=== PATIENT | male | born 1950 | race Caucasian/White ===

== ENCOUNTER 2017-07-27 18:54 | Inpatient (IN) | payer MEDICARE, SELFPAY ==
[2017-07-27] VITALS (14 sets, daily range): BP systolic 79–118; BP diastolic 45–88; PULSE 68–93; RESP 13–20; TEMP 35.7–36.6; O2SAT 95–99; BMI 20.4; BMI 20.8
--- NOTE | 2017-07-27 19:09 | EKG12_ITS ---
Test Reason : CP Blood Pressure : / mmHG Vent. Rate : 080 BPM Atrial Rate : 082 BPM P-R Int : 000 ms QRS Dur : 094 ms QT Int : 402 ms P-R-T Axes : 000 089 101 degrees QTc Int : 463 ms Atrial fibrillation with premature ventricular or aberrantly conducted complexes ST elevation consider inferior injury or acute infarct ACUTE MS / STEMI Consider right ventricular involvement in acute inferior infarct Abnormal ECG Confirmed by JOEY BRITO ([id number]), state editor KATHY DURAN ([id number] on 07/30/2017 1:28:50 PM Referred By: Joey Brito Confirmed By:JOEY BRITO
--- NOTE | 2017-07-27 19:10 | RAD_ITS ---
STUDY: X-RAY CHEST REASON FOR EXAM: Male, 67 years old. STEMI TECHNIQUE: Single frontal view of the chest. COMPARISON: August 11, 2013 FINDINGS: Chronic appearing increased interstitial lung markings. There is a right Port-A-Cath and/or mediport in place. The tip is in the superior vena caval - atrial junction. There are multiple overlying cardiac monitoring leads. There is no demonstrated pleural abnormality. The lung rodriguez are hyperexpanded. Enlarged heart size. Normal mediastinum and jose. Normal visualized pulmonary arteries. There is atherosclerotic calcification of the aortic arch with tortuosity. There are diffuse degenerative changes of the visualized thoracic spine. There is degenerative osteoarthritis of the bilateral shoulders. There is no demonstrated abnormality of the visualized soft tissue structures of the upper abdomen. RAD/Chest 1 View (Portable) IMPRESSION: There are no acute findings. Electronically Signed: Torrey Borges MD at 19:37 EDT , Service support ,
--- NOTE | 2017-07-27 19:14 | PCM.HP.STD ---
Problem List (1) GERD (gastroesophageal reflux disease) Status: Chronic (2) Severe protein-calorie malnutrition Status: Chronic (3) Inferior ID Status: Acute (4) Cardiogenic shock Status: Acute (5) Atrial fibrillation Status: Chronic Qualifiers: Atrial fibrillation type: chronic Qualified Code(s): I48.2 - Chronic atrial fibrillation (6) Altered vision right eye Status: Chronic (7) History of bladder cancer Status: Chronic (8) Mantle cell lymphoma Status: Chronic Qualifiers: Lymphoma site: unspecified region Qualified Code(s): C83.10 - Mantle cell lymphoma, unspecified site History of Present Illness Date of Admission: 07/27/17 Chief Complaint: Chest pain, STEMI The patient is a 67 y/o M w/ PMHx: GERD, Severe protein-calorie malnutrition, Chronic Atrial fibrillation following w/ Dr. Brar on chronic coumadin therapy, Chronic Altered vision right eye, History of bladder cancer , Active Mantle cell lymphoma with ongoing chemotherapy following w/ Dr. George, most recent chemotherapy Sunday who presents to the [facility] ED on 07/27/17 with constant, 10/10 central and substernal chest pressure without radiation with associated dyspnea, nausea without emesis but also chronic issue secondary to chemotherapy onset ~ 1 hour DATA SYSTEMS ANALYST in the ED with EKG w/ inferior ID. In the ED work-up included T 96.3, HR 75, BP initially 107/77-->79/57, RR 16, 96% on 2L NC, pending CBC, BMP, trop, mag, phos, coags, CXR. Dr. Brito, Cardiology contacted for STEMI call, ordered ASA 324 mg x 1, heparin 4,000 u bolus x 1, Brillinta 180 mg x 1 in addition to 500 cc bolus prior to transition to cardiac cork slabs sawyer per ED. Past Medical History Past Medical History (Chronic Problems): Chronic Problems GERD (gastroesophageal reflux disease) (Chronic) Severe protein-calorie malnutrition (Chronic) Atrial fibrillation (Chronic) Altered vision right eye (Chronic) History of bladder cancer (Chronic) 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) Allergies ampicillin Allergy (Verified 12/12/16 11:37) Rash phenazopyridine [Phenazopyridine] Allergy (Verified 12/12/16 11:37) Rash cephalexin [Cephalexin] Adverse Reaction (Verified 12/12/16 11:37) Upset Stomach trazodone Adverse Reaction (Verified 12/12/16 11:37) Nausea Home Medications: Ambulatory Orders Medication Instructions Recorded Gabapentin [Neurontin] 100 mg PO QHS 12/12/16 Pantoprazole Sodium [Protonix] 40 mg PO DAILY 12/12/16 Amiodarone HCl [Cordarone] 200 mg PO BID #60 tablet 12/20/16 Warfarin Sodium [Coumadin] 5 mg PO DAILY #30 tablet 12/20/16 Surgical History: - - Hernia repair, Tendon repair, Port, Splenectomy, Bone marrow bx, EGD, EBUS, T+A. Psychiatric History: No pertinent psych hx Lives: Spouse/ Significant Other Smoking Status: Never smoker Tobacco Use: Non-smoker Alcohol: None Drugs: None - *Family History Paternal History Items: - - Father with heart disease afib, had chf as well. Maternal History Items: Diabetes, Heart Disease Review of Systems Constitutional: Reports: Anorexia, Malaise, Weakness, Fatigue. Denies: Chills, Fever, Weight Change HEENT: Denies: Head Aches, Sinus Congestion, Sinus Drainage Cardiovascular: Reports: Chest Pain, Chest Pressure. Denies: Palpitations Respiratory: Reports: Shortness of Breath, Shortness of breath at rest, Shortness of breath upon exertion. Denies: Cough, Sputum production Gastrointestinal: Reports: Nausea. Denies: Abdominal Pain, Vomiting Genitourinary: Denies: Dysuria Musculoskeletal: Reports: Back Pain. Denies: Joint Pain, Joint Tenderness Skin: Denies: Rash, Wounds Neurological: Denies: Numbness, Tingling, Focal weakness Psychiatric: Denies: Anxiety, Depression, Homicidal Ideations, Suicidal Ideations Hematologic/ Lymphatic: Reports: Anemia, Easy Bruising, Easy Bleeding VTE Information - Inpt Only VTE Present on Admission: No VTE Mechan Device Prophylaxis: SCD's VTE Pharm Prophylaxis ordered?: Yes Patient Problems: Active and Suspected Problems Inferior ID (Acute) Cardiogenic shock (Acute) Subjective: Seated upright in the ED bed, ongoing chest pressure, uncomfortable appearing, very cachetic. Objective: Physical Examination: General: awake, alert, oriented x 3 and cooperative, seated upright in the ED bed, ongoing acute chest pressure, uncomfortable, cachetic appearing. Skin: normal color, turgor, no icterus, cyanosis. HEENT: AT/NC, EOMI, PERRLA, dry MM, no carotid bruits or JVD noted. Lungs: Diminished bases, moderate effort, no rales, ronchi or wheezing. Heart: Irregular; no gallop, rub audible, chest port in place RU chest. Abdomen: soft, thin habitus, cachectic, NTTP, ND, normal BS, s/p splenectomy per report, no HM. Extremities: no cyanosis, clubbing, or edema, muscle and fat loss evident. Neurological: patient awake, alert, oriented x 3; cognitive function intact; pupils equally reactive to light and accomodation; cranial nerves II-XII grossly normal, moving all 4 extremities, no focal deficits, strength severely globally decreased secondary to acute presentation. Psychiatric: affect appears fatigued, strained, no acute evidence of depressive or anxiety feelings. - Physical Exam Vital Signs Temp Pulse Resp BP Pulse Ox 96.3 F L 75 17 107/77 96 07/27/17 18:55 07/27/17 18:55 07/27/17 18:55 07/27/17 18:55 07/27/17 19:13 Oxygen Flow Rate (L/min) 2 Oxygen Delivery Method Nasal Cannula Weight: 134 lb 7.712 oz Body Mass Index (BMI) 20.4 Assessment/Plan Active and Suspected Problems Inferior ID (Acute) Cardiogenic shock (Acute) The patient is a 67 y/o M w/ PMHx: GERD, Severe protein-calorie malnutrition, Chronic Atrial fibrillation following w/ Dr. Brar on chronic coumadin therapy, Chronic Altered vision right eye, History of bladder cancer , Active Mantle cell lymphoma who presents to the [facility] ED on 07/27/17 with constant, 10/10 central and substernal chest pressure without radiation with associated dyspnea, nausea without emesis but also chronic issue secondary to chemotherapy onset ~ 1 hour DATA SYSTEMS ANALYST in the ED with EKG w/ inferior ID. (1) Chest Pain/Pressure w/ Acute Inferior STEMI w/ ? Cardiogenic Shock: In the ED work-up included T 96.3, HR 75, BP initially 107/77-->79/57, RR 16, 96% on 2L NC, pending CBC, BMP, trop, mag, phos, coags, CXR. Dr. Brito, Cardiology contacted for STEMI call, ordered ASA 324 mg x 1, heparin 4,000 u bolus x 1, Brillinta 180 mg x 1 in addition to 500 cc bolus. Following intervention in the cork slabs sawyer, will admit to ICU, maintain on a monitored bed, continue serial cardiac enzymes and EKGs, pending admission labs including mag, heparin bolus upon presentation, brillinta load in addition to ASA. Following pending VS, continue management w/ asa, brillinta, high dose statin w/ AM FLP, given low BP defer BB, ACEI addition pending re-assessment. Continue IVFs, pending evaluation EF in cath, may need alternate options for hypotension. Consider ICU consultation if remains concerning. ECHO pending. (2) Chronic Atrial Fibrillation: EKG inferior ID w/ AF, rate controlled, maintain on amiodarone, pending admission INR, on coumadin outpatient, follows w/ Dr. Brar. ECHO pending. (3) Active Mantle cell lymphoma: Noted ongoing chemotherapy following w/ Dr. George, most recent chemotherapy Sunday, chemotherapy precautions as needed, mag and phos pending upon admission. (4) Severe protein-calorie malnutrition: Evidenced per habitus, muscle and fat loss, nutrition consulted. (5) GERD: PPI. (6) DVT prophylaxis: SCDs, given heparin bolus in ED. Code Visit Inpatient E&M: 35776 Init Hosp L3
[2017-07-27] MEDS: TICAGRELOR 90 MG TABLET 180 MG PO (19:15)
[2017-07-27] MEDS: Aspirin 81 MG TAB.CHEW 324 MG PO (19:15)
[2017-07-27] MEDS: Heparin Injection 5,000 UNITS/ML Syringe 4000 UNITS IV (19:15)
--- NOTE | 2017-07-27 19:15 | ED.VISSUMM ---
- ER Visit Summary Date of Service: 07/27/17 Chief Complaint: Chest pain History of Present Illness: The patient is a 67 M history of A. fib on Coumadin. He also has a history of acute lymphoma for which he is being treated with chemotherapy. And has a right chest wall port. Patient states 1 hour ago while walking in his house he developed midsternal chest pain. He denies any radiation to his back, neck or jaw. He denies other symptoms. He states he has never had a heart attack. He has no stents nor has he ever had open heart surgery. Physical Examination: Older male vital signs are stable. His blood pressure is 107/77. His pulse ox is 97% on room air no hypoxia. We are placing him on 2 L. HEENT exam unremarkable. Neck nontender no lymphadenopathy. Lungs clear to auscultation bilaterally. Heart irregularly irregular rate in the 70s. Abdomen soft nontender. He is moving all 4 extremities. Calves are nontender without edema. Neurologically he is awake and alert without focal motor deficits. Skin is unremarkable. Test Results: EKG shows acute inferior [place] with reciprocal changes in leads V2 V3 and also lead I, II and aVL. His ST elevation in 2 3 and aVF. Labs are pending. As is the chest x-ray. Emergency Department Course and Treatment: Already spoken to Dr. Gerald Brito on-call for interventional cardiology. We are assembling the Field Counsel team. The patient will receive IV heparin bolus, p.o. Brilinta and p.o. aspirin. And is awaiting the Field Counsel. Treatment Plan: [] Disposition: Admit to the ICU after he goes to the cardiac catheterization lab Impression: Acute inferior WV Chronic atrial fibrillation Acute lymphoma being treated with chemotherapy This note was generated with [employer] dictation software. It may contain incorrect words, spelling, and punctuation that were not noted in review of the chart prior to signing ED Disposition - Plan for ED Patient: Chief Complaint: Chest Pain Referrals: Winter Lamas MD [Primary Care Provider] -
--- NOTE | 2017-07-27 19:21 | ED.DCSUM_ITS ---
- ER Visit Summary Date of Service: 07/27/17 Chief Complaint: Chest pain History of Present Illness: The patient is a 67 M history of A. fib on Coumadin. He also has a history of acute lymphoma for which he is being treated with chemotherapy. And has a right chest wall port. Patient states 1 hour ago while walking in his house he developed midsternal chest pain. He denies any radiation to his back, neck or jaw. He denies other symptoms. He states he has never had a heart attack. He has no stents nor has he ever had open heart surgery. Physical Examination: Older male vital signs are stable. His blood pressure is 107/77. His pulse ox is 97% on room air no hypoxia. We are placing him on 2 L. HEENT exam unremarkable. Neck nontender no lymphadenopathy. Lungs clear to auscultation bilaterally. Heart irregularly irregular rate in the 70s. Abdomen soft nontender. He is moving all 4 extremities. Calves are nontender without edema. Neurologically he is awake and alert without focal motor deficits. Skin is unremarkable. Test Results: EKG shows acute inferior ND with reciprocal changes in leads V2 V3 and also lead I, II and aVL. His ST elevation in 2 3 and aVF. Labs are pending. As is the chest x-ray. Emergency Department Course and Treatment: Already spoken to Dr. Gerald Brito on- call for interventional cardiology. We are assembling the Natural Foods Clerk team. The patient will receive IV heparin bolus, p.o. Brilinta and p.o. aspirin. And is awaiting the Natural Foods Clerk. Treatment Plan: [] Disposition: Admit to the ICU after he goes to the cardiac catheterization lab Impression: Acute inferior ND Chronic atrial fibrillation Acute lymphoma being treated with chemotherapy This note was generated with [facility] dictation software. It may contain incorrect words, spelling, and punctuation that were not noted in review of the chart prior to signing ED Disposition - Plan for ED Patient: Chief Complaint: Chest Pain Referrals: Winter Lamas MD [Primary Care Provider] -
--- NOTE | 2017-07-27 19:26 | HP.PCM_ITS ---
Problem List (1) GERD (gastroesophageal reflux disease) Status: Chronic (2) Severe protein-calorie malnutrition Status: Chronic (3) Inferior IL Status: Acute (4) Cardiogenic shock Status: Acute (5) Atrial fibrillation Status: Chronic Qualifiers: Atrial fibrillation type: chronic Qualified Code(s): I48.2 - Chronic atrial fibrillation (6) Altered vision right eye Status: Chronic (7) History of bladder cancer Status: Chronic (8) Mantle cell lymphoma Status: Chronic Qualifiers: Lymphoma site: unspecified region Qualified Code(s): C83.10 - Mantle cell lymphoma, unspecified site History of Present Illness Date of Admission: 07/27/17 Chief Complaint: Chest pain, STEMI The patient is a 67 y/o M w/ PMHx: GERD, Severe protein-calorie malnutrition, Chronic Atrial fibrillation following w/ Dr. Brar on chronic coumadin therapy , Chronic Altered vision right eye, History of bladder cancer , Active Mantle cell lymphoma with ongoing chemotherapy following w/ Dr. George, most recent chemotherapy Sunday who presents to the 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 In the ED work-up included T 96.3, HR 75, BP initially 107/77-->79/57, RR 16, 96% on 2L NC, pending CBC, BMP , trop, mag, phos, coags, CXR. Dr. Brito, Cardiology contacted for STEMI call, ordered ASA 324 mg x 1, heparin 4,000 u bolus x 1, Brillinta 180 mg x 1 in addition to 500 cc bolus prior to transition to cardiac blender laborer per ED. Past Medical History Past Medical History (Chronic Problems): Chronic Problems GERD (gastroesophageal reflux disease) (Chronic) Severe protein-calorie malnutrition (Chronic) Atrial fibrillation (Chronic) Altered vision right eye (Chronic) History of bladder cancer (Chronic) 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) Allergies ampicillin Allergy (Verified 12/12/16 11:37) Rash phenazopyridine [Phenazopyridine] Allergy (Verified 12/12/16 11:37) Rash cephalexin [Cephalexin] Adverse Reaction (Verified 12/12/16 11:37) Upset Stomach trazodone Adverse Reaction (Verified 12/12/16 11:37) Nausea Home Medications: Ambulatory Orders Medication Instructions Recorded Gabapentin [Neurontin] 100 mg PO QHS 12/12/16 Pantoprazole Sodium [Protonix] 40 mg PO DAILY 12/12/16 Amiodarone HCl [Cordarone] 200 mg PO BID #60 tablet 12/20/16 Warfarin Sodium [Coumadin] 5 mg PO DAILY #30 tablet 12/20/16 Surgical History: - - Hernia repair, Tendon repair, Port, Splenectomy, Bone marrow bx, EGD, EBUS, T+A. Psychiatric History: No pertinent psych hx Lives: Spouse/ Significant Other Smoking Status: Never smoker Tobacco Use: Non-smoker Alcohol: None Drugs: None - *Family History Paternal History Items: - - Father with heart disease afib, had chf as well. Maternal History Items: Diabetes, Heart Disease Review of Systems Constitutional: Reports: Anorexia, Malaise, Weakness, Fatigue. Denies: Chills, Fever, Weight Change HEENT: Denies: Head Aches, Sinus Congestion, Sinus Drainage Cardiovascular: Reports: Chest Pain, Chest Pressure. Denies: Palpitations Respiratory: Reports: Shortness of Breath, Shortness of breath at rest, Shortness of breath upon exertion. Denies: Cough, Sputum production Gastrointestinal: Reports: Nausea. Denies: Abdominal Pain, Vomiting Genitourinary: Denies: Dysuria Musculoskeletal: Reports: Back Pain. Denies: Joint Pain, Joint Tenderness Skin: Denies: Rash, Wounds Neurological: Denies: Numbness, Tingling, Focal weakness Psychiatric: Denies: Anxiety, Depression, Homicidal Ideations, Suicidal Ideations Hematologic/ Lymphatic: Reports: Anemia, Easy Bruising, Easy Bleeding VTE Information - Inpt Only VTE Present on Admission: No VTE Mechan Device Prophylaxis: SCD's VTE Pharm Prophylaxis ordered?: Yes Patient Problems: Active and Suspected Problems Inferior IL (Acute) Cardiogenic shock (Acute) Subjective: Seated upright in the ED bed, ongoing chest pressure, uncomfortable appearing, very cachetic. Objective: Physical Examination: General: awake, alert, oriented x 3 and cooperative, seated upright in the ED bed, ongoing acute chest pressure, uncomfortable, cachetic appearing. Skin: normal color, turgor, no icterus, cyanosis. HEENT: AT/NC, EOMI, PERRLA, dry MM, no carotid bruits or JVD noted. Lungs: Diminished bases, moderate effort, no rales, ronchi or wheezing. Heart: Irregular; no gallop, rub audible, chest port in place RU chest. Abdomen: soft, thin habitus, cachectic, NTTP, ND, normal BS, s/p splenectomy per report, no HM. Extremities: no cyanosis, clubbing, or edema, muscle and fat loss evident. Neurological: patient awake, alert, oriented x 3; cognitive function intact; pupils equally reactive to light and accomodation; cranial nerves II-XII grossly normal, moving all 4 extremities, no focal deficits, strength severely globally decreased secondary to acute presentation. Psychiatric: affect appears fatigued, strained, no acute evidence of depressive or anxiety feelings. - Physical Exam Vital Signs Temp Pulse Resp BP Pulse Ox 96.3 F L 75 17 107/77 96 07/27/17 18:55 07/27/17 18:55 07/27/17 18:55 07/27/17 18:55 07/27/17 19:13 Oxygen Flow Rate (L/min) 2 Oxygen Delivery Method Nasal Cannula Weight: 134 lb 7.712 oz Body Mass Index (BMI) 20.4 Assessment/Plan Active and Suspected Problems Inferior IL (Acute) Cardiogenic shock (Acute) The patient is a 67 y/o M w/ PMHx: GERD, Severe protein-calorie malnutrition, Chronic Atrial fibrillation following w/ Dr. Brar on chronic coumadin therapy , Chronic Altered vision right eye, History of bladder cancer , Active Mantle cell lymphoma who presents to the 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 (1) Chest Pain/Pressure w/ Acute Inferior STEMI w/ ? Cardiogenic Shock: In the ED work-up included T 96.3, HR 75, BP initially 107/77-->79/57, RR 16, 96% on 2L NC, pending CBC, BMP, trop, mag, phos, coags, CXR. Dr. Brito, Cardiology contacted for STEMI call, ordered ASA 324 mg x 1, heparin 4,000 u bolus x 1, Brillinta 180 mg x 1 in addition to 500 cc bolus. Following intervention in the blender laborer, will admit to ICU, maintain on a monitored bed, continue serial cardiac enzymes and EKGs, pending admission labs including mag, heparin bolus upon presentation, brillinta load in addition to ASA. Following pending VS, continue management w/ asa, brillinta, high dose statin w/ AM FLP, given low BP defer BB, ACEI addition pending re-assessment. Continue IVFs, pending evaluation EF in cath, may need alternate options for hypotension. Consider ICU consultation if remains concerning. ECHO pending. (2) Chronic Atrial Fibrillation: EKG inferior IL w/ AF, rate controlled, maintain on amiodarone, pending admission INR, on coumadin outpatient, follows w / Dr. Brar. ECHO pending. (3) Active Mantle cell lymphoma: Noted ongoing chemotherapy following w/ Dr. George, most recent chemotherapy Sunday, chemotherapy precautions as needed, mag and phos pending upon admission. (4) Severe protein-calorie malnutrition: Evidenced per habitus, muscle and fat loss, nutrition consulted. (5) GERD: PPI. (6) DVT prophylaxis: SCDs, given heparin bolus in ED. Code Visit Inpatient E&M: 69736 Init Hosp L3
[2017-07-27 19:37] LABS: Absolute Lymphocyte Count 1.86 X10^3/ul (0.83-4.51); Absolute Neutrophil Count 2.8 X10^3/uL (2.0-7.7); Basophil# 0.02 X10^3/uL; Basophil% 0.4 % (0-1); Eosinophils% 1.8 % (0-5); Hematocrit 42.4 % (40-54); Hemoglobin 14.5 g/dl (13.0-16.5); Lymphocyte # 1.86 X10^3/ul (4.0); Lymphocyte % 34.2 % (19-41); Mean Corp Hgb Conc 34.2 g/gl (32-36); Mean Corpuscular Volume 102.4 fL (80-94); Mean Platelet Vol. 11.5 fl (6.2-12.0); Monocyte# 0.64 X10^3/uL; Monocyte% 11.8 % (0-10); Neutrophil % 51.4 % (47-70); Platelet Count 174 K/mm3 (150-450); RBC Distribution Width CV 13.7 % (11.6-14.6); RBC Distribution Width SD 51.8 fl (35.1-43.9); Red Blood Count 4.14 M/mm3 (4.6-6.2); White Blood Count 5.4 K/mm3 (4.4-11.0)
[2017-07-27 19:41] LABS: POSITIVE COUNT NO; POSITIVE DIFFERENTIAL NO; POSITIVE MORPHOLOGY NO
[2017-07-27 19:48] LABS: International Normalized Ratio 1.3
[2017-07-27 20:06] LABS: Anion Gap 8 (5-15); BUN 15 mg/dL (7-18); BUN/Creat Ratio 13.9 RATIO (10-20); Calcium,Total 8.8 mg/dL (8.5-10.1); Chloride 108 mmol/L (98-107); Creatinine, Serum 1.08 mg/dL (0.70-1.30); EST Glomerular Filtration Rate 73 mL/min (>60); Est Glom Filt Rate - Afr Amer 88 mL/min (>60); Estimated Creatinine Clearance 58.83 ml/min; Glucose 107 mg/dL (74-106); Magnesium 2.2 mg/dL (1.6-2.6); Potassium 3.2 mmol/L (3.5-5.1); Sodium Level 143 mmol/L (136-145)
[2017-07-27 20:09] LABS: Phosphorus 3.1 mg/dL (2.5-4.9)
--- NOTE | 2017-07-27 20:51 | CL.I_ITS ---
Patient Name: BANDAR BLISS Study Date: 07/27/2017 Performing: Isacc Brito MD Ht: 68.11 inches 173 cm : 1950 Wt: 134.48 lbs 61 kg Age: 67 Gender: male BSA: 1.73 PROCEDURE(S) PERFORMED [id number]/LV [id number], BMS AND/OR PTCA ARTERY OR GRAFT SINGLE VESSEL CLINICAL PROFILE AND CO-MORBIDITIES INDICATIONS: Unstable Angina Stress/Imaging Stress/Image Study Performed: No Angina Classification Anginal Classification w/in 2 Weeks: No symptoms CAD Presentations: STEMI. Symptom onset Date/Time: 07/27/2017 17:30:00 Time Estimated Comorbidities/Risk Factors: Hypertension Dyslipidemia CONCLUSIONS Double vessel CAD of the LAD, acutely occluded RCA. Successful emergent PCI with Bare metal stent to the proximal RCA with a 4.0 x 26 BMS, post dilated w ith a 4.5 x 12 NC Balloon; 100%-->0%, no dissection. RECOMMENDATIONS Referred for immediate PCI Management as per referring [place] Elective PCI of LAD and DIAG in 3 weeks. Highly recommend quitting all tobacco products Follow up with primary commercial real estate assistant Risk factor modification ASA Indefinitley Brilinat or equivalent for at least 12 months Routine post interventional care Refer for Outpatient Cardiac Rehab Manual sheath removal per protocol Follow up with Dr. Brito Elective PCI to LAD and DIAG in 3 weeks. Leave sheath in overnight for BP monitoring. DESCRIPTION OF PROCEDURE The patient arrived to the procedure lab. The risks and benefits of the procedure as well as a full d escription of our services here and lack of surgical backup were fully explained to the patient and/o r their significant other prior to the catheterization. The Timeout was completed, verifying the rose ect patient and procedure. The patient's procedural site was prepped and draped in the usual fashion. Local anesthetic was given subcutaneously to right groin region with Lidocaine 2%. Using a modified Seldinger technique, arterial access was obtained via the right femoral artery, a 6Fr sheath was inse rted.. Left Coronary Artery selective angiography was performed in multiple views using a 4 Fr. JL5 catheter. Left Ventriculography was performed in LUQUE projection using a 4 Fr. Pigtail catheter HSII Guide catheter was inserted and engaged into the RCA. Runthru Guide wire was advanced to the RCA . Sumter AP inserted Pass # 1 Sumter AP Removed Sumter AP inserted Pass # 2 Sumter AP Removed Angiogr am performed pre balloon dilatation. 2.5x12 Emerge Balloon catheter was inserted. PTCA balloon inflat ed at 6 atms for 10 secs PTCA balloon inflated at 6 atms for 6 secs PTCA balloon inflated at 12 atms for 10 secs Sumter AP inserted Pass # 3 Sumter AP Removed Angiogram performed pre stent deployment. 4 .0x26 Integrity Bare Metal stent was advanced across the lesion in the right coronary, proximal. Rosalinda ogram performed post stent deployment. 4..5x20 NC Emerge Balloon catheter was inserted post stent. An giogram performed post balloon dilatation.. . The arterial sheath was sutured in place and capped. CORONARY ANGIOGRAPHY DOMINANCE: Right Dominant LEFT HEART ASSESSMENT Left Ventricular Ejection Fraction: by LV Gram 55 % Depressed Left Ventricular systolic function Normal Left Ventricular End Diastolic Pressure Inferior Basal Hypokinesis - Moderate LEFT MAIN: Angiographically normal LEFT ANTERIOR DECENDING ARTERY: PROX LAD: 75 % Stenosis DIAGONAL 1: Proximal - 75 % Stenosis CIRCUMFLEX ARTERY: No significant disease noted RIGHT CORONARY ARTERY: PROX RCA: is occluded INTERVENTION INFORMATION LESION SITE: RCA (Ostial) Lesion Complexity: High/C, lesion at bifurcation: No, thrombus present: Yes, lesion length: 26 mm, cu lprit lesion: Yes Pre Stenosis: 100 % Pre intervention SEPIDEH flow: 0 PROCEDURE: Thrombectomy, Balloon Angioplasty, Bare Metal Stent with pre and post dilatation. Post Stenosis: 0 % Post intervention SEPIDEH flow: 3 Lesion Devices: Terumo .014 Runthrough Extra Floppy 180cm straight Medtronic 6 Fr HSII 100cm Guide Catheter Medtronic 6 Fr. Sumter AP Aspiration Catheter Joaquin Sci EMERGE MR 2.50x12 BALLOON Medtronic Integrity RX BMS 4.0x26 Joaquin Sci NC EMERGE MR 4.50x12 BALLOON COMPLICATIONS No Complications PROCEDURE MEDICATIONS Oxygen: 2 L/min via nasal cannula Atropine 1mg/10ml .25 amp @ 07/27/2017 19:56:43 Heparin 4000 unit(s) IV 07/27/2017 19:59:18 IV Fluids: .9 NaCl increased to open ml/hr 07/27/2017 19:39:36 SUMMARY OF HEMODYNAMIC DATA Time AIR REST ECG 19:39:08 LV 108/-10, 12 20:25:14 LV 106/-8, 12 20:25:21 LVp 103/-10, 11 20:25:27 AOp 99/54 (73) 20:25:32 AOp 101/58 (76) 20:25:37 Signed By Isacc Brito MD On 07/27/2017 20:50:47 Isacc Brito MD
[2017-07-27 21:11] LABS: ACT Activated Clotting Time 202 sec (74-137)
[2017-07-27 21:11] LABS: ACT Activated Clotting Time 235 sec (74-137)
--- NOTE | 2017-07-27 21:19 | EKG12_ITS ---
Test Reason : POST CATH Blood Pressure : / mmHG Vent. Rate : 089 BPM Atrial Rate : 079 BPM P-R Int : 000 ms QRS Dur : 090 ms QT Int : 392 ms P-R-T Axes : 000 044 -20 degrees QTc Int : 476 ms Atrial fibrillation Low voltage QRS Abnormal ECG When compared with ECG of 20-DEC-2016 15:24, No significant change was found Confirmed by JOEY BRITO ([id number]), art editor KATHY DURAN ([id number]) on 08/02/2017 2:51:24 PM Referred By: Joey Brito Confirmed By:JOEY BRITO
[2017-07-27] MEDS: 0.9% Normal Saline 1,000 ML 150 ML IV (21:20)
[2017-07-27 22:05] LABS: Hematocrit 36.6 % (40-54); Hemoglobin 12.8 g/dl (13.0-16.5); Mean Corpuscular Hgb 35.7 pg (27.0-32.0); Mean Corpuscular Volume 101.9 fL (80-94); Mean Platelet Vol. 11.2 fl (6.2-12.0); Platelet Count 154 K/mm3 (150-450); RBC Distribution Width CV 13.5 % (11.6-14.6); Red Blood Count 3.59 M/mm3 (4.6-6.2); Scan Indicated on CBC? Y/N NO; White Blood Count 8.8 K/mm3 (4.4-11.0)
[2017-07-27 22:43] LABS: CPK Total, Creatine Kinase 323 U/L (39-308)
[2017-07-27 22:46] LABS: BNP,B-Type NATRIURETIC PEPTIDE 206.4 pg/mL (0-100)
[2017-07-27] MEDS: Gabapentin 100 MG Capsule PO (22:50)
[2017-07-27] MEDS: oxyCODONE 5 MG Tablet PO (22:50)
[2017-07-27] MEDS: Atorvastatin Calcium 80 MG Tablet PO (22:51)
[2017-07-27] MEDS: Amiodarone 200 MG Tablet PO (22:51)
[2017-07-27] MEDS: Metoprolol Tartrate 25 MG Tablet 12.5 MG PO (22:52)
[2017-07-28] VITALS (44 sets, daily range): BP systolic 84–119; BP diastolic 52–86; PULSE 65–87; RESP 6–19; TEMP 35.5–37; O2SAT 96–100
[2017-07-28] MEDS: Ondansetron 4 MG/2 ML Vial IV (01:13)
[2017-07-28 03:50] LABS: Hematocrit 38.5 % (40-54); Hemoglobin 12.9 g/dl (13.0-16.5); Mean Corp Hgb Conc 33.5 g/gl (32-36); Mean Corpuscular Hgb 34.9 pg (27.0-32.0); Mean Corpuscular Volume 104.1 fL (80-94); Platelet Count 158 K/mm3 (150-450); White Blood Count 6.2 K/mm3 (4.4-11.0)
[2017-07-28 03:51] LABS: Scan Indicated on CBC? Y/N NO
[2017-07-28 03:54] LABS: International Normalized Ratio 1.5; Prothrombin Time (Protime)PT. 18.2 SECONDS (11.7-14.9)
[2017-07-28 04:07] LABS: ALB/GLOB Ratio 1.4 RATIO (0.9-2.4); AST(SGOT) 104 U/L (15-37); Alanine Aminotransfer ALT/SGPT 27 U/L (16-61); Albumin, Serum 3.6 g/dL (3.2-5.0); Alkaline Phosphatase 61 U/L (45-117); Anion Gap 6 (5-15); BUN 13 mg/dL (7-18); BUN/Creat Ratio 14.3 RATIO (10-20); Chloride 109 mmol/L (98-107); Cholesterol 158 mg/dL (200); Creatinine, Serum 0.91 mg/dL (0.70-1.30); EST Glomerular Filtration Rate 89 mL/min (>60); Est Glom Filt Rate - Afr Amer 107 mL/min (>60); Globulin 2.5 g/dL (2.2-4.2); Glucose 109 mg/dL (74-106); High Density Lipoprotein 46 mg/dL; Potassium 4.1 mmol/L (3.5-5.1); Protein, Total 6.1 g/dL (6.4-8.2); Sodium Level 143 mmol/L (136-145); Triglycerides 66 mg/dL; Very Low Density Lipoprotein 13 mg/dL (5-40)
[2017-07-28 04:28] LABS: CPK Total, Creatine Kinase 894 U/L (39-308)
[2017-07-28] MEDS: oxyCODONE 5 MG Tablet PO ×2 (04:34→08:52)
[2017-07-28] MEDS: 0.9% NaCl Peripheral Flush Adult/Peds IV ×5 (04:35→21:08)
--- NOTE | 2017-07-28 05:55 | EKG12_ITS ---
Test Reason : AM EKG Blood Pressure : / mmHG Vent. Rate : 080 BPM Atrial Rate : 070 BPM P-R Int : 000 ms QRS Dur : 090 ms QT Int : 402 ms P-R-T Axes : 000 031 -42 degrees QTc Int : 463 ms Atrial fibrillation Low voltage QRS T wave abnormality, consider inferior ischemia Abnormal ECG When compared with ECG of 27-JUL-2017 22:53, MANUAL COMPARISON REQUIRED, DATA IS UNCONFIRMED Confirmed by JOEY BRITO ([id number]), makeup editor KATHY DURAN ([id number]) on 08/02/2017 2:52:11 PM Referred By: Joey Brito Confirmed By:JOEY BRITO
--- NOTE | 2017-07-28 05:55 | ECHOD_ITS ---
Reason For Study: CAD/ASHD Procedure This was a 2D Doppler, Color Flow transthoracic echocardiogram. Exam performed portable in ICU/CCU. Patient scanned supine. Left Ventricle Mildly dilated left ventricle. The estimated ejection fraction is 45-50 %. Infero-Basal: Mildly hypokinetic. Mid-Posterior: Mildly hypokinetic. Right Ventricle Mildly dilated right ventricle. Normal systolic function. Atria The left atrium is moderately enlarged. Normal right atrium. Normal atrial septum. Mitral Valve Mild focal mitral valve thickening. Mild mitral annular calcification extending into the posterior leaflet. Moderate (2+) mitral valve insufficiency. Tricuspid Valve Normal tricuspid valve. Mild (1+) tricuspid valve insufficiency. Right ventricular systolic pressure estimated to be 33 mmHg. Aortic Valve Trisinus/trileaflet aortic valve. Normal aortic valve. Pulmonic Valve Normal pulmonic valve. Great Vessels Normal aortic root. Normal arch. Normal inferior vena cava. Inferior vena cava collapse with sniff. Pericardium/Pleural No pericardial effusion. MMode/2D Measurements & Calculations LVIDd: 5.2 cm IVSd: 1.0 cm Ao root diam: 3.1 cm LVIDs: 4.0 cm LVPWd: 1.0 cm LA dimension: 4.8 cm RVDd: 3.8 cm FS: 22.6 % LAV(MOD-bp): 71.6 ml LA A4 area: 21.2 cm2 RA A4 area: 18.3 cm2 LAV(MOD-bp) Indexed: 41.5 ml/m2 LAV(MOD-sp2): 78.1 ml LAV(MOD-sp4): 60.1 ml Doppler Measurements & Calculations MV E max gene: 107.0 cm/sec Lat Peak E' Gene: 11.6 cm/sec Med Peak E' Gene: 7.1 cm/sec E/E' lat: 9.2 E/E' med: 15.2 Ao V2 max: 91.0 cm/sec LV V1 max: 64.2 cm/sec PA V2 max: 49.9 cm/sec Ao max P.3 mmHg LV V1 max P.7 mmHg Ao V2 mean: 64.8 cm/sec Ao mean P.9 mmHg Ao V2 VTI: 15.4 cm TR max gene: 212.5 cm/sec TR max P.1 mmHg Interpretation Summary Mildly dilated left ventricle. The estimated ejection fraction is 45-50 %. Infero-Basal: Mildly hypokinetic Mid-Posterior: Mildly hypokinetic Mildly dilated right ventricle. The left atrium is moderately enlarged. Moderate (2+) mitral valve insufficiency. Mild (1+) tricuspid valve insufficiency. Right ventricular systolic pressure estimated to be 33 mmHg. Compared to echo report dated 12/20/2016, pt has new inferior/posterior wall motion hypokinesis and LVEF has decreased from 65% to 50%. RVSP has remained the same. Pt appears to be in atrial fibrillation. Ordering Physician: Isacc Brito Referring Physician: iWnter Lamas Performed By: Jessica Hurst, RDCS, RVT
[2017-07-28] MEDS: Aspirin E.C. 81 MG Tablet PO (08:09)
[2017-07-28 08:15] LABS: ACT Activated Clotting Time 131 sec (74-137)
[2017-07-28 08:27] LABS: Hematocrit 36.6 % (40-54); Hemoglobin 12.5 g/dl (13.0-16.5); Mean Corp Hgb Conc 34.2 g/gl (32-36); Mean Corpuscular Volume 102.5 fL (80-94); Mean Platelet Vol. 11.4 fl (6.2-12.0); Platelet Count 151 K/mm3 (150-450); RBC Distribution Width CV 13.9 % (11.6-14.6); RBC Distribution Width SD 52.5 fl (35.1-43.9); Red Blood Count 3.57 M/mm3 (4.6-6.2); Scan Indicated on CBC? Y/N NO; White Blood Count 6.7 K/mm3 (4.4-11.0)
[2017-07-28 08:48] LABS: CPK Total, Creatine Kinase 866 U/L (39-308)
--- NOTE | 2017-07-28 09:14 | PN.CARD_ITS ---
Subjectve: Patient doing very well this morning, no 24 hour events. EKG shows atrial fibrillation with resolving inferior T-wave inversion. Telemetry shows atrial fibrillation with rapid ventricular response 3 beats of nonsustained V. tach. Hemoglobin stable, creatinine stable. Peak troponins of 38.6 thus far. INR 1.5 this morning. Objective: Vital Signs Temp Pulse Resp BP Pulse Ox 95.9 F L 80 16 101/78 96 07/28/17 08:00 07/28/17 08:00 07/28/17 08:00 07/28/17 08:00 07/28/17 08:00 Oxygen Flow Rate (L/min) 1 Oxygen Delivery Method Room Air Weight: 145 lb 15.136 oz Body Mass Index (BMI) 20.8 Intake and Output for Last 24 Hours 07/26/17 07/27/17 07/28/17 23:59 23:59 23:59 Intake Total 1095 / 1095 Output Total 175 / 175 Balance 920 / 920 General: Awake, Alert, Oriented x 3 HEENT: PERRL, EOMI, Sclera Non Icteric Neck: Supple, Good ROM, No Lymph Node Enlargement Lungs: Clear to auscultation Cardiovascular: Irregular Rhythm, Normal S1, Normal S2, No Murmurs, No Rubs, No Gallops Vascular: No Carotid Bruits, Normal Femoral Pulses, Normal Radial Pulses, Normal Dorsalis Pedal Pulse, Normal Posterior Tibial Pulses Abdomen: Bowel Sounds Present, Soft, Non Tender, No HSM, No Organomegaly Extremities: No Cyanosis, No Clubbing, No edema Neurological: No Focal Motor or Sensory Deficit 07/27/17 21:50: B-Natriuretic Peptide 206.4 H 07/27/17 21:50: WBC 8.8, RBC 3.59 L, Hgb 12.8 L, Hct 36.6 L, MCV 101.9 H, MCH 35.7 H, MCHC 35.0, RDW 13.5, RDW Differential 49.0 H, Plt Count 154, MPV 11.2 07/27/17 23:00: Troponin I 13.30 H* 07/28/17 03:30: PT 18.2 H, INR 1.5 07/28/17 03:30: Sodium 143, Potassium 4.1, Chloride 109 H, Carbon Dioxide 28.0, Anion Gap 6, BUN 13, Creatinine 0.91, Est GFR (MDRD) Af Amer 107, Est GFR (MDRD ) Non-Af 89, BUN/Creatinine Ratio 14.3, Glucose 109 H, Calcium 8.0 L, Total Bilirubin 0.40, Triglycerides 66, Cholesterol 158, LDL Cholesterol 99, VLDL Cholesterol 13, HDL Cholesterol 46 07/28/17 03:30: WBC 6.2, RBC 3.70 L, Hgb 12.9 L, Hct 38.5 L, MCV 104.1 H, MCH 34.9 H, MCHC 33.5, RDW 14.0, RDW Differential 53.0 H, Plt Count 158, MPV 11.0 07/28/17 03:30: Troponin I 34.30 H* 07/28/17 08:05: WBC 6.7, RBC 3.57 L, Hgb 12.5 L, Hct 36.6 L, MCV 102.5 H, MCH 35.0 H, MCHC 34.2, RDW 13.9, RDW Differential 52.5 H, Plt Count 151, MPV 11.4 07/28/17 08:05: Troponin I 36.80 H* Rhythm: EKG: ECHO: Pending Stress Test: Cardiac Cath: PCI: CT Surgery: Holter monitor: EPS: PPM: CXR: Chest CT Scan: Medical Necessity - Tobacco Use Smoking Status: Never smoker Tobacco Use: Non-smoker Assessment/Plan 1. Acute inferior wall myocardial infarction: The patient had acute inferior wall myocardial infarction with delayed presentation of approximately an hour and a half, door to balloon time of approximately 60 minutes, with successful thrombectomy and angioplasty and bare-metal stenting to his proximal RCA. He received a 4.0 mm diameter stent, postdilated to 4.5 mm. He also has significant mid LAD and proximal diagonal disease which will require elective intervention in 3 weeks time. Recommend continuing troponin monitoring until he peaks, at which time may consider discharge out of the ICU. He will continue his baby aspirin, Eliquis 90 mg p.o. twice daily, and resume his Coumadin in 3 days time once his right groin has healed. We will remove his sheets this morning as his INR is 1.3. 2. Atrial fibrillation: For some reason the patient was on amiodarone 200 mg twice daily upon admission, and I will reduce this to 200 mg a day. In addition he will undergo a 2D echo with Doppler to evaluate his LV function, pulmonary pressures and valvular status. We will resume his Coumadin in 3 days time. He will require Coumadin therapy with an INR between 2.03.0 for 3 consecutive weeks at which time we will hold it for elective angioplasty of his LAD and diagonal. 3. Hypertension: I started the patient on low-dose beta-cristhian therapy and his blood pressure has remained stable. Continue Lopressor 12.5 mg's p.o. twice daily. Patient still too hypotensive to initiate TREVOR inhibitor therapy. 4. Hyperlipidemia: Initiating Lipitor 80 mg p.o. nightly, repeat lipid profile in 6 weeks time. 5. Patient may be transferred to PCU once his troponins have peaked and assuming his right groin is stable after sheath removal. Code Visit Inpatient E&M: 97084 Subs Hosp L2
[2017-07-28] MEDS: TICAGRELOR 90 MG TABLET PO ×2 (13:08→21:52)
[2017-07-28] MEDS: Pantoprazole Sodium 40 MG Tablet PO (13:09)
--- NOTE | 2017-07-28 13:58 | CASEMGMT ---
Addendum entered by Basim Rao 07/28/17 14:01: [employer] savings card given to pt and explained. Original Note: See RN CM Assessment Link. DC PLAN: home, may benefit from [facility]. -pt w/severe protein-calorie malnutrition. dietary consult ordered. may need script for ensure enlive on dc. -will follow PT/OT when able to evaluate. Pt is still on bedrest. Shiva HARRISN RN ACM
[2017-07-28 14:20] LABS: Hematocrit 36.8 % (40-54); Hemoglobin 12.5 g/dl (13.0-16.5); Mean Corpuscular Hgb 35.2 pg (27.0-32.0); Mean Corpuscular Volume 103.7 fL (80-94); Mean Platelet Vol. 10.9 fl (6.2-12.0); Platelet Count 147 K/mm3 (150-450); RBC Distribution Width CV 13.9 % (11.6-14.6); RBC Distribution Width SD 52.9 fl (35.1-43.9); Red Blood Count 3.55 M/mm3 (4.6-6.2)
[2017-07-28 14:21] LABS: Scan Indicated on CBC? Y/N NO
[2017-07-28] MEDS: Amiodarone 200 MG Tablet PO (15:00)
[2017-07-28] MEDS: Metoprolol Tartrate 25 MG Tablet 12.5 MG PO (15:00)
--- NOTE | 2017-07-28 17:19 | PCM.PROGNOTE ---
Patient Problems: Active and Suspected Problems Inferior AR (Acute) Cardiogenic shock (Acute) Subjective: Pt is a 67 YO male with a PMH of GERD, CAF, Bladder CA and Active Mantle cell lymphoma( follows with Dr. George) who presented to the ED at [facility] on 07/27/17 c/o substernal CP that had lasted approximately 1 hour prior to coming to the ER. EKG in the ER showed STEMI in the inferior wall and the cath team was called. He was taken to the labeling specialist and had 100% occlusion of the RCA. He underwent PCI with a bare metal stent to the RCA. He also has disease in the LAD and will be brought back in 3 weeks for elective PCI to a 75% LAD lesion and 75% proximal diagonal lesion. He is afebrile. VS are stable. He is 97-100% saturated on RA. Troponin peaked at 36.8 and the last troponin was 24.3. Denies CP, palpitations, SOB, N/V. He is tolerating his diet well. Scheduled for his next chemo on 07/30. - Physical Exam General: Alert, Oriented x3, Cooperative, No apparent distress HEENT: Atraumatic Oral: Moist Mucosa Neck: No JVD Lungs: Clear to auscultation Cardiovascular: Normal S1, Normal S2, Irregular Rate - AF with controlled VR, No rub noted, No Gallop Abdomen: Bowel Sounds Present, Soft, Non Tender, Non-Distended Extremities: No cyanosis, No edema, No Calf Tenderness Psych/Mental Status: Normal Affect, Appropriate Vital Signs Temp Pulse Resp BP Pulse Ox 97.8 F 67 18 97/58 L 97 07/28/17 16:00 07/28/17 17:00 07/28/17 17:00 07/28/17 17:00 07/28/17 17:00 Oxygen Flow Rate (L/min) 97 Oxygen Delivery Method Room Air Weight: 145 lb 15.136 oz Body Mass Index (BMI) 20.8 Intake and Output for Last 24 Hours 07/26/17 07/27/17 07/28/17 23:59 23:59 23:59 Intake Total 1275 / 1275 Output Total 575 / 575 Balance 700 / 700 Laboratory Tests Past 24 Hrs 07/27/17 07/27/17 07/27/17 19:55 20:25 21:50 WBC RBC Hgb Hct MCV MCH MCHC RDW RDW Differential Plt Count MPV PT INR Activated Clotting Time 202 H 235 H Sodium Potassium Chloride Carbon Dioxide Anion Gap BUN Creatinine Estim Creat Clear Calc Est GFR (MDRD) Af Amer Est GFR (MDRD) Non-Af BUN/Creatinine Ratio Glucose Calcium Total Bilirubin AST ALT Alkaline Phosphatase Total Creatine Kinase Troponin I B-Natriuretic Peptide 206.4 H Total Protein Albumin Globulin Albumin/Globulin Ratio Triglycerides Cholesterol LDL Cholesterol VLDL Cholesterol HDL Cholesterol 07/27/17 07/27/17 07/27/17 21:50 21:50 23:00 WBC 8.8 RBC 3.59 L Hgb 12.8 L Hct 36.6 L MCV 101.9 H MCH 35.7 H MCHC 35.0 RDW 13.5 RDW Differential 49.0 H Plt Count 154 MPV 11.2 PT INR Activated Clotting Time Sodium Potassium Chloride Carbon Dioxide Anion Gap BUN Creatinine Estim Creat Clear Calc Est GFR (MDRD) Af Amer Est GFR (MDRD) Non-Af BUN/Creatinine Ratio Glucose Calcium Total Bilirubin AST ALT Alkaline Phosphatase Total Creatine Kinase 323 H Troponin I 13.30 H* B-Natriuretic Peptide Total Protein Albumin Globulin Albumin/Globulin Ratio Triglycerides Cholesterol LDL Cholesterol VLDL Cholesterol HDL Cholesterol 07/28/17 07/28/17 07/28/17 03:30 03:30 03:30 WBC 6.2 RBC 3.70 L Hgb 12.9 L Hct 38.5 L MCV 104.1 H MCH 34.9 H MCHC 33.5 RDW 14.0 RDW Differential 53.0 H Plt Count 158 MPV 11.0 PT 18.2 H INR 1.5 Activated Clotting Time Sodium 143 Potassium 4.1 Chloride 109 H Carbon Dioxide 28.0 Anion Gap 6 BUN 13 Creatinine 0.91 Estim Creat Clear Calc 71.20 Est GFR (MDRD) Af Amer 107 Est GFR (MDRD) Non-Af 89 BUN/Creatinine Ratio 14.3 Glucose 109 H Calcium 8.0 L Total Bilirubin 0.40 AST 104 H ALT 27 Alkaline Phosphatase 61 Total Creatine Kinase Troponin I B-Natriuretic Peptide Total Protein 6.1 L Albumin 3.6 Globulin 2.5 Albumin/Globulin Ratio 1.4 Triglycerides 66 Cholesterol 158 LDL Cholesterol 99 VLDL Cholesterol 13 HDL Cholesterol 46 07/28/17 07/28/17 07/28/17 03:30 03:30 08:04 WBC RBC Hgb Hct MCV MCH MCHC RDW RDW Differential Plt Count MPV PT INR Activated Clotting Time 131 Sodium Potassium Chloride Carbon Dioxide Anion Gap BUN Creatinine Estim Creat Clear Calc Est GFR (MDRD) Af Amer Est GFR (MDRD) Non-Af BUN/Creatinine Ratio Glucose Calcium Total Bilirubin AST ALT Alkaline Phosphatase Total Creatine Kinase 894 H Troponin I 34.30 H* B-Natriuretic Peptide Total Protein Albumin Globulin Albumin/Globulin Ratio Triglycerides Cholesterol LDL Cholesterol VLDL Cholesterol HDL Cholesterol 07/28/17 07/28/17 07/28/17 08:05 08:05 08:05 WBC 6.7 RBC 3.57 L Hgb 12.5 L Hct 36.6 L MCV 102.5 H MCH 35.0 H MCHC 34.2 RDW 13.9 RDW Differential 52.5 H Plt Count 151 MPV 11.4 PT INR Activated Clotting Time Sodium Potassium Chloride Carbon Dioxide Anion Gap BUN Creatinine Estim Creat Clear Calc Est GFR (MDRD) Af Amer Est GFR (MDRD) Non-Af BUN/Creatinine Ratio Glucose Calcium Total Bilirubin AST ALT Alkaline Phosphatase Total Creatine Kinase 866 H Troponin I 36.80 H* B-Natriuretic Peptide Total Protein Albumin Globulin Albumin/Globulin Ratio Triglycerides Cholesterol LDL Cholesterol VLDL Cholesterol HDL Cholesterol 07/28/17 07/28/17 14:10 14:10 WBC 8.0 RBC 3.55 L Hgb 12.5 L Hct 36.8 L MCV 103.7 H MCH 35.2 H MCHC 34.0 RDW 13.9 RDW Differential 52.9 H Plt Count 147 L MPV 10.9 PT INR Activated Clotting Time Sodium Potassium Chloride Carbon Dioxide Anion Gap BUN Creatinine Estim Creat Clear Calc Est GFR (MDRD) Af Amer Est GFR (MDRD) Non-Af BUN/Creatinine Ratio Glucose Calcium Total Bilirubin AST ALT Alkaline Phosphatase Total Creatine Kinase Troponin I 24.30 H* B-Natriuretic Peptide Total Protein Albumin Globulin Albumin/Globulin Ratio Triglycerides Cholesterol LDL Cholesterol VLDL Cholesterol HDL Cholesterol Medical Necessity - Tobacco Use Smoking Status: Never smoker Tobacco Use: Non-smoker Assessment/Plan Active and Suspected Problems Inferior AR (Acute) Cardiogenic shock (Acute) Impressions 1. STEMI - inferior wall 2. SP RCA bare metal stent for complete occlusion. will need to return in 3 weeks time to have stents to the LAD (75%) and the proximal diagonal(75%) 3. Mantle cell lymphoma - currently seeing Dr. George and receiving chemo 4. Hx of bladder cancer 5. hx of severe protein calorie malnutrition - resolved 6. CAF with good rate control 7. CAD transfer to PCU since the troponin is now trending down Restart Warfarin in another 48 hours Will need to follow up in the [facility] office to arrange PCI of the 75% LAD lesion and 75% proximal diagonal lesion in [address] Brito Code Visit Inpatient E&M: [id number] [facility] [place] Hosp L3
--- NOTE | 2017-07-28 17:44 | PN_ITS ---
Patient Problems: Active and Suspected Problems Inferior CO (Acute) Cardiogenic shock (Acute) Subjective: Pt is a 67 YO male with a PMH of GERD, CAF, Bladder CA and Active Mantle cell lymphoma( follows with Dr. George) who presented to the ED at [facility] on 07/27/17 c/o substernal CP that had lasted approximately 1 hour prior to coming to the ER. EKG in the ER showed STEMI in the inferior wall and the cath team was called. He was taken to the radiographer cardiac catheterization and had 100% occlusion of the RCA. He underwent PCI with a bare metal stent to the RCA. He also has disease in the LAD and will be brought back in 3 weeks for elective PCI to a 75% LAD lesion and 75% proximal diagonal lesion. He is afebrile. VS are stable. He is 97-100% saturated on RA. Troponin peaked at 36.8 and the last troponin was 24.3. Denies CP, palpitations, SOB, N/V. He is tolerating his diet well. Scheduled for his next chemo on 07/30. - Physical Exam General: Alert, Oriented x3, Cooperative, No apparent distress HEENT: Atraumatic Oral: Moist Mucosa Neck: No JVD Lungs: Clear to auscultation Cardiovascular: Normal S1, Normal S2, Irregular Rate - AF with controlled VR, No rub noted, No Gallop Abdomen: Bowel Sounds Present, Soft, Non Tender, Non-Distended Extremities: No cyanosis, No edema, No Calf Tenderness Psych/Mental Status: Normal Affect, Appropriate Vital Signs Temp Pulse Resp BP Pulse Ox 97.8 F 67 18 97/58 L 97 07/28/17 16:00 07/28/17 17:00 07/28/17 17:00 07/28/17 17:00 07/28/17 17:00 Oxygen Flow Rate (L/min) 97 Oxygen Delivery Method Room Air Weight: 145 lb 15.136 oz Body Mass Index (BMI) 20.8 Intake and Output for Last 24 Hours 07/26/17 07/27/17 07/28/17 23:59 23:59 23:59 Intake Total 1275 / 1275 Output Total 575 / 575 Balance 700 / 700 Laboratory Tests Past 24 Hrs 07/27/17 07/27/17 07/27/17 19:55 20:25 21:50 WBC RBC Hgb Hct MCV MCH MCHC RDW RDW Differential Plt Count MPV PT INR Activated Clotting Time 202 H 235 H Sodium Potassium Chloride Carbon Dioxide Anion Gap BUN Creatinine Estim Creat Clear Calc Est GFR (MDRD) Af Amer Est GFR (MDRD) Non-Af BUN/Creatinine Ratio Glucose Calcium Total Bilirubin AST ALT Alkaline Phosphatase Total Creatine Kinase Troponin I B-Natriuretic Peptide 206.4 H Total Protein Albumin Globulin Albumin/Globulin Ratio Triglycerides Cholesterol LDL Cholesterol VLDL Cholesterol HDL Cholesterol 07/27/17 07/27/17 07/27/17 21:50 21:50 23:00 WBC 8.8 RBC 3.59 L Hgb 12.8 L Hct 36.6 L MCV 101.9 H MCH 35.7 H MCHC 35.0 RDW 13.5 RDW Differential 49.0 H Plt Count 154 MPV 11.2 PT INR Activated Clotting Time Sodium Potassium Chloride Carbon Dioxide Anion Gap BUN Creatinine Estim Creat Clear Calc Est GFR (MDRD) Af Amer Est GFR (MDRD) Non-Af BUN/Creatinine Ratio Glucose Calcium Total Bilirubin AST ALT Alkaline Phosphatase Total Creatine Kinase 323 H Troponin I 13.30 H* B-Natriuretic Peptide Total Protein Albumin Globulin Albumin/Globulin Ratio Triglycerides Cholesterol LDL Cholesterol VLDL Cholesterol HDL Cholesterol 07/28/17 07/28/17 07/28/17 03:30 03:30 03:30 WBC 6.2 RBC 3.70 L Hgb 12.9 L Hct 38.5 L MCV 104.1 H MCH 34.9 H MCHC 33.5 RDW 14.0 RDW Differential 53.0 H Plt Count 158 MPV 11.0 PT 18.2 H INR 1.5 Activated Clotting Time Sodium 143 Potassium 4.1 Chloride 109 H Carbon Dioxide 28.0 Anion Gap 6 BUN 13 Creatinine 0.91 Estim Creat Clear Calc 71.20 Est GFR (MDRD) Af Amer 107 Est GFR (MDRD) Non-Af 89 BUN/Creatinine Ratio 14.3 Glucose 109 H Calcium 8.0 L Total Bilirubin 0.40 AST 104 H ALT 27 Alkaline Phosphatase 61 Total Creatine Kinase Troponin I B-Natriuretic Peptide Total Protein 6.1 L Albumin 3.6 Globulin 2.5 Albumin/Globulin Ratio 1.4 Triglycerides 66 Cholesterol 158 LDL Cholesterol 99 VLDL Cholesterol 13 HDL Cholesterol 46 07/28/17 07/28/17 07/28/17 03:30 03:30 08:04 WBC RBC Hgb Hct MCV MCH MCHC RDW RDW Differential Plt Count MPV PT INR Activated Clotting Time 131 Sodium Potassium Chloride Carbon Dioxide Anion Gap BUN Creatinine Estim Creat Clear Calc Est GFR (MDRD) Af Amer Est GFR (MDRD) Non-Af BUN/Creatinine Ratio Glucose Calcium Total Bilirubin AST ALT Alkaline Phosphatase Total Creatine Kinase 894 H Troponin I 34.30 H* B-Natriuretic Peptide Total Protein Albumin Globulin Albumin/Globulin Ratio Triglycerides Cholesterol LDL Cholesterol VLDL Cholesterol HDL Cholesterol 07/28/17 07/28/17 07/28/17 08:05 08:05 08:05 WBC 6.7 RBC 3.57 L Hgb 12.5 L Hct 36.6 L MCV 102.5 H MCH 35.0 H MCHC 34.2 RDW 13.9 RDW Differential 52.5 H Plt Count 151 MPV 11.4 PT INR Activated Clotting Time Sodium Potassium Chloride Carbon Dioxide Anion Gap BUN Creatinine Estim Creat Clear Calc Est GFR (MDRD) Af Amer Est GFR (MDRD) Non-Af BUN/Creatinine Ratio Glucose Calcium Total Bilirubin AST ALT Alkaline Phosphatase Total Creatine Kinase 866 H Troponin I 36.80 H* B-Natriuretic Peptide Total Protein Albumin Globulin Albumin/Globulin Ratio Triglycerides Cholesterol LDL Cholesterol VLDL Cholesterol HDL Cholesterol 07/28/17 07/28/17 14:10 14:10 WBC 8.0 RBC 3.55 L Hgb 12.5 L Hct 36.8 L MCV 103.7 H MCH 35.2 H MCHC 34.0 RDW 13.9 RDW Differential 52.9 H Plt Count 147 L MPV 10.9 PT INR Activated Clotting Time Sodium Potassium Chloride Carbon Dioxide Anion Gap BUN Creatinine Estim Creat Clear Calc Est GFR (MDRD) Af Amer Est GFR (MDRD) Non-Af BUN/Creatinine Ratio Glucose Calcium Total Bilirubin AST ALT Alkaline Phosphatase Total Creatine Kinase Troponin I 24.30 H* B-Natriuretic Peptide Total Protein Albumin Globulin Albumin/Globulin Ratio Triglycerides Cholesterol LDL Cholesterol VLDL Cholesterol HDL Cholesterol Medical Necessity - Tobacco Use Smoking Status: Never smoker Tobacco Use: Non-smoker Assessment/Plan Active and Suspected Problems Inferior CO (Acute) Cardiogenic shock (Acute) Impressions 1. STEMI - inferior wall 2. SP RCA bare metal stent for complete occlusion. will need to return in 3 weeks time to have stents to the LAD (75%) and the proximal diagonal(75%) 3. Mantle cell lymphoma - currently seeing Dr. George and receiving chemo 4. Hx of bladder cancer 5. hx of severe protein calorie malnutrition - resolved 6. CAF with good rate control 7. CAD transfer to PCU since the troponin is now trending down Restart Warfarin in another 48 hours Will need to follow up in the [facility] office to arrange PCI of the 75% LAD lesion and 75% proximal diagonal lesion in [address] Brito Code Visit Inpatient E&M: [id number] [facility] Hosp L3
[2017-07-28 21:21] LABS: Hematocrit 36.2 % (40-54); Hemoglobin 12.2 g/dl (13.0-16.5); Mean Corp Hgb Conc 33.7 g/gl (32-36); Mean Corpuscular Hgb 34.9 pg (27.0-32.0); Mean Corpuscular Volume 103.4 fL (80-94); Mean Platelet Vol. 11.2 fl (6.2-12.0); Platelet Count 158 K/mm3 (150-450); RBC Distribution Width CV 14.1 % (11.6-14.6); RBC Distribution Width SD 53.1 fl (35.1-43.9); White Blood Count 6.7 K/mm3 (4.4-11.0)
[2017-07-28 21:23] LABS: Scan Indicated on CBC? Y/N NO
[2017-07-28] MEDS: Atorvastatin Calcium 80 MG Tablet PO (21:52)
[2017-07-28] MEDS: Gabapentin 100 MG Capsule PO (21:54)
[2017-07-29] VITALS (13 sets, daily range): BP systolic 90–103; BP diastolic 48–73; PULSE 75–88; RESP 16–18; TEMP 36.4–37; O2SAT 94–98
--- NOTE | 2017-07-29 05:55 | EKG12_ITS ---
Test Reason : AM EKG Blood Pressure : / mmHG Vent. Rate : 088 BPM Atrial Rate : 214 BPM P-R Int : 000 ms QRS Dur : 082 ms QT Int : 398 ms P-R-T Axes : 000 023 -54 degrees QTc Int : 481 ms Atrial fibrillation Low voltage QRS T wave abnormality, consider inferior ischemia Abnormal ECG When compared with ECG of 28-JUL-2017 05:12, MANUAL COMPARISON REQUIRED, DATA IS UNCONFIRMED Confirmed by JEOY BRITO ([id number]), editorial intern KATHY DURAN ([id number] on 08/02/2017 3:04:08 PM Referred By: Joey Brito Confirmed By:JOEY BRITO
[2017-07-29] MEDS: Aspirin E.C. 81 MG Tablet PO (08:09)
[2017-07-29] MEDS: Acetaminophen 325 MG Tablet PO (08:09)
--- NOTE | 2017-07-29 09:11 | PCM.PN.CARD ---
Subjectve: Patient doing well this morning, no further chest pain. Telemetry shows atrial fibrillation with controlled ventricular response. EKG shows atrial fibrillation with controlled ventricular response and resolving inferior wall VT. Peak troponin thus far is 36.8, and decreased to 24.3. Hemoglobin and creatinine within nominal limits. Objective: Vital Signs Temp Pulse Resp BP Pulse Ox 98.6 F 77 16 93/66 94 07/29/17 05:24 07/29/17 07:15 07/29/17 05:24 07/29/17 05:24 07/29/17 07:30 Oxygen Flow Rate (L/min) 97 Oxygen Delivery Method Room Air Weight: 132 lb 4.438 oz Body Mass Index (BMI) 20.8 Intake and Output for Last 24 Hours 07/27/17 07/28/17 07/29/17 23:59 23:59 23:59 Intake Total 1835 / 1835 120 / 120 Output Total 1425 / 1425 Balance 410 / 410 120 / 120 General: Awake, Alert, Oriented x 3 HEENT: PERRL, EOMI, Sclera Non Icteric Neck: Supple, Good ROM, No Lymph Node Enlargement Lungs: Clear to auscultation Cardiovascular: Irregular Rhythm, Normal S1, Normal S2, No Murmurs, No Rubs, No Gallops Murmur Murmur: Grade 2/6, Holosystolic Vascular: No Carotid Bruits, Normal Femoral Pulses, Normal Radial Pulses, Normal Dorsalis Pedal Pulse, Normal Posterior Tibial Pulses Abdomen: Bowel Sounds Present, Soft, Non Tender, No HSM, No Organomegaly Extremities: No Cyanosis, No Clubbing, No edema Neurological: No Focal Motor or Sensory Deficit 07/28/17 14:10: WBC 8.0, RBC 3.55 L, Hgb 12.5 L, Hct 36.8 L, MCV 103.7 H, MCH 35.2 H, MCHC 34.0, RDW 13.9, RDW Differential 52.9 H, Plt Count 147 L, MPV 10.9 07/28/17 14:10: Troponin I 24.30 H* 07/28/17 20:00: WBC 6.7, RBC 3.50 L, Hgb 12.2 L, Hct 36.2 L, MCV 103.4 H, MCH 34.9 H, MCHC 33.7, RDW 14.1, RDW Differential 53.1 H, Plt Count 158, MPV 11.2 Rhythm: EKG: ECHO: LVEF of 40-45%, 2+ MR, inferior posterior hypokinesis due to recent inferior VT. Stress Test: Cardiac Cath: PCI: CT Surgery: Holter monitor: EPS: PPM: CXR: Chest CT Scan: Medical Necessity - Tobacco Use Smoking Status: Never smoker Tobacco Use: Non-smoker Assessment/Plan 1. Acute inferior wall myocardial infarction: The patient had acute inferior wall myocardial infarction with delayed presentation of approximately an hour and a half, door to balloon time of approximately 60 minutes, with successful thrombectomy and angioplasty and bare-metal stenting to his proximal RCA. He received a 4.0 mm diameter stent, postdilated to 4.5 mm. He also has significant mid LAD and proximal diagonal disease which will require elective intervention in 3 weeks time. Patient's troponin has peaked at 36 and now is decreased to 24. Telemetry is negative for ventricular arrhythmias. He will continue his baby aspirin, Eliquis 90 mg p.o. twice daily, and resume his Coumadin in 2 days time once his right groin has healed. We will remove his sheets this morning as his INR is 1.3. 2. Atrial fibrillation: For some reason the patient was on amiodarone 200 mg twice daily upon admission, and I will reduce this to 200 mg a day. In addition he will undergo a 2D echo with Doppler to evaluate his LV function, pulmonary pressures and valvular status. We will resume his Coumadin in 2 days time. He will require Coumadin therapy with an INR between 2.0 and 3.0 for 3 consecutive weeks at which time we will hold it for elective angioplasty of his LAD and diagonal. 3. Hypertension: I started the patient on low-dose beta-cristhian therapy and his blood pressure has remained stable. Continue Lopressor 12.5 mg's p.o. twice daily. Patient still too hypotensive to initiate TREVOR inhibitor therapy. 4. Hyperlipidemia: Initiating Lipitor 80 mg p.o. nightly, repeat lipid profile in 6 weeks time. 5. Patient may be discharged home on Sunday morning, and may proceed with chemotherapy. Recommend starting his Coumadin on Sunday evening. We will make arrangements for patient to undergo elective PCI of LAD and diagonal in 3 weeks time. Once the patient is back on his Coumadin for 4 weeks time after that, we will then proceed with elective DC cardioversion.
[2017-07-29] MEDS: TICAGRELOR 90 MG TABLET PO ×2 (10:03→22:54)
[2017-07-29] MEDS: Pantoprazole Sodium 40 MG Tablet PO (10:03)
[2017-07-29] MEDS: Amiodarone 200 MG Tablet PO (10:03)
--- NOTE | 2017-07-29 13:23 | PCM.PROGNOTE ---
Patient Problems: Active and Suspected Problems Inferior NC (Acute) Cardiogenic shock (Acute) Subjective: Pt is a 67 YO male with a PMH of GERD, CAF, Bladder CA and Active Mantle cell lymphoma( follows with Dr. George) who presented to the ED at [facility] on 07/27/17 c/o substernal CP that had lasted approximately 1 hour prior to coming to the ER. EKG in the ER showed STEMI in the inferior wall and the cath team was called. He was taken to the film laboratory technician and had 100% occlusion of the RCA. He underwent PCI with a bare metal stent to the RCA. He also has disease in the LAD and will be brought back in 3 weeks for elective PCI to a 75% LAD lesion and 75% proximal diagonal lesion. TMAX: Afebrile since admission. Vital signs: Controlled ventricular response with a heart rate ranging between 67 and 88. Blood pressures since 6 PM last evening have ranged from 91/58 to 103/61. Pulse ox is 94-95% on room air. Fluid balance: Intake and output are not accurate. Urine output: Good urine output. Weight: Not accurate. All radiologic testing was reviewed: All labs were personally reviewed: Microbiology: Telemetry: Atrial fibrillation with controlled ventricular response and rare PVC. No significant pauses ECHO: Mildly dilated left ventricle with a 45-50% ejection fraction with segmental wall motion abnormality in the inferobasal, mid posterior. Totally dilated right ventricle and moderately dilated left atrium. 2+ MR and 1+ TR. Right ventricular systolic pressure is estimated at 33. Objective: - Physical Exam General: Alert, Oriented x3, Cooperative, No apparent distress, - - ambulated without assist in the metzger today and had no c/o SOB or CP HEENT: Atraumatic Oral: Moist Mucosa Neck: Supple, No JVD Lungs: Clear to auscultation, No rhonchi, No wheeze, No rales Cardiovascular: Normal S1, Normal S2, Irregular Rate - with controlled VR on the telemetry occasional PVC's. No NSVT, No rub noted, No Gallop Abdomen: Bowel Sounds Present, Soft, Non Tender, Non-Distended Extremities: No edema, No Calf Tenderness Psych/Mental Status: Normal Affect, Appropriate Vital Signs Temp Pulse Resp BP Pulse Ox 98.4 F 75 18 91/58 L 95 07/29/17 10:01 07/29/17 11:08 07/29/17 10:01 07/29/17 10:01 07/29/17 10:01 Oxygen Flow Rate (L/min) 97 Oxygen Delivery Method Room Air Weight: 132 lb 4.438 oz Body Mass Index (BMI) 20.8 Intake and Output for Last 24 Hours 07/27/17 07/28/17 07/29/17 23:59 23:59 23:59 Intake Total 1835 / 1835 680 / 680 Output Total 1425 / 1425 Balance 410 / 410 680 / 680 Laboratory Tests Past 24 Hrs 07/28/17 07/28/17 07/28/17 14:10 14:10 20:00 WBC 8.0 6.7 RBC 3.55 L 3.50 L Hgb 12.5 L 12.2 L Hct 36.8 L 36.2 L MCV 103.7 H 103.4 H MCH 35.2 H 34.9 H MCHC 34.0 33.7 RDW 13.9 14.1 RDW Differential 52.9 H 53.1 H Plt Count 147 L 158 MPV 10.9 11.2 Troponin I 24.30 H* Medical Necessity - Tobacco Use Smoking Status: Never smoker Tobacco Use: Non-smoker Assessment/Plan Active and Suspected Problems Inferior NC (Acute) Cardiogenic shock (Acute) Impressions 1. STEMI - inferior wall with cardiogenic shock at admission 2. SP RCA bare metal stent for complete occlusion. will need to return in 3 weeks time to have stents to the LAD (75%) and the proximal diagonal(75%) 3. Mantle cell lymphoma - currently seeing Dr. George and receiving chemo 4. Hx of bladder cancer 5. hx of severe protein calorie malnutrition - resolved 6. CAF with good rate control 7. CAD 8. mild ischemic CM Probable DC if no adverse events overnight Restart the Coumadin tomorrow recheck BMP and the mag in the AM After he has a therapeutic INR between 2 and 3 for 3 weeks he will be bought back for PCI LAD and the proximal diagonal I discussed with the patient and his and answered all there questions Code Visit Inpatient E&M: [id number] Subs Hosp L2
--- NOTE | 2017-07-29 13:27 | PN_ITS ---
Patient Problems: Active and Suspected Problems Inferior AR (Acute) Cardiogenic shock (Acute) Subjective: Pt is a 67 YO male with a PMH of GERD, CAF, Bladder CA and Active Mantle cell lymphoma( follows with Dr. George) who presented to the ED at [facility] on 07/27/17 c/o substernal CP that had lasted approximately 1 hour prior to coming to the ER. EKG in the ER showed STEMI in the inferior wall and the cath team was called. He was taken to the laborer powerhouse and had 100% occlusion of the RCA. He underwent PCI with a bare metal stent to the RCA. He also has disease in the LAD and will be brought back in 3 weeks for elective PCI to a 75% LAD lesion and 75% proximal diagonal lesion. TMAX: Afebrile since admission. Vital signs: Controlled ventricular response with a heart rate ranging between 67 and 88. Blood pressures since 6 PM last evening have ranged from 91/58 to 103/61. Pulse ox is 94-95% on room air. Fluid balance: Intake and output are not accurate. Urine output: Good urine output. Weight: Not accurate. All radiologic testing was reviewed: All labs were personally reviewed: Microbiology: Telemetry: Atrial fibrillation with controlled ventricular response and rare PVC. No significant pauses ECHO: Mildly dilated left ventricle with a 45-50% ejection fraction with segmental wall motion abnormality in the inferobasal, mid posterior. Totally dilated right ventricle and moderately dilated left atrium. 2+ MR and 1+ TR. Right ventricular systolic pressure is estimated at 33. Objective: - Physical Exam General: Alert, Oriented x3, Cooperative, No apparent distress, - - ambulated without assist in the metzger today and had no c/o SOB or CP HEENT: Atraumatic Oral: Moist Mucosa Neck: Supple, No JVD Lungs: Clear to auscultation, No rhonchi, No wheeze, No rales Cardiovascular: Normal S1, Normal S2, Irregular Rate - with controlled VR on the telemetry occasional PVC's. No NSVT, No rub noted, No Gallop Abdomen: Bowel Sounds Present, Soft, Non Tender, Non-Distended Extremities: No edema, No Calf Tenderness Psych/Mental Status: Normal Affect, Appropriate Vital Signs Temp Pulse Resp BP Pulse Ox 98.4 F 75 18 91/58 L 95 07/29/17 10:01 07/29/17 11:08 07/29/17 10:01 07/29/17 10:01 07/29/17 10:01 Oxygen Flow Rate (L/min) 97 Oxygen Delivery Method Room Air Weight: 132 lb 4.438 oz Body Mass Index (BMI) 20.8 Intake and Output for Last 24 Hours 07/27/17 07/28/17 07/29/17 23:59 23:59 23:59 Intake Total 1835 / 1835 680 / 680 Output Total 1425 / 1425 Balance 410 / 410 680 / 680 Laboratory Tests Past 24 Hrs 07/28/17 07/28/17 07/28/17 14:10 14:10 20:00 WBC 8.0 6.7 RBC 3.55 L 3.50 L Hgb 12.5 L 12.2 L Hct 36.8 L 36.2 L MCV 103.7 H 103.4 H MCH 35.2 H 34.9 H MCHC 34.0 33.7 RDW 13.9 14.1 RDW Differential 52.9 H 53.1 H Plt Count 147 L 158 MPV 10.9 11.2 Troponin I 24.30 H* Medical Necessity - Tobacco Use Smoking Status: Never smoker Tobacco Use: Non-smoker Assessment/Plan Active and Suspected Problems Inferior AR (Acute) Cardiogenic shock (Acute) Impressions 1. STEMI - inferior wall with cardiogenic shock at admission 2. SP RCA bare metal stent for complete occlusion. will need to return in 3 weeks time to have stents to the LAD (75%) and the proximal diagonal(75%) 3. Mantle cell lymphoma - currently seeing Dr. George and receiving chemo 4. Hx of bladder cancer 5. hx of severe protein calorie malnutrition - resolved 6. CAF with good rate control 7. CAD 8. mild ischemic CM Probable DC if no adverse events overnight Restart the Coumadin tomorrow recheck BMP and the mag in the AM After he has a therapeutic INR between 2 and 3 for 3 weeks he will be bought back for PCI LAD and the proximal diagonal I discussed with the patient and his and answered all there questions Code Visit Inpatient E&M: [id number] Subs Hosp L2
[2017-07-29] MEDS: Metoprolol Tartrate 25 MG Tablet 12.5 MG PO (22:53)
[2017-07-29] MEDS: Gabapentin 100 MG Capsule PO (22:54)
[2017-07-29] MEDS: Atorvastatin Calcium 80 MG Tablet PO (22:54)
[2017-07-30] VITALS (9 sets, daily range): BP systolic 102–108; BP diastolic 68–80; PULSE 73–89; RESP 16; TEMP 36.6–36.8; O2SAT 96–98; BMI 20.3
--- NOTE | 2017-07-30 05:55 | EKG12_ITS ---
Test Reason : AM EKG Blood Pressure : / mmHG Vent. Rate : 073 BPM Atrial Rate : 326 BPM P-R Int : 000 ms QRS Dur : 086 ms QT Int : 412 ms P-R-T Axes : 000 -02 -63 degrees QTc Int : 453 ms Atrial fibrillation Anterior infarct , age undetermined T wave abnormality, consider inferior ischemia Abnormal ECG When compared with ECG of 29-JUL-2017 05:38, MANUAL COMPARISON REQUIRED, DATA IS UNCONFIRMED Confirmed by JOEY BRITO ([id number]), business editor KATHY DURAN ([id number]) on 08/02/2017 3:07:39 PM Referred By: Joey Brito Confirmed By:JOEY BRITO
--- NOTE | 2017-07-30 08:32 | CRPHASE1 ---
Patient Data/Charges Television Parts Tester:: Isacc Brito Refer Phase II:: Yes Phase II Referral:: [facility] Start Phase II:: After follow up with Cardiology or after next stent. Phase I Charge:: Level I - Education Risk Factors/Lifestyle Smoking Status: Never smoker Hx Hypertension: No Hx Diabetes Mellitus Type 1: No Hx Diabetes Mellitus Type 2: No Hx Metabolic Disorders: No Hx Dyslipidemia: No Hx Obesity: No Height: 1.73 m Weight:: 60.781 kg BMI: 20.3 ETOH: No Risk Factor for Sedentary Lifestyle: Highest Risk Family History: Heart Disease Past Cardiac Illness: Arrhythmias - Chronic AF Laboratory Values: Cardiac Rehab Phase I Labs Triglycerides 66 mg/dL (-199) 07/28/17 03:30 Cholesterol 158 mg/dL (200) 07/28/17 03:30 LDL Cholesterol 99 mg/dL (0-130) 07/28/17 03:30 HDL Cholesterol 46 mg/dL (40-) 07/28/17 03:30 Phase I Education Given On:: [place], Nutrition, Antiplatelet medication, CHF Issues Affecting Care:: None Knowledge of Condition:: Yes Learning Preferences: Verbal, Written, Audio/Visual, Demonstration Medical/Surgical History Arrhythmias:: Yes - Chronic AF GERD:: Yes Cancer:: Yes - Lymphoma, bladder cancer Discharge/Home/Social Eval Marital Status: Patient Lives With:: Social Work/Reason:: Not working since had Lymphoma.
--- NOTE | 2017-07-30 08:38 | CRPHASE1_ITS ---
Patient Data/Charges Golf Coach:: Isacc Brito Refer Phase II:: Yes Phase II Referral:: [facility] Start Phase II:: After follow up with Cardiology or after next stent. Phase I Charge:: Level I - Education Risk Factors/Lifestyle Smoking Status: Never smoker Hx Hypertension: No Hx Diabetes Mellitus Type 1: No Hx Diabetes Mellitus Type 2: No Hx Metabolic Disorders: No Hx Dyslipidemia: No Hx Obesity: No Height: 1.73 m Weight:: 60.781 kg BMI: 20.3 ETOH: No Risk Factor for Sedentary Lifestyle: Highest Risk Family History: Heart Disease Past Cardiac Illness: Arrhythmias - Chronic AF Laboratory Values: Cardiac Rehab Phase I Labs Triglycerides 66 mg/dL (-199) 07/28/17 03:30 Cholesterol 158 mg/dL (200) 07/28/17 03:30 LDL Cholesterol 99 mg/dL (0-130) 07/28/17 03:30 HDL Cholesterol 46 mg/dL (40-) 07/28/17 03:30 Phase I Education Given On:: Lane, Nutrition, Antiplatelet medication, CHF Issues Affecting Care:: None Knowledge of Condition:: Yes Learning Preferences: Verbal, Written, Audio/Visual, Demonstration Medical/Surgical History Arrhythmias:: Yes - Chronic AF GERD:: Yes Cancer:: Yes - Lymphoma, bladder cancer Discharge/Home/Social Eval Marital Status: Patient Lives With:: Social Work/Reason:: Not working since had Lymphoma.
--- NOTE | 2017-07-30 08:40 | CRPH1.INST_ITS ---
General Education CAD and cardiac anatomy and function:: Patient communicates acknowledgment, Needs reinforcement Explanation of diagnoses and procedures:: Patient communicates acknowledgment, Needs reinforcement Sign/Symptoms of SC:: Patient communicates acknowledgment, Needs reinforcement Antiplatelet therapy: Patient communicates acknowledgment, Needs reinforcement Proper use of NTG-SL: Patient communicates acknowledgment, Needs reinforcement Emergency procedures and activation of EMS: Patient communicates acknowledgment , Needs reinforcement Compliance of all prescribed medications: Patient communicates acknowledgment, Needs reinforcement Smoking Patient Nicotine/Smoking Risk Factors Are:: Non-smoker Nicotine/Smoking Response Code:: Patient communicates acknowledgment Dyslipidemia Patient Dyslipidemia Risk Factors Are:: Total Cholesterol, Triglycerides, HDL, LDL Recommendations Include:: Lipid profile provided, Reviewed NCEP/ATP guidelines, Therapeutic Lifestyle Change dietary guidelines Dyslipidemia Response Code:: Patient communicates acknowledgment, Needs reinforcement Overweight/Obesity Patient Overweight/Obesity Risk Factors Are:: BMI Normal [18-25 & < 65 years old ] Recommendations Include:: Exercise 5-7 times/week Overweight/Obesity:: Patient communicates acknowledgment, Needs reinforcement Hypertension Patient Hypertension Risk Factors Are:: No documented hx of HTN Recommendations Include:: Maintain BP <130/85, DASH dietary guidelines, Decrease /maintain normal body weight, Moderation of ETOH Hypertension:: Patient communicates acknowledgment, Needs reinforcement Heart Disease Heart Disease Response Code:: Patient communicates acknowledgment Diabetes Patient Diabetes Risk Factors Are:: No documented hx of diabetes Diabetes:: Patient communicates acknowledgment Metabolic Syndrome Recommendations Include:: Does not meet criteria Metabolic Syndrome Response Code:: Not instructed Sedentary Patient Sedentary Risk Factors Are:: Lack of regular exercise Recommendations Include:: Aerobic exercise 5-7 times/week for 20-30 minutes continuously, Benefits of regular exercise, Discussed home walking program, Monitored Outpatient Cardiac Rehab Sedentary Response Code:: Patient communicates acknowledgment, Needs reinforcement Stress Patient Stress Risk Factors Are:: Patient denies stress as a risk factor Recommendations Include:: Identification of stressors, and assessment of coping skills, Stress management techniques Stress Response Code:: Patient communicates acknowledgment, Needs reinforcement
[2017-07-30] MEDS: Aspirin E.C. 81 MG Tablet PO (09:42)
[2017-07-30] MEDS: TICAGRELOR 90 MG TABLET PO (09:43)
[2017-07-30] MEDS: Pantoprazole Sodium 40 MG Tablet PO (09:43)
[2017-07-30] MEDS: Metoprolol Tartrate 25 MG Tablet 12.5 MG PO (09:43)
[2017-07-30] MEDS: Amiodarone 200 MG Tablet PO (09:43)
--- NOTE | 2017-07-30 10:21 | PCM.PN.CARD ---
Subjectve: Patient doing very well this morning, no 24 hour events. Telemetry negative. Hemoglobin and creatinine within normal limits. Objective: Vital Signs Temp Pulse Resp BP Pulse Ox 98.2 F 80 16 102/80 97 07/30/17 10:19 07/30/17 10:19 07/30/17 10:19 07/30/17 10:19 07/30/17 10:19 Oxygen Flow Rate (L/min) 97 Oxygen Delivery Method Room Air Weight: 134 lb Body Mass Index (BMI) 20.8 Intake and Output for Last 24 Hours 07/28/17 07/29/17 07/30/17 23:59 23:59 23:59 Intake Total 1835 / 1835 1420 / 1420 240 / 240 Output Total 1425 / 1425 Balance 410 / 410 1420 / 1420 240 / 240 General: Awake, Alert, Oriented x 3 HEENT: PERRL, EOMI, Sclera Non Icteric Neck: Supple, Good ROM, No Lymph Node Enlargement Lungs: Clear to auscultation Cardiovascular: Regular Rhythm, Normal S1, Normal S2, No Murmurs, No Rubs, No Gallops Vascular: No Carotid Bruits, Normal Femoral Pulses, Normal Radial Pulses, Normal Dorsalis Pedal Pulse, Normal Posterior Tibial Pulses Abdomen: Bowel Sounds Present, Soft, Non Tender, No HSM, No Organomegaly Extremities: No Cyanosis, No Clubbing, No edema Neurological: No Focal Motor or Sensory Deficit Rhythm: EKG: ECHO: Stress Test: Cardiac Cath: PCI: CT Surgery: Holter monitor: EPS: PPM: CXR: Chest CT Scan: Medical Necessity - Tobacco Use Smoking Status: Never smoker Tobacco Use: Non-smoker Assessment/Plan 1. Acute inferior wall myocardial infarction: The patient had acute inferior wall myocardial infarction with delayed presentation of approximately an hour and a half, door to balloon time of approximately 60 minutes, with successful thrombectomy and angioplasty and bare-metal stenting to his proximal RCA. He received a 4.0 mm diameter stent, postdilated to 4.5 mm. He also has significant mid LAD and proximal diagonal disease which will require elective intervention in 3 weeks time. Patient's troponin has peaked at 36 and now is decreased to 24. Telemetry is negative for ventricular arrhythmias. He will continue his baby aspirin, Eliquis 90 mg p.o. twice daily, and resume his Coumadin today.. Patient will continue Coumadin for 3 weeks time, then hold it 3 days prior to his elective PCI of his LAD and diagonal. 2. Atrial fibrillation: For some reason the patient was on amiodarone 200 mg twice daily upon admission, and I will reduce this to 200 mg a day. We will resume his Coumadin in 2 days time. He will require Coumadin therapy with an INR between 2.0 and 3.0 for 3 consecutive weeks at which time we will hold it for elective angioplasty of his LAD and diagonal. 3. Hypertension: I started the patient on low-dose beta-cristhian therapy and his blood pressure has remained stable. Continue Lopressor 12.5 mg's p.o. twice daily. Patient still too hypotensive to initiate TREVOR inhibitor therapy. 4. Hyperlipidemia: Initiating Lipitor 80 mg p.o. nightly, repeat lipid profile in 6 weeks time. 5. Patient may be discharged home today, and may proceed with chemotherapy. Recommend starting his Coumadin on Sunday evening. We will make arrangements for patient to undergo elective PCI of LAD and diagonal in 3 weeks time. Once the patient is back on his Coumadin for 4 weeks time after that, we will then proceed with elective DC cardioversion followed by cardiac rehab and repeat echocardiogram after that.. Code Visit Inpatient E&M: 84590 Subs Hosp L2
--- NOTE | 2017-07-30 11:15 | PCM.DC ---
- Discharge Diagnoses Current Active Problems: Current Active and Chronic Problems GERD (gastroesophageal reflux disease) (Chronic) Severe protein-calorie malnutrition (Chronic) Inferior [place] (Acute) Cardiogenic shock (Acute) Reason(s) for Visit for Discharge Instructions: Chest pain You will use the following diet at home:: Cardiac Your food should be the consistency of: Regular Your liquids should be the consistency of: Regular/Thin Discharge Activity: Return to Normal Activity Additional Instructions: Per Dr. Brito, you can resume your coumadin from tonight. Check your INR within 2 days and follow-up as scheduled with Dr. Brito. Kindly let your doctor know or go to the ED if you develop chest pain or notice blood in your stools or black stools. Allergies/Adverse Reactions: Allergies ampicillin Allergy (Verified 12/12/16 11:37) Rash phenazopyridine [Phenazopyridine] Allergy (Verified 12/12/16 11:37) Rash cephalexin [Cephalexin] Adverse Reaction (Verified 12/12/16 11:37) Upset Stomach trazodone Adverse Reaction (Verified 12/12/16 11:37) Nausea Medications to take at Discharge Gabapentin [Neurontin] 100 mg PO QHS 12/12/16 Pantoprazole Sodium [Protonix] 40 mg PO DAILY 12/12/16 Warfarin Sodium [Coumadin] 5 mg PO DAILY #30 tablet 12/20/16 Amiodarone HCl [Cordarone] 200 mg PO DAILY #30 tablet 07/30/17 Aspirin E.C. [Ecotrin] 81 mg PO DAILY@0800 #30 tablet 07/30/17 Atorvastatin Calcium [Lipitor] 80 mg PO QHS #30 tablet 07/30/17 Metoprolol Tartrate [Lopressor (beta cristhian)] 12.5 mg PO BID #60 tablet 07/30/17 Ticagrelor [Brilinta] 90 mg PO BID #60 tablet 07/30/17 The following prescriptions were given: Amiodarone HCl [Cordarone] 200 mg PO DAILY #30 tablet Aspirin E.C. [Ecotrin] 81 mg PO DAILY@0800 #30 tablet Atorvastatin Calcium [Lipitor] 80 mg PO QHS #30 tablet Metoprolol Tartrate [Lopressor (beta cristhian)] 12.5 mg PO BID #60 tablet Ticagrelor [Brilinta] 90 mg PO BID #60 tablet Orders to be completed after discharge: Prothrombin Time w/INR Time Frame: 2 Days, Location: Laboratory Primary Care Physician: Winter Lamas MD [Primary Care Provider] - Please follow up with your Primary Care Physician in: within 2 weeks Please Follow Up With: Isacc Brito MD When: as scheduled Proposed Discharge Date: 07/30/17
--- NOTE | 2017-07-30 11:22 | DS.PCM_ITS ---
Discharge Date and Diagnosis Date of Admission: 07/27/17 Date of Discharge: 07/30/17 - Primary Discharge Diagnosis Active and Suspected Problems Inferior [place] (Acute) Cardiogenic shock (Acute) - Secondary Discharge Diagnosis Chronic Problems GERD (gastroesophageal reflux disease) (Chronic) Severe protein-calorie malnutrition (Chronic) Atrial fibrillation (Chronic) Altered vision right eye (Chronic) History of bladder cancer (Chronic) 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) Hospital Course and Treatment Imaging Results: Clinical Impression(s) from Imaging Studies Chest X-Ray 07/27/17 19:10 IMPRESSION: There are no acute findings. Electronically Signed: Torrey Borges MD at 19:37 EDT , Service support , Cardiology Operations: None Procedures: 2-D Echocardiogram, Cardiac catheterization Summary of Care Provided: 67-year-old male with past medical history of GERD, severe protein calorie malnutrition, chronic atrial fibrillation on Coumadin, history of bladder cancer , active mantle cell lymphoma undergoing chemotherapy with Dr. George who comes in with complaints of 10/10 central substernal chest pain without radiation associated with nausea but no emesis. Patient had a delayed presentation of approximately an hour and half with her daughter to balloon time of approximately 60 minutes. Patient had last had his chemotherapy a few days prior. Vitals in the ER showed blood pressure of 79/57, with abnormal EKG consistent with inferior [place]. STEMI call was made and patient was given aspirin 324 mg ?1 and given heparin and Brilinta and taken to the [facility]. Findings during the cardiac cath showed 75% stenosis of the LAD, 75% stenosis of circumflex, proximal RCA was occluded. Thrombectomy, balloon angioplasty was done with bare-metal stent placed in the proximal RCA. He was continued on aspirin, Brilinta, and his Coumadin was supposed to be resumed on 07/30/17 night. Patient was monitored a couple of days subsequently with no acute events on telemetry and was then discharged. Discharge Diet: Low fat/ Low Cholesterol, 2000 mg Sodium Diet Discharge Activity: Return to Normal Activity Home Medications: Medications to take at Discharge Gabapentin [Neurontin] 100 mg PO QHS 12/12/16 Pantoprazole Sodium [Protonix] 40 mg PO DAILY 12/12/16 Warfarin Sodium [Coumadin] 5 mg PO DAILY #30 tablet 12/20/16 Amiodarone HCl [Cordarone] 200 mg PO DAILY #30 tab 07/30/17 Aspirin E.C. [Ecotrin] 81 mg PO DAILY@0800 #30 tab 07/30/17 Atorvastatin Calcium [Lipitor] 80 mg PO QHS #30 tab 07/30/17 Metoprolol Tartrate [Lopressor (beta stuart)] 12.5 mg PO BID #60 tab 07/30/17 Ticagrelor [Brilinta] 90 mg PO BID #60 tab 07/30/17 Following Prescrptions Were Given to Patient: Amiodarone HCl [Cordarone] 200 mg PO DAILY #30 tab Aspirin E.C. [Ecotrin] 81 mg PO DAILY@0800 #30 tab Atorvastatin Calcium [Lipitor] 80 mg PO QHS #30 tab Metoprolol Tartrate [Lopressor (beta stuart)] 12.5 mg PO BID #60 tab Ticagrelor [Brilinta] 90 mg PO BID #60 tab Primary Care Physician: Winter Lamas MD [Primary Care Provider] - Please follow up with your Primary Care Physician in: within 2 weeks Please Follow Up With: Isacc Brito MD When: as scheduled Disposition: Home Minutes spent on discharge:: 25 Patient Condition:: Stable Medical Necessity - Tobacco Use Smoking Status: Never smoker Tobacco Use: Non-smoker Meaningful Use Info Meaningful Use Diagnoses (Choose all that apply): AMI - AMI Aspirin given w/in 24hrs of arrival?: Yes ASA at discharge?: Yes Statins at discharge?: Yes Rayshawn/ARB at discharge?: No Reason Rayshawn/ARB not ordered:: Hypotension Beta Stuart at discharge?: Yes Done w/ Acute [place] measure.: Yes Code Visit Inpatient E&M: 59011 Disch Hosp
--- NOTE | 2017-07-30 11:48 | CASEMGMT ---
Per Dr. Carranza, pt to be sent home on Brilinta. Script e-scribed to [facility] at this time. This DOROTEO KNUTSON placed call to [facility] and per pharmacist, pt's co-pay will be $30.39/month. Pt/ updated on all at this time and given Brilinta coupon cards at this time, voice understanding. Pt awaiting dispo. Debbie SADLER CM
[2017-07-30] MEDS: 0.9% NaCl VAD Flush 10 ML IV (14:11)
== END 2017-07-30 14:11 | disposition home or self-care (01) | DRG 248 ==
LOC: ED 19:22 → ICU 19:24 → PCU 07-28 18:53
PROVIDERS: Internal Medicine; Internal Medicine Cardiovascular Disease; Admitting Provider Family Medicine; Emergency Provider Emergency Medicine; Family Provider Internal Medicine; PCP Internal Medicine; Visit Provider Internal Medicine
DX: I21.19 ST elevation (STEMI) myocardial infarction involving other coronary artery of inferior wall (principal); R57.0 Cardiogenic shock; C83.10 Mantle cell lymphoma, unspecified site; I48.2 Chronic atrial fibrillation; Z68.20 Body mass index [BMI] 20.0-20.9, adult; K21.9 Gastro-esophageal reflux disease without esophagitis; Z85.51 Personal history of malignant neoplasm of bladder; Z79.899 Other long term (current) drug therapy; Z79.01 Long term (current) use of anticoagulants; I25.110 Atherosclerotic heart disease of native coronary artery with unstable angina pectoris; E78.5 Hyperlipidemia, unspecified; I25.5 Ischemic cardiomyopathy
CPT/HCPCS: 36591; 71045; 80048; 80053; 80061; 82550; 83735; 83880; 84100; 84484; 85025; 85027; 85347; 85610; 92941; 93005; 93306; 93458; 97162; 97165; 97802; 99282; J7030; J7040; Q9957; Q9967; A4216; C1725; C1757; C1769; C1876; C1887; J2405

== ENCOUNTER → 2017-08-01 13:19 | Outpatient (CLI) | payer MEDICARE, OTHER, SELFPAY ==
[2017-08-01 13:54] LABS: International Normalized Ratio 1.3; Prothrombin Time (Protime)PT. 15.7 SECONDS (11.7-14.9)
== END ==
PROVIDERS: Family Provider Internal Medicine; PCP Internal Medicine; Visit Provider Internal Medicine
DX: I48.2 Chronic atrial fibrillation (principal)
CPT/HCPCS: 36415; 85610

== ENCOUNTER 2017-08-16 07:56 | Day surgery (SDC) | payer MEDICARE, OTHER, SELFPAY ==
[2017-08-08 14:19] LABS: Absolute Lymphocyte Count 1.06 X10^3/ul (0.83-4.51); Absolute Neutrophil Count 5.1 X10^3/uL (2.0-7.7); Basophil# 0.03 X10^3/uL; Basophil% 0.4 % (0-1); Eosinophil# 0.14 X10^3/uL; Hematocrit 43.1 % (40-54); Hemoglobin 14.7 g/dl (13.0-16.5); Lymphocyte # 1.06 X10^3/ul (4.0); Lymphocyte % 15.5 % (19-41); Mean Corp Hgb Conc 34.1 g/gl (32-36); Mean Corpuscular Hgb 35.3 pg (27.0-32.0); Mean Corpuscular Volume 103.6 fL (80-94); Monocyte# 0.54 X10^3/uL; Monocyte% 7.9 % (0-10); Neutrophil # 5.05 X10^3/uL (2.7-7.7); Neutrophil % 73.9 % (47-70); Platelet Count 305 K/mm3 (150-450); RBC Distribution Width CV 14.3 % (11.6-14.6); RBC Distribution Width SD 54.3 fl (35.1-43.9); Red Blood Count 4.16 M/mm3 (4.6-6.2); White Blood Count 6.8 K/mm3 (4.4-11.0)
[2017-08-08 14:21] LABS: POSITIVE COUNT NO; POSITIVE DIFFERENTIAL NO; POSITIVE MORPHOLOGY NO
[2017-08-08 14:48] LABS: International Normalized Ratio 2.8; Prothrombin Time (Protime)PT. 29.5 SECONDS (11.7-14.9)
[2017-08-08 14:49] LABS: Anion Gap 6 (5-15); BUN 13 mg/dL (7-18); BUN/Creat Ratio 11.7 RATIO (10-20); Chloride 106 mmol/L (98-107); Creatinine, Serum 1.11 mg/dL (0.70-1.30); EST Glomerular Filtration Rate 71 mL/min (>60); Est Glom Filt Rate - Afr Amer 86 mL/min (>60); Glucose 81 mg/dL (74-106); Potassium 3.7 mmol/L (3.5-5.1); Sodium Level 142 mmol/L (136-145)
[2017-08-14 12:25] VITALS: BMI 20.3
[2017-08-16] VITALS (26 sets, daily range): BP systolic 90–117; BP diastolic 54–98; PULSE 70–88; RESP 10–18; TEMP 36.6–37.1; O2SAT 96–98
[2017-08-16 08:20] LABS: Prothrombin Time Fingerstick 15.9 SEC (11.9-14.4)
--- NOTE | 2017-08-16 11:23 | CL.I_ITS ---
Patient Name: BANDAR BLISS Study Date: 08/16/2017 Performing: Isacc Brito MD Ht: 68.11 inches 173 cm : 1950 Wt: 134.48 lbs 61 kg Age: 67 Gender: male BSA: 1.73 PROCEDURE(S) PERFORMED [id number] W OR WO PTCA, SINGLE CORONARY ARTERY [id number] W OR WO PTCA, EACH ADD'L ARTERY, SAME MAJOR CLINICAL PROFILE AND CO-MORBIDITIES Indications: Worsening Angina Heart Failure: None Stress/Imaging Stress Test w/SPECT MPI: Yes Result: Negative Stress Test with SPECT MPI: Negative Angina Classification Anginal Classification w/in 2 Weeks: CCS III CAD Presentations: Unstable angina. Comorbidities/Risk Factors: Current/Recent Smoker (< 1year) Hypertension Dyslipidemia CONCLUSIONS Successful PTCA/ROMULO of the proximal DIAG#1 with a 3.0 x 16 Promus Synergy; 80%-->0%, no dissection. Successful PTCA/ROMULO of the mid LAD with a 2.5 x 24 Promus Synergy, post dilated with a 3.5 x 8 NC in the middle, and a 4.0 x 8 NC ballon in proximal stent; 85%-->0%, no dissection. RECOMMENDATIONS Highly recommend quitting all tobacco products Follow up with primary filling hand Risk factor modification ASA Indefinitley Plavix for at least 12 months Routine post interventional care Refer for Outpatient Cardiac Rehab Manual sheath removal per protocol F/u with Dr Brar. Restart coumadin in 3 days. DESCRIPTION OF PROCEDURE The patient arrived to the procedure lab. The risks and benefits of the procedure as well as a full d escription of our services here and current unavailability of surgical backup were fully explained to the patient and/or their significant other prior to the catheterization. The Timeout was completed, verifying the correct patient and procedure. The patient's procedural site was prepped and draped in the usual fashion. Local anesthetic was given subcutaneously to right groin region with Lidocaine 2%. Using a modified Seldinger technique, arterial access was obtained via the right femoral artery, a 6 Fr sheath was inserted.. EBU 3.75 Guide catheter was inserted and engaged into the LCA. BMW Guide wire was advanced to the LAD . BMW Guide wire was advanced to the 1st Diagonal. 2.0x12 Emerge Balloon catheter was advanced across lesion in the first diagonal, proximal. PTCA balloon inflated at 6 atms for 10 secs 2.0x12 Emerge Ba lloon catheter was advanced across lesion in the LAD, mid. PTCA balloon inflated at 10 atms for 12 se cs PTCA balloon inflated at 6 atms for 7 secs Angiogram performed post balloon dilatation. 3.0x16 Syn ergy Drug Eluting stent was advanced across the lesion in the first diagonal, proximal. Angiogram per formed post stent deployment. 2.5x24 Synergy Drug Eluting stent was advanced across the lesion in the LAD, mid. Angiogram performed post stent deployment. 3.5x8 NC Emerg Balloon catheter was inserted po st stent. Angiogram performed post balloon dilatation. 2.5x8 Synergy Drug Eluting stent was advanced across the lesion in the LAD, mid. Drug Eluting stent was removed intact, failed to cross lesion 4.0x 8 NC Emerge Balloon catheter was advanced across lesion in the LAD, mid. PTCA balloon inflated at 12 atms for 11 secs 2.5x8 synergy Drug Eluting stent was inserted Drug Eluting stent was removed intact, failed to cross lesion 2.0x12 Balloon catheter was inserted. PTCA balloon inflated at 6 atms for 22 secs Angiogram performed post balloon dilatation. synergy 2.5x8 Drug Eluting stent was inserted Drug Eluting stent was removed intact, failed to cross lesion bmw Guide wire was inserted as a paula wire into LAD synergy 2.5x Drug Eluting stent was inserted Drug Eluting stent was removed intact, failed t o cross lesion. . The arterial sheath was sutured in place and capped. INTERVENTION INFORMATION LESION SITE: 1st Diagonal (Proximal) Lesion Complexity: High/C, lesion at bifurcation: Yes, thrombus present: No, culprit lesion: No Pre Stenosis: 85 % Pre intervention SEPIDEH flow: 3 PROCEDURE: Drug Eluting Stent with pre and post dilatation Post Stenosis: 0 % Post intervention SEPIDEH flow: 3 Lesion Devices: Medtronic 6 Fr EBU3.75 100cm Guide Catheter Interiano .014 [employer] [place] Straight 190cm Joaquin Sci EMERGE MR 2.00x12 BALLOON Joaquin Sci Synergy MR ROMULO 3.00x16 LESION SITE: LAD (Mid) Lesion Complexity: High/C, lesion at bifurcation: Yes, thrombus present: No, lesion length: 24 mm, cu lprit lesion: Yes Pre Stenosis: 85 % Pre intervention SEPIDEH flow: 3 PROCEDURE: Drug Eluting Stent with pre and post dilatation Post Stenosis: 0 % Post intervention SEPIDEH flow: 3 Lesion Devices: Medtronic 6 Fr EBU3.75 100cm Guide Catheter Interiano .014 [employer] [place] Straight 190cm Joaquin Sci EMERGE MR 2.00x12 BALLOON Joaquin Sci Synergy MR ROMULO 2.50x24 Joaquin Sci NC EMERGE MR 3.50x08 BALLOON Joaquin Sci Synergy MR ROMULO 2.50x08 Joaquin Sci NC EMERGE MR 4.00x08 BALLOON COMPLICATIONS No Complications PROCEDURE MEDICATIONS Versed 1 mg IV Oxygen: 2 L/min via nasal cannula Heparin 6000 unit(s) IV 08/16/2017 10:30:29 Heparin 3000 unit(s) IV 08/16/2017 11:11:41 Nitro 200 mcg IC 08/16/2017 10:32:32 Nitro 200 mcg IC 08/16/2017 10:32:32 IV Bolus: .9 NaCl 500ml total 08/16/2017 11:11:15 SUMMARY OF HEMODYNAMIC DATA Time AIR REST ECG 08:27:39 ECG 10:14:34 AO 137/63 (93) SA 10:31:33 Signed By Isacc Brito MD On 08/16/2017 11:23:31 AM Isacc Brito MD
--- NOTE | 2017-08-16 11:30 | EKG12_ITS ---
Test Reason : POST PCI Blood Pressure : / mmHG Vent. Rate : 071 BPM Atrial Rate : 105 BPM P-R Int : 000 ms QRS Dur : 080 ms QT Int : 420 ms P-R-T Axes : 000 018 -56 degrees QTc Int : 456 ms Atrial fibrillation Septal infarct (cited on or before 30-JUL-2017) T wave abnormality, consider inferior ischemia Abnormal ECG When compared with ECG of 30-JUL-2017 05:00, Nonspecific T wave abnormality now evident in Lateral leads Confirmed by JIMMY TELLEZ, LENNOX ([id number]), associate editor KATHY DURAN ([id number]) on 08/21/2017 9:44:22 AM Referred By: Isacc Brito Confirmed By:LENNOX MARQUEZ MD
[2017-08-16 11:51] LABS: ACT Activated Clotting Time 318 sec (74-137)
[2017-08-16 11:59] LABS: Hematocrit 37.6 % (40-54); Hemoglobin 12.8 g/dl (13.0-16.5); Mean Corpuscular Hgb 34.8 pg (27.0-32.0); Mean Corpuscular Volume 102.2 fL (80-94); Mean Platelet Vol. 10.2 fl (6.2-12.0); Platelet Count 254 K/mm3 (150-450); RBC Distribution Width CV 14.2 % (11.6-14.6); Red Blood Count 3.68 M/mm3 (4.6-6.2); Scan Indicated on CBC? Y/N NO; White Blood Count 5.7 K/mm3 (4.4-11.0)
[2017-08-16 12:11] LABS: CPK Total, Creatine Kinase 44 U/L (39-308)
[2017-08-16] MEDS: 0.9% Normal Saline 1,000 ML 150 ML IV (12:30)
[2017-08-16 12:50] LABS: ACT Activated Clotting Time 224 sec (74-137)
--- NOTE | 2017-08-16 12:58 | CRPHASE1 ---
Patient Data/Charges Former Patient:: Phase I Design Engineer [employer] Equipment:: Isacc Brito Refer Phase II:: Yes - upon referral of fiscal clerk status post discharge Reason Not Completed:: Phase I was not completed during this cardiac intervention since the patient was just seen about 2 to 3 weeks prior for his intitial PCI and status post coronary stent. Phase II Referral:: [facility]
--- NOTE | 2017-08-16 13:00 | CRPH1.INSTRU ---
General Education CAD and cardiac anatomy and function:: Patient communicates acknowledgment Explanation of diagnoses and procedures:: Patient communicates acknowledgment Sign/Symptoms of MS:: Patient communicates acknowledgment Antiplatelet therapy: Patient communicates acknowledgment Proper use of NTG-SL: Patient communicates acknowledgment Emergency procedures and activation of EMS: Patient communicates acknowledgment Compliance of all prescribed medications: Patient communicates acknowledgment - Patient received the Guide to Cardiac Rehab booklet 2 to 3 weeks ago during his intitial PCI status post coroonary stent.
[2017-08-16 13:46] LABS: ACT Activated Clotting Time 208 sec (74-137)
[2017-08-16 14:33] LABS: M R Staph aureus DNA By PCR Negative (Negative); Probe Check PASS; Specimen Processing Control PASS
[2017-08-16 14:46] LABS: ACT Activated Clotting Time 180 sec (74-137)
--- NOTE | 2017-08-16 15:35 | NURSING ---
Tex, RN at bedside to pull sheath, Nellie (cathlab RN) present as well. See paper documentation.
[2017-08-16 15:36] LABS: ACT Activated Clotting Time 164 sec (74-137)
[2017-08-16 17:59] LABS: Mean Corp Hgb Conc 35.1 g/gl (32-36); Mean Corpuscular Hgb 35.8 pg (27.0-32.0); Mean Corpuscular Volume 101.9 fL (80-94); Platelet Count 239 K/mm3 (150-450); RBC Distribution Width CV 13.8 % (11.6-14.6); RBC Distribution Width SD 50.3 fl (35.1-43.9); Red Blood Count 3.63 M/mm3 (4.6-6.2); White Blood Count 5.2 K/mm3 (4.4-11.0)
[2017-08-16 18:09] LABS: CPK Total, Creatine Kinase 45 U/L (39-308)
[2017-08-16 18:16] LABS: Scan Indicated on CBC? Y/N NO
[2017-08-16] MEDS: Atorvastatin Calcium 80 MG Tablet PO (21:34)
[2017-08-16] MEDS: 0.9% NaCl VAD Flush 10 ML IV (21:34)
[2017-08-16] MEDS: TICAGRELOR 90 MG TABLET PO (21:34)
[2017-08-16] MEDS: Gabapentin 100 MG Capsule PO (21:34)
[2017-08-16] MEDS: Metoprolol Tartrate 25 MG Tablet 12.5 MG PO (21:34)
[2017-08-16 22:59] LABS: Hematocrit 35.9 % (40-54); Hemoglobin 12.7 g/dl (13.0-16.5); Mean Corp Hgb Conc 35.4 g/gl (32-36); Mean Corpuscular Hgb 36.1 pg (27.0-32.0); Mean Platelet Vol. 10.7 fl (6.2-12.0); Platelet Count 218 K/mm3 (150-450); Red Blood Count 3.52 M/mm3 (4.6-6.2); White Blood Count 8.5 K/mm3 (4.4-11.0)
[2017-08-16 23:08] LABS: Scan Indicated on CBC? Y/N NO
[2017-08-16 23:20] LABS: CPK Total, Creatine Kinase 43 U/L (39-308)
[2017-08-17] VITALS (13 sets, daily range): BP systolic 95–125; BP diastolic 59–94; PULSE 67–90; RESP 12–22; TEMP 36.7; O2SAT 95–98
[2017-08-17 05:41] LABS: Hematocrit 37.4 % (40-54); Hemoglobin 12.6 g/dl (13.0-16.5); Mean Corp Hgb Conc 33.7 g/gl (32-36); Mean Corpuscular Hgb 34.6 pg (27.0-32.0); Mean Corpuscular Volume 102.7 fL (80-94); Mean Platelet Vol. 10.6 fl (6.2-12.0); Platelet Count 222 K/mm3 (150-450); RBC Distribution Width CV 14.3 % (11.6-14.6); RBC Distribution Width SD 53.7 fl (35.1-43.9); Red Blood Count 3.64 M/mm3 (4.6-6.2); Scan Indicated on CBC? Y/N NO; White Blood Count 7.4 K/mm3 (4.4-11.0)
[2017-08-17 06:05] LABS: Anion Gap 9 (5-15); BUN 16 mg/dL (7-18); BUN/Creat Ratio 16.5 RATIO (10-20); Calcium,Total 8.2 mg/dL (8.5-10.1); Chloride 108 mmol/L (98-107); Cholesterol 97 mg/dL (200); Creatinine, Serum 0.97 mg/dL (0.70-1.30); EST Glomerular Filtration Rate 83 mL/min (>60); Est Glom Filt Rate - Afr Amer 100 mL/min (>60); Estimated Creatinine Clearance 62.29 ml/min; Glucose 76 mg/dL (74-106); High Density Lipoprotein 37 mg/dL; Potassium 3.8 mmol/L (3.5-5.1); Sodium Level 141 mmol/L (136-145); Triglycerides 90 mg/dL; Very Low Density Lipoprotein 18 mg/dL (5-40)
--- NOTE | 2017-08-17 08:57 | PCM.DC.CCA ---
Discharge Diet: Low fat/ Low Cholesterol Discharge Activity: May Take a Tub Bath - after 5 days, - - Do not lift anything greater than 10 lbs for 3 days May shower in (days): 1 Lifting Restrictions: 10 pounds and also avoid any pushing or pulling for 3 days after your test. Call your doctor if your incision/area has: Continuous Slow Oozing, Sudden Increased Bleeding, Increased Pain/ Swelling, Increased Redness, Foul Smelling Discharge, Swelling at the incision site Call your doctor if you observe: Fever of 101 or Higher, Shortness of breath, Chest pain Remove Dressing in (days):: 1 Cleanse incision/area with: Soap & Water Additional Dressing/Incision Instructions:: Keep the dressing (bandage) on until the next morning. You may then shower, but do not take a tub bath for 5 days after your test. It is normal to have some tenderness and discomfort at the puncture site. Sometimes bruising also occurs. However, if pain, numbness, or coldness occurs below the puncture site (in your leg, toes, arms or fingers) call your doctor at once. You may have a small, marble sized knot at the puncture site. This is normal. Do not rub it. It will go away in 4-6 weeks. Bleeding can occur from the area where the puncture was done. Blood may spurt or drip from the site. If blood spurts, apply pressure right away to stop bleeding and call 911. Although rare, bleeding into the tissue (hematoma) can also occur. If this happens, a large, firm area goose egg under the skin will appear. If any of these occur, lie down as flat as you can and have someone apply firm pressure to the cath site with a gauze pad or a clean washcloth for 10-15 minutes. Call 911 or go to the Emergency Department. Allergies/Adverse Reactions: Allergies ampicillin Allergy (Verified 12/12/16 11:37) Rash phenazopyridine [Phenazopyridine] Allergy (Verified 12/12/16 11:37) Rash cephalexin [Cephalexin] Adverse Reaction (Verified 12/12/16 11:37) Upset Stomach trazodone Adverse Reaction (Verified 12/12/16 11:37) Nausea Medications to take at Discharge Gabapentin [Neurontin] 100 mg PO QHS 12/12/16 Pantoprazole Sodium [Protonix] 40 mg PO DAILY 12/12/16 Warfarin Sodium [Coumadin] 5 mg PO DAILY #30 tablet 12/20/16 Amiodarone HCl [Cordarone] 200 mg PO DAILY #30 tab 07/30/17 Aspirin E.C. [Ecotrin] 81 mg PO DAILY@0800 #30 tab 07/30/17 Atorvastatin Calcium [Lipitor] 80 mg PO QHS #30 tab 07/30/17 Metoprolol Tartrate [Lopressor (beta cristhian)] 12.5 mg PO BID #60 tab 07/30/17 Ticagrelor [Brilinta] 90 mg PO BID #60 tab 07/30/17 Ticagrelor [Brilinta] 90 mg PO BID #60 tab 08/17/17 The following prescriptions were given: Ticagrelor [Brilinta] 90 mg PO BID #60 tab Primary Care Physician: Winter Lamas MD [Primary Care Provider] - Please follow up with your Primary Care Physician in: 2-4 weeks Please Follow Up With: Isacc Brito MD When: 2-4 weeks, our office will call you with a time Cardiac Rehabilitation Info Cardiac Rehabilitation Program Information: Cardiac Rehabilitation is important for patients like you who are recovering from a heart problem. Cardiac rehabilitation programs are recognized as integral to the continued care of the patient with coronary heart disease. The cardiac rehabilitation program is designed to optimize a patient's physical, psychological, and social functioning. Health care team assistant work in cardiac rehabilitation programs and assist you with getting the treatments you need to get stronger and healthier - like exercise, healthy eating habits, and medications. Cardiac rehabilitation has been show to help people with heart problems live longer and have better life enjoyment than people who do not go to cardiac rehabilitation. Please contact the Cardiac Rehabilitation Program at [facility] at in two weeks if you have not heard from them.
[2017-08-17] MEDS: TICAGRELOR 90 MG TABLET PO (09:02)
[2017-08-17] MEDS: Metoprolol Tartrate 25 MG Tablet 12.5 MG PO (09:02)
[2017-08-17] MEDS: Amiodarone 200 MG Tablet PO (09:02)
[2017-08-17] MEDS: Aspirin E.C. 81 MG Tablet PO (09:02)
[2017-08-17] MEDS: Pantoprazole Sodium 40 MG Tablet PO (09:03)
--- NOTE | 2017-08-17 09:33 | PN.CARD_ITS ---
Subjectve: Patient doing very well, no 24 hour events. Hemoglobin and creatinine within nominal limits. Right groin is clean/dry/intact without evidence of thrills, bruits or hematoma. Small ecchymosis at puncture site noted. 2+PT pulses noted. Telemetry atrial fibrillation with controlled ventricular response. Objective: Vital Signs Temp Pulse Resp BP Pulse Ox 98.1 F 83 16 125/94 H 96 08/17/17 00:00 08/17/17 09:02 08/17/17 09:01 08/17/17 09:02 08/17/17 09:01 Oxygen Delivery Method Room Air Weight: 127 lb 13.89 oz Body Mass Index (BMI) 20.0 Intake and Output for Last 24 Hours 08/15/17 08/16/17 08/17/17 23:59 23:59 23:59 Intake Total 1178 / 1178 285 / 285 Output Total 0 / 0 400 / 400 Balance 1178 / 1178 -115 / -115 General: Awake, Alert, Oriented x 3 HEENT: PERRL, EOMI, Sclera Non Icteric Neck: Supple, Good ROM, No Lymph Node Enlargement Lungs: Clear to auscultation Cardiovascular: Irregular Rhythm, Normal S1, Normal S2, No Murmurs, No Rubs, No Gallops Vascular: No Carotid Bruits, Normal Femoral Pulses, Normal Radial Pulses, Normal Dorsalis Pedal Pulse, Normal Posterior Tibial Pulses Abdomen: Bowel Sounds Present, Soft, Non Tender, No HSM, No Organomegaly Extremities: No Cyanosis, No Clubbing, No edema Neurological: No Focal Motor or Sensory Deficit 08/16/17 11:50: WBC 5.7, RBC 3.68 L, Hgb 12.8 L, Hct 37.6 L, MCV 102.2 H, MCH 34.8 H, MCHC 34.0, RDW 14.2, RDW Differential 53.0 H, Plt Count 254, MPV 10.2 08/16/17 17:15: WBC 5.2, RBC 3.63 L, Hgb 13.0, Hct 37.0 L, MCV 101.9 H, MCH 35.8 H, MCHC 35.1, RDW 13.8, RDW Differential 50.3 H, Plt Count 239, MPV 11.0 08/16/17 22:45: WBC 8.5, RBC 3.52 L, Hgb 12.7 L, Hct 35.9 L, MCV 102.0 H, MCH 36.1 H, MCHC 35.4, RDW 14.0, RDW Differential 51.0 H, Plt Count 218, MPV 10.7 08/17/17 05:25: WBC 7.4, RBC 3.64 L, Hgb 12.6 L, Hct 37.4 L, MCV 102.7 H, MCH 34.6 H, MCHC 33.7, RDW 14.3, RDW Differential 53.7 H, Plt Count 222, MPV 10.6 08/17/17 05:25: Sodium 141, Potassium 3.8, Chloride 108 H, Carbon Dioxide 24.0, Anion Gap 9, BUN 16, Creatinine 0.97, Est GFR (MDRD) Af Amer 100, Est GFR (MDRD ) Non-Af 83, BUN/Creatinine Ratio 16.5, Glucose 76, Calcium 8.2 L, Triglycerides 90, Cholesterol 97, LDL Cholesterol 42, VLDL Cholesterol 18, HDL Cholesterol 37 L Rhythm: EKG: ECHO: Stress Test: Cardiac Cath: PCI: CT Surgery: Holter monitor: EPS: PPM: CXR: Chest CT Scan: Medical Necessity - Tobacco Use Smoking Status: Never smoker Assessment/Plan 1. Coronary artery disease: Patient is status post angioplasty and drug- eluting stenting to the diagonal #1 and mid LAD with balloon angioplasty only across the struts of the stent into the ostium of the diagonal #1 with an excellent result. His CKs are negative. Recommended that he continue on baby aspirin and Brilinta going forward. Recommend he restart his Coumadin on Sunday evening. The patient will follow-up in our office in 2 weeks time for a groin check and blood pressure check followed by cardiac rehab initiation. Patient wishes to follow-up in our office and will let Dr. Escalante's office know of the change. 2. Hyperlipidemia: Continue statin based medications. 3. Atrial fibrillation: Patient is currently in atrial fibrillation and we will start Coumadin. We will consider elective DC cardioversion in 4-6 weeks time depending upon need for possible chemotherapy. Patient may proceed with chemotherapy if indicated per Dr. George. 4. Patient may be discharged home today. Code Visit Inpatient E&M: 69705 Subs Hosp L2
--- NOTE | 2017-08-17 11:30 | EKG12_ITS ---
Test Reason : AM EKG Blood Pressure : / mmHG Vent. Rate : 077 BPM Atrial Rate : 340 BPM P-R Int : 000 ms QRS Dur : 080 ms QT Int : 406 ms P-R-T Axes : 000 051 -64 degrees QTc Int : 459 ms Atrial fibrillation Septal infarct , age undetermined T wave abnormality, consider inferior ischemia Abnormal ECG When compared with ECG of 16-AUG-2017 11:40, MANUAL COMPARISON REQUIRED, DATA IS UNCONFIRMED Confirmed by JIMMY TELLEZ, LENNOX ([id number]), clinical editor KATHY DURAN ([id number]) on 08/21/2017 9:20:18 AM Referred By: Isacc Brito Confirmed By:LENNOX MARQUEZ MD
== END 2017-08-17 09:35 | disposition home or self-care (01) ==
LOC: CLSP 07:56 → ICU 11:14
PROVIDERS: Family Provider Internal Medicine; PCP Internal Medicine; Visit Provider Internal Medicine Cardiovascular Disease
DX: I21.19 ST elevation (STEMI) myocardial infarction involving other coronary artery of inferior wall (principal); I25.110 Atherosclerotic heart disease of native coronary artery with unstable angina pectoris; I10 Essential (primary) hypertension; F17.200 Nicotine dependence, unspecified, uncomplicated; I48.2 Chronic atrial fibrillation; E78.5 Hyperlipidemia, unspecified; K21.9 Gastro-esophageal reflux disease without esophagitis; R57.0 Cardiogenic shock; Z79.01 Long term (current) use of anticoagulants; E43 Unspecified severe protein-calorie malnutrition; Z68.20 Body mass index [BMI] 20.0-20.9, adult; Z95.5 Presence of coronary angioplasty implant and graft; Z79.899 Other long term (current) drug therapy; Z85.51 Personal history of malignant neoplasm of bladder; C83.10 Mantle cell lymphoma, unspecified site; H53.8 Other visual disturbances
CPT/HCPCS: 36415; 36416; 80048; 80061; 82550; 85025; 85027; 85347; 85610; 87641; 92928; 92929; 93005; 99152; 99153; J7030; J7040; A4216; C1725; C1769; C1874; C1887; C9600; C9601; Q9967

== ENCOUNTER → 2017-08-29 13:15 | Outpatient (CLI) | payer MEDICARE, OTHER, SELFPAY ==
--- NOTE | 2017-08-29 13:22 | PCM.CR.ITP ---
Exercise - Initial Assessment - Visit Date of Eval: 08/29/17 - Initial Eval - Stages of Change Stages of Change:: Contemplate - Exercise Prescription Mode:: Treadmill, Biodyne, Rower, Airdyne, NuStep, Arm Ergometer Angina with exercise?: No Target Heart Rate:: 108-116 - Hypertension Do any of the following apply?: No Resting Blood Pressure:: 100/62 - Education Goals:: Warm-up, RPE BRANDIN Scale, S/S, Safe Exercise, Self-Monitoring - Exercise Program Goals Exercise Program Goals: Aerobic Activity >30 min, B/P <140/90 Nutrition - Initial Assessment - Program Goals Nutrition Program Goals: LDL <70. Total Cholesterol <200. HDL >45. Triglycerides <150. HgbA1C <7%. BMI <25 - Visit Date of Assessment:: 08/29/17 - Stages of Change Stages of Change:: Contemplate - Diabetes Diabetes:: No - Weight Management Height: 1.73 m Weight:: 60.781 kg Total Score:: 3 - Intervention Referral to dietitian:: No Referral to Diabetic Clinic:: No Will attend diet classes:: Yes - Education Gave educational materials for:: Signs & symptoms of hypoglycemia, Signs & symptoms of hyperglycemia, Relate diabetes to coronary artery disease, Healthy eating Nutrition - 30-Day Assessment - Program Goals Nutrition Program Goals: LDL <70. Total Cholesterol <200. HDL >45. Triglycerides <150. HgbA1C <7%. BMI <25 - Diabetes Diabetes:: No Nutrition - 60-Day Assessment - Program Goals Nutrition Program Goals: LDL <70. Total Cholesterol <200. HDL >45. Triglycerides <150. HgbA1C <7%. BMI <25 - Diabetes Diabetes:: No Nutrition - 90-Day Assessment - Program Goals Nutrition Program Goals: LDL <70. Total Cholesterol <200. HDL >45. Triglycerides <150. HgbA1C <7%. BMI <25 - Diabetes Diabetes:: No Nutrition - Final Assessment - Program Goals Nutrition Program Goals: LDL <70. Total Cholesterol <200. HDL >45. Triglycerides <150. HgbA1C <7%. BMI <25 - Diabetes Diabetes:: No Tobacco - Initial Assessment - Program Goals Tobacco Program Goals: Complete smoking cessation. Attend education classes. Improve Knowledge Test score - Stage of Change Stages of Change:: Contemplate - Learning Barriers Total Score:: 9 - Family Support Do you have family support?: Yes - Tobacco Use Tobacco Use: Non-smoker Do you use smokeless tobacco?: No - Intervention Smoking Cessation Referral:: No Individual Education/Counseling:: No Education Schedule Given:: Yes - Education Gave educational material for:: Tobacco triggers, Coronary artery disease, Risk factors, Sexuality, Medical compliance, Cardiac A&P, Angina signs & symptoms Psychosocial - Initial Assess - Target Goals Target Goals: Assess presence or absence of depression. Using a valid screening tool, maximizes coping skills. Positive support system - Stages of Change Stages of Change:: Contemplate - Psychosocial Test Tool Used:: HANDS Depression Questionnaire Tests Completed: SF - 36 survey completed, Mood Scale Test Total Mood Screening Score:: 10 Self-Efficacy Score:: 4 - Intervention PS - Interventions: Yes Attend Stress Management Classes, Yes Uses Stress Management Skills, No Referral to Mental Health, No Referral to [facility] Case Management, No Referral to Physician - Education Gave educational materials for:: Coping techniques, Signs & symptoms of depression, Stress management, Relaxation techniques - Assistive Devices Assistive Devices:: None Fall Risk Assessed:: Yes - numb feet limited treadmill Patient Health Questionnaire Initial Assessment 1. Little interest or pleasure in doing things: More than half the days 2. Feeling down, depressed, or hopeless: Several days 3. Trouble falling or staying asleep, or sleeping too much: Several days 4. Feeling tired or having little energy: More than half the days 5. Poor appetite or overeating: More than half the days 6. Feeling bad about yourself -- or that you are a failure or have let yourself or your family down: Several days 7. Trouble concentrating on things, such as reading the newspaper or watching television: Not at all 8. Moving or speaking so slowly that other people could have noticed. Or the opposite - being so fidgety or restless that you have been moving around a lot more than usual: Several days 9. Thoughts that you would be better off , or of hurting yourself in some way: Not at all Total Score: 10 Knowledge Test - Check your knowledge Initial The #1 cause of in the [place] each year is:: Heart disease Which of the following is a common treatment for heart disease?: All of the above The arteries that feed the heart are called:: Coronary arteries HDL cholesterol is known as the good cholesterol.: True What disease increases your risk for heart disease?: Diabetes What food product raises blood cholesterol level the most?: Saturated fat The bad cholesterol in the blood is called:: LDL Hypertension is another word for:: High stress A blood pressure reading of 148/88 is considered normal.: False Exercise will only benefit your health when your heart rate reaches a target level.: False Total Score:: 9 Self-Efficacy Initial Assessment We would like to know how confident you are in doing certain activities. Please select your confidence level for:: Select your confidence level for the following using the scale 1-10 where 1 is not at all confident and 10 is totally confident. Your score is the average of all 6 responses. Fatigue: How confident are you that you can keep the fatigue caused by your disease from interfering with the things you want to do? Select Number: 5 Physical Discomfort or Pain: How confident are you that you can keep the physical discomfort or pain of your disease from interfering with the things you want to do? Select Number: 4 Emotional Distress: How confident are you that you can keep the emotional distress caused by your disease from interfering with the things you want to do? Select Number: 4 Other Symptoms or Health Problems: How confident are you that you can keep other symptoms or health problems from interfering with the things you want to do? Select Number: 4 Different Tasks and Activities: How confident are you that you can do the different tasks and activities needed to manage your health condition so as to reduce your need to see a doctor? Select Number: 5 Medication: How confident are you that you can do things other than just taking medication to reduce how much your illness affects your everyday life? Select Number: 5 Total Score:: 4 Nutrition Survey - Nutrition Survey Instructions Scoring Instructions: Scoring is as follows: Yes = 1 points. No = 0 point. Patient score that is >/=12 is considered to be at potential nutritional risk and could benefit from a referral to a registered dietitian. - Nutrition Survey Initial Have you lost >10 lbs over the past 2 months without trying?: No Are you following a special diet at home for diabetes, low fat, or low salt?: No Are you interested in meeting with a dietitian for help understanding your diet?: Yes Do you eat less than 3 meals a day?: No Do you eat fatty meats (chau, sausage, ribs, etc), fried foods, desserts, large amounts of salad dressings, margarine, butter, or cheese most days?: No Do you have food allergies? [Enter types in comment field]: No Do you eat in restaurants more than 3 times a week?: No Do you season food with salt, seasoning salt, or garlic salt?: Yes Do you used canned, boxed, frozen meals, or soups, seasoning packets?: Yes Total Score:: 3 Cardiac Rehabilitation Goals - Cardiac Rehab Goals Cardiac Rehabilitation Goals: 1. Maintain the individual as the primary focus of care. 2. To improve the patient's quality of life. 3. Identification of cardiac risk factors and provide cardiac risk factor management. 4. Enhance the psychosocial status of the patient. 5. Reconditioning enough to allow the patient to resume customary activities. 6. Control symptoms of cardiac disease - Scale Scale for measuring improvement of personal goals: Enter appropriate number in Comments. 2 = Unchanged. 3 = Slightly Better. 4 = Moderate Improvement. 5 = Met my Goal Initial Assessment Personal Goals: 30-day Re-assessment: Improve energy level, Participate in home exercise program, Improve diet and eating habits (eat healthier)
--- NOTE | 2017-08-29 13:22 | PCM.CR.HP2 ---
CR - History & Physical - General Arrival date:: 08/29/17 Arrival time:: 13:22 Date of Referral:: 08/16/17 Date of CR Evaluation:: 08/29/17 Referring Physician: Dr. Brito Primary Diagnosis: Z95.5, I 25.1 08/16/2017 - History of Present Cardiac Event Onset Date: Enter Onset Date of cardiac illnesses in Comment field below Acute Myocardial Infarction within 12 months:: Yes PTCA or coronary stenting:: Yes - Medications Home Medications: Ambulatory Orders Medication Instructions Recorded Gabapentin [Neurontin] 100 mg PO QHS 12/12/16 Pantoprazole Sodium [Protonix] 40 mg PO DAILY 12/12/16 Warfarin Sodium [Coumadin] 5 mg PO DAILY #30 tablet 12/20/16 Amiodarone HCl [Cordarone] 200 mg PO DAILY #30 tab 07/30/17 Aspirin E.C. [Ecotrin] 81 mg PO DAILY@0800 #30 tab 07/30/17 Atorvastatin Calcium [Lipitor] 80 mg PO QHS #30 tab 07/30/17 Metoprolol Tartrate [Lopressor 12.5 mg PO BID #60 tab 07/30/17 (beta cristhian)] Ticagrelor [Brilinta] 90 mg PO BID #60 tab 07/30/17 Ticagrelor [Brilinta] 90 mg PO BID #60 tab 08/17/17 - Allergies Allergies/Adverse Reactions: Allergies ampicillin Allergy (Verified 12/12/16 11:37) Rash phenazopyridine [Phenazopyridine] Allergy (Verified 12/12/16 11:37) Rash cephalexin [Cephalexin] Adverse Reaction (Verified 12/12/16 11:37) Upset Stomach trazodone Adverse Reaction (Verified 12/12/16 11:37) Nausea - Sleep Disorder Evaluation Hx of Sleep Apnea: No Do you snore loudly (louder than talking or can be heard through closed doors)?: No Do you often feel tired/ fatigued/ sleepy during daytime?: No Has anyone observed you stop breathing during sleep?: No History of Hypertension (for STOP score): No STOP Results: Negative Advanced Directives - Advanced Directives Power of Blueprint Reproducer: Yes Living Will: Yes Advance Directives Information Provided: Yes Advance Directives on File: Yes DNR Order?:: No Past Medical History - Past Medical Illness Medical History: Past Medical History (Last Updated 08/22/17 @ 15:14 by Keara Peres) H/O endoscopy (Resolved) Z98.890 with bx gastric body 11/24/16 port placement (Resolved) 06/13/16 bone marrow (Resolved) 05/22/16 - Past Surgical History Surgical History: Past Surgical History (Last Updated 08/22/17 @ 15:14 by Keara Peres) 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 - Family History Summary Family History: Family History (Last Updated 08/22/17 @ 15:15 by Keara Peres) Mother Breast cancer Lung disease Father CVA (cerebral vascular accident) Heart disease Afib CHF (congestive heart failure) Myocardial infarction Hx of CABG Social History - Smoking History Smoking Status: Never smoker Hx Tobacco Use: No Hx Smoking Exposure: No - Alcohol Use Alcohol Usage: No - Substance Abuse Hx Substance Use: No - Occupation Occupation (List type of work in comments):: Retired - Hobbies, Recreation, Social Activities Hobbies: Woodworking Recreational Activities: I am able to engage in all my recreational activities Social Environment - Status Marital Status: - Current Living Arrangements Living Environment:: Spouse - Children How many children do you have?: 2 Do any of your children live nearby?: Yes - Safety Do you feel safe in your surroundings?: Yes - Assistance Do you need any assistance at home?: none Review of Systems - Review of Systems Hints: Right click = Denies ([place]). Left click = Reports ([place]) Review of Present Symptoms: Reports: Angina, Fatigue, Heart Arrhythmia/Irregularities - A-fib, Appetite - Normal, Sleep - Normal. Denies: Shortness of Breath at Rest, Shortness of Breath with Exertion, PVD, Operative Discomfort, Wound Healing, Dizziness/Lightheadedness, Appetite - Special Diet, Sexual Changes - Pain Is Patient Pain Free?: Yes Risk Factor Assessment - Chief Complaint Chief Complaint: CP - Vital Signs Pulse Ox: 97 - Pulse Pulse Rate: 74 Pulse Rhythm: Regular - Hypertension Blood Pressure Sitting - Left Arm: 100/62 - Stress Stress: Recent - Diabetes Nutrition Referral for Diabetes: No - Obesity Height: 1.73 m Weight:: 60.781 kg Weight in Pounds: 134.0 lbs Body Mass Index (BMI): 20.3 Nutritional Referral for Obesity: No - Physical Inactivity Physical Inactivity: None - Risk Stratification Risk Guidelines: Lowest Risk: Risk Factor for Obesity, Moderate Risk: Risk Factor for Smoking, Risk Factor for Dyslipidemia, Risk Factor for Diabetes, Risk Factor for Hypertension, Risk Factor for Sedentary Lifestyle, Risk Factor for Depression - For Smoking Smoking Risk Guidelines: Smoking Low Risk: None or quit greater than 6 months ago. Smoking Moderate Risk: Smoker or quit 6 months or less ago. Smoking High Risk: Smoker - For Dyslipidemia Dyslipidemia Risk Guidelines: Low Risk: Moderate Risk: High Risk: 15-25% fat 25.1-29% fat >/= 30% fat. <7% sat fat 7-9% sat fat >9% sat fat. <150 mg chol 150-299 mg chol >/= 300 mg chol. LDL <100 LDL 100-129 LDL >/= 130. Chol/HDL ratio <5.0 Chol/HDL ratio 5.0-6.0 Chol/HDL ratio >6.0. Triglycerides <100 Triglycerides 100-149 Triglycerides >/= 150 - For Diabetes Mellitus Diabetes Risk Guidelines: Diabetes Low Risk: HgA1c <6.5% and/or FBG <120. Diabetes Moderate Risk: HgA1c 6.6-7.9% and/or FBG 120-180. Diabetes High Risk: HgA1c >/= 8% and/or FBG >180 - For Obesity/Overweight Obesity/Overweight Risk Guidelines: Obesity Low Risk: BMI <25.0. Obesity Moderate Risk: BMI 25-29.9. Obesity High Risk: BMI >/= 30.0 - For Hypertension Hypertension Risk Guidelines: Hypertension Low Risk: Systolic <120 and Diastolic <80. Hypertension Moderate Risk: Systolic 120-139 and Diastolic 80-89. Hypertension High Risk: Systolic >/= 140 and Diastolic >/= 90 - For Sedentary Lifestyle Sedentary Lifestyle Risk Guidelines: Sedentary Lifestyle Low Risk: >/= 1,500 kcal/week. Sedentary Lifestyle Moderate Risk: 700-1,499 kcal/week. Sedentary Lifestyle High Risk: < 700 kcal/week - For Depression Depression Risk Guidelines: Depression Low Risk: Not clinically depressed. Depression Moderate Risk: Mildly depressed. Depression High Risk: Clinically depressed - Family History Family History: Family History (Last Updated 08/22/17 @ 15:15 by Keara Peres) Mother Breast cancer Lung disease Father CVA (cerebral vascular accident) Heart disease Afib CHF (congestive heart failure) Myocardial infarction Hx of CABG Motivation - Motivation to Participate On a scale of 1 to 10, how prepared are you to commit to attending program?: 5 What do you see as barriers to successfully being able to complete the program?: lymphoma and chemo What do you see as the benefits of succesfully completing the program? In other words, what do you hope to get out of participating in the program?: improved health Are there issues you are dealing with that will interfere with completing the program?: chemo, lymphoma Do you have a spouse or signficant other, family or friends who will help support you to complete the program?: yes
--- NOTE | 2017-08-29 13:33 | CR.HP_ITS ---
CR - History & Physical - General Arrival date:: 08/29/17 Arrival time:: 13:22 Date of Referral:: 08/16/17 Date of CR Evaluation:: 08/29/17 Referring Physician: Dr. Brito Primary Diagnosis: Z95.5, I 25.1 08/16/2017 - History of Present Cardiac Event Onset Date: Enter Onset Date of cardiac illnesses in Comment field below Acute Myocardial Infarction within 12 months:: Yes PTCA or coronary stenting:: Yes - Medications Home Medications: Ambulatory Orders Medication Instructions Recorded Gabapentin [Neurontin] 100 mg PO QHS 12/12/16 Pantoprazole Sodium [Protonix] 40 mg PO DAILY 12/12/16 Warfarin Sodium [Coumadin] 5 mg PO DAILY #30 tablet 12/20/16 Amiodarone HCl [Cordarone] 200 mg PO DAILY #30 tab 07/30/17 Aspirin E.C. [Ecotrin] 81 mg PO DAILY@0800 #30 tab 07/30/17 Atorvastatin Calcium [Lipitor] 80 mg PO QHS #30 tab 07/30/17 Metoprolol Tartrate [Lopressor 12.5 mg PO BID #60 tab 07/30/17 (beta cristhian)] Ticagrelor [Brilinta] 90 mg PO BID #60 tab 07/30/17 Ticagrelor [Brilinta] 90 mg PO BID #60 tab 08/17/17 - Allergies Allergies/Adverse Reactions: Allergies ampicillin Allergy (Verified 12/12/16 11:37) Rash phenazopyridine [Phenazopyridine] Allergy (Verified 12/12/16 11:37) Rash cephalexin [Cephalexin] Adverse Reaction (Verified 12/12/16 11:37) Upset Stomach trazodone Adverse Reaction (Verified 12/12/16 11:37) Nausea - Sleep Disorder Evaluation Hx of Sleep Apnea: No Do you snore loudly (louder than talking or can be heard through closed doors)? : No Do you often feel tired/ fatigued/ sleepy during daytime?: No Has anyone observed you stop breathing during sleep?: No History of Hypertension (for STOP score): No STOP Results: Negative Advanced Directives - Advanced Directives Power of Bill Checker: Yes Living Will: Yes Advance Directives Information Provided: Yes Advance Directives on File: Yes DNR Order?:: No Past Medical History - Past Medical Illness Medical History: Past Medical History (Last Updated 08/22/17 @ 15:14 by Keara Peres) H/O endoscopy (Resolved) Z98.890 with bx gastric body 11/24/16 port placement (Resolved) 06/13/16 bone marrow (Resolved) 05/22/16 - Past Surgical History Surgical History: Past Surgical History (Last Updated 08/22/17 @ 15:14 by Keara Peres) 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 - Family History Summary Family History: Family History (Last Updated 08/22/17 @ 15:15 by Keara Peres) Mother Breast cancer Lung disease Father CVA (cerebral vascular accident) Heart disease Afib CHF (congestive heart failure) Myocardial infarction Hx of CABG Social History - Smoking History Smoking Status: Never smoker Hx Tobacco Use: No Hx Smoking Exposure: No - Alcohol Use Alcohol Usage: No - Substance Abuse Hx Substance Use: No - Occupation Occupation (List type of work in comments):: Retired - Hobbies, Recreation, Social Activities Hobbies: Woodworking Recreational Activities: I am able to engage in all my recreational activities Social Environment - Status Marital Status: - Current Living Arrangements Living Environment:: Spouse - Children How many children do you have?: 2 Do any of your children live nearby?: Yes - Safety Do you feel safe in your surroundings?: Yes - Assistance Do you need any assistance at home?: none Review of Systems - Review of Systems Hints: Right click = Denies ([place]ash). Left click = Reports ([place]) Review of Present Symptoms: Reports: Angina, Fatigue, Heart Arrhythmia/ Irregularities - A-fib, Appetite - Normal, Sleep - Normal. Denies: Shortness of Breath at Rest, Shortness of Breath with Exertion, PVD, Operative Discomfort , Wound Healing, Dizziness/Lightheadedness, Appetite - Special Diet, Sexual Changes - Pain Is Patient Pain Free?: Yes Risk Factor Assessment - Chief Complaint Chief Complaint: CP - Vital Signs Pulse Ox: 97 - Pulse Pulse Rate: 74 Pulse Rhythm: Regular - Hypertension Blood Pressure Sitting - Left Arm: 100/62 - Stress Stress: Recent - Diabetes Nutrition Referral for Diabetes: No - Obesity Height: 1.73 m Weight:: 60.781 kg Weight in Pounds: 134.0 lbs Body Mass Index (BMI): 20.3 Nutritional Referral for Obesity: No - Physical Inactivity Physical Inactivity: None - Risk Stratification Risk Guidelines: Lowest Risk: Risk Factor for Obesity, Moderate Risk: Risk Factor for Smoking, Risk Factor for Dyslipidemia, Risk Factor for Diabetes, Risk Factor for Hypertension, Risk Factor for Sedentary Lifestyle, Risk Factor for Depression - For Smoking Smoking Risk Guidelines: Smoking Low Risk: None or quit greater than 6 months ago. Smoking Moderate Risk: Smoker or quit 6 months or less ago. Smoking High Risk: Smoker - For Dyslipidemia Dyslipidemia Risk Guidelines: Low Risk: Moderate Risk: High Risk: 15-25% fat 25.1-29% fat >/= 30% fat. <7% sat fat 7-9% sat fat >9% sat fat. <150 mg chol 150-299 mg chol >/= 300 mg chol. LDL <100 LDL 100-129 LDL >/= 130. Chol/HDL ratio <5.0 Chol/HDL ratio 5.0-6.0 Chol/HDL ratio >6.0. Triglycerides <100 Triglycerides 100-149 Triglycerides >/= 150 - For Diabetes Mellitus Diabetes Risk Guidelines: Diabetes Low Risk: HgA1c <6.5% and/or FBG <120. Diabetes Moderate Risk: HgA1c 6.6-7.9% and/or FBG 120-180. Diabetes High Risk: HgA1c >/= 8% and/or FBG >180 - For Obesity/Overweight Obesity/Overweight Risk Guidelines: Obesity Low Risk: BMI <25.0. Obesity Moderate Risk: BMI 25-29.9. Obesity High Risk: BMI >/= 30.0 - For Hypertension Hypertension Risk Guidelines: Hypertension Low Risk: Systolic <120 and Diastolic <80. Hypertension Moderate Risk: Systolic 120-139 and Diastolic 80-89. Hypertension High Risk: Systolic >/= 140 and Diastolic >/= 90 - For Sedentary Lifestyle Sedentary Lifestyle Risk Guidelines: Sedentary Lifestyle Low Risk: >/= 1 ,500 kcal/week. Sedentary Lifestyle Moderate Risk: 700-1,499 kcal/week. Sedentary Lifestyle High Risk: < 700 kcal/week - For Depression Depression Risk Guidelines: Depression Low Risk: Not clinically depressed. Depression Moderate Risk: Mildly depressed. Depression High Risk: Clinically depressed - Family History Family History: Family History (Last Updated 08/22/17 @ 15:15 by Keara Peres) Mother Breast cancer Lung disease Father CVA (cerebral vascular accident) Heart disease Afib CHF (congestive heart failure) Myocardial infarction Hx of CABG Motivation - Motivation to Participate On a scale of 1 to 10, how prepared are you to commit to attending program?: 5 What do you see as barriers to successfully being able to complete the program? : lymphoma and chemo What do you see as the benefits of succesfully completing the program? In other words, what do you hope to get out of participating in the program?: improved health Are there issues you are dealing with that will interfere with completing the program?: chemo, lymphoma Do you have a spouse or signficant other, family or friends who will help support you to complete the program?: yes
[2017-08-29 14:18] VITALS: BP 100/62
[2017-08-29 14:19] VITALS: BP 100/62; PULSE 74; O2SAT 97; BMI 20.3
== END ==
PROVIDERS: Family Provider Internal Medicine; PCP Internal Medicine; Visit Provider Internal Medicine Cardiovascular Disease
DX: Z95.5 Presence of coronary angioplasty implant and graft (principal)

== ENCOUNTER → 2017-08-31 13:50 | Outpatient (CLI) | payer MEDICARE, OTHER, SELFPAY ==
[2017-08-31 14:20] LABS: Prothrombin Time Fingerstick 17.6 SEC (11.9-14.4)
== END ==
PROVIDERS: Family Provider Internal Medicine; PCP Internal Medicine; Visit Provider Nurse Practitioner Family
DX: Z79.01 Long term (current) use of anticoagulants (principal)
CPT/HCPCS: 36416; 85610

== ENCOUNTER → 2017-09-07 | Outpatient (CLI) | payer MEDICARE, OTHER, SELFPAY | END | disposition home or self-care (01) | LOC: LAB 13:36 | PROVIDERS: Family Provider Internal Medicine; PCP Internal Medicine; Visit Provider Nurse Practitioner Family | DX: Z79.01 Long term (current) use of anticoagulants (principal) | CPT/HCPCS: 36416; 85610 ==

== ENCOUNTER 2017-09-10 14:15 | Outpatient (RCR) | payer MEDICARE, OTHER, SELFPAY | END 2017-09-10 23:59 | LOC: CR 14:15 | PROVIDERS: Family Provider Internal Medicine; PCP Internal Medicine; Visit Provider Internal Medicine Cardiovascular Disease | DX: Z95.5 Presence of coronary angioplasty implant and graft (principal); I25.810 Atherosclerosis of coronary artery bypass graft(s) without angina pectoris; I21.3 ST elevation (STEMI) myocardial infarction of unspecified site; K21.9 Gastro-esophageal reflux disease without esophagitis; E43 Unspecified severe protein-calorie malnutrition; I21.19 ST elevation (STEMI) myocardial infarction involving other coronary artery of inferior wall; R57.0 Cardiogenic shock; I48.91 Unspecified atrial fibrillation | CPT/HCPCS: 36416; 85610; 93798 ==

== ENCOUNTER → 2017-09-14 14:54 | Outpatient (CLI) | payer MEDICARE, OTHER, SELFPAY ==
[2017-09-14 15:38] LABS: International Normalized Ratio 2.6
== END ==
PROVIDERS: Physician Assistant Medical; Family Provider Internal Medicine; PCP Internal Medicine; Visit Provider Nurse Practitioner Family
DX: I48.91 Unspecified atrial fibrillation (principal); I25.810 Atherosclerosis of coronary artery bypass graft(s) without angina pectoris; I25.2 Old myocardial infarction; K21.9 Gastro-esophageal reflux disease without esophagitis; E43 Unspecified severe protein-calorie malnutrition; R57.0 Cardiogenic shock; Z95.5 Presence of coronary angioplasty implant and graft
CPT/HCPCS: 36415; 85610; 93798

== ENCOUNTER 2017-09-28 14:54 | Outpatient (RCR) | payer MEDICARE, OTHER, SELFPAY ==
[2017-09-28 16:39] LABS: Prothrombin Time (Protime)PT. 37.8 SECONDS (11.7-14.9)
[2017-09-28 17:09] LABS: International Normalized Ratio 3.8
== END 2017-09-28 15:00 | disposition home or self-care (01) ==
LOC: LAB 14:54
PROVIDERS: Family Provider Internal Medicine; PCP Internal Medicine; Visit Provider Nurse Practitioner Family
DX: I48.91 Unspecified atrial fibrillation (principal); Z79.01 Long term (current) use of anticoagulants
CPT/HCPCS: 36415; 85610

== ENCOUNTER 2017-10-10 14:15 | Outpatient (RCR) | payer MEDICARE, OTHER, SELFPAY ==
--- NOTE | 2017-10-03 13:49 | PCM.CR.ITP ---
General Information - General Information Admitting Diagnosis: PCI w/coronary artery stenting - Education/Goals Barriers to Learning: None, Vision Impairment Individual Counselin-Day Assessment: Abnormal Cholesterol Levels, High Blood Pressure, Overweight/Obesity - malnutrition, GERD Cardiac Rehabilitation Goals: 1. Maintain the individual as the primary focus of care. 2. To improve the patient's quality of life. 3. Identification of cardiac risk factors and provide cardiac risk factor management. 4. Enhance the psychosocial status of the patient. 5. Reconditioning enough to allow the patient to resume customary activities. 6. Control symptoms of cardiac disease Scale for measuring improvement of personal goals: Enter appropriate number in Comments. 2 = Unchanged. 3 = Slightly Better. 4 = Moderate Improvement. 5 = Met my Goal Personal Goals: Initial Assessment: Improve energy level, Participate in home exercise program, Improve diet and eating habits (eat healthier), Control risk factors (learn risk factor modification) Exercise - 30-day Assessment - Visit Date of Eval: 10/03/17 Session #:: 11 - 73.33% compliance - Stages of Change Stages of Change:: Action - Exercise Prescription Mode:: Treadmill, Airdyne, NuStep Frequency (x/week): 3 Duration:: 30 METs - Progression: 0.5-1 MET as tolerated: 2.8 Target Heart Rate:: 108-116 - Hypertension Resting Blood Pressure:: 98/52 Peak Exercise Blood Pressure:: 98/52 Medication Changes:: No - Intervention Home Exercise/Activity Goal:: Sitting Time <3 hrs/day - Education Goals:: Warm-up, RPE BRANDIN Scale, S/S, Safe Exercise, Self-Monitoring Nutrition - 30-Day Assessment - Program Goals Nutrition Program Goals: LDL <70. Total Cholesterol <200. HDL >45. Triglycerides <150. HgbA1C <7%. BMI <25 - Visit Date of Eval: 10/03/17 - Stages of Change Stages of Change:: Action - Lipids Has the patient seen the dietitian?: No - Diabetes Diabetes:: No - Weight Management Weight:: 128 lb 8 oz - loss of additional 3.5# - Intervention Referral to dietitian:: Yes - nutrition supplements; protein drinks prevent weight loss Referral to Diabetic Clinic:: No Will attend diet classes:: No - Education Attended class for:: Healthy eating Tobacco - 30-Day Assessment - Program Goals Tobacco Program Goals: Complete smoking cessation. Attend education classes. Improve Knowledge Test score - Stage of Change Stages of Change:: Action - Family Support Do you have family support?: Yes - Tobacco Use Do you use smokeless tobacco?: No - Intervention Education Schedule Given:: Yes - Education Attended class for:: Coronary artery disease, Risk factors, Sexuality, Medical compliance, Cardiac A&P, Angina signs & symptoms Psychosocial - Initial Assess - Target Goals Target Goals: Assess presence or absence of depression. Using a valid screening tool, maximizes coping skills. Positive support system - Psychosocial Test Tool Used:: HANDS Depression Questionnaire - Assistive Devices Fall Risk Assessed:: Yes - numb feet limited treadmill Psychosocial - 30-Day Assess - Target Goals Target Goals: Assess presence or absence of depression. Using a valid screening tool, maximizes coping skills. Positive support system - Stages of Change Stages of Change:: Action - Psychosocial Test Tool Used:: HANDS Depression Questionnaire - Intervention PS - Interventions: Yes Attend Stress Management Classes, No Referral to Mental Health, No Referral to [facility] Case Management, No Referral to Physician, No Uses Stress Management Skills - Education Attended classes for:: Coping techniques, Signs & symptoms of depression, Stress management, Relaxation techniques - Patient/Program Goal Preventative Medication(s):: Aspirin, TREVOR inhibitor, Clopidogrel, Beta cristhian, Statin/lipid - Assistive Devices Assistive Devices:: None Fall Risk Assessed:: Yes Patient Health Questionnaire 30-Day Re-eval Assessment 1. Little interest or pleasure in doing things: Several days 2. Feeling down, depressed, or hopeless: Several days 3. Trouble falling or staying asleep, or sleeping too much: Not at all 4. Feeling tired or having little energy: Several days 5. Poor appetite or overeating: Nearly every day 6. Feeling bad about yourself -- or that you are a failure or have let yourself or your family down: Not at all 7. Trouble concentrating on things, such as reading the newspaper or watching television: Not at all 8. Moving or speaking so slowly that other people could have noticed. Or the opposite - being so fidgety or restless that you have been moving around a lot more than usual: Not at all 9. Thoughts that you would be better off , or of hurting yourself in some way: Not at all Total Score: 6 Self-Efficacy 30-Day Re-eval Assessment We would like to know how confident you are in doing certain activities. Please select your confidence level for:: Select your confidence level for the following using the scale 1-10 where 1 is not at all confident and 10 is totally confident. Your score is the average of all 6 responses. Fatigue: How confident are you that you can keep the fatigue caused by your disease from interfering with the things you want to do? Select Number: 6 Physical Discomfort or Pain: How confident are you that you can keep the physical discomfort or pain of your disease from interfering with the things you want to do? Select Number: 5 Emotional Distress: How confident are you that you can keep the emotional distress caused by your disease from interfering with the things you want to do? Select Number: 5 Other Symptoms or Health Problems: How confident are you that you can keep other symptoms or health problems from interfering with the things you want to do? Select Number: 5 Different Tasks and Activities: How confident are you that you can do the different tasks and activities needed to manage your health condition so as to reduce your need to see a doctor? Select Number: 6 Medication: How confident are you that you can do things other than just taking medication to reduce how much your illness affects your everyday life? Select Number: 6 Total Score:: 5
[2017-10-03 14:00] VITALS: BP 98/52
== END 2017-10-11 23:59 ==
LOC: CR 14:15
PROVIDERS: Family Provider Internal Medicine; PCP Internal Medicine; Visit Provider Internal Medicine Cardiovascular Disease
DX: Z95.5 Presence of coronary angioplasty implant and graft (principal); I25.810 Atherosclerosis of coronary artery bypass graft(s) without angina pectoris; I21.3 ST elevation (STEMI) myocardial infarction of unspecified site; K21.9 Gastro-esophageal reflux disease without esophagitis; E43 Unspecified severe protein-calorie malnutrition; I21.19 ST elevation (STEMI) myocardial infarction involving other coronary artery of inferior wall; R57.0 Cardiogenic shock; I48.91 Unspecified atrial fibrillation
CPT/HCPCS: 93798

== ENCOUNTER 2017-11-02 14:52 | Outpatient (RCR) | payer MEDICARE, OTHER, SELFPAY ==
[2017-10-12 16:14] LABS: Prothrombin Time (Protime)PT. 22.6 SECONDS (11.7-14.9)
[2017-11-02 15:11] LABS: Prothrombin Time Fingerstick 30.1 SEC (11.9-14.4)
== END 2017-11-02 15:00 | disposition home or self-care (01) ==
LOC: LAB 14:52
PROVIDERS: Family Provider Internal Medicine; PCP Internal Medicine; Visit Provider Nurse Practitioner Family
DX: I48.91 Unspecified atrial fibrillation (principal); Z79.01 Long term (current) use of anticoagulants
CPT/HCPCS: 36415; 36416; 85610

== ENCOUNTER 2017-11-09 14:15 | Outpatient (RCR) | payer MEDICARE, OTHER, SELFPAY ==
[2017-10-12 01:00] VITALS: BP 98/52
[2017-11-02 10:24] VITALS: BP 100/60; BP 88/48
--- NOTE | 2017-11-02 10:24 | CR.ITP_ITS ---
General Information - General Information Admitting Diagnosis: Z95.5 PCI with coronary stenting - Education/Goals Barriers to Learning: Vision Impairment Individual Counseling: Discharge Assessment: High Blood Pressure Cardiac Rehabilitation Goals: 1. Maintain the individual as the primary focus of care. 2. To improve the patient's quality of life. 3. Identification of cardiac risk factors and provide cardiac risk factor management. 4. Enhance the psychosocial status of the patient. 5. Reconditioning enough to allow the patient to resume customary activities. 6. Control symptoms of cardiac disease Scale for measuring improvement of personal goals: Enter appropriate number in Comments. 2 = Unchanged. 3 = Slightly Better. 4 = Moderate Improvement. 5 = Met my Goal Personal Goals: Discharge Reassessment: Improve energy level, Participate in home exercise program, Control risk factors (learn risk factor modification) Exercise - 90-Day Assessment - Visit Date of Eval: 11/02/17 - 76 % compliant Session #:: 19 - Stages of Change Stages of Change:: Action - Exercise Prescription Mode:: Sweet Unknown Studiosyne, HymiteStep Frequency (x/week): 3 Duration:: 30 METs: 4.0 60% increase Target Heart Rate:: 108-116 max 112 - Hypertension Resting Blood Pressure:: 88/48 Peak Exercise Blood Pressure:: 100/60 Medication Changes:: No - Intervention Home Exercise/Activity Goal:: Sitting Time <3 hrs/day - Education Goals:: Warm-up, RPE BRANDIN Scale, S/S, Safe Exercise, Self-Monitoring - Exercise Program Goals Exercise Program Goals: Aerobic Activity >30 min, B/P <130/80 Nutrition - 90-Day Assessment - Program Goals Nutrition Program Goals: LDL <70. Total Cholesterol <200. HDL >45. Triglycerides <150. HgbA1C <7%. BMI <25 - Visit Date of Eval: 11/02/17 - Stages of Change Stages of Change:: Action - Lipids Has the patient seen the dietitian?: No - Weight Management Weight:: 58.513 kg - Intervention Referral to dietitian:: No Referral to Diabetic Clinic:: No Will attend diet classes:: Yes - Education Attended class for:: Signs & symptoms of hypoglycemia, Signs & symptoms of hyperglycemia, Relate diabetes to coronary artery disease, Healthy eating Tobacco - 90-Day Assessment - Program Goals Tobacco Program Goals: Complete smoking cessation. Attend education classes. Improve Knowledge Test score - Stage of Change Stages of Change:: Action - Learning Barriers Learning Barriers: Participates in education - Family Support Do you have family support?: Yes - Tobacco Use Tobacco Use: Non-smoker Do you use smokeless tobacco?: No - Intervention Smoking Cessation Referral:: No Individual Education/Counseling:: No Education Schedule Given:: Yes - Education Attended class for:: Tobacco triggers, Coronary artery disease, Risk factors, Sexuality, Medical compliance, Cardiac A&P, Angina signs & symptoms Psychosocial - Initial Assess - Target Goals Target Goals: Assess presence or absence of depression. Using a valid screening tool, maximizes coping skills. Positive support system - Psychosocial Test Tool Used:: HANDS Depression Questionnaire - Assistive Devices Fall Risk Assessed:: Yes Psychosocial - 90-Day Assess - Target Goals Target Goals: Assess presence or absence of depression. Using a valid screening tool, maximizes coping skills. Positive support system - Stages of Change Stages of Change:: Action - Psychosocial Test Tool Used:: HANDS Depression Questionnaire - Intervention PS - Interventions: Yes Attend Stress Management Classes, Yes Uses Stress Management Skills, No Referral to Mental Health, No Referral to [facility] Case Management, No Referral to Physician - Education Attended classes for:: Coping techniques, Signs & symptoms of depression, Stress management, Relaxation techniques - Assistive Devices Assistive Devices:: None Fall Risk Assessed:: Yes Patient Health Questionnaire 90-Day Re-eval Assessment 1. Little interest or pleasure in doing things: Several days 2. Feeling down, depressed, or hopeless: Several days 3. Trouble falling or staying asleep, or sleeping too much: Not at all 4. Feeling tired or having little energy: Several days 5. Poor appetite or overeating: More than half the days 6. Feeling bad about yourself -- or that you are a failure or have let yourself or your family down: Not at all 7. Trouble concentrating on things, such as reading the newspaper or watching television: Not at all 8. Moving or speaking so slowly that other people could have noticed. Or the opposite - being so fidgety or restless that you have been moving around a lot more than usual: Not at all 9. Thoughts that you would be better off , or of hurting yourself in some way: Not at all How difficult have these problems made it for you to do your work, take care of things at home, or get along with other people?: Not difficult at all Total Score: 5 Self-Efficacy 90-Day Re-eval Assessment We would like to know how confident you are in doing certain activities. Please select your confidence level for:: Select your confidence level for the following using the scale 1-10 where 1 is not at all confident and 10 is totally confident. Your score is the average of all 6 responses. Fatigue: How confident are you that you can keep the fatigue caused by your disease from interfering with the things you want to do? Select Number: 6 Physical Discomfort or Pain: How confident are you that you can keep the physical discomfort or pain of your disease from interfering with the things you want to do? Select Number: 6 Emotional Distress: How confident are you that you can keep the emotional distress caused by your disease from interfering with the things you want to do? Select Number: 6 Other Symptoms or Health Problems: How confident are you that you can keep other symptoms or health problems from interfering with the things you want to do? Select Number: 6 Different Tasks and Activities: How confident are you that you can do the different tasks and activities needed to manage your health condition so as to reduce your need to see a doctor? Select Number: 6 Medication: How confident are you that you can do things other than just taking medication to reduce how much your illness affects your everyday life? Select Number: 6 Total Score:: 6
== END 2017-11-10 23:59 ==
LOC: CR 14:15
PROVIDERS: Family Provider Internal Medicine; PCP Internal Medicine; Visit Provider Internal Medicine Cardiovascular Disease
DX: I25.810 Atherosclerosis of coronary artery bypass graft(s) without angina pectoris (principal); I21.3 ST elevation (STEMI) myocardial infarction of unspecified site; K21.9 Gastro-esophageal reflux disease without esophagitis; E43 Unspecified severe protein-calorie malnutrition; I21.19 ST elevation (STEMI) myocardial infarction involving other coronary artery of inferior wall; R57.0 Cardiogenic shock; I48.91 Unspecified atrial fibrillation; Z95.5 Presence of coronary angioplasty implant and graft; Z79.01 Long term (current) use of anticoagulants
CPT/HCPCS: 36415; 36416; 85610; 93798

== ENCOUNTER 2017-12-07 14:53 | Outpatient (RCR) | payer MEDICARE, OTHER, SELFPAY ==
[2017-11-23 15:53] LABS: International Normalized Ratio 1.5; Prothrombin Time (Protime)PT. 18.3 SECONDS (11.7-14.9)
[2017-12-07 17:34] LABS: International Normalized Ratio 2.3; Prothrombin Time (Protime)PT. 25.1 SECONDS (11.7-14.9)
== END 2017-12-07 16:00 | disposition home or self-care (01) ==
LOC: LAB 14:53
PROVIDERS: Family Provider Internal Medicine; PCP Internal Medicine; Visit Provider Nurse Practitioner Family
DX: I48.91 Unspecified atrial fibrillation (principal); Z79.01 Long term (current) use of anticoagulants
CPT/HCPCS: 36415; 85610

== ENCOUNTER 2017-12-10 14:15 | Outpatient (RCR) | payer MEDICARE, OTHER, SELFPAY ==
[2017-11-11 00:52] VITALS: BP 100/60; BP 88/48
--- NOTE | 2017-12-05 08:39 | PCM.CR.ITP ---
General Information - General Information Admitting Diagnosis: Z95.5 PCI with coronary stenting - Education/Goals Barriers to Learning: Vision Impairment Cardiac Rehabilitation Goals: 1. Maintain the individual as the primary focus of care. 2. To improve the patient's quality of life. 3. Identification of cardiac risk factors and provide cardiac risk factor management. 4. Enhance the psychosocial status of the patient. 5. Reconditioning enough to allow the patient to resume customary activities. 6. Control symptoms of cardiac disease Scale for measuring improvement of personal goals: Enter appropriate number in Comments. 2 = Unchanged. 3 = Slightly Better. 4 = Moderate Improvement. 5 = Met my Goal Personal Goals: Discharge Reassessment: Improve energy level, Participate in home exercise program, Improve knowledge of cardiac disease Exercise - Final/Discharge - Visit Date of Eval: 12/05/17 Session #:: 32 - Stages of Change Stages of Change:: Action - Exercise Prescription Mode:: Biodyne, NuStep Frequency (x/week): 3 Duration:: 30 METs: 5 Target Heart Rate:: 108-116 Max HR 94 - Hypertension Resting Blood Pressure:: 92/60 Peak Exercise Blood Pressure:: 114/60 - Intervention Home Exercise/Activity Goal:: Sitting Time <3 hrs/day - Education Goal Progress: Goal Met - Exercise Program Goals Exercise Program Goals: Aerobic Activity >30 min, B/P <130/80 Nutrition - Final Assessment - Program Goals Nutrition Program Goals: LDL <70. Total Cholesterol <200. HDL >45. Triglycerides <150. HgbA1C <7%. BMI <25 - Visit Date of Eval: 12/05/17 - Stages of Change Stages of Change:: Action - Weight Management Weight:: 58.513 kg - Intervention Referral to dietitian:: No Referral to Diabetic Clinic:: No Will attend diet classes:: Yes - Education Education Goal Reached?: Yes Tobacco - Final Assessment - Program Goals Tobacco Program Goals: Complete smoking cessation. Attend education classes. Improve Knowledge Test score - Stage of Change Stages of Change:: Action - Family Support Do you have family support?: Yes - Tobacco Use Tobacco Use: Non-smoker Do you use smokeless tobacco?: No - Intervention Smoking Cessation Referral:: No Individual Education/Counseling:: No Education Schedule Given:: Yes - Education Education Goal Reached?: Yes Psychosocial - Initial Assess - Target Goals Target Goals: Assess presence or absence of depression. Using a valid screening tool, maximizes coping skills. Positive support system - Psychosocial Test Tool Used:: HANDS Depression Questionnaire - Assistive Devices Fall Risk Assessed:: Yes Psychosocial - Final Assessmen - Target Goals Target Goals: Assess presence or absence of depression. Using a valid screening tool, maximizes coping skills. Positive support system - Stages of Change Stages of Change:: Action - Psychosocial Test Tool Used:: HANDS Depression Questionnaire - Intervention PS - Interventions: Yes Attend Stress Management Classes, Yes Uses Stress Management Skills, No Referral to Mental Health, No Referral to [facility] Case Management, No Referral to Physician - Education Education Goal Reached?: Yes - Assistive Devices Assistive Devices:: None Fall Risk Assessed:: Yes Patient Health Questionnaire Discharge Assessment 1. Little interest or pleasure in doing things: Several days 2. Feeling down, depressed, or hopeless: Several days 3. Trouble falling or staying asleep, or sleeping too much: Not at all 4. Feeling tired or having little energy: Several days 5. Poor appetite or overeating: Several days 6. Feeling bad about yourself -- or that you are a failure or have let yourself or your family down: Not at all 7. Trouble concentrating on things, such as reading the newspaper or watching television: Not at all 8. Moving or speaking so slowly that other people could have noticed. Or the opposite - being so fidgety or restless that you have been moving around a lot more than usual: Not at all 9. Thoughts that you would be better off , or of hurting yourself in some way: Not at all How difficult have these problems made it for you to do your work, take care of things at home, or get along with other people?: Not difficult at all Total Score: 4 VICENTE-Q SV Test - Statements CAD is a disease of the arteries in the heart: False Examples of risk factors for heart disease: True Angina is chest pain or discomfort: True The benefits of resistance training include: True Eating more meat and dairy products: False Anti-platelet medications such as aspirin are important: True The only effective way to manage stress: False An exercise warm-up slowly increases heart rate: True Prepared, processed foods usually have high sodium: True Depression is common after a heart attack: True The statin medications lower cholesterol: True To control blood pressure, lower the amount of sodium: True If someone gets chest discomfort during walking: False Transfats are partially hydrogenated vegetable oils: True Sleep apnea that is not treated increases the risk: False To control cholesterol, one should become a vegetarian: False Someone knows if he/she is exercising at the right level: True Diabetes cannot be prevented with exercise & health eating: False Stress is a large risk for heart attack: True A diet that can help lower blood pressure is rich in: True - Total Score Total Correct Responses: 20 Self-Efficacy Discharge Assessment We would like to know how confident you are in doing certain activities. Please select your confidence level for:: Select your confidence level for the following using the scale 1-10 where 1 is not at all confident and 10 is totally confident. Your score is the average of all 6 responses. Fatigue: How confident are you that you can keep the fatigue caused by your disease from interfering with the things you want to do? Select Number: 7 Physical Discomfort or Pain: How confident are you that you can keep the physical discomfort or pain of your disease from interfering with the things you want to do? Select Number: 7 Emotional Distress: How confident are you that you can keep the emotional distress caused by your disease from interfering with the things you want to do? Select Number: 6 Other Symptoms or Health Problems: How confident are you that you can keep other symptoms or health problems from interfering with the things you want to do? Select Number: 7 Different Tasks and Activities: How confident are you that you can do the different tasks and activities needed to manage your health condition so as to reduce your need to see a doctor? Select Number: 7 Medication: How confident are you that you can do things other than just taking medication to reduce how much your illness affects your everyday life? Select Number: 6 Total Score:: 6 Nutrition Survey - Nutrition Survey Instructions Scoring Instructions: Scoring is as follows: Yes = 1 points. No = 0 point. Patient score that is >/=12 is considered to be at potential nutritional risk and could benefit from a referral to a registered dietitian. - Nutrition Survey Discharge Have you lost >10 lbs over the past 2 months without trying?: No Are you following a special diet at home for diabetes, low fat, or low salt?: Yes Are you interested in meeting with a dietitian for help understanding your diet?: No Do you eat less than 3 meals a day?: Yes Do you eat fatty meats (chau, sausage, ribs, etc), fried foods, desserts, large amounts of salad dressings, margarine, butter, or cheese most days?: No Do you have food allergies? [Enter types in comment field]: No Do you eat in restaurants more than 3 times a week?: No Do you season food with salt, seasoning salt, or garlic salt?: Yes Do you used canned, boxed, frozen meals, or soups, seasoning packets?: No Total Score:: 3
[2017-12-05 08:48] VITALS: BP 114/60; BP 92/60
== END 2017-12-11 23:59 ==
LOC: CR 14:15
PROVIDERS: Family Provider Internal Medicine; PCP Internal Medicine; Visit Provider Internal Medicine Cardiovascular Disease
DX: I25.810 Atherosclerosis of coronary artery bypass graft(s) without angina pectoris (principal); I21.3 ST elevation (STEMI) myocardial infarction of unspecified site; K21.9 Gastro-esophageal reflux disease without esophagitis; E43 Unspecified severe protein-calorie malnutrition; I21.19 ST elevation (STEMI) myocardial infarction involving other coronary artery of inferior wall; R57.0 Cardiogenic shock; I48.91 Unspecified atrial fibrillation; Z95.5 Presence of coronary angioplasty implant and graft; Z79.01 Long term (current) use of anticoagulants
CPT/HCPCS: 36415; 85610; 93798

== ENCOUNTER 2017-12-14 14:15 | Outpatient (RCR) | payer MEDICARE, OTHER, SELFPAY ==
[2017-12-12 00:51] VITALS: BP 114/60; BP 92/60
--- NOTE | 2018-01-04 13:02 | PCM.CR.ITP ---
Exercise - Final/Discharge - Visit Date of Eval: 12/14/17 Session #:: 36 - Stages of Change Stages of Change:: Action - Exercise Prescription Mode:: Treadmill, Biodyne, Airdyne, NuStep Frequency (x/week): 3 Duration:: 35 METs: 5 Target Heart Rate:: 108-116 - Hypertension Do any of the following apply?: Yes Resting Blood Pressure:: 104/70 Peak Exercise Blood Pressure:: 112/80 - Intervention Home Exercise/Activity Goal:: Moderate Exercise 30 min/day x 5 days/wk - Education Goal Progress: Goal Met - Exercise Program Goals Exercise Program Goals: Aerobic Activity >30 min Nutrition - Final Assessment - Program Goals Nutrition Program Goals: LDL <70. Total Cholesterol <200. HDL >45. Triglycerides <150. HgbA1C <7%. BMI <25 - Visit Date of Eval: 12/14/17 - graduated - Stages of Change Stages of Change:: Action - Weight Management Height: 5 ft 8.11 in Weight:: 128 lb Body Fat %:: 20 - Intervention Referral to dietitian:: No Referral to Diabetic Clinic:: No Will attend diet classes:: Yes - Education Education Goal Reached?: Yes Tobacco - Final Assessment - Program Goals Tobacco Program Goals: Complete smoking cessation. Attend education classes. Improve Knowledge Test score - Stage of Change Stages of Change:: Action - Learning Barriers Cardiac Knowledge Test Score:: 19 - Family Support Do you have family support?: Yes - Tobacco Use Tobacco Use: Non-smoker Do you use smokeless tobacco?: No - Intervention Education Schedule Given:: Yes - Education Education Goal Reached?: Yes Psychosocial - Final Assessmen - Target Goals Target Goals: Assess presence or absence of depression. Using a valid screening tool, maximizes coping skills. Positive support system - Stages of Change Stages of Change:: Action - Psychosocial Test Tool Used:: HANDS Depression Questionnaire - Intervention PS - Interventions: Yes Attend Stress Management Classes, Yes Uses Stress Management Skills, No Referral to Mental Health, No Referral to [facility] Case Management, No Referral to Physician - Education Education Goal Reached?: Yes - Patient/Program Goal Preventative Medication(s):: Aspirin, Clopidogrel, Beta crishtian, Statin/lipid - Assistive Devices Assistive Devices:: None Fall Risk Assessed:: Yes Patient Health Questionnaire Discharge Assessment 1. Little interest or pleasure in doing things: Not at all 2. Feeling down, depressed, or hopeless: Not at all 3. Trouble falling or staying asleep, or sleeping too much: Not at all 4. Feeling tired or having little energy: Several days 5. Poor appetite or overeating: Not at all 6. Feeling bad about yourself -- or that you are a failure or have let yourself or your family down: Not at all 7. Trouble concentrating on things, such as reading the newspaper or watching television: Not at all 8. Moving or speaking so slowly that other people could have noticed. Or the opposite - being so fidgety or restless that you have been moving around a lot more than usual: Not at all 9. Thoughts that you would be better off , or of hurting yourself in some way: Not at all How difficult have these problems made it for you to do your work, take care of things at home, or get along with other people?: Not difficult at all Total Score: 1 VICENTE-Q SV Test - Statements CAD is a disease of the arteries in the heart: False Examples of risk factors for heart disease: True Angina is chest pain or discomfort: True The benefits of resistance training include: True Eating more meat and dairy products: False Anti-platelet medications such as aspirin are important: True The only effective way to manage stress: False An exercise warm-up slowly increases heart rate: True Prepared, processed foods usually have high sodium: True Depression is common after a heart attack: True The statin medications lower cholesterol: True To control blood pressure, lower the amount of sodium: True If someone gets chest discomfort during walking: False Transfats are partially hydrogenated vegetable oils: True Sleep apnea that is not treated increases the risk: False To control cholesterol, one should become a vegetarian: False Someone knows if he/she is exercising at the right level: True Diabetes cannot be prevented with exercise & health eating: False Stress is a large risk for heart attack: True A diet that can help lower blood pressure is rich in: False - Total Score Total Correct Responses: 19
[2018-01-04 13:12] VITALS: BP 104/70; BP 112/80
== END 2017-12-17 14:18 | disposition home or self-care (01) ==
LOC: CR 14:15
PROVIDERS: Family Provider Internal Medicine; PCP Internal Medicine; Visit Provider Internal Medicine Cardiovascular Disease
DX: I25.810 Atherosclerosis of coronary artery bypass graft(s) without angina pectoris (principal); I21.3 ST elevation (STEMI) myocardial infarction of unspecified site; K21.9 Gastro-esophageal reflux disease without esophagitis; E43 Unspecified severe protein-calorie malnutrition; I21.19 ST elevation (STEMI) myocardial infarction involving other coronary artery of inferior wall; R57.0 Cardiogenic shock; I48.91 Unspecified atrial fibrillation; Z95.5 Presence of coronary angioplasty implant and graft; Z79.01 Long term (current) use of anticoagulants
CPT/HCPCS: 93798

== ENCOUNTER 2017-12-19 14:51 | Outpatient (RCR) | payer MEDICARE, OTHER, SELFPAY ==
[2017-12-19 15:39] LABS: International Normalized Ratio 2.7; Prothrombin Time (Protime)PT. 28.6 SECONDS (11.7-14.9)
[2017-12-19 15:52] LABS: Anion Gap 5 (5-15); BUN 10 mg/dL (7-18); BUN/Creat Ratio 7.5 RATIO (10-20); Calcium,Total 8.7 mg/dL (8.5-10.1); Chloride 107 mmol/L (98-107); Creatinine, Serum 1.33 mg/dL (0.70-1.30); EST Glomerular Filtration Rate 57 mL/min (>60); Est Glom Filt Rate - Afr Amer 69 mL/min (>60); Glucose 89 mg/dL (74-106); Potassium 4.8 mmol/L (3.5-5.1); Sodium Level 140 mmol/L (136-145)
== END 2017-12-19 16:00 | disposition home or self-care (01) ==
LOC: LAB 14:51
PROVIDERS: Family Provider Internal Medicine; PCP Internal Medicine; Visit Provider Nurse Practitioner Family
DX: I48.91 Unspecified atrial fibrillation (principal); Z79.01 Long term (current) use of anticoagulants
CPT/HCPCS: 36415; 80048; 85610

== ENCOUNTER 2017-12-23 14:35 | Emergency (ER) | payer MEDICARE, OTHER, SELFPAY ==
[2017-12-23 14:36] VITALS: BP 128/93; PULSE 66; RESP 15; TEMP 36.4; O2SAT 97; BMI 19.8
--- NOTE | 2017-12-23 15:57 | ED.DCSUM_ITS ---
- ER Visit Summary Date of Service: 12/23/17 Chief Complaint: Thumb laceration History of Present Illness: The patient is a 67 M who presents with a thumb laceration. He cut it on glass about an hour before presentation. He denies any paresthesias weakness loss of function recent illness. Physical Examination: Afebrile vitals are stable There is a 1-1/2 patient over the left thumb he has normal flexion and extension he has brisk capillary refill normal sensation light touch Alert Test Results: Not indicated Emergency Department Course and Treatment: Patient was digitally blocked with 1 % lidocaine with good anesthesia. The wound was explored. No foreign body visualized. The wound was closed with a total of 3 simple interrupted 4-0 nonabsorbable sutures. Wound cleansed and dressed by nursing staff and patient discharged. Treatment Plan: [] Disposition: Discharge Impression: Left thumb laceration This note was generated with [employer] dictation software. It may contain incorrect words, spelling, and punctuation that were not noted in review of the chart prior to signing ED Disposition - Plan for ED Patient: Chief Complaint: Laceration Referrals: Winter Lamas MD [Primary Care Provider] -
--- NOTE | 2017-12-23 15:57 | ED.DEP ---
ED Disposition - Plan for ED Patient: Chief Complaint: Laceration Instructions: ED Laceration Hand Referrals: Winter Lamas MD [Primary Care Provider] - Additional Instructions: Keep wound clean and dry. Have sutures removed in 7-10 days.
[2017-12-23 16:19] VITALS: BP 134/93; PULSE 63
== END 2017-12-23 16:21 | disposition home or self-care (01) ==
LOC: ED 15:14
PROVIDERS: Emergency Provider Emergency Medicine; Family Provider Internal Medicine; PCP Internal Medicine
DX: S61.012A Laceration without foreign body of left thumb without damage to nail, initial encounter (principal); W25.XXXA Contact with sharp glass, initial encounter; Y93.9 Activity, unspecified; Y92.9 Unspecified place or not applicable; I25.10 Atherosclerotic heart disease of native coronary artery without angina pectoris; I48.91 Unspecified atrial fibrillation; I25.2 Old myocardial infarction; I10 Essential (primary) hypertension; E78.00 Pure hypercholesterolemia, unspecified; K21.9 Gastro-esophageal reflux disease without esophagitis; Z95.5 Presence of coronary angioplasty implant and graft; Z79.01 Long term (current) use of anticoagulants; Z79.82 Long term (current) use of aspirin; Z79.899 Other long term (current) drug therapy
CPT/HCPCS: 12001; 99284

== ENCOUNTER 2018-01-11 13:24 | Outpatient (RCR) | payer MEDICARE, OTHER, SELFPAY ==
[2017-12-26 11:57] LABS: International Normalized Ratio 1.9; Prothrombin Time (Protime)PT. 21.5 SECONDS (11.7-14.9)
[2018-01-02 17:17] LABS: International Normalized Ratio 1.8; Prothrombin Time (Protime)PT. 20.9 SECONDS (11.7-14.9)
[2018-01-11 15:09] LABS: International Normalized Ratio 2.7; Prothrombin Time (Protime)PT. 28.7 SECONDS (11.7-14.9)
== END 2018-01-11 15:00 | disposition home or self-care (01) ==
LOC: LAB 13:24
PROVIDERS: Family Provider Internal Medicine; PCP Internal Medicine; Visit Provider Nurse Practitioner Family
DX: I48.91 Unspecified atrial fibrillation (principal); Z79.01 Long term (current) use of anticoagulants
CPT/HCPCS: 36415; 85610

== ENCOUNTER 2018-01-24 14:23 | Outpatient (RCR) | payer MEDICARE, OTHER, SELFPAY ==
[2018-01-18 15:00] LABS: Prothrombin Time (Protime)PT. 36.4 SECONDS (11.7-14.9)
[2018-01-18 15:16] LABS: International Normalized Ratio 3.6
[2018-01-24 15:00] LABS: International Normalized Ratio 2.3; Prothrombin Time (Protime)PT. 25.5 SECONDS (11.7-14.9)
== END 2018-01-24 16:00 | disposition home or self-care (01) ==
LOC: LAB 14:23
PROVIDERS: Family Provider Internal Medicine; PCP Internal Medicine; Visit Provider Nurse Practitioner Family
DX: I48.91 Unspecified atrial fibrillation (principal); Z79.01 Long term (current) use of anticoagulants
CPT/HCPCS: 36415; 85610

== ENCOUNTER 2018-01-30 09:25 | Day surgery (SDC) | payer MEDICARE, OTHER, SELFPAY ==
[2018-01-29 09:55] VITALS: BMI 19.3
[2018-01-30 09:51] LABS: Anion Gap 9 (5-15); BUN 15 mg/dL (7-18); BUN/Creat Ratio 12.2 RATIO (10-20); Calcium,Total 9.2 mg/dL (8.5-10.1); Chloride 106 mmol/L (98-107); Creatinine, Serum 1.23 mg/dL (0.70-1.30); EST Glomerular Filtration Rate 63 mL/min (>60); Est Glom Filt Rate - Afr Amer 76 mL/min (>60); Estimated Creatinine Clearance 48.79 ml/min; Glucose 91 mg/dL (74-106); Potassium 3.8 mmol/L (3.5-5.1); Sodium Level 144 mmol/L (136-145)
[2018-01-30 10:21] LABS: Prothrombin Time Fingerstick 33.7 SEC (11.9-14.4)
--- NOTE | 2018-01-30 10:41 | PCM.HP.BLA ---
Problem List (1) Atrial fibrillation Status: Chronic Qualifiers: Atrial fibrillation type: chronic Qualified Code(s): I48.2 - Chronic atrial fibrillation History and Physical HPI HPI Details: BANDAR BLISS, is a 67 M who presents today for DCCV. He has a history of atrial fibrillation, mitral valve insufficiency, tricuspid valve insufficiency, hypertension, and hyperlipidemia, and acute lymphoma with chemotherapy. He presented to [facility] emergency department in July 2017 after developing midsternal chest pain. His EKG showed ST elevation in lead II, III, and aVF. He was transferred to cardiac cath. He underwent bare metal stenting to proximal RCA. The plan was to undergo elective PCI to LAD and diagonal in 3 weeks. He later underwent successful PTCA/ROMULO to proximal diagonal 1 and mid LAD in August 2017. Pt denies chest, arm, jaw, or neck discomfort. His exercise tolerance is stable. Pt denies symptoms of CHF, palpitations, lightheadedness, dizziness, near syncopal or syncopal episodes. Pt denies edema or claudication issues. Pt. denies orthopnea, PND, fever, chills, blood in urine, blood in stool, or myalgia. Pt. states numbness in his feet that is understands is from chemotherpay. Vitals: Allergies ampicillin Allergy (Verified 12/12/17 14:54) Rash phenazopyridine [Phenazopyridine] Allergy (Verified 12/12/17 14:54) Rash cephalexin [Cephalexin] Adverse Reaction (Verified 12/12/17 14:54) Upset Stomach trazodone Adverse Reaction (Verified 12/12/17 14:54) Nausea Medications Gabapentin [Neurontin] 100 mg PO QHS 12/12/16 [History Confirmed 12/12/17] Pantoprazole Sodium [Protonix] 40 mg PO DAILY 12/12/16 [History Confirmed 12/12/17] Amiodarone HCl [Cordarone] 200 mg PO DAILY #30 tab 07/30/17 [Rx Confirmed 12/12/17] Aspirin E.C. [Ecotrin] 81 mg PO DAILY@0800 #30 tab 07/30/17 [Rx Confirmed 12/12/17] Atorvastatin Calcium [Lipitor] 80 mg PO QHS #30 tab 07/30/17 [Rx Confirmed 12/12/17] metoprolol tartrate 25 mg tablet 12.5 mg PO BID #30 tab 05/16/18 [Rx Confirmed 12/12/17] ticagrelor 90 mg tablet 90 mg PO BID #60 tab 10/03/17 [Rx Confirmed 12/12/17] warfarin 1 mg tablet 1 mg PO .COMPLEX 11/02/17 [History Confirmed 12/12/17] warfarin 4 mg tablet 4 mg PO .COMPLEX #90 tab 11/02/17 [Rx Confirmed 12/12/17] PFSH Medical History Hyperlipidemia (Chronic) Non-rheumatic tricuspid valve insufficiency (Chronic) Nonrheumatic mitral valve insufficiency (Chronic) senior care current use of 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) H/O endoscopy (Resolved) port placement (Resolved) bone marrow (Resolved) History of coronary artery stent placement (Resolved ~07/27/17) Atherosclerosis of coronary artery bypass graft without angina pectoris (Chronic) ST elevation (STEMI) myocardial infarction (Acute) GERD (gastroesophageal reflux disease) (Chronic) Severe protein-calorie malnutrition (Chronic) Inferior [place] (Acute) Cardiogenic shock (Acute) Atrial fibrillation (Chronic) Altered vision right eye (Chronic) History of bladder cancer (Chronic) 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) h/o bladder cancer (Acute) Surgical History H/O splenectomy (Resolved) Hx of tonsillectomy (Resolved) H/O hernia repair (Resolved) History of prostate surgery (Resolved) History of bladder surgery (Resolved) Hx of colonoscopy (Resolved) Family History Mother Breast cancer Lung disease Father CVA (cerebral vascular accident) Heart disease Afib CHF (congestive heart failure) Myocardial infarction Hx of CABG Social History Smoking Status: Never smoker alcohol intake: never substance use type: does not use caffeine: No what type of physical activity do you participate in: other details: therapy seatbelt use: always do you feel safe at home: Yes ROS Const Const: Negative for weakness, body ache, fever(s), chills or fatigue ENT ENT: Negative for dizziness Cardio Chest Pain: No Palpitations: No Edema: None Muscle aches with walking: None Resp Respiratory: Negative for SOB with activity, SOB at rest, SOB orthopnea\SOB lying down or paroxysmal nocturnal dyspnea GI GI: Negative nausea, black,tarry stools, bright, red blood in stools or vomiting blood/hematemesis : Negative for hematuria or frequent nighttime urination/ nocturia Musc Musc: Negative for muscle aches/ myalgia Neuro Neuro: Negative for weakness or dizziness Endo Endo: Negative for fatigue Cardiology Exam Const Appearance: cooperative, healthy appearing, comfortable and no acute distress Orientation: alert, awake and oriented x3 Head Head: normal to inspection Mouth: oral mucosae normal Neck Neck: no JVD and normal visual inspection Carotids: normal carotid upstroke Chest Chest inspection: normal inspection of the chest and normal respiratory effort Auscultation: Bilateral: Clear to Auscultation Cardio Rate: regular rate Rhythm: irregular rhythm Heart sounds: S2 normal and murmur; negative rub or gallop Murmur: Grade 2/6 and LLSB GI GI: normal to inspection Neuro General: alert, awake, oriented x3 and CN's II-XI intact bilaterally Skin Skin: no rashes or lesions noted Extremities Pulses: Normal: Right Posterior Tibial Pulse, Left Posterior Tibial Pulse, Right Radial Pulse, Left Radial Pulse Lower Extremity Edema: None: Bilateral Psych Psychological: normal affect Supplemental Info Echocardiogram from July 2017 showed estimated ejection fraction of 45-50%, moderate enlarged left atrium, moderate mitral valve insufficiency, mild tricuspid valve insufficiency, RVSP of 33 mmHg, and when compared to previous echocardiogram in December 2016 there is new inferior/posterior wall motion hypokinesis and ejection fraction has decreased from 65% to 50% and RVSP estimated the same. Patient appears to be in atrial fibrillation. Echocardiogram May 2017 at [facility] showed mild concentric LVH, estimated ejection fraction of 54 ? 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 Assessment & Plan 1. Atherosclerosis of coronary artery bypass graft of [place] heart without angina pectoris I25.810 [id number] RCA 4.0 x 26 mm Integrity Stent 07/27/17; ROMULO to prox Diag and Mid LAD 08/15/2017 Patient denies any chest pain, arm pain, jaw pain, neck pain, shortness of breath, or fatigue suggestive of angina at this time. We will continue to monitor this. We will not make any medication regimen changes and will continue risk factor modification. 2. History of coronary artery stent placement Z95.5 [id number] RCA 4.0 x 26 mm Integrity Stent 07/27/17; ROMULO to proximal diagonal and mid LAD 08/15/17; We will continue current plan as outlined above. 3. Chronic atrial fibrillation I48.2 Echocardiogram from July 2017 showed estimated ejection fraction 45-50% and moderately enlarged left atrium. Patient is on amiodarone therapy, low-dose beta-cristhian, and Coumadin therapy. Pt will be scheduled to have a Cardioversion today. His INR has been theraputic. 4. Nonrheumatic mitral valve insufficiency I34.0 Echocardiogram from July 2017 showed moderate mitral valve insufficiency. Echocardiogram from May 2017 at [facility] stated moderately severe mitral valve regurgitation. Patient denies any shortness of breath or activity intolerance. We will continue to monitor this through history, exam, and repeat echocardiogram as needed. We will continue current medications. 5. Nonrheumatic tricuspid (valve) insufficiency I36.1 Echocardiogram from July 2017 showed mild tricuspid valve insufficiency with an RVSP of 33 mmHg. Patient denies any shortness of breath or lower extremity pedal edema. We will continue to monitor this through history, exam, and repeat echocardiogram as needed. 6. Pure hypercholesterolemia E78.00 Patient's lipid panel from August 2017 show cholesterol: 97, LDL: 42, HDL: 37, and triglycerides: 90. Patient will continue current cholesterol-lowering medication. He will repeat both liver and lipid panel in approximately 6 months. We will wait for results of these tests for further recommendation. 7. senior care current use of anticoagulant Z79.01 Patient will continue with Coumadin therapy with an INR goal of 23.
--- NOTE | 2018-01-30 10:49 | HP.PCM_ITS ---
Problem List (1) Atrial fibrillation Status: Chronic Qualifiers: Atrial fibrillation type: chronic Qualified Code(s): I48.2 - Chronic atrial fibrillation History and Physical HPI HPI Details: BANDAR BLISS, is a 67 M who presents today for DCCV. He has a history of atrial fibrillation, mitral valve insufficiency, tricuspid valve insufficiency, hypertension, and hyperlipidemia, and acute lymphoma with chemotherapy. He presented to [facility] emergency department in July 2017 after developing midsternal chest pain. His EKG showed ST elevation in lead II, III, and aVF. He was transferred to cardiac cath. He underwent bare metal stenting to proximal RCA. The plan was to undergo elective PCI to LAD and diagonal in 3 weeks. He later underwent successful PTCA /ROMULO to proximal diagonal 1 and mid LAD in August 2017. Pt denies chest, arm, jaw, or neck discomfort. His exercise tolerance is stable. Pt denies symptoms of CHF, palpitations, lightheadedness, dizziness, near syncopal or syncopal episodes. Pt denies edema or claudication issues. Pt. denies orthopnea, PND, fever, chills, blood in urine, blood in stool, or myalgia. Pt. states numbness in his feet that is understands is from chemotherpay. Vitals: Allergies ampicillin Allergy (Verified 12/12/17 14:54) Rash phenazopyridine [Phenazopyridine] Allergy (Verified 12/12/17 14:54) Rash cephalexin [Cephalexin] Adverse Reaction (Verified 12/12/17 14:54) Upset Stomach trazodone Adverse Reaction (Verified 12/12/17 14:54) Nausea Medications Gabapentin [Neurontin] 100 mg PO QHS 12/12/16 [History Confirmed 12/12/17] Pantoprazole Sodium [Protonix] 40 mg PO DAILY 12/12/16 [History Confirmed ] Amiodarone HCl [Cordarone] 200 mg PO DAILY #30 tab 07/30/17 [Rx Confirmed ] Aspirin E.C. [Ecotrin] 81 mg PO DAILY@0800 #30 tab 07/30/17 [Rx Confirmed ] Atorvastatin Calcium [Lipitor] 80 mg PO QHS #30 tab 07/30/17 [Rx Confirmed 12/12] metoprolol tartrate 25 mg tablet 12.5 mg PO BID #30 tab 05/16/18 [Rx Confirmed 12/12/17] ticagrelor 90 mg tablet 90 mg PO BID #60 tab 10/03/17 [Rx Confirmed 12/12/17] warfarin 1 mg tablet 1 mg PO .COMPLEX 11/02/17 [History Confirmed 12/12/17] warfarin 4 mg tablet 4 mg PO .COMPLEX #90 tab 11/02/17 [Rx Confirmed 12/12/17] PFSH Medical History Hyperlipidemia (Chronic) Non-rheumatic tricuspid valve insufficiency (Chronic) Nonrheumatic mitral valve insufficiency (Chronic) nursing home current use of 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) H/O endoscopy (Resolved) port placement (Resolved) bone marrow (Resolved) History of coronary artery stent placement (Resolved ~07/27/17) Atherosclerosis of coronary artery bypass graft without angina pectoris (Chronic ) ST elevation (STEMI) myocardial infarction (Acute) GERD (gastroesophageal reflux disease) (Chronic) Severe protein-calorie malnutrition (Chronic) Inferior UT (Acute) Cardiogenic shock (Acute) Atrial fibrillation (Chronic) Altered vision right eye (Chronic) History of bladder cancer (Chronic) 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) h/o bladder cancer (Acute) Surgical History H/O splenectomy (Resolved) Hx of tonsillectomy (Resolved) H/O hernia repair (Resolved) History of prostate surgery (Resolved) History of bladder surgery (Resolved) Hx of colonoscopy (Resolved) Family History Mother Breast cancer Lung disease Father CVA (cerebral vascular accident) Heart disease Afib CHF (congestive heart failure) Myocardial infarction Hx of CABG Social History Smoking Status: Never smoker alcohol intake: never substance use type: does not use caffeine: No what type of physical activity do you participate in: other details: therapy seatbelt use: always do you feel safe at home: Yes ROS Const Const: Negative for weakness, body ache, fever(s), chills or fatigue ENT ENT: Negative for dizziness Cardio Chest Pain: No Palpitations: No Edema: None Muscle aches with walking: None Resp Respiratory: Negative for SOB with activity, SOB at rest, SOB orthopnea\SOB lying down or paroxysmal nocturnal dyspnea GI GI: Negative nausea, black,tarry stools, bright, red blood in stools or vomiting blood/hematemesis : Negative for hematuria or frequent nighttime urination/ nocturia Musc Musc: Negative for muscle aches/ myalgia Neuro Neuro: Negative for weakness or dizziness Endo Endo: Negative for fatigue Cardiology Exam Const Appearance: cooperative, healthy appearing, comfortable and no acute distress Orientation: alert, awake and oriented x3 Head Head: normal to inspection Mouth: oral mucosae normal Neck Neck: no JVD and normal visual inspection Carotids: normal carotid upstroke Chest Chest inspection: normal inspection of the chest and normal respiratory effort Auscultation: Bilateral: Clear to Auscultation Cardio Rate: regular rate Rhythm: irregular rhythm Heart sounds: S2 normal and murmur; negative rub or gallop Murmur: Grade 2/6 and LLSB GI GI: normal to inspection Neuro General: alert, awake, oriented x3 and CN's II-XI intact bilaterally Skin Skin: no rashes or lesions noted Extremities Pulses: Normal: Right Posterior Tibial Pulse, Left Posterior Tibial Pulse, Right Radial Pulse, Left Radial Pulse Lower Extremity Edema: None: Bilateral Psych Psychological: normal affect Supplemental Info Echocardiogram from July 2017 showed estimated ejection fraction of 45-50%, moderate enlarged left atrium, moderate mitral valve insufficiency, mild tricuspid valve insufficiency, RVSP of 33 mmHg, and when compared to previous echocardiogram in December 2016 there is new inferior/posterior wall motion hypokinesis and ejection fraction has decreased from 65% to 50% and RVSP estimated the same. Patient appears to be in atrial fibrillation. Echocardiogram May 2017 at [facility] showed mild concentric LVH, estimated ejection fraction of 54 ? 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 Assessment & Plan 1. Atherosclerosis of coronary artery bypass graft of [place] heart without angina pectoris I25.810 [id number] RCA 4.0 x 26 mm Integrity Stent 07/27/17; ROMULO to prox Diag and Mid LAD 08/15/2017 Patient denies any chest pain, arm pain, jaw pain, neck pain, shortness of breath, or fatigue suggestive of angina at this time. We will continue to monitor this. We will not make any medication regimen changes and will continue risk factor modification. 2. History of coronary artery stent placement Z95.5 [id number] RCA 4.0 x 26 mm Integrity Stent 07/27/17; ROMULO to proximal diagonal and mid LAD 08/15/17; We will continue current plan as outlined above. 3. Chronic atrial fibrillation I48.2 Echocardiogram from July 2017 showed estimated ejection fraction 45-50% and moderately enlarged left atrium. Patient is on amiodarone therapy, low-dose beta-cristhian, and Coumadin therapy. Pt will be scheduled to have a Cardioversion today. His INR has been theraputic. 4. Nonrheumatic mitral valve insufficiency I34.0 Echocardiogram from July 2017 showed moderate mitral valve insufficiency. Echocardiogram from May 2017 at [facility] stated moderately severe mitral valve regurgitation. Patient denies any shortness of breath or activity intolerance. We will continue to monitor this through history, exam, and repeat echocardiogram as needed. We will continue current medications. 5. Nonrheumatic tricuspid (valve) insufficiency I36.1 Echocardiogram from July 2017 showed mild tricuspid valve insufficiency with an RVSP of 33 mmHg. Patient denies any shortness of breath or lower extremity pedal edema. We will continue to monitor this through history, exam, and repeat echocardiogram as needed. 6. Pure hypercholesterolemia E78.00 Patient's lipid panel from August 2017 show cholesterol: 97, LDL: 42, HDL: 37, and triglycerides: 90. Patient will continue current cholesterol-lowering medication. He will repeat both liver and lipid panel in approximately 6 months. We will wait for results of these tests for further recommendation. 7. nursing home current use of anticoagulant Z79.01 Patient will continue with Coumadin therapy with an INR goal of 23.
--- NOTE | 2018-01-30 13:29 | OP.PCM_ITS ---
Problem List (1) Atrial fibrillation Status: Chronic Qualifiers: Atrial fibrillation type: chronic Qualified Code(s): I48.2 - Chronic atrial fibrillation Operative Report Date of Procedure: 01/30/18 DC cardioversion: Patient was brought to the [employer] holding area in the fasting state. The risks/benefits of the procedure were thoroughly explained to the patient and informed consent was obtained. The deferred later pads were placed in the AP position. EKG confirmed the patient to be in atrial flutter with controlled ventricular response. With the assistance of Dr. Luis Calvillo the patient was given a total of 70 mg of IV propofol. Once adequate sedation was obtained the patient received a single 200 J biphasic synchronized shock which converted him from atrial flutter to normal sinus rhythm. His rhythm remained durable, and the defibrillator pads were removed. The patient spontaneously awoke, moves all 4 extremities and tolerated procedure well. Conclusions: Successful biphasic DC cardioversion with a single 200 J synchronized shock. Patient tolerated procedure well. No complications. He will continue on current medical therapy. Patient may proceed with chemotherapy going forward.
--- NOTE | 2018-01-30 15:15 | PCM.OP.BLANK ---
Problem List (1) Inferior AR Status: Acute (2) ST elevation (STEMI) myocardial infarction Status: Resolved (3) Atrial fibrillation Status: Chronic Qualifiers: Atrial fibrillation type: chronic Qualified Code(s): I48.2 - Chronic atrial fibrillation (4) GERD (gastroesophageal reflux disease) Status: Chronic (5) History of bladder cancer Status: Chronic (6) Hyperlipidemia Status: Chronic Qualifiers: Hyperlipidemia type: pure hypercholesterolemia Qualified Code(s): E78.00 - Pure hypercholesterolemia, unspecified; E78.0 - Pure hypercholesterolemia (7) Lobulated mass of maxilla Status: Chronic (8) Mantle cell lymphoma Status: Chronic Qualifiers: Lymphoma site: unspecified region Qualified Code(s): C83.10 - Mantle cell lymphoma, unspecified site (9) Severe protein-calorie malnutrition Status: Chronic (10) History of bladder surgery Status: Resolved Comment: bladder cancer 10/2007 (11) History of coronary artery stent placement Status: Resolved Comment: [id number] RCA 4.0 x 26 mm Integrity Stent 07/27/17; ROMULO to proximal diagonal and mid LAD 08/15/17; (12) History of prostate surgery Status: Resolved (13) Hx of colonoscopy Status: Resolved (14) Hx of tonsillectomy Status: Resolved Comment: 1959 (15) bone marrow Status: Resolved Comment: 05/22/16 Operative Report Date of Procedure: 01/30/18 - Conscious sedation CONSCIOUS SEDATION REPORT BRIEF HISTORY OF PRESENT ILLNESS: The patient is a 67-year-old male who presented to [facility] for an elective outpatient cardioversion due to underlying atrial fibrillation. The patient reports no PO intake since midnight. The patient does not have a history of obstructive sleep apnea. The patient reports no history of smoking and COPD. The patient denies any recent constitutional symptoms such as fevers, chills, nausea or vomiting. The patient denies previous anesthetic complications. PHYSICAL EXAMINATION: VITAL SIGNS: Reviewed and were acceptable. GENERAL: The patient is an obese male, in no apparent distress, speaking in full sentences. HEENT: Normocephalic, atraumatic. Mucous membranes are moist and pink. Good mouth opening noted. Trachea is midline. Good neck mobility. MP II. edentulous CHEST: S1, S2 irregularly irregular. No murmurs, rubs or gallops were noted. LUNGS: Clear to auscultation bilaterally without appreciable wheezes, rales or rhonchi. ABDOMEN: Soft, nontender, nondistended. Positive bowel sounds. EXTREMITIES: There is no clubbing, cyanosis or edema. ASA Class: II DESCRIPTION OF PROCEDURE: After confirmation of informed consent, the patient's anesthesia plan was reviewed in detail. Propofol was chosen. Risks and benefits were reviewed and the patient agreed to proceed. At 11:33 AM, the patient was given 40 mg of propofol. The patient required a total of 70 mg of propofol throughout the procedure to achieve appropriate sedation. The patient achieved an appropriate level of sedation and received 1 attempt s synchronized cardioversion, at [address] Brito at the bedside. This was successful in achieving normal sinus rhythm. The patient was monitored until 11:39 AM, at which time the patient reached their baseline mental status and function. The patient tolerated the procedure well. COMPLICATIONS: None ESTIMATED BLOOD LOSS: None RECOMMENDATIONS: Okay to recover in usual fashion. Code Visit 9xxxx: Other Procedure See Report - [id number]
--- NOTE | 2018-01-30 15:18 | OP.PCM_ITS ---
Problem List (1) Inferior CO Status: Acute (2) ST elevation (STEMI) myocardial infarction Status: Resolved (3) Atrial fibrillation Status: Chronic Qualifiers: Atrial fibrillation type: chronic Qualified Code(s): I48.2 - Chronic atrial fibrillation (4) GERD (gastroesophageal reflux disease) Status: Chronic (5) History of bladder cancer Status: Chronic (6) Hyperlipidemia Status: Chronic Qualifiers: Hyperlipidemia type: pure hypercholesterolemia Qualified Code(s): E78.00 - Pure hypercholesterolemia, unspecified; E78.0 - Pure hypercholesterolemia (7) Lobulated mass of maxilla Status: Chronic (8) Mantle cell lymphoma Status: Chronic Qualifiers: Lymphoma site: unspecified region Qualified Code(s): C83.10 - Mantle cell lymphoma, unspecified site (9) Severe protein-calorie malnutrition Status: Chronic (10) History of bladder surgery Status: Resolved Comment: bladder cancer 10/2007 (11) History of coronary artery stent placement Status: Resolved Comment: [id number]-Ptpi RCA 4.0 x 26 mm Integrity Stent 07/27/17 ; ROMULO to proximal diagonal and mid LAD 08/15/17; (12) History of prostate surgery Status: Resolved (13) Hx of colonoscopy Status: Resolved (14) Hx of tonsillectomy Status: Resolved Comment: 1959 (15) bone marrow Status: Resolved Comment: 05/22/16 Operative Report Date of Procedure: 01/30/18 - Conscious sedation CONSCIOUS SEDATION REPORT BRIEF HISTORY OF PRESENT ILLNESS: The patient is a 67-year-old male who presented to [facility] for an elective outpatient cardioversion due to underlying atrial fibrillation. The patient reports no PO intake since midnight. The patient does not have a history of obstructive sleep apnea. The patient reports no history of smoking and COPD. The patient denies any recent constitutional symptoms such as fevers, chills, nausea or vomiting. The patient denies previous anesthetic complications. PHYSICAL EXAMINATION: VITAL SIGNS: Reviewed and were acceptable. GENERAL: The patient is an obese male, in no apparent distress, speaking in full sentences. HEENT: Normocephalic, atraumatic. Mucous membranes are moist and pink. Good mouth opening noted. Trachea is midline. Good neck mobility. MP II. edentulous CHEST: S1, S2 irregularly irregular. No murmurs, rubs or gallops were noted. LUNGS: Clear to auscultation bilaterally without appreciable wheezes, rales or rhonchi. ABDOMEN: Soft, nontender, nondistended. Positive bowel sounds. EXTREMITIES: There is no clubbing, cyanosis or edema. ASA Class: II DESCRIPTION OF PROCEDURE: After confirmation of informed consent, the patient's anesthesia plan was reviewed in detail. Propofol was chosen. Risks and benefits were reviewed and the patient agreed to proceed. At 11:33 AM, the patient was given 40 mg of propofol. The patient required a total of 70 mg of propofol throughout the procedure to achieve appropriate sedation. The patient achieved an appropriate level of sedation and received 1 attempt s synchronized cardioversion, at [address] Brito at the bedside. This was successful in achieving normal sinus rhythm. The patient was monitored until 11:39 AM, at which time the patient reached their baseline mental status and function. The patient tolerated the procedure well. COMPLICATIONS: None ESTIMATED BLOOD LOSS: None RECOMMENDATIONS: Okay to recover in usual fashion. Code Visit 9xxxx: Other Procedure See Report - [id number]
== END 2018-01-30 12:55 | disposition home or self-care (01) ==
PROVIDERS: Family Provider Internal Medicine; PCP Internal Medicine; Visit Provider Internal Medicine Cardiovascular Disease
DX: I48.2 Chronic atrial fibrillation (principal); I25.810 Atherosclerosis of coronary artery bypass graft(s) without angina pectoris; I36.1 Nonrheumatic tricuspid (valve) insufficiency; I34.0 Nonrheumatic mitral (valve) insufficiency; I25.2 Old myocardial infarction; I10 Essential (primary) hypertension; E78.00 Pure hypercholesterolemia, unspecified; K21.9 Gastro-esophageal reflux disease without esophagitis; E43 Unspecified severe protein-calorie malnutrition; C83.10 Mantle cell lymphoma, unspecified site; Z85.51 Personal history of malignant neoplasm of bladder; Z95.5 Presence of coronary angioplasty implant and graft; Z79.01 Long term (current) use of anticoagulants; Z79.82 Long term (current) use of aspirin; Z79.899 Other long term (current) drug therapy
CPT/HCPCS: 36415; 36416; 80048; 85610; 92960; 93005; J7040; A4216

== ENCOUNTER 2018-03-01 11:06 | Outpatient (RCR) | payer MEDICARE, OTHER, SELFPAY ==
[2018-02-13 16:14] LABS: Prothrombin Time (Protime)PT. 22.8 SECONDS (11.7-14.9)
[2018-03-01 12:12] LABS: International Normalized Ratio 1.7; Prothrombin Time (Protime)PT. 20.2 SECONDS (11.7-14.9)
[2018-03-01 12:44] LABS: AST(SGOT) 24 U/L (15-37); Alanine Aminotransfer ALT/SGPT 41 U/L (16-61); Albumin, Serum 4.3 g/dL (3.2-5.0); Alkaline Phosphatase 95 U/L (45-117); Bilirubin, Direct 0.28 mg/dL (0.00-0.30); Cholesterol 98 mg/dL (200); Globulin 3.2 g/dL (2.2-4.2); High Density Lipoprotein 50 mg/dL; Protein, Total 7.5 g/dL (6.4-8.2); Triglycerides 79 mg/dL; Very Low Density Lipoprotein 16 mg/dL (5-40)
== END 2018-03-01 12:00 | disposition home or self-care (01) ==
LOC: LAB 11:06
PROVIDERS: Nurse Practitioner Family; Family Provider Internal Medicine; PCP Internal Medicine; Referring Provider Internal Medicine Cardiovascular Disease; Visit Provider Internal Medicine Cardiovascular Disease
DX: I48.91 Unspecified atrial fibrillation (principal); Z79.01 Long term (current) use of anticoagulants; E78.5 Hyperlipidemia, unspecified
CPT/HCPCS: 36415; 80061; 80076; 85610

== ENCOUNTER 2018-04-10 13:38 | Outpatient (RCR) | payer MEDICARE, OTHER, SELFPAY ==
[2018-03-20 15:00] LABS: International Normalized Ratio 3.5
[2018-03-27 15:20] LABS: Prothrombin Time (Protime)PT. 46.3 SECONDS (11.7-14.9)
[2018-03-27 15:28] LABS: International Normalized Ratio 4.9
[2018-04-01 16:45] LABS: International Normalized Ratio 1.7; Prothrombin Time (Protime)PT. 20.4 SECONDS (11.7-14.9)
[2018-04-10 16:22] LABS: International Normalized Ratio 1.7; Prothrombin Time (Protime)PT. 19.7 SECONDS (11.7-14.9)
== END 2018-04-12 10:39 | disposition home or self-care (01) ==
LOC: LAB 13:38
PROVIDERS: Family Provider Internal Medicine; PCP Internal Medicine; Referring Provider Internal Medicine Cardiovascular Disease; Visit Provider Internal Medicine Cardiovascular Disease
DX: I48.91 Unspecified atrial fibrillation (principal); Z79.01 Long term (current) use of anticoagulants
CPT/HCPCS: 36415; 85610

== ENCOUNTER 2018-05-10 14:50 | Outpatient (RCR) | payer MEDICARE, OTHER, SELFPAY ==
[2018-01-29 09:55] VITALS: BMI 19.3
[2018-04-19 16:31] LABS: International Normalized Ratio 1.5; Prothrombin Time (Protime)PT. 18.5 SECONDS (11.7-14.9)
[2018-04-26 16:05] LABS: International Normalized Ratio 2.1; Prothrombin Time (Protime)PT. 23.8 SECONDS (11.7-14.9)
[2018-05-10 15:18] LABS: International Normalized Ratio 2.2; Prothrombin Time (Protime)PT. 24.4 SECONDS (11.7-14.9)
== END 2018-05-10 15:00 | disposition home or self-care (01) ==
LOC: LAB 14:50
PROVIDERS: Family Provider Internal Medicine; PCP Internal Medicine; Referring Provider Internal Medicine Cardiovascular Disease; Visit Provider Internal Medicine Cardiovascular Disease
DX: I48.91 Unspecified atrial fibrillation (principal); Z79.01 Long term (current) use of anticoagulants
CPT/HCPCS: 36415; 85610

== ENCOUNTER → 2018-06-04 13:45 | Outpatient (CLI) | payer MEDICARE, OTHER, SELFPAY ==
[2018-06-04 13:19] VITALS: BMI 19.0
[2018-06-04 15:25] LABS: T4 Total, Thyroxin 11.1 ug/dL (4.5-12.1); Thyroid Stim Hormone (TSH) 4.78 uIU/mL (0.358-3.74)
--- OUTSIDE RECORDS SUMMARY | 2018-08-06 18:39 | XMS RPT_ITS ---
:1950 Author Organization OHIP Support Name Relationship Address Phone NISHI LOVE Unavailable [address] + [place] [address] R Unavailable Unavailable Unavailable LISA LOVEIE Unavailable [address] + [place] [address] R Unavailable Unavailable Unavailable LISA LOVEIE Unavailable [address] + [place] [address] R Unavailable Unavailable Unavailable RUTHY NISHI Unavailable [address] + [place] [address] R Unavailable Unavailable Unavailable RUTHY NISHI Unavailable [address] + [place] [address] R Unavailable Unavailable Unavailable LISA LOVEIE Unavailable [address] + [place] [address] R Unavailable Unavailable Unavailable LISA LOVEIE Unavailable [address] + [place] [address] R Unavailable Unavailable Unavailable LISA LOVEIE Unavailable [address] + [place] [address] R Unavailable Unavailable Unavailable RUTHY NISHI Unavailable [address] + [place] [address] R Unavailable Unavailable Unavailable LISA LOVEIE Unavailable [address] + [place] [address] R Unavailable Unavailable Unavailable LISA LOVEIE Unavailable [address] + [place] [address] R Unavailable Unavailable Unavailable RUTHYLISAIE Unavailable [address] + [place] [address] R Unavailable Unavailable Unavailable RUTHY NISHI Unavailable [address] + [place] [address] R Unavailable Unavailable Unavailable RUTHY NISHI Unavailable [address] + [place] [address] R Unavailable Unavailable Unavailable MAST NISHI Unavailable [address] + [place] [address] R Unavailable Unavailable Unavailable MAST NISHI Unavailable [address] + [place] [address] R Unavailable Unavailable Unavailable MAST NISHI Unavailable [address] + [place] [address] R Unavailable Unavailable Unavailable MAST NISHI Unavailable [address] + [place] [address] R Unavailable Unavailable Unavailable MAST NISHI Unavailable [address] + [place] [address] R Unavailable Unavailable Unavailable RUTHY NISHI Unavailable [address] + [place] [address] R Unavailable Unavailable Unavailable NISHI LOVE Unavailable [address] + [place] [address] R Unavailable Unavailable Unavailable RUTHY NISHI Unavailable [address] + [place] [address] R Unavailable Unavailable Unavailable MAST NISHI Unavailable [address] + [place] [address] R Unavailable Unavailable Unavailable RUTHY NISHI Unavailable [address] + [place] [address] R Unavailable Unavailable Unavailable MAST NISHI Unavailable [address] + [place] [address] R Unavailable Unavailable Unavailable RUTHY NISHI Unavailable [address] + [place] [address] R Unavailable Unavailable Unavailable MAST NISHI Unavailable [address] + [place] [address] R Unavailable Unavailable Unavailable RUTHY NISHI Unavailable [address] + [place] [address] R Unavailable Unavailable Unavailable MAST NISHI Unavailable [address] + [place] [address] R Unavailable Unavailable Unavailable MASTNISHI Unavailable [address] + [place] [address] R Unavailable Unavailable Unavailable MASTNISHI Unavailable [address] + [place] [address] R Unavailable Unavailable Unavailable LISA LOVEIE Unavailable [address] + [place] [address] R Unavailable Unavailable Unavailable MASTLISAIE Unavailable [address] + [place] [address] R Unavailable Unavailable Unavailable RUTHY NISHI Unavailable [address] + [place] [address] R Unavailable Unavailable Unavailable MASTLISAIE Unavailable [address] + [place] [address] R Unavailable Unavailable Unavailable MASTLISAIE Unavailable [address] + [place] [address] R Unavailable Unavailable Unavailable MASTLISAIE Unavailable [address] + [place] [address] R Unavailable Unavailable Unavailable RUTHY NISHI Unavailable [address] + [place] [address] R Unavailable Unavailable Unavailable MAST NISHI Unavailable [address] + [place] [address] R Unavailable Unavailable Unavailable RUTHY NISHI Unavailable [address] + [place] [address] R Unavailable Unavailable Unavailable MAST NISHI Unavailable [address] + [place] [address] R Unavailable Unavailable Unavailable MAST NISHI Unavailable [address] + [place] [address] R Unavailable Unavailable Unavailable MAST NISHI Unavailable [address] + [place] [address] R Unavailable Unavailable Unavailable MAST NISHI Unavailable [address] + [place] [address] R Unavailable Unavailable Unavailable MAST NISHI Unavailable [address] + [place] [address] R Unavailable Unavailable Unavailable MAST NISHI Unavailable [address] + [place] [address] R Unavailable Unavailable Unavailable MAST NISHI Unavailable [address] + [place] [address] R Unavailable Unavailable Unavailable MASTNISHI Unavailable [address] [facility] + [place] [address] R Unavailable Unavailable Unavailable Care Team Providers Name Role Phone MASCI, FAUSTINO Kelly Referring Unavailable MASCI, FAUSTINO A Referring Unavailable MASCI, FAUSTINO A Referring Unavailable MASCI, FAUSTINO Kelly Attending Unavailable MASCI, FAUSTINO A Referring Unavailable MASCI, FAUSTINO A Referring Unavailable MASCI, FAUSTINO A Referring Unavailable MASCI, FAUSTINO Kelly Referring Unavailable TALAMPAS, IMANI D Attending Unavailable TALAMPAS, IMANI D Referring Unavailable MASCI, FAUSTINO Kelly Attending Unavailable MASCI, FAUSTINO Leticia Referring Unavailable MASCI, FAUSTINO A Referring Unavailable MASCI, FAUSTINO A Referring Unavailable MASCI, FAUSTINO A Referring Unavailable MASCI, FAUSTINO A Referring Unavailable MASCI, FAUSTINO A Referring Unavailable MASCI, FAUSTINO A Referring Unavailable MASCI, FAUSTINO A Referring Unavailable MASCI, FAUSTINO A Referring Unavailable MASCI, FAUSTINO A Referring Unavailable MASCI, FAUSTINO A Referring Unavailable MASCI, FAUSTINO A Referring Unavailable MASCI, FAUSTINO A Referring Unavailable MASCI, FAUSTINO A Referring Unavailable MASCI, FAUSTINO A Referring Unavailable MASCI, FAUSTINO Kelly Referring Unavailable TALAMPAS, IMANI D Referring Unavailable MASCI, FAUSTINO A Referring Unavailable MASCI, FAUSTINO A Referring Unavailable MASCI, FAUSTINO A Referring Unavailable MASCI, FAUSTINO A Referring Unavailable MASCI, FAUSTINO A Referring Unavailable MASCI, FAUSTINO A Referring Unavailable MASCI, FAUSTINO A Referring Unavailable MASCI, FAUSTINO A Referring Unavailable MASCI, FAUSTINO A Referring Unavailable MASCI, FAUSTINO A Referring Unavailable MASCI, FAUSTINO A Referring Unavailable MASCI, FAUSTINO A Referring Unavailable MASCI, FAUSTINO A Referring Unavailable MASCI, FAUSTINO A Referring Unavailable MASCI, FAUSTINO A Referring Unavailable MASCI, FAUSTINO A Referring Unavailable MASCI, FAUSTINO A Attending Unavailable MASCI, FAUSTINO A Referring Unavailable MASCI, FAUSTINO A Referring Unavailable MASCI, FAUSTINO A Referring Unavailable MASCI, FAUSTINO A Referring Unavailable MASCI, FAUSTINO A Referring Unavailable GO RAMOS Referring Unavailable MASCI, FAUSTINO A Referring Unavailable MASCI, FAUSTINO A Attending Unavailable MASCI, FAUSTINO A Referring Unavailable MASCI, FAUSTINO Leticia Referring Unavailable JUSTYNA CASTILLO (CAN DOFFER) Attending Unavailable MASCI, FAUSTINO Kelly Attending Unavailable MASCI, FAUSTINO A Referring Unavailable MASCI, FAUSTINO A Referring Unavailable MASCI, FAUSTINO A Referring Unavailable SOTO, DAMAYELIN Attending Unavailable MASCI, FAUSTINO A Referring Unavailable SOTO, DAESUNG Attending Unavailable SOTO, DAESUNG Referring Unavailable SOTO, DAESUNG Attending Unavailable SOTO, DAPAOUNG Attending Unavailable SOTO, DAESUNG Attending Unavailable SOTO, DAESUNG Attending Unavailable SOTO, DAPAOUNG Referring Unavailable MASCFAUSTINO Lai A Referring Unavailable SOTO, DAPAOUNG Referring Unavailable Isacc Rodriguez Attending Unavailable Isacc Rodriguez Referring Unavailable Talampas, Imani Primary Care Unavailable Isacc Rodriguez Attending Unavailable Isacc Rodriguez Referring Unavailable Talampas, Imani Primary Care Unavailable Talampas, Imani Primary Care Unavailable Isacc Rodriguez Referring Unavailable White, Peggy Admitting Unavailable Isacc Rodriguez Consulting Unavailable Paintsil, Neptune Attending Unavailable White, Peggy Admitting Unavailable White, Peggy Attending Unavailable Isacc Rodriguez Referring Unavailable Talampas, Imani Primary Care Unavailable White, Peggy Consulting Unavailable White, Peggy Admitting Unavailable Isacc Rodriguez Attending Unavailable Isacc Rodriguez Referring Unavailable Talampas, Imani Primary Care Unavailable Isacc Rodriguez Consulting Unavailable Sementi, Trish Consulting Unavailable White, Peggy Admitting Unavailable Isacc Rodriguez Attending Unavailable Isacc Rodriguez Referring Unavailable Talampas, Imani Primary Care Unavailable Iascc Rodriguez Consulting Unavailable Sementi, Trish Consulting Unavailable White, Peggy Admitting Unavailable Sementi, Trish Attending Unavailable sIacc Rodriguez Referring Unavailable Talampas, Imani Primary Care Unavailable Isacc Rodriguez Consulting Unavailable Sementi, Trish Consulting Unavailable White, Peggy Admitting Unavailable Sementi, Trish Attending Unavailable Isacc Rodriguez Referring Unavailable Talampas, Imani Primary Care Unavailable Isacc Rodriguez Consulting Unavailable Sementi, Trish Consulting Unavailable White, Peggy Admitting Unavailable Isacc Rodriguez Attending Unavailable Isacc Rodriguez Referring Unavailable Talampas, Imani Primary Care Unavailable Isacc Rodriguez Consulting Unavailable Paintsil, Neptune Consulting Unavailable White, Peggy Admitting Unavailable Paintsil, Neptune Attending Unavailable Isacc Rodriguez Referring Unavailable Talampas, Imani Primary Care Unavailable Isacc Rodriguez Consulting Unavailable Paintsil, Neptune Consulting Unavailable Paintsil, Neptune Attending Unavailable Paintsil, Neptune Referring Unavailable Talampas, Imani Primary Care Unavailable Isacc Rodriguez Attending Unavailable Talampas, Imani Referring Unavailable Talampas, Imani Primary Care Unavailable Isacc Rodriguez Attending Unavailable Isacc Rodriguez Referring Unavailable Talampas, Imani Primary Care Unavailable Isacc Rodriguez Attending Unavailable Isacc Rodriguez Referring Unavailable Talampas, Imani Primary Care Unavailable Isacc Rodriguez Consulting Unavailable Keara Peres Attending Unavailable Isacc Rodriguez Attending Unavailable Peggy Painter Referring Unavailable Simran Diana Attending Unavailable Isacc Rodriguez Attending Unavailable Isacc Rodriguez Referring Unavailable Talampas, Imani Primary Care Unavailable Isacc Rodriguez Attending Unavailable Talampas, Imani Primary Care Unavailable Roof, Rayo Baltazar Attending Unavailable Talampas, Imani Referring Unavailable Talampas, Imani Primary Care Unavailable Roof, Rayo Baltazar Attending Unavailable Roof, Rayo H Referring Unavailable Talampas, Imani Primary Care Unavailable Roof, Rayo Baltazar Attending Unavailable Roof, Rayo H Referring Unavailable Talampas, Imani Primary Care Unavailable Isacc Rodriguez Attending Unavailable Daryl, Isacc Attending Unavailable Talampas, Imani Primary Care Unavailable Isacc Rodriguez Referring Unavailable Roof, Rayo Baltazar Attending Unavailable Roof, Rayo H Referring Unavailable Talampas, Imani Primary Care Unavailable Daryl, Isacc Attending Unavailable White, Peggy Referring Unavailable Anatoliy Pereira Attending Unavailable Isacc Rodriguez Referring Unavailable Roof, Rayo H Attending Unavailable Roof, Rayo H Referring Unavailable Talampas, Imani Primary Care Unavailable Roof, Rayo Baltazar Attending Unavailable Roof, Rayo H Referring Unavailable Talampas, Imani Primary Care Unavailable Isacc Rodriguez Attending Unavailable Isacc Rodriguez Referring Unavailable Talampas, Imani Primary Care Unavailable Roof, Rayo Baltazar Attending Unavailable Roof, Rayo H Referring Unavailable Talampas, Imani Primary Care Unavailable Isacc Rodriguez Attending Unavailable Isacc Rodriguez Referring Unavailable Talampas, Imani Primary Care Unavailable Isacc Rodriguez Attending Unavailable Isacc Rodriguez Referring Unavailable Talampas, Imani Primary Care Unavailable Roof, Rayo Baltazar Attending Unavailable Talampas, Imani Referring Unavailable Talampas, Imani Primary Care Unavailable Roof, Rayo Baltazar Attending Unavailable Roof, Rayo H Referring Unavailable Talampas, Imani Primary Care Unavailable Isacc Rodriguez Attending Unavailable Talampas, Imani Referring Unavailable Talampas, Imani Primary Care Unavailable Talampas, Imani Primary Care Unavailable Michael Valdes Attending Unavailable Roof, Rayo Baltazar Attending Unavailable Roof, Rayo H Referring Unavailable Talampas, Imani Primary Care Unavailable Isacc Rodriguez Attending Unavailable Talampas, Imani Referring Unavailable Isacc Rodriguez Attending Unavailable Talampas, Imani Primary Care Unavailable Roof, Rayo Baltazar Attending Unavailable Roof, Rayo H Referring Unavailable Talampas, Imani Primary Care Unavailable Roof, Rayo Baltazar Attending Unavailable Roof, Rayo H Referring Unavailable Talampas, Imani Primary Care Unavailable Isacc Rodriguez Attending Unavailable Daryl, Isacc Referring Unavailable Talampas, Imani Primary Care Unavailable Amisha Barfield Attending Unavailable Daryl, Isacc Referring Unavailable Talampas, Imani Primary Care Unavailable Isacc Rodriguez Consulting Unavailable Rodriguez, Isacc Attending Unavailable Talampas, Imani Referring Unavailable Talampas, Imani Primary Care Unavailable Daryl, Isacc Attending Unavailable Rodriguez, Isacc Referring Unavailable Rodriguez, Isacc Attending Unavailable Rodriguez, Isacc Referring Unavailable Talampas, Imani Primary Care Unavailable Isacc Rodriguez Attending Unavailable Rodriguez, Isacc Referring Unavailable Talampas, Imani Primary Care Unavailable CHRIS HANSEN Attending Unavailable TALAMPAS, IMANI Primary Care Unavailable PROBLEMS PROBLEMS DATE TYPE CONDITION / CODE ATTENDING STATUS SOURCE 06/04/2018 Unknown Z79.899 - Other long RodriguezAlejandroel Active [facility] term (current) drug Community therapy / Hospital Z79.899(ICD-10) Repository 06/04/2018 Unknown I25.810 - Isacc Rodriguez Active [facility] Atherosclerosis of Community coronary artery bypass Hospital graft(s) without Repository angina pectoris / I25.810(ICD-10) 06/04/2018 Unknown I48.2 - Chronic atrial Isacc Rodriguez Active [facility] fibrillation / Community I48.2(ICD-10) Hospital Repository 06/04/2018 Unknown E78.00 - Pure Daryl Isacc Active [facility] hypercholesterolemia, Community unspecified / Hospital E78.00(ICD-10) Repository 05/13/2018 Unknown I48.91 - Unspecified Isacc Rodriguez Active [facility] atrial fibrillation / Community I48.91(ICD-10) Hospital Repository 05/13/2018 Unknown Z79.01 - watermaster RodriguezAlejandroel Active [facility] (current) use of Community anticoagulants / Hospital Z79.01(ICD-10) Repository 03/14/2018 Unknown E78.5 - Isacc Rodriguez Active [facility] Hyperlipidemia, Community unspecified / Hospital E78.5(ICD-10) Repository 02/13/2018 Unknown I21.19 - ST elevation Rayo Hurst Active [facility] (STEMI) myocardial Community infarction involving Hospital other coronary artery Repository of inferior wall / I21.19(ICD-10) 02/13/2018 Unknown Z95.5 - Presence of Rayo Hurst Active [facility] coronary angioplasty Community implant and graft / Hospital Z95.5(ICD-10) Repository 02/13/2018 Unknown I21.3 - ST elevation RoofRayo Active [facility] (STEMI) myocardial Community infarction of Hospital unspecified site / Repository I21.3(ICD-10) 02/13/2018 Unknown I36.1 - Nonrheumatic RoofRayo Active [facility] tricuspid (valve) Community insufficiency / Hospital I36.1(ICD-10) Repository 02/13/2018 Unknown I34.0 - Nonrheumatic RoofRayo Active [facility] mitral (valve) Community insufficiency / Hospital I34.0(ICD-10) Repository 12/24/2017 Active Malignant neoplasm of Active [place] bladder, unspecified / Clinic Main C67.9(ICD-10) [facility] Repository 01/07/2018 Unknown S61.012A - Laceration Keisha, Active [facility] without foreign body [facility] of left thumb without Hospital damage to nail, Repository initial encounter / S61.012A(ICD-10) 12/10/2017 Active Encounter for NA Active [facility] antineoplastic [facility] Main chemotherapy / [facility] Z51.11(ICD-10) Repository 08/10/2017 Active Presence of coronary FAUSTINO GEORGE A Active [facility] angioplasty implant [facility] Main and graft / [facility] Z95.5(ICD-10) Repository 12/25/2016 Active Chronic atrial NA Active [facility] fibrillation / [facility] Main I48.2(ICD-10) [facility] Repository 10/11/2017 Unknown I48.1 - Persistent RoofRayo Active [facility] atrial fibrillation / Community I48.1(ICD-10) Hospital Repository 09/24/2017 Active Unknown / UNK(Unknown) NA Active [facility] Main [place] Repository 08/29/2017 Unknown I25.10 - Isacc Rodriguez Active [facility] Atherosclerotic heart Community disease of [facility] coronary artery Repository without angina pectoris / I25.10(ICD-10) 01/07/2018 Unknown K21.9 - Isacc Rodriguez Active [facility] Gastro-esophageal Community reflux disease without Hospital esophagitis / Repository K21.9(ICD-10) 01/07/2018 Unknown R57.0 - Cardiogenic Isacc Rodriguez Active [facility] shock / R57.0(ICD-10) Community Hospital Repository 01/07/2018 Unknown I10 - Essential Randall, Anatoliy Active [facility] (primary) hypertension Community / I10(ICD-10) Hospital Repository 08/01/2017 Unknown I48.0 - Paroxysmal Paintsil, Neptune Active [facility] atrial fibrillation / Community I48.0(ICD-10) Hospital Repository 01/07/2018 Unknown I25.110 - Isacc Rodriguez Active [facility] Atherosclerotic heart Community disease of [facility] coronary artery with Repository unstable angina pectoris / I25.110(ICD-10) 01/07/2018 Unknown R94.31 - Abnormal Isacc Rodriguez Active [facility] electrocardiogram Community [ECG] [EKG] / Hospital R94.31(ICD-10) Repository 11/09/2016 Active Mantle cell lymphoma, NA Active [facility] lymph nodes of Clinic Main multiple sites / [facility] C83.18(ICD-10) Repository PROCEDURES PROCEDURES No Procedure Records FoundRESULTS RESULTS T4 TOTAL, THYROXIN Collected: 06/04/2018 Status: F Source: OLIVIA 1:52 PM [facility] REPOSITORY TYPE CODE TESTS RESULT OUT OF RANGE REFERENCE UNITS LAB L501.9310 4.5-12.1 ug/dL T4 Normal THYROXIN 11.1 Performed By: #### L501.9310, L501.9520 #### [facility] [address] [place], [place], [id number] THYROID STIM HORMONE Collected: 06/04/2018 Status: F Source: OLIVIA (TSH) 1:52 PM [facility] REPOSITORY TYPE CODE TESTS RESULT OUT OF RANGE REFERENCE UNITS LAB L501.9520 0.358-3.74 uIU/mL High TSH 4.78 Performed By: #### L501.9310, L501.9520 #### [facility] [address] [place], [address] CARDIOLOGY VISIT Observed: 06/04/2018 Status: F Source: OLIVIA REPORT 1:37 PM [facility] H[facility]PITAL REPOSITORY [facility] [address] [place] [address] OFFICE VISIT Date of Service: 06/04/18 MR#: [id number] Acct: [id number] Name: RUTHYBANDAR Socrates Rep #: [id number] : 1950 Provider: Isacc Rodriguez MD Age/Sex: 67/M Location: [facility].G Status: Signed HPI [facility] Chief Complaint: Chest pain Details: BANDAR LOVE, is a 67 M who presents to the office today for a cardiovascular outpatient follow-up. He has a history of atrial fibrillation, mitral valve insufficiency, tricuspid valve insufficiency, hypertension, and hyperlipidemia, and acute lymphoma with chemotherapy. He presented to [facility] emergency department in July 2017 after developing midsternal chest pain. His EKG showed ST elevation in lead II, III, and aVF. He was transferred to cardiac cath. He underwent bare metal stenting to proximal RCA. The plan was to undergo elective PCI to LAD and diagonal in 3 weeks. He later underwent successful PTCA/ROMULO to proximal diagonal 1 and mid LAD in August 2017. Patient completed cardiac rehab without any difficulty, and continues to exercise with no challenges. He denies any chest pain or angina. Patient is now here in follow-up, doing quite well. He developed atrial fibrillation while undergoing an endoscopy, and underwent successful DC cardioversion on 01/20/18 with amiodarone assistance. He denies any chest pain, angina, shortness of breath or dyspnea on exertion. Patient denies any palpitations since that time. In our office today's blood pressure is 100/50, pulse is 96 and regular. Physical exam is as below. EKG dated 04/26/18 showed normal sinus rhythm, normal axis, QT corrected of 415 ms, possible old anteroseptal wall myocardial infarction, good R waves inferiorly. He remains on Coumadin. 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 [Ecotrin] 81 mg PO DAILY@0800 #30 tab 07/30/17 [Rx Confirmed 05/22/18] Atorvastatin Calcium [Lipitor] 80 mg PO QHS #30 tab 07/30/17 [Rx Confirmed 05/22/18] ticagrelor 90 mg tablet 90 mg PO BID #60 tab 10/03/17 [Rx Confirmed 05/22/18] warfarin 1 mg tablet 1 mg PO .COMPLEX #90 tab 02/28/18 [Rx Confirmed 05/22/18] warfarin 4 mg tablet 4 mg PO .COMPLEX #90 tab 02/28/18 [Rx Confirmed 05/22/18] FOR[facility]LY [facility] Medical History Hyperlipidemia (Chronic) Non-rheumatic tricuspid valve insufficiency (Chronic) Nonrheumatic mitral valve insufficiency (Chronic) 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) H/O endoscopy (Resolved) port placement (Resolved) bone marrow (Resolved) Atherosclerosis of coronary artery bypass graft without angina pectoris (Chronic) ST elevation (STEMI) myocardial infarction (Resolved) GERD (gastroesophageal reflux disease) (Chronic) Severe protein-calorie malnutrition (Chronic) Inferior ME (Acute) Cardiogenic shock (Acute) Atrial fibrillation (Chronic) Altered vision right eye (Chronic) History of bladder cancer (Chronic) 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) h/o bladder cancer (Acute) Surgical History History of cardioversion (Chronic 01/20/18) H/O splenectomy (Resolved) Hx of tonsillectomy (Resolved) H/O hernia repair (Resolved) History of prostate surgery (Resolved) History of bladder surgery (Resolved) Hx of colonoscopy (Resolved) History of coronary artery stent placement (Resolved 07/27/17) Family History Mother Breast cancer Lung disease Father CVA (cerebral vascular accident) Heart disease Afib CHF (congestive heart failure) Myocardial infarction Hx of CABG Social History Smoking Status: Never smoker alcohol intake: never substance use type: does not use caffeine: No what type of physical activity do you participate in: other details: therapy seatbelt use: always do you feel safe at home: Yes ROS Const Const: Negative for fatigue, weakness, body ache, fever(s), headache(s), chills, frequent falls, night sweats, daytime sleepiness, difficulty sleeping, excessive sweating, weight gain, weight loss, increased appetite, poor appetite, anorexia or other Eyes Eyes: Negative for blind spots, loss of peripheral vision, transient loss of vision, blurry vision, change in vision, double vision, floaters, tunnel vision or other ENT ENT: Negative for headache(s), dizziness, hearing loss, tinnitus, Nosebleed/epistaxis, balance problems, post nasal drip, lip swelling, tongue swelling, bleeding gums, hoarseness, neck pain, dry mouth or other Cardio Chest Pain: No Resp Respiratory: Negative for SOB with activity, SOB at rest, SOB orthopnea\SOB lying down, Coughing up blood/hemoptysis, chest congestion, pain on inspiration, snoring, stridor, wheezing, crackles, paroxysmal nocturnal dyspnea or other GI GI: Negative nausea, vomiting, heartburn, constipation, belching, bloating, cramping, vomiting blood/hematemesis, bright, red blood in stools, black,tarry stools, loose stools, Difficulty Swallowing or other : Negative for hematuria, frequent nighttime urination/ nocturia, erectile dysfunction or abnormal vaginal bleeding Musc Musc: Negative for balance problems, muscle aches/ myalgia, muscle weakness or joint pain Skin Skin: Negative redness, non-healing lesions, rash, unusual bruising, skin ulcer, wounds, jaundice or other Neuro Neuro: Negative for weakness, headache(s), frequent falls, blurry vision, double vision, dizziness, lightheadedness, near syncope, syncope, orthostatic symptoms, confusion, memory loss, restless legs, vertigo, seizures, lack of coordination or other Roman Hematologic/Lymphatic: Negative for easy bleeding, easy bruising, enlarged lymph nodes or other Endo Endo: Negative for fatigue, excessive sweating, cold intolerance, heat intolerance, flushing, increased thirst/drinking, increased hunger, hair loss, hair growth or other Psych Psych: Negative for anxiety, depression, thoughts of harming anyone, thoughts of harming yourself, visual hallucinations, panic attacks or audible hallucinations Allergy Allergy/Immunology: Negative for lip swelling, Negative for tongue swelling, Negative for rash, Negative for throat swelling, Negative for hives Cardiology Exam Const Appearance: cooperative, healthy appearing and no acute distress Nutritional Appearance: well nourished Orientation: alert, oriented x3 and oriented to person Head Head: normal to inspection, atraumatic and normocephalic Nose: external nose normal Face and Sinus: face symmetric Mouth: oral mucosae normal Eyes General: appearance normal, both eyes and all related structures Eyelids: eyelids normal Conjunctivae: conjunctivae normal Pupils: PERRL and normal by confrontation EOM: EOM intact bilaterally Neck Neck: normal visual inspection and full ROM Carotids: normal carotid upstroke Chest Chest inspection: normal inspection of the chest Auscultation: Bilateral: Clear to Auscultation Cardio Palpation: normal PMI Rate: regular rate Rhythm: regular rhythm Heart sounds: S1 normal and S2 normal GI GI: normal to inspection, no hepatosplenomegaly and bowel sounds present Neuro General: alert, oriented x3, awake, CN's II-XI intact bilaterally and moves all extremities Skin Skin: no rashes or lesions noted Extremities Pulses: Normal: Right Femoral Pulse, Left Femoral Pulse, Right Dorsalis Pedis Pulse, Left Dorsalis Pedis Pulse, Right Posterior Tibial Pulse, Left Posterior Tibial Pulse, Right Radial Pulse, Left Radial Pulse Lower Extremity Edema: None: Bilateral Psych Psychological: normal affect Assessment AND Plan 1. Atherosclerosis of coronary artery bypass graft of [place] heart without angina pectoris I25.810 UFM-BCJ-Nddl RCA 4.0 x 26 mm Integrity Stent 07/27/17; ROMULO to prox Diag and Mid LAD 08/15/2017 Plan 1. Coronary artery disease: No exertional anginal symptoms at this time. Patient completed cardiac rehab without any difficulty and continues to exercise as best he can. I recommended that he continue baby aspirin for life, and Brilinta at least one year until 08/16/18 after he received his second stent. My preference would be to continue him on baby aspirin and Plavix, in lieu of aspirin, Brilinta, and Coumadin going forward. If the patient has no recurrent atrial fibrillation after 1 years time, we consider discontinuing Coumadin therapy. The patient is aware when he goes in and out of atrial fibrillation. 2. Pure hypercholesterolemia E78.00 Plan 2. Hyperlipidemia: His lipids as of 03/01/18 show an LDL of 32 and HDL of 50. Continue Lipitor therapy. 3. Chronic atrial fibrillation I48.2 Plan 3. Atrial fibrillation: Patient does not aware of having atrial fibrillation in the past other than the event that occurred after his endoscopy. He is tolerating his amiodarone and Coumadin well. Recommend continuing both for at least one years time. The patient may require a 30-day event monitor to evaluate whether he requires long-term anticoagulation going forward. 4. Return office in 6 months. This note was generated using a voice recognition system and there may be incorrect words, spelling or punctuation that were not noted when reviewing the office note prior to saving. Plan Detail Other Orders Orders: Follow Up +6M (Daryl) Coding Level of Care Code Off vis,est,level 3 Diagnoses Atherosclerosis of coronary artery bypass graft of [place] heart without angina pectoris I25.810 [place] vs. transplanted heart: [place] heart Pure hypercholesterolemia E78.00 Hyperlipidemia type: pure hypercholesterolemia Chronic atrial fibrillation I48.2 Atrial fibrillation type: chronic Coding Level of Care Code Off vis,est,level 3 Diagnoses Atherosclerosis of coronary artery bypass graft of [place] heart without angina pectoris I25.810 [place] vs. transplanted heart: [place] heart Pure hypercholesterolemia E78.00 Hyperlipidemia type: pure hypercholesterolemia Chronic atrial fibrillation I48.2 Atrial fibrillation type: chronic Supplemental Info Supplemental Information Labs LDL Cholesterol 32 mg/dL (0-130) 03/01/18 HDL Cholesterol 50 mg/dL (40-) 03/01/18 Triglycerides 79 mg/dL (-199) 03/01/18 VLDL Cholesterol 16 mg/dL (5-40) 03/01/18 Diagnostics Electrocardiogram 02/06/18 Echocardiogram 07/28/17 Stress Test Nuclear Medicine 12/20/16 Stress Test 12/20/16 Chest X-Ray 07/27/17 06/04/18 0001 <Electronically signed by Isacc Rodriguez MD> Date Isacc Rodriguez MD Cosigner Signature: Date (if applicable) CC: Imani Lutz MD PROTHROMBIN TIME W/INR Collected: 05/10/2018 Status: F Source: [place] 2:53 PM [facility] REPOSITORY TYPE CODE TESTS RESULT OUT OF RANGE REFERENCE UNITS LAB L300.4150 11.7-14.9 SECONDS High PROTIME 24.4 LAB L300.4200 Normal INR 2.2 Performed By: #### L300.3900 #### [facility] [address] [place], [address] PROGRESS Observed: 05/09/2018 Status: COMPLETED Source: [place] 2:51 PM [facility] REPOSITORY O ID: [id number] Author: Gabbi Foster Ct Service: (none) Author Type: (none) Type: Progress Notes Filed: 05/09/2018 2:52 PM Note Text: Radiology Service Progress Note PATIENT NAME: Bandar Love DATE OF SERVICE: May 09, 2018 TIME: 2:51 PM PATIENT IDENTITY VERIFICATION COMPLETED USING TWO (2) METHODS: Patient confirmed name verbally and Date of . PATIENT GENDER DATA: Male PATIENT RELEVANT IMPLANT DATA REVIEWED: Not Applicable CONTRAST INDUCED NEPHROPATHY RISK FACTORS: Patient age > 60 years CREATININE: Creatinine Date Value Ref Range Status 04/09/2017 1.23 (H) 0.73 - 1.22 mg/dL Final 03/12/2017 1.29 (H) 0.73 - 1.22 mg/dL Final 02/19/2017 1.17 0.73 - 1.22 mg/dL Final Creatinine, Whole Blood (iSTAT) Date Value Ref Range Status 05/09/2018 1.20 0.70 - 1.40 mg/dL Final 12/17/2017 1.20 0.70 - 1.40 mg/dL Final 07/10/2017 1.10 0.70 - 1.40 mg/dL Final eGFR-All Other Races Date Value Ref Range Status 05/09/2018 >60 . Final Comment: eGFR (Estimated GFR) Units of measure: mL/min/1.73 meters squared eGFR is derived from the reexpressed MDRD Study equation using the following parameters: serum creatinine, age, gender and race. The creatinine assay has been calibrated to be traceable to IDMS. An eGFR <60 mL/min/1.73m2 for >3 months is consistent with chronic kidney disease. Refer to KDOQI guidelines for clinical interpretation. In patients with unstable renal function, e.g. those with acute kidney injury, the eGFR may not accurately reflect actual GFR. eGFR- Date Value Ref Range Status 05/09/2018 >60 Final P.O.C.T. RESULTS: POC done: Yes, See Lab Tab May 09, 2018 RADIOLOGIST NOTIFIED?: No ALLERGIES: Reviewed and unchanged CONTRAST ALLERGY: NO. PERIPHERAL IV ACCESS: Ambulatory: IV type: A peripheral IV was started in the Left antecubital site with a Angio cath: 22 gauge., Site assessment: Clean,Dry and Intact, Site disposition Discontinued RADIOLOGY DEPARTMENT: CT; Exam(s) Completed: Chest SIGNED BY: Gabbi Foster Ct May 09, 2018 2:[address] CHEST W IVCON Observed: 05/09/2018 Status: F Source: [place] 2:50 PM [facility] REPOSITORY * * *Final Report* * * DATE OF EXAM: May 09 2018 2:50PM [facility] 0539 - CT CHEST W IVCON / PROCEDURE REASON: Neoplasm: chest, lung, staging * * * * Physician Interpretation * * * * EXAMINATION: CHEST CT WITH CONTRAST CLINICAL HISTORY: Lymphoma Technique: Spiral CT acquisition of the chest from the thoracic inlet to the upper abdomen following IV contrast. MQ: [id number]_5 Contrast: 50 mL Omnipaque [address] Dose-Length Product: 111 mGy*cm CT Dose Reduction Employed: Automated exposure control(AEC) and iterative recon Comparison: CT chest 02/22/2018 RESULT: Limitations: None. Lines, tubes, and devices: Right Mediport. Lung parenchyma and pleura: No consolidation. No suspicious pulmonary nodule. There are a few calcified granulomata in the upper lungs. No pleural effusion. Central airways are patent. Thoracic inlet, heart, and mediastinum: Interval decrease in adenopathy. Nuclear Operator examples: -Precarinal adenopathy measures 2.2 x 1.5 cm (3:89), previously 3.2 x 1.8 cm. -Subcarinal adenopathy 2.2 x 1.5 cm (3:112) previously 2.5 x 3.3 cm. -RIGHT hilar adenopathy 2.4 x 1.7 cm (3:113) versus about 3.4 x 2.7 cm in prior comparable level. -Stable superior mediastinal RIGHT paratracheal lymph node 8-9 mm (3:50). The thoracic aorta and main pulmonary artery are normal in caliber. The cardiac chambers are normal in size. There is coronary artery calcification. No pericardial effusion or thickening. Bones and soft tissues: No destructive bone lesion. Chest wall is unremarkable. Upper abdomen: No abnormality in the imaged upper abdomen. IMPRESSION: Interval decrease in mediastinal/hilar adenopathy E Commerce Architect: [facility] Transcribe Date/Time: May 13 2018 10:56A Dictated by : DEVON WEBSTER MD This examination was interpreted and the report reviewed and electronically signed by: DEVON WEBSTER MD on May 13 2018 11:09AM EST [id number] CBC AND DIFF Collected: 05/09/2018 Status: F Source: [place] 1:56 PM [facility] [place] REPOSITORY TYPE CODE TESTS RESULT OUT OF REFERENCE UNITS RANGE LAB WWBC 3.70-11.00 k/uL [place] WBC 4.26 LAB WRBC 4.20-6.00 m/uL Low [facility] RBC 3.87 LAB WHGB 13.0-17.0 g/dL [place] Hemoglobin 13.9 LAB WHCT 39.0-51.0 % [facility] Hematocrit 40.2 LAB WMCV 80.0-100.0 fL [place] High MCV 103.9 LAB WMCH 26.0-34.0 pg [place] High MCH 35.9 LAB WMCHC 30.5-36.0 g/dL [facility] MCHC 34.6 LAB WRDW 11.5-15.0 % [place] High RDW 16.7 LAB WPLT 150-400 k/uL [facility] Platelet Cnt 230 LAB WMPV 9.0-12.7 fL [facility] MPV 11.3 Result Comment: Test performed at: [facility] [place], [address] [place] [address]. LAB WNEUT % [facility] Neut% 59.5 LAB WLYMP % [place] Lymp% 16.9 LAB WMONOC % [facility] [place]% 15.0 LAB WEOS % [facility] Eos% 7.0 LAB WBASO % [place] Baso% 1.6 LAB WANEUT 1.45-7.5 k/uL 0 [place] Abs Neut 2.53 LAB WALYMP 1.00-4.0 k/uL Low 0 [facility] Abs Lymp 0.72 LAB WAMONO <0.87 k/uL [place] Abs [place] 0.64 LAB WAEOS <0.46 k/uL [facility] Abs Eos 0.30 LAB WABASO <0.11 k/uL [place] Abs Baso 0.07 [place] ISTAT BMP Collected: 05/09/2018 Status: F Source: [place] 1:56 PM [facility] REPOSITORY TYPE CODE TESTS RESULT OUT OF REFERENCE UNITS RANGE LAB NAWB 135-146 mmol/L Sodium, Whole 143 Bld LAB K1WB 3.5-5.0 mmol/L Potassium,Who 4.0 le Bld LAB CLWB 98-110 mmol/L Chloride, 103 Whole Bld LAB ICAWB 1.08-1.30 mmol/L Ionized 1.24 Calcium, WB Result Comment: Please note: This value represents ionized calcium not total calcium. LAB CO2WB 23-32 mmol/L TCO2, Whole Blood 28 LAB GLUWB 65-100 mg/dL Glucose, Whole Bld 72 LAB BUNWB 10-25 mg/dL BUN, Whole Blood 12 LAB BCRET 0.70-1.40 mg/dL Creatinine,Wh ole Bld 1.20 LAB AGAPWB 0-15 mmol/L Anion Gap, Whole Bld 12 LAB GFRAA eGFR- Amer. >60 LAB GFRNAA . eGFR-All Other Races >60 Result Comment: eGFR (Estimated GFR) Units of measure: mL/min/1.73 meters squared eGFR is derived from the reexpressed MDRD Study equation using the following parameters: serum creatinine, age, gender and race. The creatinine assay has been calibrated to be traceable to IDMS. An eGFR <60 mL/min/1.73m2 for >3 months is consistent with chronic kidney disease. Refer to KDOQI guidelines for clinical interpretation. In patients with unstable renal function, e.g. those with acute kidney injury, the eGFR may not accurately reflect actual GFR. PROTHROMBIN TIME W/INR Collected: 04/26/2018 Status: F Source: [place] 3:15 PM [facility] REPOSITORY TYPE CODE TESTS RESULT OUT OF RANGE REFERENCE UNITS LAB L300.4150 11.7-14.9 SECONDS High PROTIME 23.8 LAB L300.4200 Normal INR 2.1 Performed By: #### L300.3900 #### [facility] [place], [address] CNOV Observed: 04/26/2018 Status: COMPLETED Source: [place] 3:00 PM [facility] REPOSITORY Office Visit (RADTWS) BANDAR LOVE ([id number]) 1950 M Date Time Provider Department 04/26/18 3:00 PM KAMLA HUERTAS RADTWS During your visit today, we recorded the following information about you: Temperature Pulse Respiration Blood pressure 97.6 degrees 72/minute 20/minute 118/69 Weight 56.5 kg Bj Fong, RN, RN 04/26/2018 2:32 PM Signed Radiation Therapy - Nursing Note (Follow-up) PATIENT NAME: Bandar Love PATIENT April 26, 2018 [facility] FACILITY/LOCATION: [facility] Reason for visit: Follow up. Subjective Data No c/o Additional Data Do you want to see a Medical Administrator? No Nursing Assessment Fatigue: increased fatigue over baseline but not altering normal activities Appetite: good Weight Gain/Loss: Yes Last 6 Encounter Wt Readings: Date: Wt: 04/26/2018 56.5 kg (124 lb 8 oz) 03/26/2018 58.1 kg (128 lb) 02/27/2018 59.2 kg (130 lb 8 oz) 02/11/2018 57.8 kg (127 lb 8 oz) 01/01/2018 57.6 kg (127 lb) 12/26/2017 58.3 kg (128 lb 8 oz) Bowel Function: normal bowel movements Bone Pain: none Focused Assessment CHEST: Dysphagia: No. Pain with swallowing: No. Shortness of breath: No. Cough: None. Was KP approved? 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 He had isolated disease in the mediastinum and right hilum and progression s/p radiation treatment finished on 03/29/18. INTERVAL HISTORY: He is here for a routine follow-up four weeks after completion of radiation treatment. He denies any sore throat. He denies any heartburn or any dysphagia or odynophagia. ALLERGIES Allergen Reactions - Ampicillin Hives - Cephalexin GI Upset - Pyridium [Phenazopy* Rash - Trazodone Intolerance Dizziness; nausea MEDICATIONS: amiodarone (CORDARONE) 200 mg tablet Take 1 tablet by mouth once daily. aspirin, enteric coated (ECOTRIN LOW STRENGTH) 81 mg EC tablet Take 1 tablet by mouth once daily. atorvastatin (LIPITOR) 80 mg tablet TAKE 1 TABLET AT BEDTIME FOR CHOLESTEROL gabapentin (NEURONTIN) 100 mg capsule Take 1 capsule by mouth daily at bedtime. lidocaine-prilocaine (EMLA) cream Apply to port site 20 min. prior to use. pantoprazole DR (PROTONIX) 40 mg tablet Take 1 tablet by mouth daily before breakfast. Take on empty stomach, 1/2 hr before meal. promethazine (PHENERGAN) 25 mg tablet Take 1 tablet by mouth every 6 hours as needed. FOR NAUSEA sucralfate (CARAFATE) 100 mg/mL suspension Take 10 mL by mouth four times daily. ticagrelor (BRILINTA) 90 mg tablet Take 1 tablet by mouth twice daily. venlafaxine ER (EFFEXOR XR) 37.5 mg 24 hr capsule Take 1 capsule by mouth once daily. warfarin (COUMADIN) 1 mg tablet Taking 1mg with 4 mg pill daily or as directed COMPOUNDED PRESCRIPTION Powerstep orthotic(M72.2) Plantar fasciitis of right foot (primary encounter diagnosis)(M79.2) Neuritis lenalidomide (REVLIMID) 20 mg capsule Take 1 capsule by mouth once daily. for 3 weeks. Then off 1 week. PHYSICAL EXAM: VS: BP 118/69 Pulse 72 Temp 36.4 ?C (97.6 ?F) (Temporal Artery) Resp 20 Wt 56.5 kg (124 lb 8 oz) SpO2 98% BMI 18.12 kg/m? KPS: 100 General Appearance: Alert and oriented. No acute distress. ASSESSMENT AND PLAN: He has recovered well from acute radiation esophagitis. I will get restaging CT chest. I will see him in three months for a routine follow-up. Signed by: Kamla Huertas MD cc: Imani Lutz MD [address] [place] [address] Referring Provider: KAMLA HUERTAS [[id number]] Allergies As of Date: 04/26/2018 Noted Allergy Reaction AMPICILLIN 05/01/2005 4 - Hives CEPHALEXIN 05/01/2005 8 - GI Upset PYRIDIUM (PHENAZOPYRIDINE HCL) 04/13/2006 2 - Rash TRAZODONE 04/23/2014 5 - Intolerance Comments: Dizziness; nausea Date Reviewed: 04/26/2018 Reviewed by: Bj (Rn) DOROTEO Fong - Fully Assessed Reason for Visit: Recheck [92] Primary Visit Diagnosis:Mantle cell lymphoma of lymph nodes of multiple regions (HCC) [C83.18] Order(s):CT CHEST W IVCON [[id number]] Order #: [id number] FUTURE [] iv contrast (will be provided with radiology test)CT Chest W -Inject, intravenously, once for 1 dose.No IV access, insert saline lock prior to the beginning of sedation, infusion, injection of imaging exam. Discontinue saline lock post exam. If Pt. has a central line or IVAD, may access for administration according to line specific nursing protocol. Once exam is complete flush line and de-access according to line specific nursing protocol in the CT contrast administration guidelines link.Disp: 1 EachRfl: 0 Prescriptions as of 04/26/2018 Sig: AMIODARONE 200 MG TABLET Take 1 tablet by mouth once d* ASPIRIN 81 MG TABLET,DELAYED * Take 1 tablet by mouth once d* ATORVASTATIN 80 MG TABLET TAKE 1 TABLET AT BEDTIME FOR * GABAPENTIN 100 MG CAPSULE Take 1 capsule by mouth daily* LIDOCAINE-PRILOCAINE 2.5 %-2.* Apply to port site 20 min. pr* PANTOPRAZOLE 40 MG TABLET,DEL* Take 1 tablet by mouth daily * PROMETHAZINE 25 MG TABLET Take 1 tablet by mouth every * SUCRALFATE 100 MG/ML ORAL KATLYN* Take 10 mL by mouth four time* TICAGRELOR 90 MG TABLET Take 1 tablet by mouth twice * VENLAFAXINE ER 37.5 MG CAPSUL* Take 1 capsule by mouth once * WARFARIN 1 MG TABLET Taking 1mg with 4 mg pill missy* COMPOUNDED PRESCRIPTION Powerstep orthotic (M72.2) P* IV CONTRAST (RADIOLOGY PROCED* CT Chest W -Inject, intraveno* LENALIDOMIDE 20 MG CAPSULE Take 1 capsule by mouth once * Problem List As Of Date 04/26/2018 Noted Resolved PROSTATITIS NOS [N41.9] INVALID FOR*09/20/2006 BPH w urinary obs/LUTS [N40.1, N13.8] INVALID FOR* Malignant neoplasm of bladder (HCC) [C67.9] INVALID FOR* More... Cervicalgia [M54.2] INVALID FOR* More... ALLERGIC RHINITIS NOS [J30.9] INVALID FOR* More... More... Lumbago [M54.5] INVALID FOR* Sprain and Strain of Unspecified Site of Should*INVALID FOR* Abdominal Pain, Left Lower Quadrant [R10.32] INVALID FOR* Constipation, Chronic [K59.09] INVALID FOR* Suprapubic Pain [R10.2] INVALID FOR* Unspecified orchitis and epididymitis [N45.3] INVALID FOR* Inguinal hernia, right [K40.90] INVALID FOR* Unilat ing hernia [K40.90] INVALID FOR* Osteoarthritis of knee [M17.10] INVALID FOR* Bilateral knee pain [M25.561, M25.562] INVALID FOR* Inguinal pain, lower right quadrant [R10.31] INVALID FOR* Mitral valve prolapse [I34.1] INVALID FOR* Mitral regurgitation due to cusp prolapse [I34.*INVALID FOR*11/02/2016 Anxiety [F41.9] INVALID FOR* Low back pain [M54.5] INVALID FOR* Non-rheumatic mitral regurgitation [I34.0] INVALID FOR* Mantle cell lymphoma of lymph nodes of multiple*INVALID FOR* Diverticulosis of colon (without mention of hem*INVALID FOR* Lymphoma, mantle cell, multiple sites (HCC) [C8*INVALID FOR* More... Atrial fibrillation, chronic (HCC) [I48.2] INVALID FOR* S/P coronary artery stent placement [Z95.5] INVALID FOR* Visit Notes: >> Bj (Rn) DOROTEO Fong SunApr 26, 2018 2:31 PM Status: Signed Radiation Therapy - Nursing Note (Follow-up) PATIENT NAME: Bandar Love PATIENT April 26, 2018 [facility] FACILITY/LOCATION: [facility] Reason for visit: Follow up. Subjective Data No c/o Additional Data Do you want to see a Medical Administrator? No Nursing Assessment Fatigue: increased fatigue over baseline but not altering normal activities Appetite: good Weight Gain/Loss: Yes Last 6 Encounter Wt Readings: Date: Wt: 04/26/2018 56.5 kg (124 lb 8 oz) 03/26/2018 58.1 kg (128 lb) 02/27/2018 59.2 kg (130 lb 8 oz) 02/11/2018 57.8 kg (127 lb 8 oz) 01/01/2018 57.6 kg (127 lb) 12/26/2017 58.3 kg (128 lb 8 oz) Bowel Function: normal bowel movements Bone Pain: none Focused Assessment CHEST: Dysphagia: No. Pain with swallowing: No. Shortness of breath: No. Cough: None. Was KP approved? did not have tablet SIGNED by: Bj Fong RN Prescriptions ordered this encounter Disp Refills Start End IV CONTRAST (RADIOLOGY PROCEDURE) 1 Ea* 0 04/26/2018 04/27/2018 Class: In Office Sig: CT Chest W -Inject, intravenously, once for 1 dose.No IV access, insert saline lock prior to the beginning of sedation, infusion, injection of imaging exam. Discontinue saline lock post exam. If Pt. has a central line or IVAD, may access for administration according to line specific nursing protocol. Once exam is complete flush line and de-access according to line specific nursing protocol in the CT contrast administration guidelines link. 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 He had isolated disease in the mediastinum and right hilum and progression s/p radiation treatment finished on 03/29/18. INTERVAL HISTORY: He is here for a routine follow-up four weeks after completion of radiation treatment. He denies any sore throat. He denies any heartburn or any dysphagia or odynophagia. ALLERGIES Allergen Reactions - Ampicillin Hives - Cephalexin GI Upset - Pyridium [Phenazopy* Rash - Trazodone Intolerance Dizziness; nausea MEDICATIONS: amiodarone (CORDARONE) 200 mg tablet Take 1 tablet by mouth once daily. aspirin, enteric coated (ECOTRIN LOW STRENGTH) 81 mg EC tablet Take 1 tablet by mouth once daily. atorvastatin (LIPITOR) 80 mg tablet TAKE 1 TABLET AT BEDTIME FOR CHOLESTEROL gabapentin (NEURONTIN) 100 mg capsule Take 1 capsule by mouth daily at bedtime. lidocaine-prilocaine (EMLA) cream Apply to port site 20 min. prior to use. pantoprazole DR (PROTONIX) 40 mg tablet Take 1 tablet by mouth daily before breakfast. Take on empty stomach, 1/2 hr before meal. promethazine (PHENERGAN) 25 mg tablet Take 1 tablet by mouth every 6 hours as needed. FOR NAUSEA sucralfate (CARAFATE) 100 mg/mL suspension Take 10 mL by mouth four times daily. ticagrelor (BRILINTA) 90 mg tablet Take 1 tablet by mouth twice daily. venlafaxine ER (EFFEXOR XR) 37.5 mg 24 hr capsule Take 1 capsule by mouth once daily. warfarin (COUMADIN) 1 mg tablet Taking 1mg with 4 mg pill daily or as directed COMPOUNDED PRESCRIPTION Powerstep orthotic(M72.2) Plantar fasciitis of right foot (primary encounter diagnosis)(M79.2) Neuritis lenalidomide (REVLIMID) 20 mg capsule Take 1 capsule by mouth once daily. for 3 weeks. Then off 1 week. PHYSICAL EXAM: VS: BP 118/69 Pulse 72 Temp 36.4 ?C (97.6 ?F) (Temporal Artery) Resp 20 Wt 56.5 kg (124 lb 8 oz) SpO2 98% BMI 18.12 kg/m? KPS: 100 General Appearance: Alert and oriented. No acute distress. ASSESSMENT AND PLAN: He has recovered well from acute radiation esophagitis. I will get restaging CT chest. I will see him in three months for a routine follow-up. Signed by: Kamla Huertas MD cc: Imani Lutz MD [address] [place] [address] PROTHROMBIN TIME W/INR Collected: 04/19/2018 Status: F Source: [place] 3:18 PM [facility] REPOSITORY TYPE CODE TESTS RESULT OUT OF RANGE REFERENCE UNITS LAB L300.4150 11.7-14.9 SECONDS High PROTIME 18.5 LAB L300.4200 Normal INR 1.5 Performed By: #### L300.3900 #### [facility] [address] [place], [place], [address] PROTHROMBIN TIME W/INR Collected: 04/10/2018 Status: F Source: [place] 1:42 PM [facility] REPOSITORY TYPE CODE TESTS RESULT OUT OF RANGE REFERENCE UNITS LAB L300.4150 11.7-14.9 SECONDS High PROTIME 19.7 LAB L300.4200 Normal INR 1.7 Performed By: #### L300.3900 #### [facility] [address] [place], [address] PROTHROMBIN TIME W/INR Collected: 04/01/2018 Status: F Source: [place] 3:49 PM [facility] REPOSITORY TYPE CODE TESTS RESULT OUT OF RANGE REFERENCE UNITS LAB L300.4150 11.7-14.9 SECONDS High PROTIME 20.4 LAB L300.4200 Normal INR 1.7 Performed By: #### L300.3900 #### [facility] [address] [place], [address] PROGRESS Observed: 03/30/2018 Status: COMPLETED Source: [place] 9:30 AM [facility] REPOSITORY HNO ID: [id number] Author: Zandra (Rufina) Carlos Alberto Service: (none) Author Type: Resident Type: Progress Notes Filed: 03/30/2018 10:51 AM Note Text: Patient just finished radiation treatment 24 Gy/12 fx to mediastinum/R hilum yesterday 03/29/[address] Huertas. He developed sore throat (5/10) overnight, worse with swallowing. He also had some nausea, for which he has been taking Phenergan with relief. He denied vomiting, dysphagia, cough, SOB, fever, or chill. After discussion with Dr. Concepcion, we planned start him with PO liquid oxycodone. However, we called [facility] in [place], [place], and was notified that opioid medication can not be called-in. Paper prescription of liquid oxycodone was printed, but patient did not want to travel to pick it up at [facility] over the weekend. We instructed him to take ibuprofen 400 mg TID PRN with full stomach. Patient will reach out to Dr. Huertas on Sunday04/01/2018 for paper prescription. I agree with the documentation. Dr. Satya Concepcion MD , Associate staff, Radiation Oncology Pager - [phone] HOSP Observed: 03/30/2018 Status: COMPLETED Source: [place] 12:00 AM [facility] REPOSITORY Patient Update (RADTMN) BANDAR LOVE ([id number]) 1950 M Date Time Provider Department 03/30/18 ZANDRA MORTENSEN (RES) RADTMN During your visit today, we recorded the following information about you: Zandra Mortensen MD 03/30/2018 10:44 AM Addendum Patient just finished radiation treatment 24 Gy/12 fx to mediastinum/R hilum yesterday 03/29/[address] Huertas. He developed sore throat (5/10) overnight, worse with swallowing. He also had some nausea, for which he has been taking Phenergan with relief. He denied vomiting, dysphagia, cough, SOB, fever, or chill. After discussion with Dr. Concepcion, we planned start him with PO liquid oxycodone. However, we called [facility] in [place], [place], and was notified that opioid medication can not be called-in. Paper prescription of liquid oxycodone was printed, but patient did not want to travel to pick it up at [facility] over the weekend. We instructed him to take ibuprofen 400 mg TID PRN with full stomach. Patient will reach out to Dr. Huertas on Sunday04/01/2018 for paper prescription. I agree with the documentation. Dr. 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 pr* VENLAFAXINE ER 37.5 MG CAPSUL* Take 1 capsule by mouth once * PANTOPRAZOLE 40 MG TABLET,DEL* Take 1 tablet by mouth daily * ATORVASTATIN 80 MG TABLET TAKE 1 TABLET AT BEDTIME FOR * LENALIDOMIDE 20 MG CAPSULE Take 1 capsule by mouth once * PROMETHAZINE 25 MG TABLET Take 1 tablet by mouth every * GABAPENTIN 100 MG CAPSULE Take 1 capsule by mouth daily* WARFARIN 1 MG TABLET Taking 1mg with 4 mg pill missy* TICAGRELOR 90 MG TABLET Take 1 tablet by mouth twice * AMIODARONE 200 MG TABLET Take 1 tablet by mouth once d* ASPIRIN 81 MG TABLET,DELAYED * Take 1 tablet by mouth once d* COMPOUNDED PRESCRIPTION Powerstep orthotic (M72.2) P* Problem List As Of Date 03/30/2018 Noted Resolved PROSTATITIS NOS [N41.9] INVALID FOR*09/20/2006 BPH w urinary obs/LUTS [N40.1, N13.8] INVALID FOR* Malignant neoplasm of bladder (HCC) [C67.9] INVALID FOR* More... Cervicalgia [M54.2] INVALID FOR* More... ALLERGIC RHINITIS NOS [J30.9] INVALID FOR* More... More... Lumbago [M54.5] INVALID FOR* Sprain and Strain of Unspecified Site of Should*INVALID FOR* Abdominal Pain, Left Lower Quadrant [R10.32] INVALID FOR* Constipation, Chronic [K59.09] INVALID FOR* Suprapubic Pain [R10.2] INVALID FOR* Unspecified orchitis and epididymitis [N45.3] INVALID FOR* Inguinal hernia, right [K40.90] INVALID FOR* Unilat ing hernia [K40.90] INVALID FOR* Osteoarthritis of knee [M17.10] INVALID FOR* Bilateral knee pain [M25.561, M25.562] INVALID FOR* Inguinal pain, lower right quadrant [R10.31] INVALID FOR* Mitral valve prolapse [I34.1] INVALID FOR* Mitral regurgitation due to cusp prolapse [I34.*INVALID FOR*11/02/2016 Anxiety [F41.9] INVALID FOR* Low back pain [M54.5] INVALID FOR* Non-rheumatic mitral regurgitation [I34.0] INVALID FOR* Mantle cell lymphoma of lymph nodes of multiple*INVALID FOR* Diverticulosis of colon (without mention of hem*INVALID FOR* Lymphoma, mantle cell, multiple sites (HCC) [C8*INVALID FOR* More... Atrial fibrillation, chronic (HCC) [I48.2] INVALID FOR* S/P coronary artery stent placement [Z95.5] INVALID FOR* Prescriptions ordered this encounter Disp Refills Start End OXYCODONE 5 MG/5 ML ORAL SOLUTION 120 * 0 03/30/2018 04/04/2018 Class: Print RX Route: ORAL Sig: Take 5 mL by mouth every 4 hours as needed for Pain for up to 5 days. Follow-up and Disposition History Recorded Encounter Status:Closed by ZANDRA MORTENSEN MD on 03/30/18 Chart Close Cosign Accepted by: SATYA CONCEPCION MD[[id number]] Chart Reid Gutierrez Accepted on: Sat Mar 30, 2018 10:51 AM CNCNPATED Observed: 03/29/2018 Status: COMPLETED Source: [place] 12:00 AM [facility] REPOSITORY Education (RADTWS) BANDAR LOVE ([id number]) 1950 M Date Time Provider Department 03/29/18 KAMLA HUERTAS Reason for Visit: Patient Education [91] Cmt: discharge instructions- completed radiation Visit Notes: >> Bj Ace) DOROTEO Fong Fri Mar 29, 2018 11:35 AM Status: Signed AMBULATORY PATIENT EDUCATION NOTE TOPIC: SURVIVAL SKILLS: Symptom Management READINESS TO LEARN COGNITIVE ABILITY: Alert and oriented MOTIVATION TO LEARN: Eager Interested FAMILY SUPPORT: Unable to assess - Family not present INSTRUCTION PROVIDED TO: Patient PATIENT LEARNS BEST BY: Individual Instruction Written Instruction - Hand-outs Verbal Instruction FACTORS AFFECTING LEARNING: None PHYSICAL LIMITATIONS AFFECTING LEARNING: None LEARNING RESPONSE METHOD OF INSTRUCTION: Teach Back skin care Individual instruction Written instruction - handouts Verbal instruction PATIENT / FAMILY RESPONSE: Verbalizes understanding of: SYMPTOM MANAGEMENT-Correct actions to take to manage symptoms associated with his/her disease/illness FOLLOW-UP PLAN: Patient instructed to call with any further issues Contact information given. Written discharge instructions given and reviewed with patient. Patient verbalizes understanding. Encouraged to call with any questions or concerns. Instruction for follow up appointment given by Dr. Huertas. SUPPLEMENTAL MATERIAL: Title of written material: DC sheet REFERRAL (RECOMMENDATION): None Electronically Signed By: Bj Fong RN In Department: RADIATION ONCOLOGY During your visit today, we recorded the following information about you: Allergies As of Date: 03/29/2018 Noted Allergy Reaction AMPICILLIN 05/01/2005 4 - Hives CEPHALEXIN 05/01/2005 8 - GI Upset PYRIDIUM (PHENAZOPYRIDINE HCL) 04/13/2006 2 - Rash TRAZODONE 04/23/2014 5 - Intolerance Comments: Dizziness; nausea Date Reviewed: 03/26/2018 Reviewed by: Bj AlvaradoRn) DOROTEO Fong - Fully Assessed Prescriptions as of 03/29/2018 Sig: LIDOCAINE-PRILOCAINE 2.5 %-2.* Apply to port site 20 min. pr* VENLAFAXINE ER 37.5 MG CAPSUL* Take 1 capsule by mouth once * PANTOPRAZOLE 40 MG TABLET,DEL* Take 1 tablet by mouth daily * ATORVASTATIN 80 MG TABLET TAKE 1 TABLET AT BEDTIME FOR * LENALIDOMIDE 20 MG CAPSULE Take 1 capsule by mouth once * PROMETHAZINE 25 MG TABLET Take 1 tablet by mouth every * GABAPENTIN 100 MG CAPSULE Take 1 capsule by mouth daily* WARFARIN 1 MG TABLET Taking 1mg with 4 mg pill missy* TICAGRELOR 90 MG TABLET Take 1 tablet by mouth twice * AMIODARONE 200 MG TABLET Take 1 tablet by mouth once d* ASPIRIN 81 MG TABLET,DELAYED * Take 1 tablet by mouth once d* COMPOUNDED PRESCRIPTION Powerstep orthotic (M72.2) P* Encounter Status:Closed by BJ FONG on 03/29/18 PROGRESS Observed: 03/29/2018 Status: COMPLETED Source: [place] 12:00 AM [facility] REPOSITORY HNO ID: [id number] Author: Kamla Huertas Service: (none) Author Type: Physician Type: Progress Notes Filed: 03/30/2018 12:34 AM Note Text: BANDAR LOVE [id number] : 1950 03/29/2018 [facility] Department of Radiation Oncology RADIATION ONCOLOGY - COMPLETION NOTE DATE OF SIMULATION: 03/06/18 DATES OF TREATMENT: 03/13/18 to 03/29/18 UNIT: [facility] AREA TREATED: Mediastinum/R hilum DISEASE: 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 Now with isolated disease in the mediastinum and right hilum and progression. DELIVERED DOSE: 2400 cGy in 12 fractions to the 96.7% isodose line with 10 MV and 3 rodriguez. ELAPSED TIME: 16 days. TOLERANCE/ RESPONSE: He is doing well without any specific new complaints. He has baseline heartburn without any changes. He is on Protonix. He has mild fatigue. REMARKS: He tolerated radiation treatment well. I will see him in four weeks for a routine follow-up. Electronically Signed KAMLA HUERTAS M.D. / 03/29/201811:26 AM cc: Imani Lutz MD [address] [place] [address] Faustino George DO [address] [facility] [address] PROTHROMBIN TIME W/INR Collected: 03/27/2018 Status: F Source: [place] 1:10 PM [facility] REPOSITORY TYPE CODE TESTS RESULT OUT OF REFERENCE UNITS RANGE LAB L300.4150 11.7-14.9 SECONDS High PROTIME 46.3 LAB L300.4200 High alert INR 4.9 Result Comment: CRITICAL VALUE VERIFIED. CALLED TO SHANNA GARCIA 03/27/18 15[address] [facility]. RESULTS READ BACK BY SHANNA . Performed By: #### L300.3900 #### [facility] [address] 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 Now with isolated disease in the mediastinum and right hilum and progression. COURSE: definitive AREA TREATED: Mediastinum/R hilum CURRENT DOSE: 1800 cGy in 9 fx PLANNED DOSE: 2400 cGy in 12 fx SUBJECTIVE: He is doing well without any specific new complaints. He has baseline heartburn without any changes. He is on Protonix. He has mild fatigue. EXAM: KPS: 90 BP 100/76 Pulse 84 Temp 36 ?C (96.8 ?F) (Temporal Artery) Resp 20 Wt 58.1 kg (128 lb) BMI 18.63 kg/m? General Appearance: Alert and oriented. No acute distress. IMAGING/LAB RESULTS: None Treatment chart checked: Yes Patient treatment site reviewed and verified:Yes CBCTs reviewed and current:Yes Medications started: None ASSESSMENT/PLAN: Clinically stable. Toxicity within expected parameters. Continue radiation treatment as planned. Kamla Huertas MD CNOV Observed: 03/26/2018 Status: COMPLETED Source: [place] 11:15 AM [facility] REPOSITORY Office Visit (RADTWS) BANDAR LOVE ([id number]) 1950 M Date Time Provider Department 03/26/18 11:15 AM KAMLA HUERTAS During your visit today, we recorded the following information about you: Temperature Pulse Respiration Blood pressure 96.8 degrees 84/minute 20/minute 100/76 Weight 58.1 kg Bj Fong, RN, RN 03/26/2018 11:23 AM Signed Radiation Therapy - Nursing Note (OTV) PATIENT NAME: Bandar Love PATIENT March 26, 2018 [facility] FACILITY/LOCATION: [facility] NURSING NOTE TYPE: CHEST Subjective Data No c/o Additional Data Do you want to see a Medical Administrator? No Status: Patient is male Stress Scale: On a scale of 0 to 10, what number best describes how much distress you have experienced in the past week?(0 being no distress and 10 being extreme distress) 2 Social work notified: no Nursing Assessment Fatigue: increased fatigue over baseline but not altering normal activities Appetite: fair Nutritional Intake: Regular oral intake. Weight Gain/Loss: No Ambulatory weight history: Last 6 Encounter Wt Readings: Date: Wt: 03/26/2018 58.1 kg (128 lb) 02/27/2018 59.2 kg (130 lb 8 oz) 02/11/2018 57.8 kg (127 lb 8 oz) 01/01/2018 57.6 kg (127 lb) 12/26/2017 58.3 kg (128 lb 8 oz) 12/17/2017 57.6 kg (127 lb) Nausea: Nausea does not interfere with the ability to eat Vomiting: None Bowel Function: normal bowel movements Erythema/Hyperpigmentation:none Desquamation:none Rash:none Skin Care: Aquaphor Skin Sensation: Within Normal Limits Focused Assessment CHEST: Dysphagia: No. Pain with swallowing: No. Shortness of breath: No. Cough: None. 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 Now with isolated disease in the mediastinum and right hilum and progression. COURSE: definitive AREA TREATED: Mediastinum/R hilum CURRENT DOSE: 1800 cGy in 9 fx PLANNED DOSE: 2400 cGy in 12 fx SUBJECTIVE: He is doing well without any specific new complaints. He has baseline heartburn without any changes. He is on Protonix. He has mild fatigue. EXAM: KPS: 90 BP 100/76 Pulse 84 Temp 36 ?C (96.8 ?F) (Temporal Artery) Resp 20 Wt 58.1 kg (128 lb) BMI 18.63 kg/m? General Appearance: Alert and oriented. No acute distress. IMAGING/LAB RESULTS: None Treatment chart checked: Yes Patient treatment site reviewed and verified:Yes CBCTs reviewed and current:Yes Medications started: None ASSESSMENT/PLAN: Clinically stable. Toxicity within expected parameters. Continue radiation treatment as planned. 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 pr* VENLAFAXINE ER 37.5 MG CAPSUL* Take 1 capsule by mouth once * PANTOPRAZOLE 40 MG TABLET,DEL* Take 1 tablet by mouth daily * ATORVASTATIN 80 MG TABLET TAKE 1 TABLET AT BEDTIME FOR * PROMETHAZINE 25 MG TABLET Take 1 tablet by mouth every * GABAPENTIN 100 MG CAPSULE Take 1 capsule by mouth daily* WARFARIN 1 MG TABLET Taking 1mg with 4 mg pill missy* TICAGRELOR 90 MG TABLET Take 1 tablet by mouth twice * AMIODARONE 200 MG TABLET Take 1 tablet by mouth once d* ASPIRIN 81 MG TABLET,DELAYED * Take 1 tablet by mouth once d* COMPOUNDED PRESCRIPTION Powerstep orthotic (M72.2) P* LENALIDOMIDE 20 MG CAPSULE Take 1 capsule by mouth once * Problem List As Of Date 03/26/2018 Noted Resolved PROSTATITIS NOS [N41.9] INVALID FOR*09/20/2006 BPH w urinary obs/LUTS [N40.1, N13.8] INVALID FOR* Malignant neoplasm of bladder (HCC) [C67.9] INVALID FOR* More... Cervicalgia [M54.2] INVALID FOR* More... ALLERGIC RHINITIS NOS [J30.9] INVALID FOR* More... More... Lumbago [M54.5] INVALID FOR* Sprain and Strain of Unspecified Site of Should*INVALID FOR* Abdominal Pain, Left Lower Quadrant [R10.32] INVALID FOR* Constipation, Chronic [K59.09] INVALID FOR* Suprapubic Pain [R10.2] INVALID FOR* Unspecified orchitis and epididymitis [N45.3] INVALID FOR* Inguinal hernia, right [K40.90] INVALID FOR* Unilat ing hernia [K40.90] INVALID FOR* Osteoarthritis of knee [M17.10] INVALID FOR* Bilateral knee pain [M25.561, M25.562] INVALID FOR* Inguinal pain, lower right quadrant [R10.31] INVALID FOR* Mitral valve prolapse [I34.1] INVALID FOR* Mitral regurgitation due to cusp prolapse [I34.*INVALID FOR*11/02/2016 Anxiety [F41.9] INVALID FOR* Low back pain [M54.5] INVALID FOR* Non-rheumatic mitral regurgitation [I34.0] INVALID FOR* Mantle cell lymphoma of lymph nodes of multiple*INVALID FOR* Diverticulosis of colon (without mention of hem*INVALID FOR* Lymphoma, mantle cell, multiple sites (HCC) [C8*INVALID FOR* More... Atrial fibrillation, chronic (HCC) [I48.2] INVALID FOR* S/P coronary artery stent placement [Z95.5] INVALID FOR* Visit Notes: >> Bj (Rn) DOROTEO Fong Tumiguel Mar 26, 2018 11:22 AM Status: Signed Radiation Therapy - Nursing Note (OTV) PATIENT NAME: Bandar Love PATIENT March 26, 2018 [facility] FACILITY/LOCATION: [facility] NURSING NOTE TYPE: CHEST Subjective Data No c/o Additional Data Do you want to see a Medical Administrator? No Status: Patient is male Stress Scale: On a scale of 0 to 10, what number best describes how much distress you have experienced in the past week?(0 being no distress and 10 being extreme distress) 2 Social work notified: no Nursing Assessment Fatigue: increased fatigue over baseline but not altering normal activities Appetite: fair Nutritional Intake: Regular oral intake. Weight Gain/Loss: No Ambulatory weight history: Last 6 Encounter Wt Readings: Date: Wt: 03/26/2018 58.1 kg (128 lb) 02/27/2018 59.2 kg (130 lb 8 oz) 02/11/2018 57.8 kg (127 lb 8 oz) 01/01/2018 57.6 kg (127 lb) 12/26/2017 58.3 kg (128 lb 8 oz) 12/17/2017 57.6 kg (127 lb) Nausea: Nausea does not interfere with the ability to eat Vomiting: None Bowel Function: normal bowel movements Erythema/Hyperpigmentation:none Desquamation:none Rash:none Skin Care: Aquaphor Skin Sensation: Within Normal Limits Focused Assessment CHEST: Dysphagia: No. Pain with swallowing: No. Shortness of breath: No. Cough: None. SIGNED by: Bj Fong RN Encounter Status:Closed by KAMLA HUERTAS MD on 03/26/18 PROTHROMBIN TIME W/INR Collected: 03/20/2018 Status: F Source: [place] 1:28 PM [facility] REPOSITORY TYPE CODE TESTS RESULT OUT OF REFERENCE UNITS RANGE LAB L300.4150 11.7-14.9 SECONDS High PROTIME 35.0 LAB L300.4200 High alert INR 3.5 Result Comment: CRITICAL VALUE VERIFIED. CALLED TO GABRIELE AT 'S OFFICE. 03/20/18 1500 [address] [facility]. RESULTS READ BACK BY SAME. Performed By: #### L300.3900 #### [facility], [address] PROGRESS Observed: 03/08/2018 Status: COMPLETED Source: [place] 12:00 AM [facility] REPOSITORY HNO ID: [id number] Author: Kamla Huertas Service: (none) Author Type: Physician Type: Progress Notes Filed: 03/13/2018 12:34 AM Note Text: BANDAR LOVE [id number] 03/06/2018 [facility] Department of Radiation Oncology Treatment Planning Note For reasons stated in the consult note, Bandar Love is a candidate for radiation therapy. Based on review and interpretation of the relevant diagnostic studies together with the exam findings, Bandar Love was simulated on 03/06/2018 at which time the target volume and/or requisite rodriguez were delineated, as indicated in the simulation note, to be treated according to the prescription. An ITV was created from all the phases of respiratory motion captured by the 4DCT image sets. Motion management allowed for design of patient specific planning target volume and reduced the radiation exposure to normal tissues. The treatment target and organs at risk were contoured on the simulation scan Using the fused PET. After reviewing multiple treatment plans with dosimetry, the best plan was approved to deliver the prescribed course of radiation to the target area using 3D planning to allow for the best isodose distribution, treating to the 96.7% isodose line with 10 MV / and3 rodriguez. Custom MLC wedges asym jaws electron block for IMRT were/was the treatment device(s) used to shape/modify the beams. Limiting dose to normal tissue was confirmed upon review of the calculated dose volume histogram. A completed summary of this plan dated 03/08/18 incorporated herein by reference includes dose, beam arrangements, energy, blocking, isodose distribution, and/or ports and DVH. Electronically Signed Kamla Huertas M.D. 03/12/201810:23 AM [facility] CT NON-RADIOLOGY Observed: 03/06/2018 Status: F Source: [facility] 12:00 AM [facility] REPOSITORY [facility] - CT Images - Obtained Outside of Imaging [place] [id number] CNCNPATED Observed: 03/06/2018 Status: COMPLETED Source: [place] 12:00 [facility] REPOSITORY Education (RADTWS) BANDAR LOVE ([id number]) 1950 M Date Time Provider Department 03/06/18 KAMLA HUERTASNATALIYA Reason for Visit: Patient Education [91] Visit Notes: >> Bj (Rn) DOROTEO Fong SunMar 06, 2018 1:29 PM Status: Signed Radiation Therapy - Patient Education Note PATIENT NAME: Bandar Love PATIENT March 06, 2018 [facility] FACILITY/LOCATION: [facility] READINESS TO LEARN Cognitive Ability: Alert and oriented Motivation to learn: Eager Interested Family Support: Unable to assess - Family not present Instruction provide to: Patient Patient learns best by: Individual Instruction Written Instruction - Hand-outs Verbal Instruction Factors effecting learning: None Physical limitations effecting learning: None LEARNING RESPONSE Diagnosis: Pt simulated today for radiation therapy to chest. Education Topic/Teaching Points: Radiation therapy, Side effects and OTV: Method of instruction: Teach Back skin care Individual instruction Written instruction - handouts Verbal instruction Patient /Family response: Patient verbalized understanding of radiation treatments, side effects, OTV, and transportation. Follow-up plan: Patient instructed to call with any further issues Reinforce - Repeat previous content Contact information given. Supplemental material: Informational handouts on Department phone list, Esophagitis/Mucositis, Fatigue and XRT sheet, [facility] instructions, Aquaphor packet. Referral (recommendation): None, Pt denied need for social work, van service, and toy mechanic. Signed by: Bj Fong RN During your visit today, we recorded the following information about you: Allergies As of Date: 03/06/2018 Noted Allergy Reaction AMPICILLIN 05/01/2005 4 - Hives CEPHALEXIN 05/01/2005 8 - GI Upset PYRIDIUM (PHENAZOPYRIDINE HCL) 04/13/2006 2 - Rash TRAZODONE 04/23/2014 5 - Intolerance Comments: Dizziness; nausea Date Reviewed: 02/27/2018 Reviewed by: Ya AlvaradoRn) DOROTEO Holden - Fully Assessed Prescriptions as of 03/06/2018 Sig: PANTOPRAZOLE 40 MG TABLET,DEL* Take 1 tablet by mouth daily * ATORVASTATIN 80 MG TABLET TAKE 1 TABLET AT BEDTIME FOR * LENALIDOMIDE 20 MG CAPSULE Take 1 capsule by mouth once * PROMETHAZINE 25 MG TABLET Take 1 tablet by mouth every * VENLAFAXINE ER 37.5 MG CAPSUL* Take 1 capsule by mouth once * GABAPENTIN 100 MG CAPSULE Take 1 capsule by mouth daily* LIDOCAINE-PRILOCAINE 2.5 %-2.* Apply to port site 20 min. pr* WARFARIN 1 MG TABLET Taking 1mg with 4 mg pill missy* TICAGRELOR 90 MG TABLET Take 1 tablet by mouth twice * AMIODARONE 200 MG TABLET Take 1 tablet by mouth once d* ASPIRIN 81 MG TABLET,DELAYED * Take 1 tablet by mouth once d* COMPOUNDED PRESCRIPTION Powerstep orthotic (M72.2) P* Encounter Status:Closed by BJ FONG on 03/06/18 PROGRESS Observed: 03/06/2018 Status: COMPLETED Source: [place] 12:00 AM [facility] REPOSITORY HNO ID: [id number] Author: Kamla Huertas Service: (none) Author Type: Physician Type: Progress Notes Filed: 03/09/2018 12:33 AM Note Text: BANDAR LOVE [id number] 03/06/2018 [facility] Department of Radiation Oncology Treatment Planning Note Choose an item. For reasons stated in the consult note, Bandar Love is a candidate for radiation therapy. Based on review and interpretation of the relevant diagnostic studies together with the exam findings, Bandar Love was simulated on 03/06/2018 at which time the target volume and/or requisite rodriguez were delineated, as indicated in the simulation note, to be treated according to the prescription. Click here to enter text.The treatment target and organs at risk were contoured on the simulation scan Using the fused PET. After reviewing multiple treatment plans with dosimetry, the best plan was approved to deliver the prescribed course of radiation to the target area using 3D planning to allow for the best isodose distribution, treating to the 96.7% isodose line with 10 MV and3 rodriguez. Custom MLC wedges asym jaws were the treatment device(s) used to shape/modify the beams. Limiting dose to normal tissue was confirmed upon review of the calculated dose volume histogram.Click here to enter text. A completed summary of this plan dated 03/08/18 incorporated herein by reference includes dose, beam arrangements, energy, blocking, isodose distribution, and/or ports and DVH. Electronically Signed Kamla Huertas M.D. 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 Now with isolated disease in the mediastinum and right hilum and progression. AREA: Mediastinum/right hilum. PATIENT POSITION: Supine. CONTRAST: None PROTOCOL: None BLOCKING: Custom blocking to be determined at treatment planning. FIXATION DEVICE: In order to achieve accurate and reproducible treatments, the patient is to be immobilized with the Orfit system. PROCEDURE: A time-out was conducted and recorded by the therapist. Patient was simulated on the CT scanner for external beam radiation therapy. Treatment site was marked by the simulation therapist. ASSESSMENT/PLAN: Patient tolerated simulation procedure well. Treatments will be initiated after treatment planning. The patient is scheduled for a verification simulation on the treatment machine to ensure proper set-up and field arrangement is correct prior to the first treatment of primary and boost rodriguez if applicable. Electronically Signed Kamla Huertas M.D./ezekiel 03/08/20182:24 PM ERRONEOUSTRANS Observed: 03/06/2018 Status: COMPLETED Source: [place] 12:00 AM [facility] REPOSITORY [id number] Bandar Love 1950 M * Clinical document posted in Error * Encounter Type Conversion History User Instant Changed From Changed To WALE KELLER Mar 12, 2018 12* Radiation O* Erroneous* PROTHROMBIN TIME W/INR Collected: 03/01/2018 Status: F Source: [place] 11:09 AM [facility] REPOSITORY TYPE CODE TESTS RESULT OUT OF RANGE REFERENCE UNITS LAB L300.4150 11.7-14.9 SECONDS High PROTIME 20.2 LAB L300.4200 Normal INR 1.7 Performed By: #### L300.3900 #### [facility] [address] [facility] [place], [place], [address] LIVER PROFILE Collected: 03/01/2018 Status: F Source: [place] 11:09 AM [facility] REPOSITORY TYPE CODE TESTS RESULT OUT OF RANGE REFERENCE UNITS LAB L501.1500 6.4-8.2 g/dL Normal T PROT 7.5 LAB L501.1800 3.2-5.0 g/dL Normal ALB 4.3 LAB L501.1950 2.2-4.2 g/dL Normal GLOB 3.2 LAB L501.4100 15-37 U/L Normal AST 24 LAB L501.4305 45-117 U/L Normal ALK P 95 LAB L501.4405 16-61 U/L Normal ALT 41 LAB L501.4600 0.20-1.00 mg/dL Normal T BILI 0.80 LAB L501.4700 0.00-0.30 mg/dL Normal D BILI 0.28 Performed By: #### L500.3400, L500.4100 #### [facility] [address] [facility] [facility] [place], [place], [address] LIPID PROFILE Collected: 03/01/2018 Status: F Source: [place] 11:09 [facility] REPOSITORY TYPE CODE TESTS RESULT OUT OF RANGE REFERENCE UNITS LAB L501.4900 200 mg/dL Normal CHOL 98 Result Comment: <200 mg/dL Desirable 200-240 mg/dL Borderline >240 mg/dL High Risk LAB L501.5000 mg/dL Normal TRIG 79 Result Comment: The drugs N-Acetylcysteine and Metamizole may falsely depress this assay. Serum Triglycerides Reference Interval Normal <150 mg/dL Borderline high 150 - 199 mg/dL High 200 - 499 mg/dL Very High > or = 500 mg/dL LAB L501.6400 mg/dL Normal HDL 50 Result Comment: The drugs N-Acetylcysteine and Metamizole may falsely depress this assay. Reference Range HDL <40 mg/dL Low HDL Cholesterol HDL >or= 60 mg/dL High HDL Cholesterol LAB L501.6500 0-130 mg/dL Normal LDL 32 LAB L501.6600 5-40 mg/dL Normal VLDL 16 Performed By: #### L500.3400, L500.4100 #### [facility] [address] 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 Now with isolated disease in the mediastinum and right hilum and progression. Cancer Staging Mantle cell lymphoma of lymph nodes of multiple regions (HCC) Staging form: Hodgkin and Non-Hodgkins Lymphoma of Lymphnodes - Clinical stage from 11/02/2016: Stage IV - Signed by Faustino George on 11/02/2016 HPI: 67 year old male who presents with above diagnosis, for an opinion regarding the role of radiation therapy in the management of the patient's disease. Final recommendations will be communicated back to the requesting physician by way of the shared medical record, or letter to requesting physician via US mail. 67 year old man who was initially diagnosed with stage IV mantle cell lymphoma in 2016 when he presented with enlarging lymphadenopathy in the neck. CT neck on 04/10/16 showed Diffuse cervical lymphadenopathy/conglomerate soft tissue masses in the neck, right axilla and the upper mediastinum. He didn't have any B symptoms. FNA of the left neck mass on 05/02/16 showed mantle cell lymphoma. Bone marrow biopsy on 05/22/16 showed extensive mantle cell lymphoma involvement. CT chest/abdomen/pelvis on 05/18/16 showed Bilateral indeterminate subpleural lung nodules, Mediastinal, bilateral hilar and bilateral axillary lymphadenopathy and retroperitoneal and pelvic lymphadenopathy. He was treated with R-CHOP and had good partial response. PET/CT on 10/23/16 showed hypermetabolic lesion in the right hilar and subcarinal region but no other lesions. He had EBUS and TBNA of subcarinal nodes and biopsy showed mantle cell lymphoma. Biopsy was complicated with atrial fibrillation following it but was normalized on amiodarone. He was then treated with Velcade. But CT scan on 12/18/17 showed progression with increasing subcarinal, pretracheal and right hilar disease. He discussed Revlimid/rituximab with Dr. George but he deferred it. Follow-up CT abdomen/pelvis and chest on 02/22/18 showed mild enlargement of pretracheal adenopathy compared to one in December. He denies any weight loss, fever or night sweats. He denies any chest pain, shortness of breath or cough. ALLERGIES Allergen Reactions - Ampicillin Hives - Cephalexin GI Upset - Pyridium [Phenazopy* Rash - Trazodone Intolerance Dizziness; nausea PAST MEDICAL HISTORY Diagnosis Date - Abdominal pain, LLQ (left lower quadrant) - Bladder cancer (HCC) - BPH (benign prostatic hyperplasia) - Congenital anomalies of spleen - DDD (degenerative disc disease), cervical October 2008 cervical spine XRs - Diverticulosis of colon (without mention of hemorrhage) - PMH - PAST MEDICAL HISTORY OF pinched nerve in the neck - Retention of urine, unspecified - Unspecified thrombosed hemorrhoids - Urinary tract infection, site not specified Prior radiation therapy, collagen vascular disease, or inflammatory bowel disease: No PAST SURGICAL HISTORY Procedure Laterality Date - COLONOSCOP W/ OR W/O [facility] SPEC 20 years ago Colonoscopy - COLONOSCOP W/ OR W/O [facility] SPEC 06/17/2008 Colonoscopy - EGD W/O [facility] SPECIMEN W/BX 11/24/2016 gastritis - PAST SURGICAL HISTORY OF October 2007 surgery for bladder CA - PAST SURGICAL HISTORY OF December 2007 prostate surgery - PAST SURGICAL HISTORY OF 05/14/1958 hernia repair - PAST SURGICAL HISTORY OF 05/14/1958 spleen removed (had multiple spleens) - PAST SURGICAL HISTORY OF Tendon repair after laceration right index finger - REPAIR ING HERNIA,5+Y/O,REDUCIBL 03/04/10 RIght - TUNNEL VAD W SUB Q PORT >=5 Right 06/13/2016 FAMILY HISTORY Problem Relation Age of Onset - Breast Cancer Mother - Macular Degen Mother - Heart Father - Stroke Father - Cancer Brother prostate Social History Marital status: Spouse name: Nishi Years of education: Number of children: 2 Occupational History Occupation Employer Comment [employer] Social History Main Topics Smoking status: Never Smoker Smokeless tobacco: Never Used Alcohol use: No Drug use: No Sexual activity: No COMPLETE REVIEW OF SYSTEMS: GENERAL: Negative for weight loss, fevers, chills, or night sweats. HEENT: Negative for sudden vision or hearing changes. NECK: Negative for masses in the neck. RESPIRATORY: Negative for cough or shortness of breath. CARDIAC: Negative for chest pain, palpitations, murmurs, or syncopal episodes. GI: occasional constipation. : Negative for dysuria, hematuria, urgency, frequency or incontinence. MUSCULOSKELETAL: Negative for limitations in movement, pain, or swelling. 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 HEMATOLOGIC: Negative for bleeding or easy bruising. SKIN: Negative for rashes or other skin changes. PHYSICAL EXAM: VS: BP 124/77 (BP Site: Right Arm, BP Position: Sitting, BP Cuff Size: Small Adult) Pulse 70 Temp 36.4 ?C (97.6 ?F) (Temporal Artery) Resp 18 Wt 59.2 kg (130 lb 8 oz) SpO2 96% BMI 19.00 kg/m? KPS: 100 General Appearance: Alert and oriented. No acute distress. HEENT: NCAT. Sclera anicteric. EOMI. Neck: Normal ROM. Chest: No respiratory distress. Lungs clear to auscultation bilaterally. Heart: Regular rate and rhythm. Abdomen: Soft. Nontender. Nondistended. Musculoskeletal: No edema. Normal ROM in extremities. Neuro: No gross focal deficits. Skin: No rashes noted Lymphatics: No palpable cervical or supraclavicular adenopathy. 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 Now with isolated disease in the mediastinum and right hilum and progression. He was treated with R-CHOP last year and had good partial response. After that, scans since October, showed that the only area of persistent disease is in the mediastinum and right hilum. Now he has progression of disease there. Further systemic therapy with Revlimid/rituximab was recommended by and the patient wishes to defer. Although it's very likely that he will develop lymphoma in other sites, since the only area of disease has been in the mediastinum/right hilum for more than a year, I think it's reasonable to try local therapy with radiation treatment there to see if we can delay systemic therapy as he wishes. I explained the rationale, benefits, alternative management options and potential complications of radiation treatment to the patient and he understands and agrees to proceed. It was explained and understood that other personnel such as radiation therapists, cut off saw operator metal, and physicists will participate in planning and delivery of radiation treatment. Permanent tattoo clemons will be placed to aid with positioning for daily treatment and the patient consented. Patient will have a simulation procedure within a week. Thank you very much for allowing us to participate in his care. Signed by: Kamla Huertas MD cc: Imani Lutz MD [address] [place] [address] Faustino George DO [address] [facility] [address] CNOV Observed: 02/27/2018 Status: COMPLETED Source: [place] 9:30 AM [facility] REPOSITORY Office Visit (RADTWS) BADNAR LOVE ([id number]) 1950 M Date Time Provider Department 02/27/18 9:30 AM KAMLA HUERTAS During your visit today, we recorded the following information about you: Temperature Pulse Respiration Blood pressure 97.6 degrees 70/minute 18/minute 124/77 Weight 59.2 kg Ya Holden, RN, RN 02/27/2018 9:55 AM Signed Radiation Therapy - Nursing Note (Consult) PATIENT NAME: Bandar Love PATIENT February 27, 2018 [facility] FACILITY/LOCATION: [place] Chief Complaint: consult for lymphoma Reason for visit: Consult. Referring physician: Internal provider Dr George Subjective Data: no c/o Additional Data Do you want to see a Medical Administrator? No Are you interested in information about fertility? 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 Radiation therapy teaching initiated. Patient declined radiation video. [facility] external beam radiation therapy handout given. Department phone numbers given AND patient encouraged to verbalize questions. 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 Now with isolated disease in the mediastinum and right hilum and progression. Cancer Staging Mantle cell lymphoma of lymph nodes of multiple regions (HCC) Staging form: Hodgkin and Non-Hodgkins Lymphoma of Lymphnodes - Clinical stage from 11/02/2016: Stage IV - Signed by Faustino George on 11/02/2016 HPI: 67 year old male who presents with above diagnosis, for an opinion regarding the role of radiation therapy in the management of the patient's disease. Final recommendations will be communicated back to the requesting physician by way of the shared medical record, or letter to requesting physician via [place] mail. 67 year old man who was initially diagnosed with stage IV mantle cell lymphoma in 2015 when he presented with enlarging lymphadenopathy in the neck. CT neck on 04/10/16 showed Diffuse cervical lymphadenopathy/conglomerate soft tissue masses in the neck, right axilla and the upper mediastinum. He didn't have any B symptoms. FNA of the left neck mass on 05/02/16 showed mantle cell lymphoma. Bone marrow biopsy on 05/22/16 showed extensive mantle cell lymphoma involvement. CT chest/abdomen/pelvis on 05/18/16 showed Bilateral indeterminate subpleural lung nodules, Mediastinal, bilateral hilar and bilateral axillary lymphadenopathy and retroperitoneal and pelvic lymphadenopathy. He was treated with R-CHOP and had good partial response. PET/CT on 10/23/16 showed hypermetabolic lesion in the right hilar and subcarinal region but no other lesions. He had EBUS and TBNA of subcarinal nodes and biopsy showed mantle cell lymphoma. Biopsy was complicated with atrial fibrillation following it but was normalized on amiodarone. He was then treated with Velcade. But CT scan on 12/18/17 showed progression with increasing subcarinal, pretracheal and right hilar disease. He discussed Revlimid/rituximab with Dr. George but he deferred it. Follow- up CT abdomen/pelvis and chest on 02/22/18 showed mild enlargement of pretracheal adenopathy compared to one in December. He denies any weight loss, fever or night sweats. He denies any chest pain, shortness of breath or cough. ALLERGIES Allergen Reactions - Ampicillin Hives - Cephalexin GI Upset - Pyridium [Phenazopy* Rash - Trazodone Intolerance Dizziness; nausea PAST MEDICAL HISTORY Diagnosis Date - Abdominal pain, LLQ (left lower quadrant) - Bladder cancer (HCC) - BPH (benign prostatic hyperplasia) - Congenital anomalies of spleen - DDD (degenerative disc disease), cervical October 2008 cervical spine XRs - Diverticulosis of colon (without mention of hemorrhage) - PMH - PAST MEDICAL HISTORY OF pinched nerve in the neck - Retention of urine, unspecified - Unspecified thrombosed hemorrhoids - Urinary tract infection, site not specified Prior radiation therapy, collagen vascular disease, or inflammatory bowel disease: No PAST SURGICAL HISTORY Procedure Laterality Date - COLONOSCOP W/ OR W/O [facility] SPEC 20 years ago Colonoscopy - COLONOSCOP W/ OR W/O [facility] SPEC 06/17/2008 Colonoscopy - EGD W/O [facility] SPECIMEN W/BX 11/24/2016 gastritis - PAST SURGICAL HISTORY OF October 2007 surgery for bladder CA - PAST SURGICAL HISTORY OF December 2007 prostate surgery - PAST SURGICAL HISTORY OF 05/14/1958 hernia repair - PAST SURGICAL HISTORY OF 05/14/1958 spleen removed (had multiple spleens) - PAST SURGICAL HISTORY OF Tendon repair after laceration right index finger - REPAIR ING HERNIA,5+Y/O,REDUCIBL 03/04/10 RIght - TUNNEL VAD W SUB Q PORT >=5 Right 06/13/2016 FAMILY HISTORY Problem Relation Age of Onset - Breast Cancer Mother - Macular Degen Mother - Heart Father - Stroke Father - Cancer Brother prostate Social History Marital status: Spouse name: Nishi Years of education: Number of children: 2 Occupational History Occupation Employer Comment [employer] Social History Main Topics Smoking status: Never Smoker Smokeless tobacco: Never Used Alcohol use: No Drug use: No Sexual activity: No COMPLETE REVIEW OF SYSTEMS: GENERAL: Negative for weight loss, fevers, chills, or night sweats. HEENT: Negative for sudden vision or hearing changes. NECK: Negative for masses in the neck. RESPIRATORY: Negative for cough or shortness of breath. CARDIAC: Negative for chest pain, palpitations, murmurs, or syncopal episodes. GI: occasional constipation. : Negative for dysuria, hematuria, urgency, frequency or incontinence. MUSCULOSKELETAL: Negative for limitations in movement, pain, or swelling. 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 HEMATOLOGIC: Negative for bleeding or easy bruising. SKIN: Negative for rashes or other skin changes. PHYSICAL EXAM: VS: BP 124/77 (BP Site: Right Arm, BP Position: Sitting, BP Cuff Size: Small Adult) Pulse 70 Temp 36.4 ?C (97.6 ?F) (Temporal Artery) Resp 18 Wt 59.2 kg (130 lb 8 oz) SpO2 96% BMI 19.00 kg/m? KPS: 100 General Appearance: Alert and oriented. No acute distress. HEENT: NCAT. Sclera anicteric. EOMI. Neck: Normal ROM. Chest: No respiratory distress. Lungs clear to auscultation bilaterally. Heart: Regular rate and rhythm. Abdomen: Soft. Nontender. Nondistended. Musculoskeletal: No edema. Normal ROM in extremities. Neuro: No gross focal deficits. Skin: No rashes noted Lymphatics: No palpable cervical or supraclavicular adenopathy. 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 Now with isolated disease in the mediastinum and right hilum and progression. He was treated with R-CHOP last year and had good partial response. After that, scans since October, showed that the only area of persistent disease is in the mediastinum and right hilum. Now he has progression of disease there. Further systemic therapy with Revlimid/rituximab was recommended by and the patient wishes to defer. Although it's very likely that he will develop lymphoma in other sites, since the only area of disease has been in the mediastinum/right hilum for more than a year, I think it's reasonable to try local therapy with radiation treatment there to see if we can delay systemic therapy as he wishes. I explained the rationale, benefits, alternative management options and potential complications of radiation treatment to the patient and he understands and agrees to proceed. It was explained and understood that other personnel such as radiation therapists, cut off saw operator metal, and physicists will participate in planning and delivery of radiation treatment. Permanent tattoo clemons will be placed to aid with positioning for daily treatment and the patient consented. Patient will have a simulation procedure within a week. Thank you very much for allowing us to participate in his care. Signed by: Kamla Huertas MD cc: Imani Lutz MD [address] [place] [address] Faustino George DO [address] [facility] [address] Referring Provider: FAUSTINO GEORGE [[id number]] Allergies As of Date: 02/27/2018 Noted Allergy Reaction AMPICILLIN 05/01/2005 4 - Hives CEPHALEXIN 05/01/2005 8 - GI Upset PYRIDIUM (PHENAZOPYRIDINE HCL) 04/13/2006 2 - Rash TRAZODONE 04/23/2014 5 - Intolerance Comments: Dizziness; nausea Date Reviewed: 02/27/2018 Reviewed by: Ya (Rn) DOROTEO Holden - Fully Assessed Reason for Visit: Consult [502] Primary Visit Diagnosis:Mantle cell lymphoma of lymph nodes of multiple regions (HCC) [C83.18] Prescriptions as of 02/27/2018 Sig: PANTOPRAZOLE 40 MG TABLET,DEL* Take 1 tablet by mouth daily * ATORVASTATIN 80 MG TABLET TAKE 1 TABLET AT BEDTIME FOR * PROMETHAZINE 25 MG TABLET Take 1 tablet by mouth every * VENLAFAXINE ER 37.5 MG CAPSUL* Take 1 capsule by mouth once * GABAPENTIN 100 MG CAPSULE Take 1 capsule by mouth daily* LIDOCAINE-PRILOCAINE 2.5 %-2.* Apply to port site 20 min. pr* WARFARIN 1 MG TABLET Taking 1mg with 4 mg pill missy* TICAGRELOR 90 MG TABLET Take 1 tablet by mouth twice * AMIODARONE 200 MG TABLET Take 1 tablet by mouth once d* ASPIRIN 81 MG TABLET,DELAYED * Take 1 tablet by mouth once d* COMPOUNDED PRESCRIPTION Powerstep orthotic (M72.2) P* LENALIDOMIDE 20 MG CAPSULE Take 1 capsule by mouth once * Problem List As Of Date 02/27/2018 Noted Resolved PROSTATITIS NOS [N41.9] INVALID FOR*09/20/2006 BPH w urinary obs/LUTS [N40.1, N13.8] INVALID FOR* Malignant neoplasm of bladder (HCC) [C67.9] INVALID FOR* More... Cervicalgia [M54.2] INVALID FOR* More... ALLERGIC RHINITIS NOS [J30.9] INVALID FOR* More... More... Lumbago [M54.5] INVALID FOR* Sprain and Strain of Unspecified Site of Should*INVALID FOR* Abdominal Pain, Left Lower Quadrant [R10.32] INVALID FOR* Constipation, Chronic [K59.09] INVALID FOR* Suprapubic Pain [R10.2] INVALID FOR* Unspecified orchitis and epididymitis [N45.3] INVALID FOR* Inguinal hernia, right [K40.90] INVALID FOR* Unilat ing hernia [K40.90] INVALID FOR* Osteoarthritis of knee [M17.10] INVALID FOR* Bilateral knee pain [M25.561, M25.562] INVALID FOR* Inguinal pain, lower right quadrant [R10.31] INVALID FOR* Mitral valve prolapse [I34.1] INVALID FOR* Mitral regurgitation due to cusp prolapse [I34.*INVALID FOR*11/02/2016 Anxiety [F41.9] INVALID FOR* Low back pain [M54.5] INVALID FOR* Non-rheumatic mitral regurgitation [I34.0] INVALID FOR* Mantle cell lymphoma of lymph nodes of multiple*INVALID FOR* Diverticulosis of colon (without mention of hem*INVALID FOR* Lymphoma, mantle cell, multiple sites (HCC) [C8*INVALID FOR* More... Atrial fibrillation, chronic (HCC) [I48.2] INVALID FOR* S/P coronary artery stent placement [Z95.5] INVALID FOR* Visit Notes: >> Ya (Rn) DOROTEO Holden SunFeb 27, 2018 9:53 AM Status: Signed Radiation Therapy - Nursing Note (Consult) PATIENT NAME: Bandar Love PATIENT February 27, 2018 [facility] FACILITY/LOCATION: [facility] Chief Complaint: consult for lymphoma Reason for visit: Consult. Referring physician: Internal provider Dr George Subjective Data: no c/o Additional Data Do you want to see a Medical Administrator? No Are you interested in information about fertility? 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 Radiation therapy teaching initiated. Patient declined radiation video. [facility] external beam radiation therapy handout given. Department phone numbers given AND patient encouraged to verbalize questions. SIGNED by: Ya Holden RN Encounter Status:Closed by KAMLA HUERTAS MD on 03/01/18 PROGRESS Observed: 02/22/2018 Status: COMPLETED Source: [place] 3:36 PM [facility] [place] REPOSITORY O ID: [id number] Author: Gabbi Foster Ct Service: (none) Author Type: (none) Type: Progress Notes Filed: 02/22/2018 3:37 PM Note Text: Radiology Service Progress Note PATIENT NAME: Bandar Love DATE OF SERVICE: February 22, 2018 TIME: 3:36 PM PATIENT IDENTITY VERIFICATION COMPLETED USING TWO (2) METHODS: Patient confirmed name verbally and Date of . PATIENT GENDER DATA: Male PATIENT RELEVANT IMPLANT DATA REVIEWED: Not Applicable CONTRAST INDUCED NEPHROPATHY RISK FACTORS: Patient age > 60 years CREATININE: Creatinine Date Value Ref Range Status 04/09/2017 1.23 (H) 0.73 - 1.22 mg/dL Final 03/12/2017 1.29 (H) 0.73 - 1.22 mg/dL Final 02/19/2017 1.17 0.73 - 1.22 mg/dL Final Creatinine, Whole Blood (iSTAT) Date Value Ref Range Status 12/17/2017 1.20 0.70 - 1.40 mg/dL Final 07/10/2017 1.10 0.70 - 1.40 mg/dL Final eGFR-All Other Races Date Value Ref Range Status 12/17/2017 >60 . Final Comment: eGFR (Estimated GFR) Units of measure: mL/min/1.73 meters squared eGFR is derived from the reexpressed MDRD Study equation using the following parameters: serum creatinine, age, gender and race. The creatinine assay has been calibrated to be traceable to IDMS. An eGFR <60 mL/min/1.73m2 for >3 months is consistent with chronic kidney disease. Refer to KDOQI guidelines for clinical interpretation. In patients with unstable renal function, e.g. those with acute kidney injury, the eGFR may not accurately reflect actual GFR. eGFR- Date Value Ref Range Status 12/17/2017 >60 Final P.O.C.T. RESULTS: POC done: Yes, See Lab Tab February 22, 2018 RADIOLOGIST NOTIFIED?: No ALLERGIES: Reviewed and unchanged CONTRAST ALLERGY: NO. 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 MQ: CTAP_3 Contrast: IV: 111 ml of Omnipaque 300 Oral: 50 ml of 50ML Omnipaque [address] Radiation dose: Integrated Dose-length product (DLP) for this visit = 353 mGy*cm. CT Dose Reduction Employed: Automated exposure control(AEC) and iterative recon COMPARISON: CT 07/10/2017 RESULT: Liver: No mass. Biliary: No bile duct dilation. Gallbladder is unremarkable. Spleen: Status post splenectomy Pancreas: No mass or duct dilation. Adrenals: No mass. Kidneys: No mass, calculus or hydronephrosis. GI tract: No dilation. Assessment of stomach limited due to incomplete distention. Lymph nodes: No abdominal or pelvic lymphadenopathy. Mesentery/Peritoneum: No ascites or mass. Retroperitoneum: No mass. Vasculature: The celiac axis and SMA are patent. The portal vein and branches, splenic vein, SMV, and hepatic veins are patent. No abdominal aortic or iliac artery aneurysm. Pelvis: No mass, ascites or fluid collection. Bones/Soft Tissues: Degenerative changes. Lower thorax: A chest CT performed will be reported separately. IMPRESSION: No findings suggestive of recurrent disease. E Commerce Architect: PSCB Transcribe Date/Time: Feb 26 2018 8:24A Dictated by : DEVON WEBSTER MD This examination was interpreted and the report reviewed and electronically signed by: DEVON WEBSTER MD on Feb 26 2018 8:35AM EST [id number] CT CHEST W IVCON Observed: 02/22/2018 Status: F Source: [place] 3:24 PM [facility] REPOSITORY * * *Final Report* * * DATE OF EXAM: Feb 22 2018 3:24PM [facility] 0539 - CT CHEST W IVCON / PROCEDURE REASON: Mantle cell lymphoma of lymph nodes of multiple regions (HCC) * * * * Physician Interpretation * * * * CHEST CT WITH CONTRAST CLINICAL HISTORY: Mantle cell lymphoma of lymph nodes of multiple regions (HCC) Technique: Spiral CT acquisition of the chest from the thoracic inlet to the upper abdomen following IV contrast. MQ: CTCWR_5 Contrast: 111 mL Omnipaque [address] Dose-Length Product: 353 mGy*cm CT Dose Reduction Employed: Automated exposure control(AEC) and iterative recon Comparison: Type of study and date/time RESULT: Limitations: None. Lines, tubes, and devices: None. Lung parenchyma and pleura: No enlarging lung nodule. Stable subcentimeter densities adjacent to minor fissure and LEFT apical density.. No suspicious pulmonary nodule. No pleural effusion. Central airways are patent. Thoracic inlet, heart, and mediastinum: Mild enlargement precarinal adenopathy, measuring 3.2 x 1.8 cm (4:78) versus about 2.5 x 1.7 cm previously. Irregular subcarinal adenopathy 2.5 x 3.3 cm not clearly changed from prior study. This is contiguous with RIGHT hilar adenopathy , not clearly changed in size measuring about 4.3 x 2.9 cm (4:104). Stable to minimal enlargement superior mediastinal RIGHT paratracheal lymph node 8-9 mm (4:39). The thoracic aorta and main pulmonary artery are normal in caliber. The cardiac chambers are normal in size. No coronary artery atherosclerotic calcifications are noted, although the study is not optimized for coronary assessment. No pericardial effusion or thickening. Bones and soft tissues: No destructive bone lesion. Chest wall is unremarkable. Upper abdomen: No abnormality in the imaged upper abdomen. IMPRESSION: There may be mild enlargement of pretracheal adenopathy. Questionable minimal increase in size superior mediastinal lymph node. This lymph node is not enlarged by CT criterion. Other findings stable E Commerce Architect: [email or web address] Transcribe Date/Time: Feb 26 2018 8:34A Dictated by : DEVON WEBSTER MD This examination was interpreted and the report reviewed and electronically signed by: DEVON WEBSTER MD on Feb 26 2018 8:50AM EST [id number] OFFICE VISIT REPORT Observed: 02/20/2018 Status: F Source: [place] 1:[address] [place] [address] OFFICE VISIT Date of Service: 02/06/18 MR#: [id number] Acct: [id number] Patient: BANDAR LOVE Rep #: [id number] : 1950 Provider: Isacc Rodriguez MD Age/Sex: 67/M Location: [facility] Status: Signed Intake Intake Visit Reasons: 1 WK EKG POST DCCV Chief Complaint: Chest pain Allergies ampicillin Allergy (Verified 12/12/17 14:54) Rash phenazopyridine [Phenazopyridine] Allergy (Verified 12/12/17 14:54) Rash cephalexin [Cephalexin] Adverse Reaction (Verified 12/12/17 14:54) Upset Stomach trazodone Adverse Reaction (Verified 12/12/17 14:54) Nausea Medications Gabapentin [Neurontin] 100 mg PO QHS 12/12/16 [History Confirmed 01/29/18] Pantoprazole Sodium [Protonix] 40 mg PO DAILY 12/12/16 [History Confirmed 01/29/18] Amiodarone HCl [Cordarone] 200 mg PO DAILY #30 tab 07/30/17 [Rx Confirmed 01/29/18] Aspirin E.C. [Ecotrin] 81 mg PO DAILY@0800 #30 tab 07/30/17 [Rx Confirmed 01/29/18] Atorvastatin Calcium [Lipitor] 80 mg PO QHS #30 tab 07/30/17 [Rx Confirmed 01/29/18] ticagrelor 90 mg tablet 90 mg PO BID #60 tab 10/03/17 [Rx Confirmed 01/29/18] warfarin 1 mg tablet 1 mg PO .COMPLEX 11/02/17 [History Confirmed 02/13/18] warfarin 4 mg tablet 4 mg PO .COMPLEX #90 tab 11/02/17 [Rx Confirmed 02/13/18] Assessment AND Plan Orders Orders: Nursing Note Patient here today for an EKG. He is one week post cardioversion. Per Amisha Barfield, EKG looks good, he is to keep appt with Dr. Rodriguez for May. He is to notify us if any changes prior to his next appt. Patient notified of above and verbalized understanding 02/20/18 1342 <Electronically signed by Isacc Rodriguez MD> Date Isacc Rodriguez MD Cosign Signature: Date (if applicable) CC: KIM Observed: 02/18/2018 Status: COMPLETED Source: [place] 12:00 AM [facility] REPOSITORY Telephone (JENNY) BANDAR LOVE ([id number]) 1950 M Date Time Provider Department 02/18/18 FAUSTINO GEORGE During your visit today, we recorded the following information about you: Julieta Hernandez 02/18/2018 10:18 AM Signed BMP scheduled for this afternoon...would you like a CBC as well? Looks like he hasn't had one recently. Please advise. Faustino George DO 02/18/2018 10:25 AM Signed Yes, order filed. DO Malu Segura Psr 02/18/2018 11:11 AM Signed Added to notes. 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 pr* WARFARIN 1 MG TABLET Taking 1mg with 4 mg pill missy* TICAGRELOR 90 MG TABLET Take 1 tablet by mouth twice * AMIODARONE 200 MG TABLET Take 1 tablet by mouth once d* ASPIRIN 81 MG TABLET,DELAYED * Take 1 tablet by mouth once d* ATORVASTATIN 80 MG TABLET Take 1 tablet by mouth daily * COMPOUNDED PRESCRIPTION Powerstep orthotic (M72.2) P* Problem List As Of Date 02/18/2018 Noted Resolved PROSTATITIS NOS [N41.9] INVALID FOR*09/20/2006 BPH w urinary obs/LUTS [N40.1, N13.8] INVALID FOR* Malignant neoplasm of bladder (HCC) [C67.9] INVALID FOR* More... Cervicalgia [M54.2] INVALID FOR* More... ALLERGIC RHINITIS NOS [J30.9] INVALID FOR* More... More... Lumbago [M54.5] INVALID FOR* Sprain and Strain of Unspecified Site of Should*INVALID FOR* Abdominal Pain, Left Lower Quadrant [R10.32] INVALID FOR* Constipation, Chronic [K59.09] INVALID FOR* Suprapubic Pain [R10.2] INVALID FOR* Unspecified orchitis and epididymitis [N45.3] INVALID FOR* Inguinal hernia, right [K40.90] INVALID FOR* Unilat ing hernia [K40.90] INVALID FOR* Osteoarthritis of knee [M17.10] INVALID FOR* Bilateral knee pain [M25.561, M25.562] INVALID FOR* Inguinal pain, lower right quadrant [R10.31] INVALID FOR* Mitral valve prolapse [I34.1] INVALID FOR* Mitral regurgitation due to cusp prolapse [I34.*INVALID FOR*11/02/2016 Anxiety [F41.9] INVALID FOR* Low back pain [M54.5] INVALID FOR* Non-rheumatic mitral regurgitation [I34.0] INVALID FOR* Mantle cell lymphoma of lymph nodes of multiple*INVALID FOR* Diverticulosis of colon (without mention of hem*INVALID FOR* Lymphoma, mantle cell, multiple sites (HCC) [C8*INVALID FOR* More... Atrial fibrillation, chronic (HCC) [I48.2] INVALID FOR* S/P coronary artery stent placement [Z95.5] INVALID FOR* Encounter Status:Closed by MARIEL KING LPN on 02/18/18 PROTHROMBIN TIME W/INR Collected: 02/13/2018 Status: F Source: [place] 1:32 PM [facility] REPOSITORY TYPE CODE TESTS RESULT OUT OF RANGE REFERENCE UNITS LAB L300.4150 11.7-14.9 SECONDS High PROTIME 22.8 LAB L300.4200 Normal INR 2.0 Performed By: #### L300.3900 #### [facility] [address] [place], [place], [address] PROGRESS Observed: 02/11/2018 Status: COMPLETED Source: [place] 2:44 PM [facility] [place] REPOSITORY HNO ID: [id number] Author: Faustino George Service: (none) Author Type: Physician Type: Progress Notes Filed: 02/11/2018 3:11 PM Note Text: Diagnosis: 1) Mantle cell lymphoma. HPI: The patient is a 67-year-old male was a past medical history significant for superficial bladder cancer (TURBT in 2006) and MVP/regurgitation who about a month ago noticed enlarging lymphadenopathy of the neck. More recently he noticed worsening swelling of the left sided lymph node and sought medical attention. CT Neck 04/10/2016: Diffuse cervical lymphadenopathy/conglomerate soft tissue masses throughout the neck with right axillary and upper mediastinal lymphadenopathy is suspicious for lymphoproliferative disorder, not excluding metastatic involvement. He has not been having night sweats or fevers. He says his appetite is unchanged and his weight typically tends to fluctuate. He is not having any trouble swallowing. He's had no episodes of choking or aspiration. He denies dysphasia and odynophagia. He has not had any abdominal distention, bloating or swelling. He denies neurologic symptoms including peripheral symptoms of neuropathy, motor weakness and tremors. No trouble with headache, vision, hearing, phonation or concentration. He underwent echocardiogram in January of this year. He was noted to have a normal ejection fraction but he had severe (3+ - 4+) mitral valve regurgitation due to prolapse and flail. 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 Underwent an FNA of the left neck mass on 05/02/2016. Fine needle aspiration, left neck mass (smears and cell block): Consistent with involvement by Noh-Hodgkin B-cell lymphoma, mantle cell lymphoma. Flow cytometry studies from [facility] are consistent with involvement by a CD5-positive B-cell lymphoproliferative disoreder. See comment. RESULTS: ANTIBODY / CLONE RESULT AE1-3 (AE1/AE3/PCK26) negative CD3 (PS1) negative CD5 (SP10) positive CD20 (L26) positive CD43 (L60) positive CD45 (RP2/18) positive CD79a (11E3) positive CD138 (B-A38) negative CD10 (56C6) negative CD23 (1B12) negative CD30 (Kamar-H2) negative BCL-2 (bcl-2/100/D5) positive BCL-6 (TN765F/A8) negative Cyclin D1/BCL-1 (SP4) positive Ki-67 (30-9) positive (36%) Previous therapy: 1) [facility]. [facility]--Mild residual right hilar adenopathy. PET demonstrated hypermetabolic nodes in right hilum and subcarinal area. 2) Velcade. PD. He underwent bronchoscopy with endoscopic bronchoscopic ultrasound with transbronchial biopsies of several lymph node stations including the subcarinal stations. He developed atrial fibrillation following it. His rhythm was normalized on amiodarone. Pathology demonstrated mantle cell lymphoma in the biopsied lymph nodes. Resumed treatment on 07/23/2017. On 07/27/2017, he had the sudden onset of substernal chest pain which crescendoed over several hours. Patient presented to emergency room [facility] and was found to have a STEMI. Inferior wall pattern. He was taken to [facility] and underwent successful thrombectomy and angioplasty with bare metal stenting to the proximal RCA. Catheterization identified significant mid LAD and proximal diagonal disease. He underwent catheterization on 08/17/2017 with placement of 2 stents in these lesions. There were no complications. Current therapy: 1) Presents for ongoing hematologic management. Interim history: He underwent cardioversion and converted to normal sinus rhythm. He still on Coumadin. No unusual bleeding or unexplained bruising. No symptoms of cardiomyopathy including chest pain/pressure, palpitations, shortness of breath at rest or with exertion, lower extremity swelling/edema, PND or orthopnea. Generalized fatigue. Occasional cough. No sputum or wheezing. Not short of breath at rest or with moderate exertion. Right toe numbness stable. No MS pain. PMH, medications and allergies as below personally reviewed by me today. Any changes documented in appropriate section. ROS: Constitutional: Denies episodes of fever and night sweats. Neuro: Denies TAYLOR, vertigo, dizziness and imbalance. HEENT: No recent change in voice, vision or hearing. Resp: See above. CVS: See above. GI: Denies dysgeusia. Denies symptoms of stomatitis. Denies dysphagia and odynophagia. Denies reflux. No change in bowel habits and abdominal pain. : Denies dysuria or gross hematuria. No symptoms of bladder outlet obstruction. Endo: Denies hot flashes. Denies polyuria and polydipsia. Denies heat and cold intolerance. Musculoskeletal: See above. Derm: Denies rash. Denies jaundice and diffuse pruritis. Heme: Denies unusual bleeding and unexplained bruising. Psych: Normal mood. PHYSICAL EXAM: Vitals: Blood pressure 111/77, pulse 76, temperature 37.1 ?C (98.8 ?F), temperature source Oral, weight 57.8 kg (127 lb 8 oz). Then-appearing and in no acute distress. EYES: Sclerae are anicteric bilaterally. NECK: Supple. No enlargement of thyroid. LYMPHATIC: No peripheral adenopathy. RESPIRATORY: Inspiratory breath sounds are of normal intensity in all rodriguez. No rales, wheezes or rhonchi. CARDIOVASCULAR: Rhythm is regular today. ABDOMEN: The abdomen is nondistended. No organomegaly. No tenderness. No palpable abdominal mass. Extremities: No swelling or edema. SKIN: No jaundice or rash. No petechiae. NEUROLOGIC: gi physician II-XII are grossly intact. DTRs symmetrically diminished. 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 He had extensive bone marrow involvement at the time of presentation. -KPS is 80-90%. -Asymptomatic from the lymphoma at baseline with exception significant adenopathy. Although baseline LDH normal, the Ki67 at 36% suggested more aggressive disease. -Higher risk of infectious complications given underlying MVP/reguritation as well as h/o splenectomy at age 10. -Asymptomatic from the coronary artery disease. -Tolerating Velcade very well. 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 Stable. -History of additions about undergoing therapy with Revlimid/rituximab. On one of the handouts for rituximab it's that it could cause abnormal heart rhythm and rare circumstances. I explained to him the need for systemic therapy given the inevitable progression of the lymphoma. I again explained the rationale for my recommendation on rituximab and Revlimid over ibrutinib or acalabrutinib based on a much greater potential for those drugs to cause either bleeding issues (he is on warfarin plus antiplatelet therapy) or recurrence of atrial fibrillation. -His inquired about the potential for radiation treatment. This might be a reasonable thing to do if his disease is still limited to the mediastinum. He wants to hold off on systemic therapy as long as possible. Plan: -CT chest, abdomen and pelvis. -Referral to Dr. Huertas for opinion on palliative radiation the mediastinum. DO JORGE SeguraOVSP Observed: 02/11/2018 Status: COMPLETED Source: [place] 2:30 PM [facility] REPOSITORY Visit (SP) Office (JENNY) BANDAR LOVE ([id number]) 1950 M Date Time Provider Department 02/11/18 2:30 PM FAUSTINO GEORGE During your visit today, we recorded the following information about you: Temperature Pulse Blood pressure Weight 98.8 degrees 76/minute 111/77 57.8 kg Faustino George DO 02/11/2018 3:11 PM Signed Diagnosis: 1) Mantle cell lymphoma. HPI: The patient is a 67-year-old male was a past medical history significant for superficial bladder cancer (TURBT in 2006) and MVP/regurgitation who about a month ago noticed enlarging lymphadenopathy of the neck. More recently he noticed worsening swelling of the left sided lymph node and sought medical attention. CT Neck 04/10/2016: Diffuse cervical lymphadenopathy/conglomerate soft tissue masses throughout the neck with right axillary and upper mediastinal lymphadenopathy is suspicious for lymphoproliferative disorder, not excluding metastatic involvement. He has not been having night sweats or fevers. He says his appetite is unchanged and his weight typically tends to fluctuate. He is not having any trouble swallowing. He's had no episodes of choking or aspiration. He denies dysphasia and odynophagia. He has not had any abdominal distention, bloating or swelling. He denies neurologic symptoms including peripheral symptoms of neuropathy, motor weakness and tremors. No trouble with headache, vision, hearing, phonation or concentration. He underwent echocardiogram in January of this year. He was noted to have a normal ejection fraction but he had severe (3+ - 4+) mitral valve regurgitation due to prolapse and flail. 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 Underwent an FNA of the left neck mass on 05/02/2016. Fine needle aspiration, left neck mass (smears and cell block): Consistent with involvement by Noh-Hodgkin B-cell lymphoma, mantle cell lymphoma. Flow cytometry studies from [facility] are consistent with involvement by a CD5-positive B-cell lymphoproliferative disoreder. See comment. RESULTS: ANTIBODY / CLONE RESULT AE1-3 (AE1/AE3/PCK26) negative CD3 (PS1) negative CD5 (SP10) positive CD20 (L26) positive CD43 (L60) positive CD45 (RP2/18) positive CD79a (11E3) positive CD138 (B-A38) negative CD10 (56C6) negative CD23 (1B12) negative CD30 (Kamar-H2) negative BCL-2 (bcl-2/100/D5) positive BCL-6 (ZU757L/A8) negative Cyclin D1/BCL-1 (SP4) positive Ki-67 (30-9) positive (36%) Previous therapy: 1) [facility]--Mild residual right hilar adenopathy. PET demonstrated hypermetabolic nodes in right hilum and subcarinal area. 2) Velcade. PD. He underwent bronchoscopy with endoscopic bronchoscopic ultrasound with transbronchial biopsies of several lymph node stations including the subcarinal stations. He developed atrial fibrillation following it. His rhythm was normalized on amiodarone. Pathology demonstrated mantle cell lymphoma in the biopsied lymph nodes. Resumed treatment on 07/23/2017. On 07/27/2017, he had the sudden onset of substernal chest pain which crescendoed over several hours. Patient presented to emergency room [facility] and was found to have a STEMI. Inferior wall pattern. He was taken to [facility] and underwent successful thrombectomy and angioplasty with bare metal stenting to the proximal RCA. Catheterization identified significant mid LAD and proximal diagonal disease. He underwent catheterization on 08/17/2017 with placement of 2 stents in these lesions. There were no complications. Current therapy: 1) Presents for ongoing hematologic management. Interim history: He underwent cardioversion and converted to normal sinus rhythm. He still on Coumadin. No unusual bleeding or unexplained bruising. No symptoms of cardiomyopathy including chest pain/pressure, palpitations, shortness of breath at rest or with exertion, lower extremity swelling/edema, PND or orthopnea. Generalized fatigue. Occasional cough. No sputum or wheezing. Not short of breath at rest or with moderate exertion. Right toe numbness stable. No MS pain. PMH, medications and allergies as below personally reviewed by me today. Any changes documented in appropriate section. ROS: Constitutional: Denies episodes of fever and night sweats. Neuro: Denies TAYLOR, vertigo, dizziness and imbalance. HEENT: No recent change in voice, vision or hearing. Resp: See above. CVS: See above. GI: Denies dysgeusia. Denies symptoms of stomatitis. Denies dysphagia and odynophagia. Denies reflux. No change in bowel habits and abdominal pain. : Denies dysuria or gross hematuria. No symptoms of bladder outlet obstruction. Endo: Denies hot flashes. Denies polyuria and polydipsia. Denies heat and cold intolerance. Musculoskeletal: See above. Derm: Denies rash. Denies jaundice and diffuse pruritis. Heme: Denies unusual bleeding and unexplained bruising. Psych: Normal mood. PHYSICAL EXAM: Vitals: Blood pressure 111/77, pulse 76, temperature 37.1 ?C (98.8 ?F), temperature source Oral, weight 57.8 kg (127 lb 8 oz). Then-appearing and in no acute distress. EYES: Sclerae are anicteric bilaterally. NECK: Supple. No enlargement of thyroid. LYMPHATIC: No peripheral adenopathy. RESPIRATORY: Inspiratory breath sounds are of normal intensity in all rodriguez. No rales, wheezes or rhonchi. CARDIOVASCULAR: Rhythm is regular today. ABDOMEN: The abdomen is nondistended. No organomegaly. No tenderness. No palpable abdominal mass. Extremities: No swelling or edema. SKIN: No jaundice or rash. No petechiae. NEUROLOGIC: gi physician II-XII are grossly intact. DTRs symmetrically diminished. 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 He had extensive bone marrow involvement at the time of presentation. -KPS is 80-90%. -Asymptomatic from the lymphoma at baseline with exception significant adenopathy. Although baseline LDH normal, the Ki67 at 36% suggested more aggressive disease. -Higher risk of infectious complications given underlying MVP/reguritation as well as h/o splenectomy at age 10. -Asymptomatic from the coronary artery disease. -Tolerating Velcade very well. 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 Stable. -History of additions about undergoing therapy with Revlimid/rituximab. On one of the handouts for rituximab it's that it could cause abnormal heart rhythm and rare circumstances. I explained to him the need for systemic therapy given the inevitable progression of the lymphoma. I again explained the rationale for my recommendation on rituximab and Revlimid over ibrutinib or acalabrutinib based on a much greater potential for those drugs to cause either bleeding issues (he is on warfarin plus antiplatelet therapy) or recurrence of atrial fibrillation. -His inquired about the potential for radiation treatment. This might be a reasonable thing to do if his disease is still limited to the mediastinum. He wants to hold off on systemic therapy as long as possible. Plan: -CT chest, abdomen and pelvis. -Referral to Dr. Huertas for opinion on palliative radiation the mediastinum. 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 Discontinue saline lock post exam. If Pt. has a central line or IVAD, may access for administration according to line specific nursing protocol. Once exam is complete flush line and de-access according to line specific nursing protocol in the CT contrast administration guidelines link.Disp: 1 EachRfl: 0 [] enteric contrast (will be provided with radiology test)For CT CHESTABD/PEL W IVCON Routine order Administer, As Directed One Time Only, via Oral, Rectal, both Oral and Rectal, Enteric Tube, Stoma or Indwelling Catheter, Enteric Contrast as designated per enteric contrast guidelinesDisp: 1 EachRfl: 0 Follow-up and Disposition History Recorded Prescriptions as of 02/11/2018 Sig: X PANTOPRAZOLE 40 MG TABLET,DEL* Take 1 tablet by mouth daily * PROMETHAZINE 25 MG TABLET Take 1 tablet by mouth every * VENLAFAXINE ER 37.5 MG CAPSUL* Take 1 capsule by mouth once * GABAPENTIN 100 MG CAPSULE Take 1 capsule by mouth daily* LIDOCAINE-PRILOCAINE 2.5 %-2.* Apply to port site 20 min. pr* WARFARIN 1 MG TABLET Taking 1mg with 4 mg pill missy* TICAGRELOR 90 MG TABLET Take 1 tablet by mouth twice * AMIODARONE 200 MG TABLET Take 1 tablet by mouth once d* ASPIRIN 81 MG TABLET,DELAYED * Take 1 tablet by mouth once d* X ATORVASTATIN 80 MG TABLET Take 1 tablet by mouth daily * COMPOUNDED PRESCRIPTION Powerstep orthotic (M72.2) P* IV CONTRAST (RADIOLOGY PROCED* CT Chest ABD/PEL-Inject, intr* ENTERIC CONTRAST (RADIOLOGY P* For CT CHESTABD/PEL W IVCON R* LENALIDOMIDE 20 MG CAPSULE Take 1 capsule by mouth once * Medication notes this encounter LENALIDOMIDE 20 MG CAPSULE >> Shanna Adam MA 02/11/2018 2:39 PM >> SHANNA ADAM MA Feb 11, 2018 2:39 PM Hasn't started Problem List As Of Date 02/11/2018 Noted Resolved PROSTATITIS NOS [N41.9] INVALID FOR*09/20/2006 BPH w urinary obs/LUTS [N40.1, N13.8] INVALID FOR* Malignant neoplasm of bladder (HCC) [C67.9] INVALID FOR* More... Cervicalgia [M54.2] INVALID FOR* More... ALLERGIC RHINITIS NOS [J30.9] INVALID FOR* More... More... Lumbago [M54.5] INVALID FOR* Sprain and Strain of Unspecified Site of Should*INVALID FOR* Abdominal Pain, Left Lower Quadrant [R10.32] INVALID FOR* Constipation, Chronic [K59.09] INVALID FOR* Suprapubic Pain [R10.2] INVALID FOR* Unspecified orchitis and epididymitis [N45.3] INVALID FOR* Inguinal hernia, right [K40.90] INVALID FOR* Unilat ing hernia [K40.90] INVALID FOR* Osteoarthritis of knee [M17.10] INVALID FOR* Bilateral knee pain [M25.561, M25.562] INVALID FOR* Inguinal pain, lower right quadrant [R10.31] INVALID FOR* Mitral valve prolapse [I34.1] INVALID FOR* Mitral regurgitation due to cusp prolapse [I34.*INVALID FOR*11/02/2016 Anxiety [F41.9] INVALID FOR* Low back pain [M54.5] INVALID FOR* Non-rheumatic mitral regurgitation [I34.0] INVALID FOR* Mantle cell lymphoma of lymph nodes of multiple*INVALID FOR* Diverticulosis of colon (without mention of hem*INVALID FOR* Lymphoma, mantle cell, multiple sites (HCC) [C8*INVALID FOR* More... Atrial fibrillation, chronic (HCC) [I48.2] INVALID FOR* S/P coronary artery stent placement [Z95.5] INVALID FOR* Encounter Status:Closed by FAUSTINO GEORGE DO on 02/11/18 ERRONEOUSTRANS Observed: 02/11/2018 Status: COMPLETED Source: [place] 2:30 PM [facility] REPOSITORY [id number] Bandar Love Socrates 1950 M * Clinical document posted in Error * Encounter Type Conversion History User Instant Changed From Changed To WALE KELLER Mar 12, 2018 11* Visit (SP) * Erroneous* SHANNA ADAM MA Feb 11, 2018 2:* Appointment Visit (SP* 12 LEAD EKG PERFORMED Observed: 02/06/2018 Status: F Source: [place] BY [facility] 11:30 AM [facility] REPOSITORY [facility] [address] [place] [address] 12 Lead EKG performed by [facility] 02/06/18 1129 MR#: [id number] Acct: [id number] Name: BANDAR LOVE Rep #: [id number] : 1950 67 From: Isacc Rodriguez MD Attending Dr: Isacc Rodriguez MD Status: DEP AMB Ordering Dr: Isacc Rodriguez MD Date: 02/06/18 Location: [facility] Sex: M C Admitted: [facility]/12 Lead EKG performed by [facility] ECG Report Interpretation Sinus Rhythm -First degree A-V block Edmond = 288-Old anteroseptal infarct. ABNORMAL Electronically signed on 04/26/2018 at 15:32 by Isacc Rodriguez Software Version [id number] 04/26/18 1536 Date Isacc Rodriguez MD CC: Imani Lutz MD Date Dictated: 02/06/18 112 Date Transcribed: 02/06/181128 E Commerce Architect: Signed OPERATIVE REPORT Observed: 01/31/2018 Status: F Source: [place] 6:24 AM [facility] REPOSITORY [facility] Medical Records Department [address] [place] [address] [place] [address] Operative Report 01/30/18 1515 MR#: [id number] Acct: [id number] Name: BANDAR LOVE Rep #: [id number] : 1950 67 From: Luis Calvillo MD PCP: Imani Lutz MD Status: [facility] Y Location: [facility] Problem List (1) Inferior ME Status: Acute (2) ST elevation (STEMI) myocardial infarction Status: Resolved (3) Atrial fibrillation Status: Chronic Qualifiers: Atrial fibrillation type: chronic Qualified Code(s): I48.2 - Chronic atrial fibrillation (4) GERD (gastroesophageal reflux disease) Status: Chronic (5) History of bladder cancer Status: Chronic (6) Hyperlipidemia Status: Chronic Qualifiers: Hyperlipidemia type: pure hypercholesterolemia Qualified Code(s): E78.00 - Pure hypercholesterolemia, unspecified; E78.0 - Pure hypercholesterolemia (7) Lobulated mass of maxilla Status: Chronic (8) Mantle cell lymphoma Status: Chronic Qualifiers: Lymphoma site: unspecified region Qualified Code(s): C83.10 - Mantle cell lymphoma, unspecified site (9) Severe protein-calorie malnutrition Status: Chronic (10) History of bladder surgery Status: Resolved Comment: bladder cancer 10/2007 (11) History of coronary artery stent placement Status: Resolved Comment: [id number] RCA 4.0 x 26 mm Integrity Stent 07/27/17; ROMULO to proximal diagonal and mid LAD 08/15/17; (12) History of prostate surgery Status: Resolved (13) Hx of colonoscopy Status: Resolved (14) Hx of tonsillectomy Status: Resolved Comment: 1960 (15) bone marrow Status: Resolved Comment: 05/22/16 Operative Report Date of Procedure: 01/30/18 - Conscious sedation CONSCIOUS SEDATION REPORT BRIEF HISTORY OF PRESENT ILLNESS: The patient is a 67-year-old male who presented to [facility] for an elective outpatient cardioversion due to underlying atrial fibrillation. The patient reports no PO intake since midnight. The patient does not have a history of obstructive sleep apnea. The patient reports no history of smoking and COPD. The patient denies any recent constitutional symptoms such as fevers, chills, nausea or vomiting. The patient denies previous anesthetic complications. PHYSICAL EXAMINATION: VITAL SIGNS: Reviewed and were acceptable. GENERAL: The patient is an obese male, in no apparent distress, speaking in full sentences. HEENT: Normocephalic, atraumatic. Mucous membranes are moist and pink. Good mouth opening noted. Trachea is midline. Good neck mobility. MP II. edentulous CHEST: S1, S2 irregularly irregular. No murmurs, rubs or gallops were noted. LUNGS: Clear to auscultation bilaterally without appreciable wheezes, rales or rhonchi. ABDOMEN: Soft, nontender, nondistended. Positive bowel sounds. EXTREMITIES: There is no clubbing, cyanosis or edema. ASA Class: II DESCRIPTION OF PROCEDURE: After confirmation of informed consent, the patient's anesthesia plan was reviewed in detail. Propofol was chosen. Risks and benefits were reviewed and the patient agreed to proceed. At 11:33 AM, the patient was given 40 mg of propofol. The patient required a total of 70 mg of propofol throughout the procedure to achieve appropriate sedation. The patient achieved an appropriate level of sedation and received 1 attempt s synchronized cardioversion, at [address] Rodriguez at the bedside. This was successful in achieving normal sinus rhythm. The patient was monitored until 11:39 AM, at which time the patient reached their baseline mental status and function. The patient tolerated the procedure well. COMPLICATIONS: None ESTIMATED BLOOD LOSS: None RECOMMENDATIONS: Okay to recover in usual fashion. Code Visit 9xxxx: Other Procedure See Report - [id number] 01/31/18 0624 <Electronically signed by Luis Calvillo MD> Date Luis Calvillo MD CC: Luis Calvillo MD; Isacc Rodriguez MD; Imani Lutz MD Signed OPERATIVE REPORT Observed: 01/30/2018 Status: F Source: [place] 1:29 PM [facility] REPOSITORY [facility] Medical Records Department [address] [place] [address] Operative Report 01/30/18 1327 MR#: [id number] Acct: [id number] Name: BANDAR LOVE Rep #: [id number] : 1950 67 From: Isacc Rodriguez MD PCP: Imani Lutz MD Status: [facility] Y Location: [facility] Problem List (1) Atrial fibrillation Status: Chronic Qualifiers: Atrial fibrillation type: chronic Qualified Code(s): I48.2 - Chronic atrial fibrillation Operative Report Date of Procedure: 01/30/18 DC cardioversion: Patient was brought to the Tour Driver holding area in the fasting state. The risks/benefits of the procedure were thoroughly explained to the patient and informed consent was obtained. The deferred later pads were placed in the AP position. EKG confirmed the patient to be in atrial flutter with controlled ventricular response. With the assistance of Dr. Luis Calvillo the patient was given a total of 70 mg of IV propofol. Once adequate sedation was obtained the patient received a single 200 J biphasic synchronized shock which converted him from atrial flutter to normal sinus rhythm. His rhythm remained durable, and the defibrillator pads were removed. The patient spontaneously awoke, moves all 4 extremities and tolerated procedure well. Conclusions: Successful biphasic DC cardioversion with a single 200 J synchronized shock. Patient tolerated procedure well. No complications. He will continue on current medical therapy. Patient may proceed with chemotherapy going forward. 01/30/18 1329 <Electronically signed by Isacc Rodriguez MD> Date Isacc Rodriguez MD CC: Isacc Rodriguez MD; Imani Lutz MD Signed HISTORY AND PHYSICAL Observed: 01/30/2018 Status: F Source: [place] EXAM 10:50 AM [facility] REPOSITORY [facility] Medical Records Department [address] [place] [address] History and Physical 01/30/18 1041 MR#: [id number] Acct: [id number] Name: BANDAR LOVE Rep #: [id number] : 1950 67 From: Amisha MOTA PCP: Imani Lutz MD Status: [facility] Y [facility] Problem List (1) Atrial fibrillation Status: Chronic Qualifiers: Atrial fibrillation type: chronic Qualified Code(s): I48.2 - Chronic atrial fibrillation History and Physical HPI HPI Details: BANDAR LOVE, is a 67 M who presents today for DCCV. He has a history of atrial fibrillation, mitral valve insufficiency, tricuspid valve insufficiency, hypertension, and hyperlipidemia, and acute lymphoma with chemotherapy. He presented to [facility] emergency department in July 2017 after developing midsternal chest pain. His EKG showed ST elevation in lead II, III, and aVF. He was transferred to cardiac cath. He underwent bare metal stenting to proximal RCA. The plan was to undergo elective PCI to LAD and diagonal in 3 weeks. He later underwent successful PTCA/ROMULO to proximal diagonal 1 and mid LAD in August 2017. Pt denies chest, arm, jaw, or neck discomfort. His exercise tolerance is stable. Pt denies symptoms of CHF, palpitations, lightheadedness, dizziness, near syncopal or syncopal episodes. Pt denies edema or claudication issues. Pt. denies orthopnea, PND, fever, chills, blood in urine, blood in stool, or myalgia. Pt. states numbness in his feet that is understands is from chemotherpay. Vitals: Allergies ampicillin Allergy (Verified 12/12/17 14:54) Rash phenazopyridine [Phenazopyridine] Allergy (Verified 12/12/17 14:54) Rash cephalexin [Cephalexin] Adverse Reaction (Verified 12/12/17 14:54) Upset Stomach trazodone Adverse Reaction (Verified 12/12/17 14:54) Nausea Medications Gabapentin [Neurontin] 100 mg PO QHS 12/12/16 [History Confirmed 12/12/17] Pantoprazole Sodium [Protonix] 40 mg PO DAILY 12/12/16 [History Confirmed 12/12/17] Amiodarone HCl [Cordarone] 200 mg PO DAILY #30 tab 07/30/17 [Rx Confirmed 12/12/17] Aspirin E.C. [Ecotrin] 81 mg PO DAILY@0800 #30 tab 07/30/17 [Rx Confirmed 12/12/17] Atorvastatin Calcium [Lipitor] 80 mg PO QHS #30 tab 07/30/17 [Rx Confirmed 12/12/17] metoprolol tartrate 25 mg tablet 12.5 mg PO BID #30 tab 09/26/17 [Rx Confirmed 12/12/17] ticagrelor 90 mg tablet 90 mg PO BID #60 tab 10/03/17 [Rx Confirmed 12/12/17] warfarin 1 mg tablet 1 mg PO .COMPLEX 11/02/17 [History Confirmed 12/12/17] warfarin 4 mg tablet 4 mg PO .COMPLEX #90 tab 11/02/17 [Rx Confirmed 12/12/17] PFSH Medical History Hyperlipidemia (Chronic) Non-rheumatic tricuspid valve insufficiency (Chronic) Nonrheumatic mitral valve insufficiency (Chronic) retirement current use of 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) H/O endoscopy (Resolved) port placement (Resolved) bone marrow (Resolved) History of coronary artery stent placement (Resolved 07/27/17) Atherosclerosis of coronary artery bypass graft without angina pectoris (Chronic) ST elevation (STEMI) myocardial infarction (Acute) GERD (gastroesophageal reflux disease) (Chronic) Severe protein-calorie malnutrition (Chronic) Inferior ME (Acute) Cardiogenic shock (Acute) Atrial fibrillation (Chronic) Altered vision right eye (Chronic) History of bladder cancer (Chronic) 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) h/o bladder cancer (Acute) Surgical History H/O splenectomy (Resolved) Hx of tonsillectomy (Resolved) H/O hernia repair (Resolved) History of prostate surgery (Resolved) History of bladder surgery (Resolved) Hx of colonoscopy (Resolved) Family History Mother Breast cancer Lung disease Father CVA (cerebral vascular accident) Heart disease Afib CHF (congestive heart failure) Myocardial infarction Hx of CABG Social History Smoking Status: Never smoker alcohol intake: never substance use type: does not use caffeine: No what type of physical activity do you participate in: other details: therapy seatbelt use: always do you feel safe at home: Yes ROS Const Const: Negative for weakness, body ache, fever(s), chills or fatigue ENT ENT: Negative for dizziness Cardio Chest Pain: No Palpitations: No Edema: None Muscle aches with walking: None Resp Respiratory: Negative for SOB with activity, SOB at rest, SOB orthopnea\SOB lying down or paroxysmal nocturnal dyspnea GI GI: Negative nausea, black,tarry stools, bright, red blood in stools or vomiting blood/hematemesis : Negative for hematuria or frequent nighttime urination/ nocturia Musc Musc: Negative for muscle aches/ myalgia Neuro Neuro: Negative for weakness or dizziness Endo Endo: Negative for fatigue Cardiology Exam Const Appearance: cooperative, healthy appearing, comfortable and no acute distress Orientation: alert, awake and oriented x3 Head Head: normal to inspection Mouth: oral mucosae normal Neck Neck: no JVD and normal visual inspection Carotids: normal carotid upstroke Chest Chest inspection: normal inspection of the chest and normal respiratory effort Auscultation: Bilateral: Clear to Auscultation Cardio Rate: regular rate Rhythm: irregular rhythm Heart sounds: S2 normal and murmur; negative rub or gallop Murmur: Grade 2/6 and LLSB GI GI: normal to inspection Neuro General: alert, awake, oriented x3 and CN's II-XI intact bilaterally Skin Skin: no rashes or lesions noted Extremities Pulses: Normal: Right Posterior Tibial Pulse, Left Posterior Tibial Pulse, Right Radial Pulse, Left Radial Pulse Lower Extremity Edema: None: Bilateral Psych Psychological: normal affect Supplemental Info Echocardiogram from July 2017 showed estimated ejection fraction of 45-50%, moderate enlarged left atrium, moderate mitral valve insufficiency, mild tricuspid valve insufficiency, RVSP of 33 mmHg, and when compared to previous echocardiogram in December 2016 there is new inferior/posterior wall motion hypokinesis and ejection fraction has decreased from 65% to 50% and RVSP estimated the same. Patient appears to be in atrial fibrillation. Echocardiogram May 2017 at [facility] showed mild concentric LVH, estimated ejection fraction of 54 5%, severely dilated left atrium, mildly dilated right atrium, moderately severe holosystolic mitral valve regurgitation due to prolapse, regurgitation orifice area of 0.32 cm , bileaflet prolapse with posterior greater than anterior, and patient in atrial fibrillation. Assessment AND Plan 1. Atherosclerosis of coronary artery bypass graft of [place] heart without angina pectoris I25.810 [id number] RCA 4.0 x 26 mm Integrity Stent 07/27/17; ROMULO to prox Diag and Mid LAD 08/15/2017 Patient denies any chest pain, arm pain, jaw pain, neck pain, shortness of breath, or fatigue suggestive of angina at this time. We will continue to monitor this. We will not make any medication regimen changes and will continue risk factor modification. 2. History of coronary artery stent placement Z95.5 [id number] RCA 4.0 x 26 mm Integrity Stent 07/27/17; ROMULO to proximal diagonal and mid LAD 08/15/17; We will continue current plan as outlined above. 3. Chronic atrial fibrillation I48.2 Echocardiogram from July 2017 showed estimated ejection fraction 45-50% and moderately enlarged left atrium. Patient is on amiodarone therapy, low- dose beta-cristhian, and Coumadin therapy. Pt will be scheduled to have a Cardioversion today. His INR has been theraputic. 4. Nonrheumatic mitral valve insufficiency I34.0 Echocardiogram from July 2017 showed moderate mitral valve insufficiency. Echocardiogram from May 2017 at [facility] stated moderately severe mitral valve regurgitation. Patient denies any shortness of breath or activity intolerance. We will continue to monitor this through history, exam, and repeat echocardiogram as needed. We will continue current medications. 5. Nonrheumatic tricuspid (valve) insufficiency I36.1 Echocardiogram from July 2017 showed mild tricuspid valve insufficiency with an RVSP of 33 mmHg. Patient denies any shortness of breath or lower extremity pedal edema. We will continue to monitor this through history, exam, and repeat echocardiogram as needed. 6. Pure hypercholesterolemia E78.00 Patient's lipid panel from August 2017 show cholesterol: 97, LDL: 42, HDL: 37, and triglycerides: 90. Patient will continue current cholesterol- lowering medication. He will repeat both liver and lipid panel in approximately 6 months. We will wait for results of these tests for further recommendation. 7. 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 01/30/18 1050 <Electronically signed by Amisha MOTA> Date [facility] Signature: Date (if applicable) CC: Imani Lutz MD; Amisha Barfield Signed PROTIME W/INR Collected: 01/30/2018 Status: F Source: [place]ING[place] 10:10 AM [facility] REPOSITORY TYPE CODE TESTS RESULT OUT OF REFERENCE UNITS RANGE LAB L9200.1001 11.9-14.4 SEC High PROTIME ISTAT 33.7 Result Comment: Reference Range 11.9 - 14.4 LAB L9200.2000 Normal INR ISTAT 3.00 Result Comment: Critical Value > 3.5 Performed By: #### L9200.0000 #### [facility] Point of Care [facility] [address] [place], [place] [address] BASIC METABOLIC Collected: 01/30/2018 Status: F Source: [place] PROFILE (BMP) 9:30 AM [facility] REPOSITORY TYPE CODE TESTS RESULT OUT OF RANGE REFERENCE UNITS LAB L501.0100 74-106 mg/dL Normal GLU 91 Result Comment: Please note revised GLUCOSE reference range effective 2017. LAB L501.1000 7-18 mg/dL Normal BUN 15 LAB L501.1100 0.70-1.30 mg/dL Normal CREAT,SERUM 1.23 Result Comment: The validity of the calculated GFR AND GFRAA in patients over 70 years has not been determined. Clinical correlation is essential. LAB L501.1110 >60 mL/min Normal EST GFR 63 Result Comment: Non- GFR Calc LAB L501.1115 >60 mL/min Normal EST GFR - AA 76 Result Comment: GFR Calc LAB L501.1255 ml/min Normal Estimated CRCL 48.79 LAB L501.1300 10-20 RATIO Normal BUN/CRE 12.2 LAB L501.2200 8.5-10 mg/dL Normal .1 CA 9.2 LAB L501.5300 136-14 mmol/L Normal 5 NA 144 LAB L501.5600 3.5-5. mmol/L Normal 1 K 3.8 LAB L501.5900 98-107 mmol/L Normal CL 106 LAB L501.6100 21.0-3 mmol/L Normal 2.0 CO2 29.0 LAB L501.6200 5-15 Normal GAP 9 Performed By: #### L500.2500 #### [facility] [address] [place], [address] PROTHROMBIN TIME W/INR Collected: 01/24/2018 Status: F Source: [place] 2:28 PM [facility] REPOSITORY TYPE CODE TESTS RESULT OUT OF RANGE REFERENCE UNITS LAB L300.4150 11.7-14.9 SECONDS High PROTIME 25.5 LAB L300.4200 Normal INR 2.3 Performed By: #### L300.3900 #### [facility] [address] [place], [address] PROTHROMBIN TIME W/INR Collected: 01/18/2018 Status: C Source: [place] 1:48 PM [facility] REPOSITORY TYPE CODE TESTS RESULT OUT OF REFERENCE UNITS RANGE LAB L300.4150 11.7-14.9 SECONDS High PROTIME 36.4 LAB L300.4200 High alert INR 3.6 Result Comment: CRITICAL VALUE VERIFIED. CALLED TO SHANTHI GUEVARA 01/18/18 1515 Dalton Merrill. RESULTS READ BACK BY SHANTHI . AMENDED REPORT 01/18/18 1516 INR previously reported as: 3.6 *H Performed By: #### L300.3900 #### [facility] [address] [place], [address] PROTHROMBIN TIME W/INR Collected: 01/11/2018 Status: F Source: [place] 1:32 PM [facility] REPOSITORY TYPE CODE TESTS RESULT OUT OF RANGE REFERENCE UNITS LAB L300.4150 11.7-14.9 SECONDS High PROTIME 28.7 LAB L300.4200 Normal INR 2.7 Performed By: #### L300.3900 #### [facility] [address] [place], [address] PROGRESS Observed: 01/09/2018 Status: COMPLETED Source: [place] 3:12 PM [facility] REPOSITORY HNO ID: [id number] Author: Tiara Gordillo (Sw) Service: (none) Author Type: Bicycle Service Technician Type: Progress Notes Filed: 01/09/2018 3:13 PM Note Text: SOCIAL WORK FOLLOW UP NOTE: [facility] Date of service: January 09, 2018 Bandar Love is being seen for a follow up social work visit. Today's visit includes: patient TOPICS ADDRESSED: Advance Directives; Patient brought in his Advance Directives and JAMSHID made copy to scan into his chart. Patient denied other needs at this time. PLAN: Continue follow up as needed F/U APPOINTMENT: DENISE Griffin CNSW Observed: 01/09/2018 Status: COMPLETED Source: [place] 12:00 AM [facility] REPOSITORY Social Work (JENNY) BANDAR LOVE ([id number]) 1950 M Date Time Provider Department 01/09/18 TIARA GORDILLO (SW) During your visit today, we recorded the following information about you: DENISE Oliveira 01/09/2018 3:13 PM Signed SOCIAL WORK FOLLOW UP NOTE: [facility] Date of service: January 09, 2018 Bandar Love is being seen for a follow up social work visit. Today's visit includes: patient TOPICS ADDRESSED: Advance Directives; Patient brought in his Advance Directives and JAMSHID made copy to scan into his chart. Patient denied other needs at this time. PLAN: Continue follow up as needed F/U APPOINTMENT: DENISE Griffin Allergies As of Date: 01/09/2018 Noted Allergy Reaction AMPICILLIN 05/01/2005 4 - Hives CEPHALEXIN 05/01/2005 8 - GI Upset PYRIDIUM (PHENAZOPYRIDINE HCL) 04/13/2006 2 - Rash TRAZODONE 04/23/2014 5 - Intolerance Comments: Dizziness; nausea Date Reviewed: 01/01/2018 Reviewed by: Donna Lamb LPN - Fully Assessed Reason for Visit: Social Work Services [507] Prescriptions as of 01/09/2018 Sig: LENALIDOMIDE 20 MG CAPSULE Take 1 capsule by mouth once * PROMETHAZINE 25 MG TABLET Take 1 tablet by mouth every * VENLAFAXINE ER 37.5 MG CAPSUL* Take 1 capsule by mouth once * GABAPENTIN 100 MG CAPSULE Take 1 capsule by mouth daily* LIDOCAINE-PRILOCAINE 2.5 %-2.* Apply to port site 20 min. pr* WARFARIN 1 MG TABLET Taking 1mg with 4 mg pill missy* TICAGRELOR 90 MG TABLET Take 1 tablet by mouth twice * AMIODARONE 200 MG TABLET Take 1 tablet by mouth once d* ASPIRIN 81 MG TABLET,DELAYED * Take 1 tablet by mouth once d* ATORVASTATIN 80 MG TABLET Take 1 tablet by mouth daily * PANTOPRAZOLE 40 MG TABLET,DEL* Take 1 tablet by mouth daily * COMPOUNDED PRESCRIPTION Powerstep orthotic (M72.2) P* Problem List As Of Date 01/09/2018 Noted Resolved PROSTATITIS NOS [N41.9] INVALID FOR*09/20/2006 BPH w urinary obs/LUTS [N40.1, N13.8] INVALID FOR* Malignant neoplasm of bladder (HCC) [C67.9] INVALID FOR* More... Cervicalgia [M54.2] INVALID FOR* More... ALLERGIC RHINITIS NOS [J30.9] INVALID FOR* More... More... Lumbago [M54.5] INVALID FOR* Sprain and Strain of Unspecified Site of Should*INVALID FOR* Abdominal Pain, Left Lower Quadrant [R10.32] INVALID FOR* Constipation, Chronic [K59.09] INVALID FOR* Suprapubic Pain [R10.2] INVALID FOR* Unspecified orchitis and epididymitis [N45.3] INVALID FOR* Inguinal hernia, right [K40.90] INVALID FOR* Unilat ing hernia [K40.90] INVALID FOR* Osteoarthritis of knee [M17.10] INVALID FOR* Bilateral knee pain [M25.561, M25.562] INVALID FOR* Inguinal pain, lower right quadrant [R10.31] INVALID FOR* Mitral valve prolapse [I34.1] INVALID FOR* Mitral regurgitation due to cusp prolapse [I34.*INVALID FOR*11/02/2016 Anxiety [F41.9] INVALID FOR* Low back pain [M54.5] INVALID FOR* Non-rheumatic mitral regurgitation [I34.0] INVALID FOR* Mantle cell lymphoma of lymph nodes of multiple*INVALID FOR* Diverticulosis of colon (without mention of hem*INVALID FOR* Lymphoma, mantle cell, multiple sites (HCC) [C8*INVALID FOR* More... Atrial fibrillation, chronic (HCC) [I48.2] INVALID FOR* S/P coronary artery stent placement [Z95.5] INVALID FOR* Encounter Status:Closed by TIARA GORDILLO on 01/09/18 PROTHROMBIN TIME W/INR Collected: 01/02/2018 Status: F Source: [place] 3:04 PM [facility] REPOSITORY TYPE CODE TESTS RESULT OUT OF RANGE REFERENCE UNITS LAB L300.4150 11.7-14.9 SECONDS High PROTIME 20.9 LAB L300.4200 Normal INR 1.8 Performed By: #### L300.3900 #### [facility] [address] [place], [address] PROGRESS Observed: 01/01/2018 Status: COMPLETED Source: [place] 10:08 AM [facility] REPOSITORY HNO ID: [id number] Author: Justyna ([facility]) Jonathan Service: (none) Author Type: Nurse Specialist Type: Progress Notes Filed: 01/01/2018 11:10 AM Note Text: OUTPATIENT VISIT DATE January 01, 2018 OUTPATIENT VISIT TYPE ESTABLISHED PRIMARY CARE PHYSICIAN: Imani Lutz MD CHIEF COMPLAINT: Patient presents with: Hospital F/U Yearly Exam History of Present Illness: Bandar Love is a 67 year old male who was last seen 07/3017 by Imani Lutz MD. He has been seen in the past for ACTIVE PROBLEM LIST Bph W Urinary Obs/Luts Malignant Neoplasm of Bladder (Hcc) Cervicalgia Allergic Rhinitis, Cause Unspecified Lumbago Sprain and Strain of Unspecified Site of Shoulder and Upper Arm Abdominal Pain, Left Lower Quadrant Constipation, Chronic Suprapubic Pain Unspecified orchitis and epididymitis Inguinal Hernia, Right Inguinal Hernia Without Mention of Obstruction Or Gangrene, Unilateral Or Unspecified, (Not Specified As Recurrent) Osteoarthritis of Knee Bilateral Knee Pain Inguinal Pain, Lower Right Quadrant Mitral Valve Prolapse Anxiety Low Back Pain Non-Rheumatic Mitral Regurgitation 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 Sutures were placed after numbing the area. Presents today for suture removal. He is without report of drainage fever or difficulties with sutures. Since last resulted been following up with Dr. George regarding bladder cancer. He reports there is some discussion over which therapy he will be undertaking due to cost of medication. Following with Dr. Rodriguez [facility] for CAD, atrial fibrillation. Currently on oral anticoagulation. Cardioversion is planned for next week. Reports appetite is normal, however has had weight loss, no supplemental shakes currently but has used in the past. No recent hospital or ED visits. No new medical problems or medications. Able to obtain medications. No problems with taking medications or note side effects. PAST MEDICAL HISTORY Diagnosis Date - Abdominal pain, LLQ (left lower quadrant) - Bladder cancer (HCC) - BPH (benign prostatic hyperplasia) - Congenital anomalies of spleen - DDD (degenerative disc disease), cervical October 2008 cervical spine XRs - Diverticulosis of colon (without mention of hemorrhage) - PMH - PAST MEDICAL HISTORY OF pinched nerve in the neck - Retention of urine, unspecified - Unspecified thrombosed hemorrhoids - Urinary tract infection, site not specified PAST SURGICAL HISTORY Procedure Laterality Date - COLONOSCOP W/ OR W/O [facility] SPEC 20 years ago Colonoscopy - COLONOSCOP W/ OR W/O [facility] SPEC 06/17/2008 Colonoscopy - EGD W/O [facility] SPECIMEN W/BX 11/24/2016 gastritis - PAST SURGICAL HISTORY OF October 2007 surgery for bladder CA - PAST SURGICAL HISTORY OF December 2007 prostate surgery - PAST SURGICAL HISTORY OF 05/14/1958 hernia repair - PAST SURGICAL HISTORY OF 05/14/1958 spleen removed (had multiple spleens) - PAST SURGICAL HISTORY OF Tendon repair after laceration right index finger - REPAIR ING HERNIA,5+Y/O,REDUCIBL 03/04/10 RIght - TUNNEL VAD W SUB Q PORT >=5 Right 06/13/2016 FAMILY HISTORY Problem Relation Age of Onset - Breast Cancer Mother - Macular Degen Mother - Heart Father - Stroke Father Social History Substance Use Topics - Smoking status: Never Smoker - Smokeless tobacco: Never Used - Alcohol use No ALLERGIES: ALLERGIES Allergen Reactions - Ampicillin Hives - Cephalexin GI Upset - Pyridium [Phenazopy* Rash - Trazodone Intolerance Dizziness; nausea MEDICATIONS lenalidomide (REVLIMID) 20 mg capsule Take 1 capsule by mouth once daily. for 3 weeks. Then off 1 week. promethazine (PHENERGAN) 25 mg tablet Take 1 tablet by mouth every 6 hours as needed. FOR NAUSEA venlafaxine ER (EFFEXOR XR) 37.5 mg 24 hr capsule Take 1 capsule by mouth once daily. gabapentin (NEURONTIN) 100 mg capsule Take 1 capsule by mouth daily at bedtime. lidocaine-prilocaine (EMLA) cream Apply to port site 20 min. prior to use. warfarin (COUMADIN) 1 mg tablet Taking 1mg with 4 mg pill daily or as directed ticagrelor (BRILINTA) 90 mg tablet Take 1 tablet by mouth twice daily. amiodarone (CORDARONE) 200 mg tablet Take 1 tablet by mouth once daily. aspirin, enteric coated (ECOTRIN LOW STRENGTH) 81 mg EC tablet Take 1 tablet by mouth once daily. atorvastatin (LIPITOR) 80 mg tablet Take 1 tablet by mouth daily at bedtime. For cholesterol. (Dr. Rodriguez) pantoprazole DR (PROTONIX) 40 mg tablet Take 1 tablet by mouth daily before breakfast. Take on empty stomach, 1/2 hr before meal. COMPOUNDED PRESCRIPTION Powerstep orthotic(M72.2) Plantar fasciitis of right foot (primary encounter diagnosis)(M79.2) Neuritis REVIEW OF SYSTEMS: GENERAL: Positive for:Weight loss Negative for:Weight gain, Fever or Chills, Weakness and Sleep difficulties Physical Examination: BP 100/60 Pulse 64 Resp 16 Ht 5' 9.5 (1.77m) Wt 127 lb (57.6kg) BMI 18.49 kg/(m2). BP w/Orthostatic Vitals Date and Time Orthostatic BP Orthostatic Pulse BP Pulse BP Position BP Site BP Cuff Size 01/01/18954 -- -- 100/60 64 Sitting Right Arm Regular Adult Peak Flow Date and Time PF Resp 01/01/18954 -- 16 General appearance: Ill appearing, alert, in no acute respiratory distress, thin Skin: Skin color, texture, turgor normal, no suspicious rashes + laceration ~1.5 long with skin flap, red base no surrounding erythema or warmth, scant amt red drainage Neck: Supple, no adenopathy; thyroid symmetric, normal size, no bruits Lungs: Lungs clear to auscultation. No wheezing, rhonchi, rales Heart: Irregular RR with soft systolic murmur at base , no gallop, or rubs. Abdomen: Abdomen soft, non-tender. Bowel sounds normal. No masses, organomegaly Extremities: No d edema, skin discoloration, clubbing or cyanosis. Good capillary refill. Peripheral pulses: Normal Neuro: Gait normal. Reflexes normal and symmetric. Sensation grossly intact. Reviewed chart, outside records, tests I personally interviewed, confirmed and edited the above information if obtained by others. TESTING: Glucose (mg/dL) Date Value 04/09/2017 86 Potassium (mmol/L) Date Value 04/09/2017 3.9 Sodium (mmol/L) Date Value 04/09/2017 139 Chloride (mmol/L) Date Value 04/09/2017 99 CO2 (mmol/L) Date Value 04/09/2017 28 Creatinine (mg/dL) Date Value 04/09/2017 1.23 Creatinine, Whole Blood (iSTAT) (mg/dL) Date Value 12/17/2017 1.20 BUN (mg/dL) Date Value 04/09/2017 16 Anion Gap (mmol/L) Date Value 04/09/2017 12 Calcium (mg/dL) Date Value 04/09/2017 9.2 Glucose (mg/dL) Date Value 04/09/2017 86 Potassium (mmol/L) Date Value 04/09/2017 3.9 Sodium (mmol/L) Date Value 04/09/2017 139 Chloride (mmol/L) Date Value 04/09/2017 99 CO2 (mmol/L) Date Value 04/09/2017 28 Creatinine (mg/dL) Date Value 04/09/2017 1.23 Creatinine, Whole Blood (iSTAT) (mg/dL) Date Value 12/17/2017 1.20 BUN (mg/dL) Date Value 04/09/2017 16 Anion Gap (mmol/L) Date Value 04/09/2017 12 Calcium (mg/dL) Date Value 04/09/2017 9.2 Protein, Total (g/dL) Date Value 07/10/2017 7.2 Albumin (g/dL) Date Value 07/10/2017 4.7 Bilirubin, Total (mg/dL) Date Value 07/10/2017 0.7 Alkaline Phosphatase (U/L) Date Value 07/10/2017 63 AST (U/L) Date Value 07/10/2017 17 ALT (U/L) Date Value 07/10/2017 9 Hemoglobin (g/dL) Date Value 04/10/2016 14.9 Hematocrit (%) Date Value 04/10/2016 44.2 WBC (k/uL) Date Value 04/10/2016 7.65 Cholesterol, Total (mg/dL) Date Value 10/22/2013 145 HDL Cholesterol (mg/dL) Date Value 10/22/2013 43 LDL Cholesterol (mg/dL) Date Value 10/22/2013 92 Triglyceride (mg/dL) Date Value 10/22/2013 51 No results found for: HBA1C Ejection Fraction - Result: 54 % Date: 05/22/2017 Time: 09:17:52 IMPRESSION: Mr. Mast is a 67 year old man presents for routine visit. S/P [facility] ER visit for laceration of thumb, suture removal today. After my examination and review of data, I make the following recommendations. PLAN AND RECOMMENDATIONS: 1. Laceration of left thumb without foreign body without damage to nail, subsequent encounter - ICD9: V58.89, 883.0, ICD10: S61.012D (primary diagnosis) Sutures removed today without difficulty. Recommend washing daily with soap and water. Application of antibacterial ointment and cover with Band-Aid until healed 2. Atrial fibrillation, chronic (HCC) - ICD9: 427.31, ICD10: I48.2 Have cardioversion scheduled for next week with Dr. Rodriguez 3. S/P coronary artery stent placement - ICD9: V45.82, ICD10: Z95.5 Currently without complaint of chest pain or shortness of breath. 4. Hyperlipidemia, unspecified hyperlipidemia type - ICD9: 272.4, ICD10: E78.5 - good control - Continue current medication. Per Dr. Rodriguez's office?Lipid panel August 2017 shows total cholesterol 97, LDL 42, HDL 37, triglycerides 90. 5. Weight loss - ICD9: 783.21, ICD10: R63.4 Following with for bladder cancer. Weight is decreased. Would recommend addition of protein shakes such as boost once a day Advised to go to ER if develops chest pain, shortness of breath, or severe worsening of symptoms. Discussed risks, benefits, alternatives, and potential side effects of medications. Mr. Love expressed understanding and agreed with the plan. Justyna Castillo APRN.ERIKA CNOV Observed: 01/01/2018 Status: COMPLETED Source: [place] 9:40 AM [facility] REPOSITORY Office Visit (INTMWS) BANDAR LOVE ([id number]) 1950 M Date Time Provider Department 01/01/18 9:40 AM JUSTYNA CASTILLO (ERIKA) INTMWS During your visit today, we recorded the following information about you: Pulse Respiration Blood pressure Weight 64/minute 16/minute 100/60 57.6 kg Height 1.765 m Justyna Castillo APRN.CNS 01/01/2018 11:10 AM Signed OUTPATIENT VISIT DATE January 01, 2018 OUTPATIENT VISIT TYPE ESTABLISHED PRIMARY CARE PHYSICIAN: Imani Lutz MD CHIEF COMPLAINT: Patient presents with: Hospital F/U Yearly Exam History of Present Illness: Bandar Love is a 67 year old male who was last seen 07/3017 by Imani Lutz MD. He has been seen in the past for ACTIVE PROBLEM LIST Bph W Urinary Obs/Luts Malignant Neoplasm of Bladder (Hcc) Cervicalgia Allergic Rhinitis, Cause Unspecified Lumbago Sprain and Strain of Unspecified Site of Shoulder and Upper Arm Abdominal Pain, Left Lower Quadrant Constipation, Chronic Suprapubic Pain Unspecified orchitis and epididymitis Inguinal Hernia, Right Inguinal Hernia Without Mention of Obstruction Or Gangrene, Unilateral Or Unspecified, (Not Specified As Recurrent) Osteoarthritis of Knee Bilateral Knee Pain Inguinal Pain, Lower Right Quadrant Mitral Valve Prolapse Anxiety Low Back Pain Non-Rheumatic Mitral Regurgitation 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 Sutures were placed after numbing the area. Presents today for suture removal. He is without report of drainage fever or difficulties with sutures. Since last resulted been following up with Dr. George regarding bladder cancer. He reports there is some discussion over which therapy he will be undertaking due to cost of medication. Following with Dr. Rodriguez [facility] for CAD, atrial fibrillation. Currently on oral anticoagulation. Cardioversion is planned for next week. Reports appetite is normal, however has had weight loss, no supplemental shakes currently but has used in the past. No recent hospital or ED visits. No new medical problems or medications. Able to obtain medications. No problems with taking medications or note side effects. PAST MEDICAL HISTORY Diagnosis Date - Abdominal pain, LLQ (left lower quadrant) - Bladder cancer (HCC) - BPH (benign prostatic hyperplasia) - Congenital anomalies of spleen - DDD (degenerative disc disease), cervical October 2008 cervical spine XRs - Diverticulosis of colon (without mention of hemorrhage) - PMH - PAST MEDICAL HISTORY OF pinched nerve in the neck - Retention of urine, unspecified - Unspecified thrombosed hemorrhoids - Urinary tract infection, site not specified PAST SURGICAL HISTORY Procedure Laterality Date - COLONOSCOP W/ OR W/O [facility] SPEC 20 years ago Colonoscopy - COLONOSCOP W/ OR W/O [facility] SPEC 06/17/2008 Colonoscopy - EGD W/O [facility] SPECIMEN W/BX 11/24/2016 gastritis - PAST SURGICAL HISTORY OF October 2007 surgery for bladder CA - PAST SURGICAL HISTORY OF December 2007 prostate surgery - PAST SURGICAL HISTORY OF 05/14/1958 hernia repair - PAST SURGICAL HISTORY OF 05/14/1958 spleen removed (had multiple spleens) - PAST SURGICAL HISTORY OF Tendon repair after laceration right index finger - REPAIR ING HERNIA,5+Y/O,REDUCIBL 03/04/10 RIght - TUNNEL VAD W SUB Q PORT >=5 Right 06/13/2016 FAMILY HISTORY Problem Relation Age of Onset - Breast Cancer Mother - Macular Degen Mother - Heart Father - Stroke Father Social History Substance Use Topics - Smoking status: Never Smoker - Smokeless tobacco: Never Used - Alcohol use No ALLERGIES: ALLERGIES Allergen Reactions - Ampicillin Hives - Cephalexin GI Upset - Pyridium [Phenazopy* Rash - Trazodone Intolerance Dizziness; nausea MEDICATIONS lenalidomide (REVLIMID) 20 mg capsule Take 1 capsule by mouth once daily. for 3 weeks. Then off 1 week. promethazine (PHENERGAN) 25 mg tablet Take 1 tablet by mouth every 6 hours as needed. FOR NAUSEA venlafaxine ER (EFFEXOR XR) 37.5 mg 24 hr capsule Take 1 capsule by mouth once daily. gabapentin (NEURONTIN) 100 mg capsule Take 1 capsule by mouth daily at bedtime. lidocaine-prilocaine (EMLA) cream Apply to port site 20 min. prior to use. warfarin (COUMADIN) 1 mg tablet Taking 1mg with 4 mg pill daily or as directed ticagrelor (BRILINTA) 90 mg tablet Take 1 tablet by mouth twice daily. amiodarone (CORDARONE) 200 mg tablet Take 1 tablet by mouth once daily. aspirin, enteric coated (ECOTRIN LOW STRENGTH) 81 mg EC tablet Take 1 tablet by mouth once daily. atorvastatin (LIPITOR) 80 mg tablet Take 1 tablet by mouth daily at bedtime. For cholesterol. (Dr. Rodriguez) pantoprazole DR (PROTONIX) 40 mg tablet Take 1 tablet by mouth daily before breakfast. Take on empty stomach, 1/2 hr before meal. COMPOUNDED PRESCRIPTION Powerstep orthotic(M72.2) Plantar fasciitis of right foot (primary encounter diagnosis)(M79.2) Neuritis REVIEW OF SYSTEMS: GENERAL: Positive for:Weight loss Negative for:Weight gain, Fever or Chills, Weakness and Sleep difficulties Physical Examination: BP 100/60 Pulse 64 Resp 16 Ht 5' 9.5 (1.77m) Wt 127 lb (57.6kg) BMI 18.49 kg/(m2). BP w/Orthostatic Vitals Date and Time Orthostatic BP Orthostatic Pulse BP Pulse BP Position BP Site BP Cuff Size 01/01/18954 -- -- 100/60 64 Sitting Right Arm Regular Adult Peak Flow Date and Time PF Resp 01/01/18954 -- 16 General appearance: Ill appearing, alert, in no acute respiratory distress, thin Skin: Skin color, texture, turgor normal, no suspicious rashes + laceration ~1.5 long with skin flap, red base no surrounding erythema or warmth, scant amt red drainage Neck: Supple, no adenopathy; thyroid symmetric, normal size, no bruits Lungs: Lungs clear to auscultation. No wheezing, rhonchi, rales Heart: Irregular RR with soft systolic murmur at base , no gallop, or rubs. Abdomen: Abdomen soft, non-tender. Bowel sounds normal. No masses, organomegaly Extremities: No d edema, skin discoloration, clubbing or cyanosis. Good capillary refill. Peripheral pulses: Normal Neuro: Gait normal. Reflexes normal and symmetric. Sensation grossly intact. Reviewed chart, outside records, tests I personally interviewed, confirmed and edited the above information if obtained by others. TESTING: Glucose (mg/dL) Date Value 04/09/2017 86 Potassium (mmol/L) Date Value 04/09/2017 3.9 Sodium (mmol/L) Date Value 04/09/2017 139 Chloride (mmol/L) Date Value 04/09/2017 99 CO2 (mmol/L) Date Value 04/09/2017 28 Creatinine (mg/dL) Date Value 04/09/2017 1.23 Creatinine, Whole Blood (iSTAT) (mg/dL) Date Value 12/17/2017 1.20 BUN (mg/dL) Date Value 04/09/2017 16 Anion Gap (mmol/L) Date Value 04/09/2017 12 Calcium (mg/dL) Date Value 04/09/2017 9.2 Glucose (mg/dL) Date Value 04/09/2017 86 Potassium (mmol/L) Date Value 04/09/2017 3.9 Sodium (mmol/L) Date Value 04/09/2017 139 Chloride (mmol/L) Date Value 04/09/2017 99 CO2 (mmol/L) Date Value 04/09/2017 28 Creatinine (mg/dL) Date Value 04/09/2017 1.23 Creatinine, Whole Blood (iSTAT) (mg/dL) Date Value 12/17/2017 1.20 BUN (mg/dL) Date Value 04/09/2017 16 Anion Gap (mmol/L) Date Value 04/09/2017 12 Calcium (mg/dL) Date Value 04/09/2017 9.2 Protein, Total (g/dL) Date Value 07/10/2017 7.2 Albumin (g/dL) Date Value 07/10/2017 4.7 Bilirubin, Total (mg/dL) Date Value 07/10/2017 0.7 Alkaline Phosphatase (U/L) Date Value 07/10/2017 63 AST (U/L) Date Value 07/10/2017 17 ALT (U/L) Date Value 07/10/2017 9 Hemoglobin (g/dL) Date Value 04/10/2016 14.9 Hematocrit (%) Date Value 04/10/2016 44.2 WBC (k/uL) Date Value 04/10/2016 7.65 Cholesterol, Total (mg/dL) Date Value 10/22/2013 145 HDL Cholesterol (mg/dL) Date Value 10/22/2013 43 LDL Cholesterol (mg/dL) Date Value 10/22/2013 92 Triglyceride (mg/dL) Date Value 10/22/2013 51 No results found for: HBA1C Ejection Fraction - Result: 54 % Date: 05/22/2017 Time: 09:17:52 IMPRESSION: Mr. Love is a 67 year old man presents for routine visit. S/P [facility] ER visit for laceration of thumb, suture removal today. After my examination and review of data, I make the following recommendations. PLAN AND RECOMMENDATIONS: 1. Laceration of left thumb without foreign body without damage to nail, subsequent encounter - ICD9: V58.89, 883.0, ICD10: S61.012D (primary diagnosis) Sutures removed today without difficulty. Recommend washing daily with soap and water. Application of antibacterial ointment and cover with Band-Aid until healed 2. Atrial fibrillation, chronic (HCC) - ICD9: 427.31, ICD10: I48.2 Have cardioversion scheduled for next week with Dr. Rodriguez 3. S/P coronary artery stent placement - ICD9: V45.82, ICD10: Z95.5 Currently without complaint of chest pain or shortness of breath. 4. Hyperlipidemia, unspecified hyperlipidemia type - ICD9: 272.4, ICD10: E78.5 - good control - Continue current medication. Per Dr. Rodriguez's office?Lipid panel August 2017 shows total cholesterol 97, LDL 42, HDL 37, triglycerides 90. 5. Weight loss - ICD9: 783.21, ICD10: R63.4 Following with for bladder cancer. Weight is decreased. Would recommend addition of protein shakes such as boost once a day Advised to go to ER if develops chest pain, shortness of breath, or severe worsening of symptoms. Discussed risks, benefits, alternatives, and potential side effects of medications. Mr. Love expressed understanding and agreed with the plan. Justyna Castillo APRN.CAN DOFFER Referring Provider: SELF [200] Allergies As of Date: 01/01/2018 Noted Allergy Reaction AMPICILLIN 05/01/2005 4 - Hives CEPHALEXIN 05/01/2005 8 - GI Upset PYRIDIUM (PHENAZOPYRIDINE HCL) 04/13/2006 2 - Rash TRAZODONE 04/23/2014 5 - Intolerance Comments: Dizziness; nausea Date Reviewed: 01/01/2018 Reviewed by: Donna Lamb LPN - Fully Assessed Reason for Visit: Hospital F/U [57] Yearly Exam [187] Primary Visit Diagnosis:Laceration of left thumb without foreign body without damage to nail, subsequent encounter [S6.510Q] Other Visit Diagnoses:Atrial fibrillation, chronic (HCC) [I48.2] S/P coronary artery stent placement [Z95.5] Hyperlipidemia, unspecified hyperlipidemia type [E78.5] Weight loss [R63.4] Prescriptions as of 01/01/2018 Sig: LENALIDOMIDE 20 MG CAPSULE Take 1 capsule by mouth once * PROMETHAZINE 25 MG TABLET Take 1 tablet by mouth every * VENLAFAXINE ER 37.5 MG CAPSUL* Take 1 capsule by mouth once * GABAPENTIN 100 MG CAPSULE Take 1 capsule by mouth daily* LIDOCAINE-PRILOCAINE 2.5 %-2.* Apply to port site 20 min. pr* WARFARIN 1 MG TABLET Taking 1mg with 4 mg pill missy* TICAGRELOR 90 MG TABLET Take 1 tablet by mouth twice * AMIODARONE 200 MG TABLET Take 1 tablet by mouth once d* ASPIRIN 81 MG TABLET,DELAYED * Take 1 tablet by mouth once d* ATORVASTATIN 80 MG TABLET Take 1 tablet by mouth daily * PANTOPRAZOLE 40 MG TABLET,DEL* Take 1 tablet by mouth daily * COMPOUNDED PRESCRIPTION Powerstep orthotic (M72.2) P* Problem List As Of Date 01/01/2018 Noted Resolved PROSTATITIS NOS [N41.9] INVALID FOR*09/20/2006 BPH w urinary obs/LUTS [N40.1, N13.8] INVALID FOR* Malignant neoplasm of bladder (HCC) [C67.9] INVALID FOR* More... Cervicalgia [M54.2] INVALID FOR* More... ALLERGIC RHINITIS NOS [J30.9] INVALID FOR* More... More... Lumbago [M54.5] INVALID FOR* Sprain and Strain of Unspecified Site of Should*INVALID FOR* Abdominal Pain, Left Lower Quadrant [R10.32] INVALID FOR* Constipation, Chronic [K59.09] INVALID FOR* Suprapubic Pain [R10.2] INVALID FOR* Unspecified orchitis and epididymitis [N45.3] INVALID FOR* Inguinal hernia, right [K40.90] INVALID FOR* Unilat ing hernia [K40.90] INVALID FOR* Osteoarthritis of knee [M17.10] INVALID FOR* Bilateral knee pain [M25.561, M25.562] INVALID FOR* Inguinal pain, lower right quadrant [R10.31] INVALID FOR* Mitral valve prolapse [I34.1] INVALID FOR* Mitral regurgitation due to cusp prolapse [I34.*INVALID FOR*11/02/2016 Anxiety [F41.9] INVALID FOR* Low back pain [M54.5] INVALID FOR* Non-rheumatic mitral regurgitation [I34.0] INVALID FOR* Mantle cell lymphoma of lymph nodes of multiple*INVALID FOR* Diverticulosis of colon (without mention of hem*INVALID FOR* Lymphoma, mantle cell, multiple sites (HCC) [C8*INVALID FOR* More... Atrial fibrillation, chronic (HCC) [I48.2] INVALID FOR* S/P coronary artery stent placement [Z95.5] INVALID FOR* Encounter Status:Closed by JUSTYNA ALMAZAN on 01/01/18 OFFICE VISIT REPORT Observed: 12/31/2017 Status: F Source: [place] 9:36 AM [address] [place] [id number] OFFICE VISIT Date of Service: 12/19/17 MR#: [id number] Acct: [id number] Patient: BANDAR LOVE Rep #: [id number] : 1950 Provider: Isacc Rodriguez MD Age/Sex: 67/M Location: [facility] [place] Status: Signed Intake Intake Visit Reasons: Atrial fibrillation Chief Complaint: Chest pain Allergies ampicillin Allergy (Verified 12/12/17 14:54) Rash phenazopyridine [Phenazopyridine] Allergy (Verified 12/12/17 14:54) Rash cephalexin [Cephalexin] Adverse Reaction (Verified 12/12/17 14:54) Upset Stomach trazodone Adverse Reaction (Verified 12/12/17 14:54) Nausea Medications Gabapentin [Neurontin] 100 mg PO QHS 12/12/16 [History Confirmed 12/23/17] Pantoprazole Sodium [Protonix] 40 mg PO DAILY 12/12/16 [History Confirmed 12/23/17] Amiodarone HCl [Cordarone] 200 mg PO DAILY #30 tab 07/30/17 [Rx Confirmed 12/23/17] Aspirin E.C. [Ecotrin] 81 mg PO DAILY@0800 #30 tab 07/30/17 [Rx Confirmed 12/23/17] Atorvastatin Calcium [Lipitor] 80 mg PO QHS #30 tab 07/30/17 [Rx Confirmed 12/23/17] metoprolol tartrate 25 mg tablet 12.5 mg PO BID #30 tab 09/26/17 [Rx Confirmed 12/23/17] ticagrelor 90 mg tablet 90 mg PO BID #60 tab 10/03/17 [Rx Confirmed 12/23/17] warfarin 1 mg tablet 1 mg PO .COMPLEX 11/02/17 [History Confirmed 12/26/17] warfarin 4 mg tablet 4 mg PO .COMPLEX #90 tab 11/02/17 [Rx Confirmed 12/26/17] Assessment AND Plan 1. Atrial fibrillation I48.91 Nursing Note Patient here for instructions for Cardioversion on 01/09/18. Written instructions reviewed and given to patient. He knows to get INR done weekly until then, and had labs done today. 12/31/17 0936 <Electronically signed by Isacc Rodriguez MD> Date Isacc López Signature: Date (if applicable) CC: Shanna Garcia PROGRESS Observed: 12/28/2017 Status: COMPLETED Source: [place] 2:20 PM [facility] REPOSITORY HNO ID: [id number] Author: Tiara Gordillo (Sw) Service: (none) Author Type: Bicycle Service Technician Type: Progress Notes Filed: 12/28/2017 2:34 PM Note Text: PSYCHOSOCIAL ASSESSMENT Date of Service: December 28, 2017 Bandar Love is a 67 year old male being seen for initial social work assessment. 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 George Radiation Oncologist: NIKOLAY Goals of Care: Palliative care Today's visit includes: self/patient Family History of Cancer: Mother *SUPPORT NETWORK: Marital status: Parent(s): Mother is and Father is Child/Children: Yes. How many? 2 body care manager arrangements needed: No Siblings: 1 brother(s) Grandchild(norm): none Home Health Provider: No Community Services: No Katheryn Identified: Yes Scientologist/Spirituality: Taoism Are these practices or beliefs that may affect or influence treatment? No *EMPLOYMENT/FINANCIAL/HEALTH INSURANCE: Employment: [employer] Disability and Retired Income source: Social Security and disability from previous employment (has approximately six months of this remaining) Insurance: Medicare with co-insurance Prescription coverage: Yes COBRA Is the patient appropriate for referral to [facility] COBRA Assistance program? No Financial Distress: No [place]: No *LIVING ARRANGEMENTS: Type: House- independent colonial Resides with: Family Spouse and daughter *FUNCTIONAL STATUS: Cognitive limitations: none Physical limitations: high level fatigue Language barrier: No Hearing Impaired: No Speech Impaired: No Visual Impairments: Yes, glasses Literacy Issues: No Special considerations/accommodations needed: No MENTAL HEALTH HISTORY: Yes Diagnosis: depression and anxiety Treatment: medication History of combat/trauma: No Substance Use and Treatment History: denied History of Abuse: No Issues with: ? Sleep:sleeping more than usual ? Eating:No ? Exercising: N/A ? 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 Scanned into EPIC: No Guardianship: NA Scanned into EPIC:NA *COPING STATUS: Coping Strengths: supportive relationships with immediate family, with friends and with extended family spirituality successful managing past crises hopefulness self advocate strong problem-solving skills ability to plan able to follow direction consistently over time able to communicate effectively Current affect/mood: appropriate History of Loss: Yes, mother and father Adjustment to diagnosis: reflecting understanding, responding appropriately and accepting help *BARRIERS/CARE CHALLENGES: Comorbid Medical Diagnoses Are barriers/care challenges identified likely to have an impact on the patient's quality of life during treatment? Yes Physical Concerns *CLINICAL IMPRESSION: SW met with patient following his chemotherapy education appointment. Patient reports good support system and no needs at this time. Patient is experiencing increased fatigue due to heart issues, which causes him to sleep more than usual. Patient reports good appetite and no other physical issues at this time. Patient is still receiving disability from his previous employer, as well as Social Security. Patient now has Medicare A and B, a supplement, and reports prescription coverage through [employer]. Patient reports he has Advance Directives and will bring this in at his next appointment. SW oriented patient to services and discussed local resources in the area. Patient is not interested at this time, but will reach out to if he changes his mind on this matter. INTERVENTIONS/REFERRALS TO BE PROVIDED: Monitor patient response to treatment Communicate pertinent medical/psychosocial information to Cancer Center team Provide emotional support to patient/family Referral to community resource Assist with financial support applications Provided education on distress and screening process Continue follow up as needed Resources and Referrals: ? Internal: NA ? External: N/A PLAN: Follow up appointment with JAMSHID in: DENISE Griffin Observed: 12/28/2017 Status: COMPLETED Source: [place] 12:00 AM [facility] REPOSITORY Social Work (JENNY) BANDAR LOVE ([id number]) 1950 M Date Time Provider Department 12/28/17 TIARA GORDILLO (SW) During your visit today, we recorded the following information about you: DENISE Oliveira 12/28/2017 2:34 PM Signed PSYCHOSOCIAL ASSESSMENT Date of Service: December 28, 2017 Bandar Love is a 67 year old male being seen for initial social work assessment. 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 George Radiation Oncologist: NIKOLAY Goals of Care: Palliative care Today's visit includes: self/patient Family History of Cancer: Mother *SUPPORT NETWORK: Marital status: Parent(s): Mother is and Father is Child/Children: Yes. How many? 2 body care manager arrangements needed: No Siblings: 1 brother(s) Grandchild(norm): none Home Health Provider: No Community Services: No Katheryn Identified: Yes Scientologist/Spirituality: Taoism Are these practices or beliefs that may affect or influence treatment? No *EMPLOYMENT/FINANCIAL/HEALTH INSURANCE: Employment: [employer] Disability and Retired Income source: Social Security and disability from previous employment (has approximately six months of this remaining) Insurance: Medicare with co-insurance Prescription coverage: Yes COBRA Is the patient appropriate for referral to [facility] COBRA Assistance program? No Financial Distress: No [place]: No *LIVING ARRANGEMENTS: Type: House- independent colonial Resides with: Family Spouse and daughter *FUNCTIONAL STATUS: Cognitive limitations: none Physical limitations: high level fatigue Language barrier: No Hearing Impaired: No Speech Impaired: No Visual Impairments: Yes, glasses Literacy Issues: No Special considerations/accommodations needed: No MENTAL HEALTH HISTORY: Yes Diagnosis: depression and anxiety Treatment: medication History of combat/trauma: No Substance Use and Treatment History: denied History of Abuse: No Issues with: ? Sleep:sleeping more than usual ? Eating:No ? Exercising: N/A ? 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 Scanned into EPIC: No Guardianship: NA Scanned into EPIC:NA *COPING STATUS: Coping Strengths: supportive relationships with immediate family, with friends and with extended family spirituality successful managing past crises hopefulness self advocate strong problem-solving skills ability to plan able to follow direction consistently over time able to communicate effectively Current affect/mood: appropriate History of Loss: Yes, mother and father Adjustment to diagnosis: reflecting understanding, responding appropriately and accepting help *BARRIERS/CARE CHALLENGES: Comorbid Medical Diagnoses Are barriers/care challenges identified likely to have an impact on the patient's quality of life during treatment? Yes Physical Concerns *CLINICAL IMPRESSION: SW met with patient following his chemotherapy education appointment. Patient reports good support system and no needs at this time. Patient is experiencing increased fatigue due to heart issues, which causes him to sleep more than usual. Patient reports good appetite and no other physical issues at this time. Patient is still receiving disability from his previous employer, as well as Social Security. Patient now has Medicare A and B, a supplement, and reports prescription coverage through [employer]. Patient reports he has Advance Directives and will bring this in at his next appointment. SW oriented patient to services and discussed local resources in the area. Patient is not interested at this time, but will reach out to if he changes his mind on this matter. INTERVENTIONS/REFERRALS TO BE PROVIDED: Monitor patient response to treatment Communicate pertinent medical/psychosocial information to Cancer Center team Provide emotional support to patient/family Referral to community resource Assist with financial support applications Provided education on distress and screening process Continue follow up as needed Resources and Referrals: ? Internal: NA ? External: N/A PLAN: Follow up appointment with in: DENISE [place] Allergies As of Date: 12/28/2017 Noted Allergy Reaction AMPICILLIN 05/01/2005 4 - Hives CEPHALEXIN 05/01/2005 8 - GI Upset PYRIDIUM (PHENAZOPYRIDINE HCL) 04/13/2006 2 - Rash TRAZODONE 04/23/2014 5 - Intolerance Comments: Dizziness; nausea Date Reviewed: 12/26/2017 Reviewed by: Shanna Adam - Fully Assessed Reason for Visit: Psychosocial Assessment [[id number]] Prescriptions as of 12/28/2017 Sig: LENALIDOMIDE 20 MG CAPSULE Take 1 capsule by mouth once * PROMETHAZINE 25 MG TABLET Take 1 tablet by mouth every * VENLAFAXINE ER 37.5 MG CAPSUL* Take 1 capsule by mouth once * GABAPENTIN 100 MG CAPSULE Take 1 capsule by mouth daily* LIDOCAINE-PRILOCAINE 2.5 %-2.* Apply to port site 20 min. pr* WARFARIN 1 MG TABLET Taking 1mg with 4 mg pill missy* TICAGRELOR 90 MG TABLET Take 1 tablet by mouth twice * AMIODARONE 200 MG TABLET Take 1 tablet by mouth once d* ASPIRIN 81 MG TABLET,DELAYED * Take 1 tablet by mouth once d* ATORVASTATIN 80 MG TABLET Take 1 tablet by mouth daily * PANTOPRAZOLE 40 MG TABLET,DEL* Take 1 tablet by mouth daily * COMPOUNDED PRESCRIPTION Powerstep orthotic (M72.2) P* Problem List As Of Date 12/28/2017 Noted Resolved PROSTATITIS NOS [N41.9] INVALID FOR*09/20/2006 BPH w urinary obs/LUTS [N40.1, N13.8] INVALID FOR* Malignant neoplasm of bladder (HCC) [C67.9] INVALID FOR* More... Cervicalgia [M54.2] INVALID FOR* More... ALLERGIC RHINITIS NOS [J30.9] INVALID FOR* More... More... Lumbago [M54.5] INVALID FOR* Sprain and Strain of Unspecified Site of Should*INVALID FOR* Abdominal Pain, Left Lower Quadrant [R10.32] INVALID FOR* Constipation, Chronic [K59.09] INVALID FOR* Suprapubic Pain [R10.2] INVALID FOR* Unspecified orchitis and epididymitis [N45.3] INVALID FOR* Inguinal hernia, right [K40.90] INVALID FOR* Unilat ing hernia [K40.90] INVALID FOR* Osteoarthritis of knee [M17.10] INVALID FOR* Bilateral knee pain [M25.561, M25.562] INVALID FOR* Inguinal pain, lower right quadrant [R10.31] INVALID FOR* Mitral valve prolapse [I34.1] INVALID FOR* Mitral regurgitation due to cusp prolapse [I34.*INVALID FOR*11/02/2016 Anxiety [F41.9] INVALID FOR* Low back pain [M54.5] INVALID FOR* Non-rheumatic mitral regurgitation [I34.0] INVALID FOR* Mantle cell lymphoma of lymph nodes of multiple*INVALID FOR* Diverticulosis of colon (without mention of hem*INVALID FOR* Lymphoma, mantle cell, multiple sites (HCC) [C8*INVALID FOR* More... Atrial fibrillation, chronic (HCC) [I48.2] INVALID FOR* S/P coronary artery stent placement [Z95.5] INVALID FOR* Encounter Status:Closed by TIARA GORDILLO on 12/28/17 PROTHROMBIN TIME W/INR Collected: 12/26/2017 Status: F Source: [place]IVIA 10:36 AM [facility] REPOSITORY TYPE CODE TESTS RESULT OUT OF RANGE REFERENCE UNITS LAB L300.4150 11.7-14.9 SECONDS High PROTIME 21.5 LAB L300.4200 Normal INR 1.9 Performed By: #### L300.3900 #### [facility] [address] [place], [address] PROGRESS Observed: 12/26/2017 Status: COMPLETED Source: [place] 9:36 AM [facility] REPOSITORY HNO ID: [id number] Author: Faustino George Service: (none) Author Type: Physician Type: Progress Notes Filed: 12/26/2017 10:08 AM Note Text: Diagnosis: 1) Mantle cell lymphoma. HPI: The patient is a 67-year-old male was a past medical history significant for superficial bladder cancer (TURBT in 2006) and MVP/regurgitation who about a month ago noticed enlarging lymphadenopathy of the neck. More recently he noticed worsening swelling of the left sided lymph node and sought medical attention. CT Neck 04/10/2016: Diffuse cervical lymphadenopathy/conglomerate soft tissue masses throughout the neck with right axillary and upper mediastinal lymphadenopathy is suspicious for lymphoproliferative disorder, not excluding metastatic involvement. He has not been having night sweats or fevers. He says his appetite is unchanged and his weight typically tends to fluctuate. He is not having any trouble swallowing. He's had no episodes of choking or aspiration. He denies dysphasia and odynophagia. He has not had any abdominal distention, bloating or swelling. He denies neurologic symptoms including peripheral symptoms of neuropathy, motor weakness and tremors. No trouble with headache, vision, hearing, phonation or concentration. He underwent echocardiogram in January of this year. He was noted to have a normal ejection fraction but he had severe (3+ - 4+) mitral valve regurgitation due to prolapse and flail. 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 Underwent an FNA of the left neck mass on 05/02/2016. Fine needle aspiration, left neck mass (smears and cell block): Consistent with involvement by Noh-Hodgkin B-cell lymphoma, mantle cell lymphoma. Flow cytometry studies from [facility] are consistent with involvement by a CD5-positive B-cell lymphoproliferative disoreder. See comment. RESULTS: ANTIBODY / CLONE RESULT AE1-3 (AE1/AE3/PCK26) negative CD3 (PS1) negative CD5 (SP10) positive CD20 (L26) positive CD43 (L60) positive CD45 (RP2/18) positive CD79a (11E3) positive CD138 (B-A38) negative CD10 (56C6) negative CD23 (1B12) negative CD30 (Kamar-H2) negative BCL-2 (bcl-2/100/D5) positive BCL-6 (MF468X/A8) negative Cyclin D1/BCL-1 (SP4) positive Ki-67 (30-9) positive (36%) Previous therapy: 1) R-[facility]. [facility]--Mild residual right hilar adenopathy. PET demonstrated hypermetabolic nodes in right hilum and subcarinal area. He underwent bronchoscopy with endoscopic bronchoscopic ultrasound with transbronchial biopsies of several lymph node stations including the subcarinal stations. He developed atrial fibrillation following it. His rhythm was normalized on amiodarone. Pathology demonstrated mantle cell lymphoma in the biopsied lymph nodes. Resumed treatment on 07/23/2017. On 07/27/2017, he had the sudden onset of substernal chest pain which crescendoed over several hours. Patient presented to emergency room [facility] and was found to have a STEMI. Inferior wall pattern. He was taken to the [facility] and underwent successful thrombectomy and angioplasty with bare metal stenting to the proximal RCA. Catheterization identified significant mid LAD and proximal diagonal disease. He underwent catheterization on 08/17/2017 with placement of 2 stents in these lesions. There were no complications. Current therapy: 1) Velcade. Presents for ongoing hematologic management. Interim history: No symptoms of cardiomyopathy including chest pain/pressure, shortness of breath at rest or with exertion, lower extremity swelling/edema, PND or orthopnea. Occasional palpitation. Scheduled for cardioversion in next week. Occasional cough. No sputum or wheezing. Not short of breath at rest or with moderate exertion. No unusual bleeding, but still occasional unexplained bruises. Right toe numbness stable. No MS pain. PMH, medications and allergies as below personally reviewed by me today. Any changes documented in appropriate section. ROS: Constitutional: Denies episodes of fever and night sweats. Neuro: Denies TAYLOR, vertigo, dizziness and imbalance. HEENT: No recent change in voice, vision or hearing. Resp: See above. CVS: See above. GI: Denies dysgeusia. Denies symptoms of stomatitis. Denies dysphagia and odynophagia. Denies reflux. No change in bowel habits and abdominal pain. : Denies dysuria or gross hematuria. No symptoms of bladder outlet obstruction. Endo: Denies hot flashes. Denies polyuria and polydipsia. Denies heat and cold intolerance. Musculoskeletal: See above. Derm: Denies rash. Denies jaundice and diffuse pruritis. Heme: Denies unusual bleeding and unexplained bruising. Psych: Normal mood. PHYSICAL EXAM: Vitals: Blood pressure 110/78, pulse 69, temperature 36.8 ?C (98.2 ?F), temperature source Temporal Artery, weight 58.3 kg (128 lb 8 oz). Then-appearing and in no acute distress. EYES: Sclerae are anicteric bilaterally. NECK: Supple. No enlargement of thyroid. LYMPHATIC: No peripheral adenopathy. RESPIRATORY: Inspiratory breath sounds are of normal intensity in all rodriguez. No rales, wheezes or rhonchi. CARDIOVASCULAR: Rhythm is regular today. ABDOMEN: The abdomen is nondistended. No organomegaly. No tenderness. No palpable abdominal mass. Extremities: No swelling or edema. SKIN: No jaundice or rash. No petechiae. NEUROLOGIC: gi physician II-XII are grossly intact. DTRs symmetrically diminished. 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 He had extensive bone marrow involvement at the time of presentation. -KPS is 80-90%. -Asymptomatic from the lymphoma at baseline with exception significant adenopathy. Although baseline LDH normal, the Ki67 at 36% suggested more aggressive disease. -Higher risk of infectious complications given underlying MVP/reguritation as well as h/o splenectomy at age 10. -Asymptomatic from the coronary artery disease. -Tolerating Velcade very well. 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 No worse. -I personally reviewed CT images and again with patient and independently verified and agreed with the radiologist's findings. PD. -Discussed and recommended Revlimid along with rituximab. This is based on an [facility] guidelines. Chose Revlimid due to the lower central for interaction with his other medications i.e. anticoagulation over ibrutinib and acalabrutinib. I discussed the rationale, logistics, potential risks (including ), benefits and alternatives, as well as the personnel involved in the administration of rituximab. I answered his questions in detail and he verbalized understanding and agreed with the recommended therapy. Please see the electronic consent document for details of doses and schedule. Plan: -Stop Velcade. -Rx for Revlimid. -Plan to begin treatment after he has cardioversion. Faustino George DO CNOVSP Observed: 12/26/2017 Status: COMPLETED Source: TROY 9:10 AM [facility] REPOSITORY Visit (SP) Office (JENNY) BANDAR LOVE ([id number]) 1950 M Date Time Provider Department 12/26/17 9:10 AM FAUSTINO GEORGE During your visit today, we recorded the following information about you: Temperature Pulse Blood pressure Weight 98.2 degrees 69/minute 110/78 58.3 kg Faustino George DO 12/26/2017 10:08 AM Signed Diagnosis: 1) Mantle cell lymphoma. HPI: The patient is a 67-year-old male was a past medical history significant for superficial bladder cancer (TURBT in 2006) and MVP/regurgitation who about a month ago noticed enlarging lymphadenopathy of the neck. More recently he noticed worsening swelling of the left sided lymph node and sought medical attention. CT Neck 04/10/2016: Diffuse cervical lymphadenopathy/conglomerate soft tissue masses throughout the neck with right axillary and upper mediastinal lymphadenopathy is suspicious for lymphoproliferative disorder, not excluding metastatic involvement. He has not been having night sweats or fevers. He says his appetite is unchanged and his weight typically tends to fluctuate. He is not having any trouble swallowing. He's had no episodes of choking or aspiration. He denies dysphasia and odynophagia. He has not had any abdominal distention, bloating or swelling. He denies neurologic symptoms including peripheral symptoms of neuropathy, motor weakness and tremors. No trouble with headache, vision, hearing, phonation or concentration. He underwent echocardiogram in January of this year. He was noted to have a normal ejection fraction but he had severe (3+ - 4+) mitral valve regurgitation due to prolapse and flail. 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 Underwent an FNA of the left neck mass on 05/02/2016. Fine needle aspiration, left neck mass (smears and cell block): Consistent with involvement by Noh-Hodgkin B-cell lymphoma, mantle cell lymphoma. Flow cytometry studies from [facility] are consistent with involvement by a CD5-positive B-cell lymphoproliferative disoreder. See comment. RESULTS: ANTIBODY / CLONE RESULT AE1-3 (AE1/AE3/PCK26) negative CD3 (PS1) negative CD5 (SP10) positive CD20 (L26) positive CD43 (L60) positive CD45 (RP2/18) positive CD79a (11E3) positive CD138 (B-A38) negative CD10 (56C6) negative CD23 (1B12) negative CD30 (Kamar-H2) negative BCL-2 (bcl-2/100/D5) positive BCL-6 (DF037K/A8) negative Cyclin D1/BCL-1 (SP4) positive Ki-67 (30-9) positive (36%) Previous therapy: 1) R-CHOP. [facility]--Mild residual right hilar adenopathy. PET demonstrated hypermetabolic nodes in right hilum and subcarinal area. He underwent bronchoscopy with endoscopic bronchoscopic ultrasound with transbronchial biopsies of several lymph node stations including the subcarinal stations. He developed atrial fibrillation following it. His rhythm was normalized on amiodarone. Pathology demonstrated mantle cell lymphoma in the biopsied lymph nodes. Resumed treatment on 07/23/2017. On 07/27/2017, he had the sudden onset of substernal chest pain which crescendoed over several hours. Patient presented to emergency room [facility] and was found to have a STEMI. Inferior wall pattern. He was taken to the [facility] and underwent successful thrombectomy and angioplasty with bare metal stenting to the proximal RCA. Catheterization identified significant mid LAD and proximal diagonal disease. He underwent catheterization on 08/17/2017 with placement of 2 stents in these lesions. There were no complications. Current therapy: 1) Velcade. Presents for ongoing hematologic management. Interim history: No symptoms of cardiomyopathy including chest pain/pressure, shortness of breath at rest or with exertion, lower extremity swelling/edema, PND or orthopnea. Occasional palpitation. Scheduled for cardioversion in next week. Occasional cough. No sputum or wheezing. Not short of breath at rest or with moderate exertion. No unusual bleeding, but still occasional unexplained bruises. Right toe numbness stable. No MS pain. PMH, medications and allergies as below personally reviewed by me today. Any changes documented in appropriate section. ROS: Constitutional: Denies episodes of fever and night sweats. Neuro: Denies TAYLOR, vertigo, dizziness and imbalance. HEENT: No recent change in voice, vision or hearing. Resp: See above. CVS: See above. GI: Denies dysgeusia. Denies symptoms of stomatitis. Denies dysphagia and odynophagia. Denies reflux. No change in bowel habits and abdominal pain. : Denies dysuria or gross hematuria. No symptoms of bladder outlet obstruction. Endo: Denies hot flashes. Denies polyuria and polydipsia. Denies heat and cold intolerance. Musculoskeletal: See above. Derm: Denies rash. Denies jaundice and diffuse pruritis. Heme: Denies unusual bleeding and unexplained bruising. Psych: Normal mood. PHYSICAL EXAM: Vitals: Blood pressure 110/78, pulse 69, temperature 36.8 ?C (98.2 ?F), temperature source Temporal Artery, weight 58.3 kg (128 lb 8 oz). Then-appearing and in no acute distress. EYES: Sclerae are anicteric bilaterally. NECK: Supple. No enlargement of thyroid. LYMPHATIC: No peripheral adenopathy. RESPIRATORY: Inspiratory breath sounds are of normal intensity in all rodriguez. No rales, wheezes or rhonchi. CARDIOVASCULAR: Rhythm is regular today. ABDOMEN: The abdomen is nondistended. No organomegaly. No tenderness. No palpable abdominal mass. Extremities: No swelling or edema. SKIN: No jaundice or rash. No petechiae. NEUROLOGIC: gi physician II-XII are grossly intact. DTRs symmetrically diminished. 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 He had extensive bone marrow involvement at the time of presentation. -KPS is 80-90%. -Asymptomatic from the lymphoma at baseline with exception significant adenopathy. Although baseline LDH normal, the Ki67 at 36% suggested more aggressive disease. -Higher risk of infectious complications given underlying MVP/reguritation as well as h/o splenectomy at age 10. -Asymptomatic from the coronary artery disease. -Tolerating Velcade very well. 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 No worse. -I personally reviewed CT images and again with patient and independently verified and agreed with the radiologist's findings. PD. -Discussed and recommended Revlimid along with rituximab. This is based on an [facility] guidelines. Chose Revlimid due to the lower central for interaction with his other medications i.e. anticoagulation over ibrutinib and acalabrutinib. I discussed the rationale, logistics, potential risks (including ), benefits and alternatives, as well as the personnel involved in the administration of rituximab. I answered his questions in detail and he verbalized understanding and agreed with the recommended therapy. Please see the electronic consent document for details of doses and schedule. Plan: -Stop Velcade. -Rx for Revlimid. -Plan to begin treatment after he has cardioversion. Faustino George DO Referring Provider: FAUSTINO GEORGE [[id number]] Allergies As of Date: 12/26/2017 Noted Allergy Reaction AMPICILLIN 05/01/2005 4 - Hives CEPHALEXIN 05/01/2005 8 - GI Upset PYRIDIUM (PHENAZOPYRIDINE HCL) 04/13/2006 2 - Rash TRAZODONE 04/23/2014 5 - Intolerance Comments: Dizziness; nausea Date Reviewed: 12/26/2017 Reviewed by: Shanna Adam - Fully Assessed Reason for Visit: Established Patient [175] Primary Visit Diagnosis:Mantle cell lymphoma of lymph nodes of multiple regions (HCC) [C83.18] Order(s):lenalidomide (REVLIMID) 20 mg capsuleTake 1 capsule by mouth once daily. for 3 weeks. Then off 1 week.Disp: 21 capsuleRfl: 5 Follow-up and Disposition History Recorded Prescriptions as of 12/26/2017 Sig: PROMETHAZINE 25 MG TABLET Take 1 tablet by mouth every * VENLAFAXINE ER 37.5 MG CAPSUL* Take 1 capsule by mouth once * GABAPENTIN 100 MG CAPSULE Take 1 capsule by mouth daily* LIDOCAINE-PRILOCAINE 2.5 %-2.* Apply to port site 20 min. pr* WARFARIN 1 MG TABLET Taking 1mg with 4 mg pill missy* TICAGRELOR 90 MG TABLET Take 1 tablet by mouth twice * AMIODARONE 200 MG TABLET Take 1 tablet by mouth once d* ASPIRIN 81 MG TABLET,DELAYED * Take 1 tablet by mouth once d* ATORVASTATIN 80 MG TABLET Take 1 tablet by mouth daily * PANTOPRAZOLE 40 MG TABLET,DEL* Take 1 tablet by mouth daily * COMPOUNDED PRESCRIPTION Powerstep orthotic (M72.2) P* LENALIDOMIDE 20 MG CAPSULE Take 1 capsule by mouth once * Problem List As Of Date 12/26/2017 Noted Resolved PROSTATITIS NOS [N41.9] INVALID FOR*09/20/2006 BPH w urinary obs/LUTS [N40.1, N13.8] INVALID FOR* Malignant neoplasm of bladder (HCC) [C67.9] INVALID FOR* More... Cervicalgia [M54.2] INVALID FOR* More... ALLERGIC RHINITIS NOS [J30.9] INVALID FOR* More... More... Lumbago [M54.5] INVALID FOR* Sprain and Strain of Unspecified Site of Should*INVALID FOR* Abdominal Pain, Left Lower Quadrant [R10.32] INVALID FOR* Constipation, Chronic [K59.09] INVALID FOR* Suprapubic Pain [R10.2] INVALID FOR* Unspecified orchitis and epididymitis [N45.3] INVALID FOR* Inguinal hernia, right [K40.90] INVALID FOR* Unilat ing hernia [K40.90] INVALID FOR* Osteoarthritis of knee [M17.10] INVALID FOR* Bilateral knee pain [M25.561, M25.562] INVALID FOR* Inguinal pain, lower right quadrant [R10.31] INVALID FOR* Mitral valve prolapse [I34.1] INVALID FOR* Mitral regurgitation due to cusp prolapse [I34.*INVALID FOR*11/02/2016 Anxiety [F41.9] INVALID FOR* Low back pain [M54.5] INVALID FOR* Non-rheumatic mitral regurgitation [I34.0] INVALID FOR* Mantle cell lymphoma of lymph nodes of multiple*INVALID FOR* Diverticulosis of colon (without mention of hem*INVALID FOR* Lymphoma, mantle cell, multiple sites (HCC) [C8*INVALID FOR* More... Atrial fibrillation, chronic (HCC) [I48.2] INVALID FOR* S/P coronary artery stent placement [Z95.5] INVALID FOR* Encounter Status:Closed by FAUSTINO GEORGE DO on 12/26/17 OL[facility]IA CBC AND DIFF Collected: 12/24/2017 Status: F Source: TR[place] 3:04 PM [facility] REPOSITORY TYPE CODE TESTS RESULT OUT OF REFERENCE UNITS RANGE LAB WWBC 3.70-11.00 k/uL 5.50 [facility] WBC LAB WRBC 4.20-6.00 m/uL 3.68 Low [facility] RBC LAB WHGB 13.0-17.0 g/dL 12.9 Low [facility] Hemoglobin LAB WHCT 39.0-51.0 % 37.4 Low [facility] Hematocrit LAB WMCV 80.0-100.0 fL 101.6 High [facility] MCV LAB WMCH 26.0-34.0 pg 35.1 High [facility] MCH LAB WMCHC 30.5-36.0 g/dL 34.5 [facility] MCHC LAB WRDW 11.5-15.0 % 17.2 High [facility] RDW LAB WPLT 150-400 k/uL 175 [facility] Platelet Cnt LAB WMPV 9.0-12.7 fL Unable [facility] MPV to report LAB WNEUT % 64.9 [facility] Neut% LAB WLYMP % 19.5 [facility] Lymp% LAB WMONOC % 13.1 Olivia [place]% LAB WEOS % 1.8 [facility] Eos% LAB WBASO % 0.7 Olivia Baso% LAB WANEUT 1.45-7.50 k/uL 3.57 [facility] Abs Neut LAB WALYMP 1.00-4.00 k/uL 1.07 [facility] Abs Lymp LAB WAMONO <0.87 k/uL 0.72 [facility] Abs [place] LAB WAEOS <0.46 k/uL 0.10 [facility] Abs Eos LAB WABASO <0.11 k/uL 0.04 [facility] Abs Baso LAB CBCCOM Comment Preliminary result. Interpret with caution. Final results may vary. Results requested and read back by: Result Comment: WBC=5.61 Performed By: #### WCBCDF #### [facility] [address] [place], [place] [address] EMERGENCY DEPARTMENT Observed: 12/23/2017 Status: F Source: [place]AY SUMMARY 3:57 PM [facility] REPOSITORY [facility] Medical Records Department [address] [place] [address] Emergency Department Summary 12/23/17 1555 MR#: [id number] Acct: [id number] Name: BANDAR LOVE Rep #: [id number] : 1950 67 From: Michael Valdes MD PCP: Imani Lutz MD Status: REG ER - ER Visit Summary Date of Service: 12/23/17 Chief Complaint: Thumb laceration History of Present Illness: The patient is a 67 M who presents with a thumb laceration. He cut it on glass about an hour before presentation. He denies any paresthesias weakness loss of function recent illness. Physical Examination: Afebrile vitals are stable There is a 1-1/2 patient over the left thumb he has normal flexion and extension he has brisk capillary refill normal sensation light touch Alert Test Results: Not indicated Emergency Department Course and Treatment: Patient was digitally blocked with 1% lidocaine with good anesthesia. The wound was explored. No foreign body visualized. The wound was closed with a total of 3 simple interrupted 4-0 nonabsorbable sutures. Wound cleansed and dressed by nursing staff and patient discharged. Treatment Plan: [] Disposition: Discharge Impression: Left thumb laceration This note was generated with Fangdd dictation software. It may contain incorrect words, spelling, and punctuation that were not noted in review of the chart prior to signing ED Disposition - Plan for ED Patient: Chief Complaint: Laceration Referrals: Imani Lutz MD [Primary Care Provider] - What to do if you have Problems For any increased pain, shortness of breath, bleeding, nausea or vomiting, chest pain, or any unexpected problems, contact your Primary Care Provider. Call [facility] ([phone]) or report to the closest Emergency Room. Call 911 if necessary. 12/23/17 1557 <Electronically signed by Michael Valdes MD> Date Michael Valdes MD Cosigner Signature (If Indicated): Date CC: Imani Lutz MD DISCHARGE INSTRUCTION Observed: 12/23/2017 Status: F Source: OLIVIA 3:57 PM [facility] REPOSITORY [facility] Medical Records Department [address] [place] [address] Discharge Instruction 12/23/17 1557 MR#: [id number] Acct: [id number] Name: BANDAR LOVE Rep #: [id number] : 1950 67 From: Michael Valdes MD PCP: Imani Lutz MD Status: REG ER ED Disposition - Plan for ED Patient: Chief Complaint: Laceration Instructions: ED Laceration Hand Referrals: Imani Lutz MD [Primary Care Provider] - Additional Instructions: Keep wound clean and dry. Have sutures removed in 7-10 days. What to do if you have Problems For any increased pain, shortness of breath, bleeding, nausea or vomiting, chest pain, or any unexpected problems, contact your Primary Care Provider. Call [facility] ([phone]) or report to the closest Emergency Room. Call 911 if necessary. 12/23/17 1557 <Electronically signed by Michael Valdes MD> Date Michael Valdes MD Cosigner Signature (If Indicated): Date CC: Imani Lutz MD PROTHROMBIN TIME W/INR Collected: 12/19/2017 Status: F Source: OLIVIA 3:01 PM [facility] REPOSITORY TYPE CODE TESTS RESULT OUT OF RANGE REFERENCE UNITS LAB L300.4150 11.7-14.9 SECONDS High PROTIME 28.6 LAB L300.4200 Normal INR 2.7 Performed By: #### L300.3900, L500.2500 #### [facility] [address] [place], [place], [id number] BASIC METABOLIC Collected: 12/19/2017 Status: F Source: [place] PROFILE (BMP) 3:01 PM [facility] REPOSITORY TYPE CODE TESTS RESULT OUT OF RANGE REFERENCE UNITS LAB L501.0100 74-106 mg/dL Normal GLU 89 Result Comment: Please note revised GLUCOSE reference range effective 2017. LAB L501.1000 7-18 mg/dL Normal BUN 10 LAB L501.1100 0.70-1.30 mg/dL High CREAT,SERUM 1.33 Result Comment: The validity of the calculated GFR AND GFRAA in patients over 70 years has not been determined. Clinical correlation is essential. LAB L501.1110 >60 mL/min Low EST GFR 57 Result Comment: Non- GFR Calc LAB L501.1115 >60 mL/min Normal EST GFR - AA 69 Result Comment: GFR Calc LAB L501.1300 10-20 RATIO Low BUN/CRE 7.5 LAB L501.2200 8.5-10.1 mg/dL Normal CA 8.7 LAB L501.5300 136-145 mmol/L Normal NA 140 LAB L501.5600 3.5-5.1 mmol/L Normal K 4.8 Result Comment: Moderate Hemolysis, Result may be falsely increased. LAB L501.5900 98-107 mmol/L Normal CL 107 LAB L501.6100 21.0-32.0 mmol/L Normal CO2 28.0 LAB L501.6200 5-15 Normal 5 GAP Performed By: #### L300.3900, L500.2500 #### [facility] [address] [place], [place], [address] CT CHEST W IVCON Observed: 12/18/2017 Status: F Source: TROY 2:13 PM [facility] REPOSITORY * * *Final Report* * * DATE OF EXAM: Dec 18 2017 2:13PM [facility] 0539 - CT CHEST W IVCON / PROCEDURE REASON: Mantle cell lymphoma, lymph nodes of multiple sites * * * * Physician Interpretation * * * * HISTORY: Lymphoma TECHNIQUE: Contrast 1: [address] Ionizing Radiation: CT Dose Length Product (DLP): 103 mG*y cm CT Dose Reduction Employed: Automated exposure control (AEC) RESULT: Scans through the chest were performed following the administration of contrast as a bolus through the mediastinum. Comparison is made with 07/10/2017. Prominence of the subpleural reticular markings is most pronounced at the lung bases. Mediastinal and right hilar lymphadenopathy is seen. Right hilar node on image 106 measures 2.9 x 2.4 cm. Previously 2.5 x 2.2 cm. Subcarinal soft tissue on image 98 measures 3.1 x 1.3 cm. Previously 2.6 x 1.3 cm . Pretracheal lymph node of 2 x 1.1 cm was previously 1.6 x 1 cm. No developing axillary lymphadenopathy. No developing pleural or pericardial fluid. No developing lung nodule or mass. There is evidence of remote granulomatous disease. Scans through the upper abdomen are grossly unremarkable IMPRESSION: Increasing mediastinal and right hilar adenopathy. E Commerce Architect: PSCB Transcribe Date/Time: Dec 18 2017 5:33P Dictated by : ERNESTO IRWIN MD This examination was interpreted and the report reviewed and electronically signed by: ERNESTO IRWIN MD on Dec 18 2017 5:43PM EST [id number] Observed: 12/18/2017 Status: COMPLETED Source: TROY 2:07 PM [facility] REPOSITORY O ID: [id number] Author: Gabbi Foster Ct Service: (none) Author Type: (none) Type: Progress Notes Filed: 12/18/2017 2:08 PM Note Text: Radiology Service Progress Note PATIENT NAME: Bandar Love DATE OF SERVICE: December 18, 2017 TIME: 2:07 PM PATIENT IDENTITY VERIFICATION COMPLETED USING TWO (2) METHODS: Patient confirmed name verbally and Date of . PATIENT GENDER DATA: Male PATIENT RELEVANT IMPLANT DATA REVIEWED: Not Applicable CONTRAST INDUCED NEPHROPATHY RISK FACTORS: Patient age > 60 years CREATININE: Creatinine Date Value Ref Range Status 04/09/2017 1.23 (H) 0.73 - 1.22 mg/dL Final 03/12/2017 1.29 (H) 0.73 - 1.22 mg/dL Final 02/19/2017 1.17 0.73 - 1.22 mg/dL Final Creatinine, Whole Blood (iSTAT) Date Value Ref Range Status 12/17/2017 1.20 0.70 - 1.40 mg/dL Final 07/10/2017 1.10 0.70 - 1.40 mg/dL Final eGFR-All Other Races Date Value Ref Range Status 12/17/2017 >60 . Final Comment: eGFR (Estimated GFR) Units of measure: mL/min/1.73 meters squared eGFR is derived from the reexpressed MDRD Study equation using the following parameters: serum creatinine, age, gender and race. The creatinine assay has been calibrated to be traceable to IDMS. An eGFR <60 mL/min/1.73m2 for >3 months is consistent with chronic kidney disease. Refer to KDOQI guidelines for clinical interpretation. In patients with unstable renal function, e.g. those with acute kidney injury, the eGFR may not accurately reflect actual GFR. eGFR- Date Value Ref Range Status 12/17/2017 >60 Final P.O.C.T. RESULTS: POC done: Yes, See Lab Tab December 18, 2017 RADIOLOGIST NOTIFIED?: No ALLERGIES: Reviewed and unchanged CONTRAST ALLERGY: NO. PERIPHERAL IV ACCESS: Ambulatory: IV type: A peripheral IV was started in the Left antecubital site with a Angio cath: 22 gauge., Site assessment: Clean,Dry and Intact, Site disposition Discontinued RADIOLOGY DEPARTMENT: CT; Exam(s) Completed: Chest SIGNED BY: Gabbi Foster Ct December 18, 2017 2:07 PM [facility] ISTAT BMP Collected: 12/17/2017 Status: F Source: TROY 3:28 PM [facility] REPOSITORY TYPE CODE TESTS RESULT OUT OF REFERENCE UNITS RANGE LAB NAWB 135-146 mmol/L Sodium, Whole 141 Bld LAB K1WB 3.5-5.0 mmol/L Potassium,Who 4.1 le Bld LAB CLWB 98-110 mmol/L Chloride, 101 Whole Bld LAB ICAWB 1.08-1.30 mmol/L Ionized 1.16 Calcium, WB Result Comment: Please note: This value represents ionized calcium not total calcium. LAB CO2WB 23-32 mmol/L TCO2, Whole Blood 28 LAB GLUWB 65-100 mg/dL Glucose, Whole Bld 84 LAB BUNWB 10-25 mg/dL BUN, Whole Blood 14 LAB BCRET 0.70-1.40 mg/dL Creatinine,Wh ole Bld 1.20 LAB AGAPWB 0-15 mmol/L Anion Gap, Whole Bld 12 LAB GFRAA eGFR- Amer. >60 LAB GFRNAA . eGFR-All Other Races >60 Result Comment: eGFR (Estimated GFR) Units of measure: mL/min/1.73 meters squared eGFR is derived from the reexpressed MDRD Study equation using the following parameters: serum creatinine, age, gender and race. The creatinine assay has been calibrated to be traceable to IDMS. An eGFR <60 mL/min/1.73m2 for >3 months is consistent with chronic kidney disease. Refer to KDOQI guidelines for clinical interpretation. In patients with unstable renal function, e.g. those with acute kidney injury, the eGFR may not accurately reflect actual GFR. Performed By: #### WAGCBC #### [facility] [address] [address] OLIVIA ABS GR + CBC Collected: 12/17/2017 Status: F Source: TROY 3:28 PM [facility] REPOSITORY TYPE CODE TESTS RESULT OUT OF REFERENCE UNITS RANGE LAB WWBC 3.70-11.00 k/uL 3.95 [facility] WBC LAB WRBC 4.20-6.00 m/uL 3.66 Low [facility] RBC LAB WHGB 13.0-17.0 g/dL 12.8 Low [facility] Hemoglobin LAB WHCT 39.0-51.0 % 37.5 Low [facility] Hematocrit LAB WMCV 80.0-100.0 fL 102.5 High [facility] MCV LAB WMCH 26.0-34.0 pg 35.0 High [facility] MCH LAB WMCHC 30.5-36.0 g/dL 34.1 [facility] MCHC LAB WRDW 11.5-15.0 % 16.8 High [facility] RDW LAB WPLT 150-400 k/uL 186 [facility] Platelet Cnt LAB WMPV 9.0-12.7 fL 13.5 High [facility] MPV LAB ABGRAN 1.45-7.50 k/uL Absol 2.11 Gran Count LAB ABSNUC <0.01 k/uL Absolute nRBC Preliminary result. Interpret with caution. Final results may vary. Results requested and read back by: Result Comment: WBC=4.15 Performed By: #### WAGCBC #### [facility] [address] [place], [place] [address] CARDIOLOGY VISIT Observed: 12/14/2017 Status: F Source: [place] REPORT 10:37 AM [facility] REPOSITORY [facility] [address] [place] [address] OFFICE VISIT Date of Service: 12/12/17 MR#: [id number] Acct: [id number] Name: BANDAR LOVE Rep #: [id number] : 1950 Provider: OMAR Hurst Age/Sex: 67/M Location: [facility] Status: Signed HPI HPI Details: BANDAR LOVE, is a 67 M who presents to the office today for a cardiovascular outpatient follow-up. He has a history of atrial fibrillation, mitral valve insufficiency, tricuspid valve insufficiency, hypertension, and hyperlipidemia, and acute lymphoma with chemotherapy. He presented to [facility] emergency department in July 2017 after developing midsternal chest pain. His EKG showed ST elevation in lead II, III, and aVF. He was transferred to cardiac cath. He underwent bare metal stenting to proximal RCA. The plan was to undergo elective PCI to LAD and diagonal in 3 weeks. He later underwent successful PTCA/ROMULO to proximal diagonal 1 and mid LAD in August 2017. Pt denies chest, arm, jaw, or neck discomfort. His exercise tolerance is stable. Pt denies symptoms of CHF, palpitations, lightheadedness, dizziness, near syncopal or syncopal episodes. Pt denies edema or claudication issues. Pt. denies orthopnea, PND, fever, chills, blood in urine, blood in stool, or myalgia. Pt. states numbness in his feet that is understands is from [employer]. 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 [Ecotrin] 81 mg PO DAILY@0800 #30 tab 07/30/17 [Rx Confirmed 12/12/17] Atorvastatin Calcium [Lipitor] 80 mg PO QHS #30 tab 07/30/17 [Rx Confirmed 12/12/17] metoprolol tartrate 25 mg tablet 12.5 mg PO BID #30 tab 09/26/17 [Rx Confirmed 12/12/17] ticagrelor 90 mg tablet 90 mg PO BID #60 tab 10/03/17 [Rx Confirmed 12/12/17] warfarin 1 mg tablet 1 mg PO .COMPLEX 11/02/17 [History Confirmed 12/12/17] warfarin 4 mg tablet 4 mg PO .COMPLEX #90 tab 11/02/17 [Rx Confirmed 12/12/17] PFSH Medical History Hyperlipidemia (Chronic) Non-rheumatic tricuspid valve insufficiency (Chronic) Nonrheumatic mitral valve insufficiency (Chronic) 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) H/O endoscopy (Resolved) port placement (Resolved) bone marrow (Resolved) History of coronary artery stent placement (Resolved 07/27/17) Atherosclerosis of coronary artery bypass graft without angina pectoris (Chronic) ST elevation (STEMI) myocardial infarction (Acute) GERD (gastroesophageal reflux disease) (Chronic) Severe protein-calorie malnutrition (Chronic) Inferior ME (Acute) Cardiogenic shock (Acute) Atrial fibrillation (Chronic) Altered vision right eye (Chronic) History of bladder cancer (Chronic) 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) h/o bladder cancer (Acute) Surgical History H/O splenectomy (Resolved) Hx of tonsillectomy (Resolved) H/O hernia repair (Resolved) History of prostate surgery (Resolved) History of bladder surgery (Resolved) Hx of colonoscopy (Resolved) Family History Mother Breast cancer Lung disease Father CVA (cerebral vascular accident) Heart disease Afib CHF (congestive heart failure) Myocardial infarction Hx of CABG Social History Smoking Status: Never smoker alcohol intake: never substance use type: does not use caffeine: No what type of physical activity do you participate in: other details: therapy seatbelt use: always do you feel safe at home: Yes ROS Const Const: Negative for weakness, body ache, fever(s), chills or fatigue ENT ENT: Negative for dizziness Cardio Chest Pain: No Palpitations: No Edema: None Muscle aches with walking: None Resp Respiratory: Negative for SOB with activity, SOB at rest, SOB orthopnea\SOB lying down or paroxysmal nocturnal dyspnea GI GI: Negative nausea, black,tarry stools, bright, red blood in stools or vomiting blood/hematemesis : Negative for hematuria or frequent nighttime urination/ nocturia Musc Musc: Negative for muscle aches/ myalgia Neuro Neuro: Negative for weakness or dizziness Endo Endo: Negative for fatigue Cardiology Exam Const Appearance: cooperative, healthy appearing, comfortable and no acute distress Orientation: alert, awake and oriented x3 Head Head: normal to inspection Mouth: oral mucosae normal Neck Neck: no JVD and normal visual inspection Carotids: normal carotid upstroke Chest Chest inspection: normal inspection of the chest and normal respiratory effort Auscultation: Bilateral: Clear to Auscultation Cardio Rate: regular rate Rhythm: irregular rhythm Heart sounds: S2 normal and murmur; negative rub or gallop Murmur: Grade 2/6 and LLSB GI GI: normal to inspection Neuro General: alert, awake, oriented x3 and CN's II-XI intact bilaterally Skin Skin: no rashes or lesions noted Extremities Pulses: Normal: Right Posterior Tibial Pulse, Left Posterior Tibial Pulse, Right Radial Pulse, Left Radial Pulse Lower Extremity Edema: None: Bilateral Psych Psychological: normal affect Supplemental Info Echocardiogram from July 2017 showed estimated ejection fraction of 45-50%, moderate enlarged left atrium, moderate mitral valve insufficiency, mild tricuspid valve insufficiency, RVSP of 33 mmHg, and when compared to previous echocardiogram in December 2016 there is new inferior/posterior wall motion hypokinesis and ejection fraction has decreased from 65% to 50% and RVSP estimated the same. Patient appears to be in atrial fibrillation. Echocardiogram May 2017 at [facility] showed mild concentric LVH, estimated ejection fraction of 54 5%, severely dilated left atrium, mildly dilated right atrium, moderately severe holosystolic mitral valve regurgitation due to prolapse, regurgitation orifice area of 0.32 cm , bileaflet prolapse with posterior greater than anterior, and patient in atrial fibrillation. Assessment AND Plan 1. Atherosclerosis of coronary artery bypass graft of [place] heart without angina pectoris I25.810 ESJ-KGE-Dnec RCA 4.0 x 26 mm Integrity Stent 07/27/17; ROMULO to prox Diag and Mid LAD 08/15/2017 Plan - CRISS Wang Patient denies any chest pain, arm pain, jaw pain, neck pain, shortness of breath, or fatigue suggestive of angina at this time. We will continue to monitor this. We will not make any medication regimen changes and will continue risk factor modification. 2. History of coronary artery stent placement Z95.5 TBM-GLQ-Nsur RCA 4.0 x 26 mm Integrity Stent 07/27/17; ROMULO to proximal diagonal and mid LAD 08/15/17; Aparna - CRISS Wang We will continue current plan as outlined above. 3. Chronic atrial fibrillation I48.2 CRISS El Echocardiogram from July 2017 showed estimated ejection fraction 45-50% and moderately enlarged left atrium. Patient is on amiodarone therapy, low- dose beta-cristhian, and Coumadin therapy. Overall patient states feeling well. It will be discussed further with Dr. Rodriguez if plan is to still proceed with cardioversion once INR is therapeutic for 1 month. 4. Nonrheumatic mitral valve insufficiency I34.0 CRISS El Echocardiogram from July 2017 showed moderate mitral valve insufficiency. Echocardiogram from May 2017 at [facility] stated moderately severe mitral valve regurgitation. Patient denies any shortness of breath or activity intolerance. We will continue to monitor this through history, exam, and repeat echocardiogram as needed. We will continue current medications. 5. Nonrheumatic tricuspid (valve) insufficiency I36.1 ALLISON ElC Echocardiogram from July 2017 showed mild tricuspid valve insufficiency with an RVSP of 33 mmHg. Patient denies any shortness of breath or lower extremity pedal edema. We will continue to monitor this through history, exam, and repeat echocardiogram as needed. 6. Pure hypercholesterolemia E78.00 Plan - CRISS Wang Patient's lipid panel from August 2017 show cholesterol: 97, LDL: 42, HDL: 37, and triglycerides: 90. Patient will continue current cholesterol- lowering medication. He will repeat both liver and lipid panel in approximately 6 months. We will wait for results of these tests for further recommendation. 7. retirement current use of anticoagulant Z79.01 Plan - CRISS Wang Patient will continue with Coumadin therapy with an INR goal of 2 3. Plan Detail Other Orders Orders: Additional Comments - CRISS Wang Discussed the above patient with Dr. Rodriguez, he agrees with the plan of care. Thank you for allowing us to participate in the patients plan of care, if you have any questions please do not hesitate to call. This note was generated using a voice recognition system and there may be incorrect words, spelling or punctuation that were not noted when reviewing the office note prior to saving. 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 transplanted heart: [place] heart History of coronary artery stent placement Z95.5 Chronic atrial fibrillation I48.2 Atrial fibrillation type: chronic Nonrheumatic mitral valve insufficiency I34.0 Nonrheumatic tricuspid (valve) insufficiency I36.1 Pure hypercholesterolemia E78.00 Hyperlipidemia type: pure hypercholesterolemia retirement current use of anticoagulant Z79.01 Coding Level of Care Code Off vis,est,level 3 Diagnoses Atherosclerosis of coronary artery bypass graft of [place] heart without angina pectoris I25.810 [place] vs. transplanted heart: [place] heart History of coronary artery stent placement Z95.5 Chronic atrial fibrillation I48.2 Atrial fibrillation type: chronic Nonrheumatic mitral valve insufficiency I34.0 Nonrheumatic tricuspid (valve) insufficiency I36.1 Pure hypercholesterolemia E78.00 Hyperlipidemia type: pure hypercholesterolemia retirement current use of anticoagulant Z79.01 12/12/17 [id number] <Electronically signed by Rayo KAHN> Date Rayo Hurst PLASTICS SEASONER OPERATOR-Joao 12/14/17 1037<Electronically signed by Isacc Rodriguez MD> Cosigner Signature: Date (if applicable) Isacc Rodriguez MD CC: Imani Lutz MD PROGRESS Observed: 12/10/2017 Status: COMPLETED Source: [place] 3:31 PM [facility] REPOSITORY HNO ID: [id number] Author: Faustino George Service: (none) Author Type: Physician Type: Progress Notes Filed: 12/10/2017 3:52 PM Note Text: Diagnosis: 1) Mantle cell lymphoma. HPI: The patient is a 66-year-old male was a past medical history significant for superficial bladder cancer (TURBT in 2006) and MVP/regurgitation who about a month ago noticed enlarging lymphadenopathy of the neck. More recently he noticed worsening swelling of the left sided lymph node and sought medical attention. CT Neck 04/10/2016: Diffuse cervical lymphadenopathy/conglomerate soft tissue masses throughout the neck with right axillary and upper mediastinal lymphadenopathy is suspicious for lymphoproliferative disorder, not excluding metastatic involvement. He has not been having night sweats or fevers. He says his appetite is unchanged and his weight typically tends to fluctuate. He is not having any trouble swallowing. He's had no episodes of choking or aspiration. He denies dysphasia and odynophagia. He has not had any abdominal distention, bloating or swelling. He denies neurologic symptoms including peripheral symptoms of neuropathy, motor weakness and tremors. No trouble with headache, vision, hearing, phonation or concentration. He underwent echocardiogram in January of this year. He was noted to have a normal ejection fraction but he had severe (3+ - 4+) mitral valve regurgitation due to prolapse and flail. 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 Underwent an FNA of the left neck mass on 05/02/2016. Fine needle aspiration, left neck mass (smears and cell block): Consistent with involvement by Noh-Hodgkin B-cell lymphoma, mantle cell lymphoma. Flow cytometry studies from [facility] are consistent with involvement by a CD5-positive B-cell lymphoproliferative disoreder. See comment. RESULTS: ANTIBODY / CLONE RESULT AE1-3 (AE1/AE3/PCK26) negative CD3 (PS1) negative CD5 (SP10) positive CD20 (L26) positive CD43 (L60) positive CD45 (RP2/18) positive CD79a (11E3) positive CD138 (B-A38) negative CD10 (56C6) negative CD23 (1B12) negative CD30 (Kamar-H2) negative BCL-2 (bcl-2/100/D5) positive BCL-6 (JR085Q/A8) negative Cyclin D1/BCL-1 (SP4) positive Ki-67 (30-9) positive (36%) Previous therapy: 1) R-CHOP. [facility]--Mild residual right hilar adenopathy. PET demonstrated hypermetabolic nodes in right hilum and subcarinal area. He underwent bronchoscopy with endoscopic bronchoscopic ultrasound with transbronchial biopsies of several lymph node stations including the subcarinal stations. He developed atrial fibrillation following it. His rhythm was normalized on amiodarone. Pathology demonstrated mantle cell lymphoma in the biopsied lymph nodes. Resumed treatment on 07/23/2017. On 07/27/2017, he had the sudden onset of substernal chest pain which crescendoed over several hours. Patient presented to emergency room [facility] and was found to have a STEMI. Inferior wall pattern. He was taken to the [facility] and underwent successful thrombectomy and angioplasty with bare metal stenting to the proximal RCA. Catheterization identified significant mid LAD and proximal diagonal disease. He underwent catheterization on 08/17/2017 with placement of 2 stents in these lesions. There were no complications. Current therapy: 1) Velcade. Presents for ongoing hematologic management. Interim history: No symptoms of cardiomyopathy including chest pain/pressure, palpitations, shortness of breath at rest or with exertion, lower extremity swelling/edema, PND or orthopnea. No unusual bleeding, but occasional unexplained bruises. Right foot numbness stable. PMH, medications and allergies as below personally reviewed by me today. Any changes documented in appropriate section. ROS: Constitutional: Denies episodes of fever and night sweats. Neuro: Denies TAYLOR, vertigo, dizziness and imbalance. HEENT: No recent change in voice, vision or hearing. Resp: No complaints of cough, wheezing. No hemoptysis. CVS: See above. GI: Denies dysgeusia. Denies symptoms of stomatitis. Denies dysphagia and odynophagia. Denies reflux. No change in bowel habits and abdominal pain. : Denies dysuria or gross hematuria. No symptoms of bladder outlet obstruction. Endo: Denies hot flashes. Denies polyuria and polydipsia. Denies heat and cold intolerance. Musculoskeletal: See above. Derm: Denies rash. Denies jaundice and diffuse pruritis. Heme: Denies unusual bleeding and unexplained bruising. Psych: Normal mood. PHYSICAL EXAM: Vitals: Blood pressure 103/69, pulse 61, temperature 36.7 ?C (98.1 ?F), temperature source Oral, weight 57.6 kg (127 lb). Then-appearing and in no acute distress. EYES: Sclerae are anicteric bilaterally. NECK: Supple. No enlargement of thyroid. LYMPHATIC: No peripheral adenopathy. RESPIRATORY: Inspiratory breath sounds are of normal intensity in all rodriguez. No rales, wheezes or rhonchi. CARDIOVASCULAR: Rhythm is regular today. ABDOMEN: The abdomen is nondistended. No organomegaly. No tenderness. No palpable abdominal mass. Extremities: No swelling or edema. SKIN: No jaundice or rash. No petechiae. NEUROLOGIC: gi physician II-XII are grossly intact. DTRs symmetrically diminished. 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 He had extensive bone marrow involvement at the time of presentation. -KPS is 80-90%. -Asymptomatic from the lymphoma at baseline with exception significant adenopathy. Although baseline LDH normal, the Ki67 at 36% suggested more aggressive disease. -Higher risk of infectious complications given underlying MVP/reguritation as well as h/o splenectomy at age 10. -Asymptomatic from the coronary artery disease. -Tolerating Velcade very well. 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 No worse. -Not getting significantly thrombocytopenic with treatment. Plan: -Continue Velcade. -CT this week or next. -Okay to continue dual antiplatelet therapy and anticoagulation. -He will continue follow-up with his ceramic mold designer. Has an appointment next week. Faustino George DO OLIVIA ABS GR + CBC Collected: 12/10/2017 Status: F Source: [place] 3:17 PM [facility] REPOSITORY TYPE CODE TESTS RESULT OUT OF REFERENCE UNITS RANGE LAB WWBC 3.70-11.00 k/uL [facility] WBC 5.31 LAB WRBC 4.20-6.00 m/uL Low [facility] RBC 3.76 LAB WHGB 13.0-17.0 g/dL [facility] Hemoglobin 13.3 LAB WHCT 39.0-51.0 % Low [facility] Hematocrit 38.6 LAB WMCV 80.0-100.0 fL [facility] High MCV 102.7 LAB WMCH 26.0-34.0 pg [facility] High MCH 35.4 LAB WMCHC 30.5-36.0 g/dL [facility] MCHC 34.5 LAB WRDW 11.5-15.0 % [facility] High RDW 17.1 LAB WPLT 150-400 k/uL [facility] Platelet Cnt 260 LAB WMPV 9.0-12.7 fL [facility] MPV 12.4 Result Comment: Test performed at: [facility], [address] [place] [address]. LAB ABGRAN 1.45-7.50 k/uL Absol Gran 3.46 Count CNOVSP Observed: 12/10/2017 Status: COMPLETED Source: [place] 3:10 PM [facility] REPOSITORY Visit (SP) Office (JENNY) BANDAR LOVE ([id number]) 1950 M Date Time Provider Department 12/10/17 3:10 PM FAUSTINO GEORGE During your visit today, we recorded the following information about you: Temperature Pulse Blood pressure Weight 98.1 degrees 61/minute 103/69 57.6 kg Faustino George DO 12/10/2017 3:52 PM Signed Diagnosis: 1) Mantle cell lymphoma. HPI: The patient is a 66-year-old male was a past medical history significant for superficial bladder cancer (TURBT in 2006) and MVP/regurgitation who about a month ago noticed enlarging lymphadenopathy of the neck. More recently he noticed worsening swelling of the left sided lymph node and sought medical attention. CT Neck 04/10/2016: Diffuse cervical lymphadenopathy/conglomerate soft tissue masses throughout the neck with right axillary and upper mediastinal lymphadenopathy is suspicious for lymphoproliferative disorder, not excluding metastatic involvement. He has not been having night sweats or fevers. He says his appetite is unchanged and his weight typically tends to fluctuate. He is not having any trouble swallowing. He's had no episodes of choking or aspiration. He denies dysphasia and odynophagia. He has not had any abdominal distention, bloating or swelling. He denies neurologic symptoms including peripheral symptoms of neuropathy, motor weakness and tremors. No trouble with headache, vision, hearing, phonation or concentration. He underwent echocardiogram in January of this year. He was noted to have a normal ejection fraction but he had severe (3+ - 4+) mitral valve regurgitation due to prolapse and flail. 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 Underwent an FNA of the left neck mass on 05/02/2016. Fine needle aspiration, left neck mass (smears and cell block): Consistent with involvement by Noh-Hodgkin B-cell lymphoma, mantle cell lymphoma. Flow cytometry studies from [facility] are consistent with involvement by a CD5-positive B-cell lymphoproliferative disoreder. See comment. RESULTS: ANTIBODY / CLONE RESULT AE1-3 (AE1/AE3/PCK26) negative CD3 (PS1) negative CD5 (SP10) positive CD20 (L26) positive CD43 (L60) positive CD45 (RP2/18) positive CD79a (11E3) positive CD138 (B-A38) negative CD10 (56C6) negative CD23 (1B12) negative CD30 (Kamar-H2) negative BCL-2 (bcl-2/100/D5) positive BCL-6 (AR450J/A8) negative Cyclin D1/BCL-1 (SP4) positive Ki-67 (30-9) positive (36%) Previous therapy: 1) R-[facility]OP. [facility]--Mild residual right hilar adenopathy. PET demonstrated hypermetabolic nodes in right hilum and subcarinal area. He underwent bronchoscopy with endoscopic bronchoscopic ultrasound with transbronchial biopsies of several lymph node stations including the subcarinal stations. He developed atrial fibrillation following it. His rhythm was normalized on amiodarone. Pathology demonstrated mantle cell lymphoma in the biopsied lymph nodes. Resumed treatment on 07/23/2017. On 07/27/2017, he had the sudden onset of substernal chest pain which crescendoed over several hours. Patient presented to emergency room [facility] and was found to have a STEMI. Inferior wall pattern. He was taken to [facility] and underwent successful thrombectomy and angioplasty with bare metal stenting to the proximal RCA. Catheterization identified significant mid LAD and proximal diagonal disease. He underwent catheterization on 08/17/2017 with placement of 2 stents in these lesions. There were no complications. Current therapy: 1) Velcade. Presents for ongoing hematologic management. Interim history: No symptoms of cardiomyopathy including chest pain/pressure, palpitations, shortness of breath at rest or with exertion, lower extremity swelling/edema, PND or orthopnea. No unusual bleeding, but occasional unexplained bruises. Right foot numbness stable. PMH, medications and allergies as below personally reviewed by me today. Any changes documented in appropriate section. ROS: Constitutional: Denies episodes of fever and night sweats. Neuro: Denies TAYLOR, vertigo, dizziness and imbalance. HEENT: No recent change in voice, vision or hearing. Resp: No complaints of cough, wheezing. No hemoptysis. CVS: See above. GI: Denies dysgeusia. Denies symptoms of stomatitis. Denies dysphagia and odynophagia. Denies reflux. No change in bowel habits and abdominal pain. : Denies dysuria or gross hematuria. No symptoms of bladder outlet obstruction. Endo: Denies hot flashes. Denies polyuria and polydipsia. Denies heat and cold intolerance. Musculoskeletal: See above. Derm: Denies rash. Denies jaundice and diffuse pruritis. Heme: Denies unusual bleeding and unexplained bruising. Psych: Normal mood. PHYSICAL EXAM: Vitals: Blood pressure 103/69, pulse 61, temperature 36.7 ?C (98.1 ?F), temperature source Oral, weight 57.6 kg (127 lb). Then-appearing and in no acute distress. EYES: Sclerae are anicteric bilaterally. NECK: Supple. No enlargement of thyroid. LYMPHATIC: No peripheral adenopathy. RESPIRATORY: Inspiratory breath sounds are of normal intensity in all rodriguez. No rales, wheezes or rhonchi. CARDIOVASCULAR: Rhythm is regular today. ABDOMEN: The abdomen is nondistended. No organomegaly. No tenderness. No palpable abdominal mass. Extremities: No swelling or edema. SKIN: No jaundice or rash. No petechiae. NEUROLOGIC: gi physician II-XII are grossly intact. DTRs symmetrically diminished. 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 He had extensive bone marrow involvement at the time of presentation. -KPS is 80-90%. -Asymptomatic from the lymphoma at baseline with exception significant adenopathy. Although baseline LDH normal, the Ki67 at 36% suggested more aggressive disease. -Higher risk of infectious complications given underlying MVP/reguritation as well as h/o splenectomy at age 10. -Asymptomatic from the coronary artery disease. -Tolerating Velcade very well. 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 No worse. -Not getting significantly thrombocytopenic with treatment. Plan: -Continue Velcade. -CT this week or next. -Okay to continue dual antiplatelet therapy and anticoagulation. -He will continue follow-up with his ceramic mold designer. Has an appointment next week. Faustino George DO Referring Provider: FAUSTINO GEORGE [[id number]] Allergies As of Date: 12/10/2017 Noted Allergy Reaction AMPICILLIN 05/01/2005 4 - Hives CEPHALEXIN 05/01/2005 8 - GI Upset PYRIDIUM (PHENAZOPYRIDINE HCL) 04/13/2006 2 - Rash TRAZODONE 04/23/2014 5 - Intolerance Comments: Dizziness; nausea Date Reviewed: 12/10/2017 Reviewed by: Julieta Hernandez - Fully Assessed Reason for Visit: Established Patient [175] Primary Visit Diagnosis:Mantle cell lymphoma of lymph nodes of multiple regions (HCC) [C83.18] Other Visit Diagnoses:Atrial fibrillation, chronic (HCC) [I48.2] S/P coronary artery stent placement [Z95.5] Order(s):CT CHEST W IVCON [[id number]] Order #: [id number] FUTURE iv contrast (will be provided with radiology test)CT Chest W -Inject, intravenously, once for 1 dose.No IV access, insert saline lock prior to the beginning of sedation, infusion, injection of imaging exam. Discontinue saline lock post exam. If Pt. has a central line or IVAD, may access for administration according to line specific nursing protocol. Once exam is complete flush line and de- access according to line specific nursing protocol in the CT contrast administration guidelines link.Disp: 1 EachRfl: 0 Follow-up and Disposition History Recorded Prescriptions as of 12/10/2017 Sig: PROMETHAZINE 25 MG TABLET Take 1 tablet by mouth every * VENLAFAXINE ER 37.5 MG CAPSUL* Take 1 capsule by mouth once * GABAPENTIN 100 MG CAPSULE Take 1 capsule by mouth daily* LIDOCAINE-PRILOCAINE 2.5 %-2.* Apply to port site 20 min. pr* WARFARIN 1 MG TABLET Taking 1mg with 4 mg pill missy* TICAGRELOR 90 MG TABLET Take 1 tablet by mouth twice * AMIODARONE 200 MG TABLET Take 1 tablet by mouth once d* ASPIRIN 81 MG TABLET,DELAYED * Take 1 tablet by mouth once d* ATORVASTATIN 80 MG TABLET Take 1 tablet by mouth daily * PANTOPRAZOLE 40 MG TABLET,DEL* Take 1 tablet by mouth daily * COMPOUNDED PRESCRIPTION Powerstep orthotic (M72.2) P* IV CONTRAST (RADIOLOGY PROCED* CT Chest W -Inject, intraveno* Medication notes this encounter WARFARIN 1 MG TABLET >> Shanna Adam MA 12/10/2017 3:27 PM >> SHANNA ADAM MA SunDec 10, 2017 3:27 PM Taking 2mg daily except 4mg on Fridays. ONDANSETRON HCL 8 MG TABLET >> Shanna Adma MA 12/10/2017 3:27 PM >> SHANNA ADAM MA SunDec 10, 2017 3:27 PM No longer taking. METOPROLOL TARTRATE 25 MG TABLET >> Shanna Adam MA 12/10/2017 3:28 PM >> SHANNA ADAM MA SunDec 10, 2017 3:28 PM No longer taking. Problem List As Of Date 12/10/2017 Noted Resolved PROSTATITIS NOS [N41.9] INVALID FOR*09/20/2006 BPH w urinary obs/LUTS [N40.1, N13.8] INVALID FOR* Malignant neoplasm of bladder (HCC) [C67.9] INVALID FOR* More... Cervicalgia [M54.2] INVALID FOR* More... ALLERGIC RHINITIS NOS [J30.9] INVALID FOR* More... More... Lumbago [M54.5] INVALID FOR* Sprain and Strain of Unspecified Site of Should*INVALID FOR* Abdominal Pain, Left Lower Quadrant [R10.32] INVALID FOR* Constipation, Chronic [K59.09] INVALID FOR* Suprapubic Pain [R10.2] INVALID FOR* Unspecified orchitis and epididymitis [N45.3] INVALID FOR* Inguinal hernia, right [K40.90] INVALID FOR* Unilat ing hernia [K40.90] INVALID FOR* Osteoarthritis of knee [M17.10] INVALID FOR* Bilateral knee pain [M25.561, M25.562] INVALID FOR* Inguinal pain, lower right quadrant [R10.31] INVALID FOR* Mitral valve prolapse [I34.1] INVALID FOR* Mitral regurgitation due to cusp prolapse [I34.*INVALID FOR*11/02/2016 Anxiety [F41.9] INVALID FOR* Low back pain [M54.5] INVALID FOR* Non-rheumatic mitral regurgitation [I34.0] INVALID FOR* Mantle cell lymphoma of lymph nodes of multiple*INVALID FOR* Diverticulosis of colon (without mention of hem*INVALID FOR* Lymphoma, mantle cell, multiple sites (HCC) [C8*INVALID FOR* More... Atrial fibrillation, chronic (HCC) [I48.2] INVALID FOR* S/P coronary artery stent placement [Z95.5] INVALID FOR* Encounter Status:Closed by FAUSTINO GEORGE DO on 12/10/17 PROTHROMBIN TIME W/INR Collected: 12/07/2017 Status: F Source: OLIVIA 2:55 PM [facility] REPOSITORY TYPE CODE TESTS RESULT OUT OF RANGE REFERENCE UNITS LAB L300.4150 11.7-14.9 SECONDS High PROTIME 25.1 LAB L300.4200 Normal INR 2.3 Performed By: #### L300.3900 #### [facility] [place], [address] CONWAY ABS GR + CBC Collected: 11/26/2017 Status: F Source: TR[place] 3:26 PM [facility] REPOSITORY TYPE CODE TESTS RESULT OUT OF REFERENCE UNITS RANGE LAB WWBC 3.70-11.00 k/uL [facility] WBC 4.26 LAB WRBC 4.20-6.00 m/uL Low [facility] RBC 3.71 LAB WHGB 13.0-17.0 g/dL [facility] Hemoglobin 13.0 LAB WHCT 39.0-51.0 % Low [facility] Hematocrit 37.9 LAB WMCV 80.0-100.0 fL [facility] High MCV 102.2 LAB WMCH 26.0-34.0 pg [place] High MCH 35.0 LAB WMCHC 30.5-36.0 g/dL Olivia MCHC 34.3 LAB WRDW 11.5-15.0 % Olivia High RDW 16.9 LAB WPLT 150-400 k/uL [facility] Platelet Cnt 188 LAB WMPV 9.0-12.7 fL [facility] High MPV 13.9 Result Comment: Test performed at: [facility], [address] [place] [address] Rd[address] [place] [address]. LAB ABGRAN 1.45-7.50 k/uL Absol Gran 2.68 Count PROTHROMBIN TIME W/INR Collected: 11/23/2017 Status: F Source: CON[place]AY 2:51 PM [facility] REPOSITORY TYPE CODE TESTS RESULT OUT OF RANGE REFERENCE UNITS LAB L300.4150 11.7-14.9 SECONDS High PROTIME 18.3 LAB L300.4200 Normal INR 1.5 Performed By: #### L300.3900 #### [facility] [address] [place], [address] CONWAY ABS GR + CBC Collected: 11/19/2017 Status: F Source: TROY 11:26 AM [facility] REPOSITORY TYPE CODE TESTS RESULT OUT OF REFERENCE UNITS RANGE LAB WWBC 3.70-11.00 k/uL [place] WBC 5.19 Result Comment: Result rechecked. No clot detected. LAB WRBC 4.20-6.00 m/uL [facility] RBC Low 3.86 LAB WHGB 13.0-17.0 g/dL [facility] Hemoglobin 13.6 LAB WHCT 39.0-51.0 % [facility] Hematocrit 39.5 LAB WMCV 80.0-100.0 fL [facility] MCV High 102.3 LAB WMCH 26.0-34.0 pg [facility] MCH High 35.2 LAB WMCHC 30.5-36.0 g/dL [facility] MCHC 34.4 LAB WRDW 11.5-15.0 % Olivia RDW High 16.6 LAB WPLT 150-400 k/uL [facility] Platelet Cnt 207 LAB WMPV 9.0-12.7 fL Olivia MPV 11.6 Result Comment: Test performed at: [address] [place] [address]. LAB ABGRAN 1.45-7.50 k/uL Absol Gran 2.99 Count Performed By: #### WAGCBC #### [facility] [address] [place], [place] [address] OLIVIA ABS GR + CBC Collected: 11/12/2017 Status: F Source: TROY 3:40 PM [facility] REPOSITORY TYPE CODE TESTS RESULT OUT OF REFERENCE UNITS RANGE LAB WWBC 3.70-11.00 k/uL [facility] WBC 5.41 LAB WRBC 4.20-6.00 m/uL Low [facility] RBC 3.77 LAB WHGB 13.0-17.0 g/dL [facility] Hemoglobin 13.2 LAB WHCT 39.0-51.0 % [facility] Hematocrit 39.0 LAB WMCV 80.0-100.0 fL [place] High MCV 103.4 LAB WMCH 26.0-34.0 pg [place] High MCH 35.0 LAB WMCHC 30.5-36.0 g/dL [facility] MCHC 33.8 LAB WRDW 11.5-15.0 % [place] High RDW 16.9 LAB WPLT 150-400 k/uL [facility] Platelet Cnt 266 LAB WMPV 9.0-12.7 fL Olivia MPV 12.0 Result Comment: Test performed at: [address] [place] [address]. LAB ABGRAN 1.45-7.50 k/uL Absol Gran 3.48 Count PROTIME W/INR Collected: 11/02/2017 Status: F Source: OLIVIA FINGERSTICK 3:02 PM [facility] REPOSITORY TYPE CODE TESTS RESULT OUT OF REFERENCE UNITS RANGE LAB L9200.1001 11.9-14.4 SEC High PROTIME ISTAT 30.1 Result Comment: Reference Range 11.9 - 14.4 LAB L9200.2000 Normal INR ISTAT 2.60 Result Comment: Critical Value > 3.5 Performed By: #### L9200.0000 #### [facility] [address] [place] [address] OLIVIA ABS GR + CBC Collected: 10/29/2017 Status: F Source: TROY 3:11 PM [facility] REPOSITORY TYPE CODE TESTS RESULT OUT OF REFERENCE UNITS RANGE LAB WWBC 3.70-11.00 k/uL [facility] WBC 5.55 LAB WRBC 4.20-6.00 m/uL Low [facility] RBC 3.61 LAB WHGB 13.0-17.0 g/dL [facility] Hemoglobin 13.0 LAB WHCT 39.0-51.0 % Low [place] Hematocrit 36.6 LAB WMCV 80.0-100.0 fL [place] High MCV 101.4 LAB WMCH 26.0-34.0 pg [facility] High MCH 36.0 LAB WMCHC 30.5-36.0 g/dL [facility] MCHC 35.5 LAB WRDW 11.5-15.0 % [facility] High RDW 16.1 LAB WPLT 150-400 k/uL [facility] Platelet Cnt 154 LAB WMPV 9.0-12.7 fL [facility] High MPV 14.2 Result Comment: Test performed at: [facility], [address] [place] [address]. LAB ABGRAN 1.45-7.50 k/uL Absol Gran 3.27 Count OLIVIA ABS GR + CBC Collected: 10/22/2017 Status: F Source: TROY 3:19 PM [facility] REPOSITORY TYPE CODE TESTS RESULT OUT OF REFERENCE UNITS RANGE LAB WWBC 3.70-11.00 k/uL [facility] WBC 3.95 LAB WRBC 4.20-6.00 m/uL Low [facility] RBC 3.78 LAB WHGB 13.0-17.0 g/dL [facility] Hemoglobin 13.2 LAB WHCT 39.0-51.0 % [place] Hematocrit 39.2 LAB WMCV 80.0-100.0 fL [facility] High MCV 103.7 LAB WMCH 26.0-34.0 pg [facility] High MCH 34.9 LAB WMCHC 30.5-36.0 g/dL [place] MCHC 33.7 LAB WRDW 11.5-15.0 % [place] High RDW 15.7 LAB WPLT 150-400 k/uL [facility] Platelet Cnt 171 LAB WMPV 9.0-12.7 fL [facility] High MPV 13.2 Result Comment: Test performed at: [address] [place] [address]. LAB ABGRAN 1.45-7.50 k/uL Absol Gran 2.50 Count Performed By: #### WAGCBC #### [facility] [address] [place], [place] [address] OLIVIA ABS GR + CBC Collected: 10/15/2017 Status: F Source: TROY 3:20 PM [facility] REPOSITORY TYPE CODE TESTS RESULT OUT OF REFERENCE UNITS RANGE LAB WWBC 3.70-11.00 k/uL [facility] WBC 4.35 LAB WRBC 4.20-6.00 m/uL Low [facility] RBC 3.58 LAB WHGB 13.0-17.0 g/dL Low [facility] Hemoglobin 12.7 LAB WHCT 39.0-51.0 % Low [facility] Hematocrit 37.4 LAB WMCV 80.0-100.0 fL [facility] High MCV 104.5 LAB WMCH 26.0-34.0 pg [place] High MCH 35.5 LAB WMCHC 30.5-36.0 g/dL [place] MCHC 34.0 LAB WRDW 11.5-15.0 % [facility] High RDW 15.8 LAB WPLT 150-400 k/uL [facility] Platelet Cnt 217 LAB WMPV 9.0-12.7 fL [facility] MPV 12.3 Result Comment: Test performed at: [address] [place] [address]. LAB ABGRAN 1.45-7.50 k/uL Absol Gran 2.78 Count PROTIME Collected: 10/15/2017 Status: F Source: TROY 3:20 PM [facility] REPOSITORY TYPE CODE TESTS RESULT OUT OF RANGE REFERENCE UNITS LAB PSEC 9.7-13.0 sec High PT Sec 16.7 LAB INR 0.9-1.3 High PT INR 1.7 Result Comment: Vitamin K Antagonist (VKA) Therapeutic Range: INR 2 to 3 (Target INR of 2.5) Note: For patients treated with VKA drugs, such as warfarin, the [place] [employer] 2012 Guideline recommends a therapeutic INR range of 2 to 3 (target INR of 2.5). This recommendation includes high-risk patients with antiphospholipid syndrome with previous arterial or venous thromboembolism, current-generation mechanical or bioprosthetic aortic heart valve replacement. Note: Patients with mechanical aortic valve replacement and additional risk factors for thromboembolic events (atrial fibrillation, previous thromboembolism, LV dysfunction, hypercoagulable conditions) or an older generation mechanical AVR (i.e., ball in-Cage) or any mechanical MVR should have a INR therapeutic range of 2.5 to 3.5 (target INR of 3). Mariitt GH, et al. Chest 2012, 141:7S-47S Salty RA, et al. [facility] 2017, 70: 252-289 Performed By: #### PT #### [facility] [address], [place] [address] PROTHROMBIN TIME W/INR Collected: 10/12/2017 Status: F Source: CONWAY 3:05 PM [facility] REPOSITORY TYPE CODE TESTS RESULT OUT OF RANGE REFERENCE UNITS LAB L300.4150 11.7-14.9 SECONDS High PROTIME 22.6 LAB L300.4200 Normal INR 2.0 Performed By: #### L300.3900 #### [facility] [address] [facility] [place], [place], [address] CONWAY ABS GR + CBC Collected: 10/01/2017 Status: F Source: TROY 3:32 PM [facility] REPOSITORY TYPE CODE TESTS RESULT OUT OF REFERENCE UNITS RANGE LAB WWBC 3.70-11.00 k/uL [facility] WBC 4.16 LAB WRBC 4.20-6.00 m/uL Low [facility] RBC 3.52 LAB WHGB 13.0-17.0 g/dL Low [facility] Hemoglobin 12.3 LAB WHCT 39.0-51.0 % Low [facility] Hematocrit 36.4 LAB WMCV 80.0-100.0 fL [place] High MCV 103.4 LAB WMCH 26.0-34.0 pg [facility] High MCH 34.9 LAB WMCHC 30.5-36.0 g/dL [facility] MCHC 33.8 LAB WRDW 11.5-15.0 % [facility] RDW 14.7 LAB WPLT 150-400 k/uL [facility] Platelet Cnt 152 LAB WMPV 9.0-12.7 fL [facility] High MPV 13.6 Result Comment: Test performed at: [facility], [address] [place] [address] Rd[address] [place] [address]. LAB ABGRAN 1.45-7.50 k/uL Absol Gran 2.40 Count PROTHROMBIN TIME W/INR Collected: 09/28/2017 Status: C Source: CON[place]AY 3:05 PM [facility] REPOSITORY TYPE CODE TESTS RESULT OUT OF REFERENCE UNITS RANGE LAB L300.4150 11.7-14.9 SECONDS High PROTIME 37.8 LAB L300.4200 High alert INR 3.8 Result Comment: RESULTS CALLED TO DR. JOHNSON 09/28/[id number] Jose Stringer. REPORT READ BACK BY SAME. AMENDED REPORT 09/28/171707 INR previously reported as: 3.8 *H Performed By: #### L300.3900 #### [facility] [address] [place], [address] OLIVIA ABS GR + CBC Collected: 09/24/2017 Status: F Source: TROY 3:33 PM [facility] REPOSITORY TYPE CODE TESTS RESULT OUT OF REFERENCE UNITS RANGE LAB WWBC 3.70-11.00 k/uL [facility] WBC 4.89 LAB WRBC 4.20-6.00 m/uL Low [place] RBC 3.80 LAB WHGB 13.0-17.0 g/dL [facility] Hemoglobin 13.3 LAB WHCT 39.0-51.0 % [facility] Hematocrit 39.3 LAB WMCV 80.0-100.0 fL [facility] High MCV 103.4 LAB WMCH 26.0-34.0 pg [place] High MCH 35.0 LAB WMCHC 30.5-36.0 g/dL [facility] MCHC 33.8 LAB WRDW 11.5-15.0 % [facility] RDW 14.7 LAB WPLT 150-400 k/uL [facility] Platelet Cnt 184 LAB WMPV 9.0-12.7 fL [facility] MPV 12.2 Result Comment: Test performed at: [facility], [address] [place] [address]. LAB ABGRAN 1.45-7.50 k/uL Absol Gran 3.35 Count OLIVIA ABS GR + CBC Collected: 09/17/2017 Status: F Source: TROY 3:07 PM [facility] REPOSITORY TYPE CODE TESTS RESULT OUT OF REFERENCE UNITS RANGE LAB WWBC 3.70-11.00 k/uL [facility] WBC 5.34 LAB WRBC 4.20-6.00 m/uL Low [place] RBC 3.75 LAB WHGB 13.0-17.0 g/dL [place] Hemoglobin 13.6 LAB WHCT 39.0-51.0 % Low [facility] Hematocrit 37.8 LAB WMCV 80.0-100.0 fL [facility] High MCV 100.8 LAB WMCH 26.0-34.0 pg [place] High MCH 36.3 LAB WMCHC 30.5-36.0 g/dL [place] MCHC 36.0 LAB WRDW 11.5-15.0 % Olivia RDW 14.7 LAB WPLT 150-400 k/uL [facility] Platelet Cnt 225 LAB WMPV 9.0-12.7 fL Olivia MPV 11.6 Result Comment: Test performed at: [facility], [address] [place] [address]. LAB ABGRAN 1.45-7.50 k/uL Absol Gran 3.74 Count PROTHROMBIN TIME W/INR Collected: 09/14/2017 Status: F Source: CONWAY 3:02 PM [facility] REPOSITORY Order Comment: Comments: Standing order Comments: Standing order TYPE CODE TESTS RESULT OUT OF RANGE REFERENCE UNITS LAB L300.4150 11.7-14.9 SECONDS High PROTIME 28.0 LAB L300.4200 Normal INR 2.6 Performed By: #### L300.3900 #### [facility] [address] [place], [address] PROGRESS Observed: 09/10/2017 Status: COMPLETED Source: TROY 3:31 PM [facility] REPOSITORY HNO ID: [id number] Author: Tiara Gordillo (Sw) Service: (none) Author Type: Bicycle Service Technician Type: Progress Notes Filed: 09/10/2017 3:33 PM Note Text: Social Work Problem Referral Note INFORMATION/REFERRAL : Bandar Love 67 year old male was referred by [facility] Social Work for the following reason(s): Jury duty PERSONS INTERVIEWED: patient INTERVENTION: Information AND Referral Service Co-ordination Affect/Mood: The patient is noted as appropriate IDENTIFIED PROBLEMS/NEEDS: jury duty letter Intervention/Referral to be provided:No further intervention required IMPRESSION/PLAN: Patient met with JAMSHID to discuss letter he needs for jury duty. Patient is receiving chemotherapy weekly and will be unable to serve for jury duty. Patient needs letter from doctor stating this. SW completed and had doctor review/sign. Patient denies other needs. F/U APPOINTMENT: DENISE Griffin Observed: 09/10/2017 Status: COMPLETED Source: TROY 12:00 AM [facility] REPOSITORY Letter Text Faustino George D.O. 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 He is receiving weekly chemotherapy for this condition. Please excuse Mr Rico from jury duty at this time and feel free to contact me with any questions or concerns. Sincerely, DO SONIA Valentino Observed: 09/10/2017 Status: COMPLETED Source: TROY 12:00 AM [facility] REPOSITORY Social Work (JENNY) BANDAR LOVE ([id number]) 1950 M Date Time Provider Department 09/10/17 TIARA GORDILLO) JENNY During your visit today, we recorded the following information about you: DENISE Oliveira 09/10/2017 3:33 PM Signed Social Work Problem Referral Note INFORMATION/REFERRAL : Bandar Love 67 year old male was referred by [facility] Social Work for the following reason(s): Jury duty PERSONS INTERVIEWED: patient INTERVENTION: Information AND Referral Service Co-ordination Affect/Mood: The patient is noted as appropriate IDENTIFIED PROBLEMS/NEEDS: jury duty letter Intervention/Referral to be provided:No further intervention required IMPRESSION/PLAN: Patient met with JAMSHID to discuss letter he needs for jury duty. Patient is receiving chemotherapy weekly and will be unable to serve for jury duty. Patient needs letter from doctor stating this. JAMSHID completed and had doctor review/sign. Patient denies other needs. F/U APPOINTMENT: PRN DENISE Oliveira Allergies As of Date: 09/10/2017 Noted Allergy Reaction AMPICILLIN 05/01/2005 4 - Hives CEPHALEXIN 05/01/2005 8 - GI Upset PYRIDIUM (PHENAZOPYRIDINE HCL) 04/13/2006 2 - Rash TRAZODONE 04/23/2014 5 - Intolerance Comments: Dizziness; nausea Date Reviewed: 09/03/2017 Reviewed by: Joanie Mcginnis, RN, RN - Fully Assessed Reason for Visit: Social Work Services [507] Prescriptions as of 09/10/2017 Sig: LIDOCAINE-PRILOCAINE 2.5 %-2.* Apply to port site 20 min. pr* WARFARIN 1 MG TABLET Taking 1mg with 4 mg pill missy* TICAGRELOR 90 MG TABLET Take 1 tablet by mouth twice * AMIODARONE 200 MG TABLET Take 1 tablet by mouth once d* ASPIRIN 81 MG TABLET,DELAYED * Take 1 tablet by mouth once d* ATORVASTATIN 80 MG TABLET Take 1 tablet by mouth daily * PANTOPRAZOLE 40 MG TABLET,DEL* Take 1 tablet by mouth daily * GABAPENTIN 100 MG CAPSULE Take 1 capsule by mouth daily* VENLAFAXINE ER 37.5 MG CAPSUL* Take 1 capsule by mouth once * METOPROLOL TARTRATE 25 MG TAB* Take 0.5 tablets by mouth twi* ONDANSETRON HCL 8 MG TABLET Take 1 tablet by mouth every * COMPOUNDED PRESCRIPTION Powerstep orthotic (M72.2) P* WARFARIN 4 MG TABLET Take 1 tablet by mouth once d* Problem List As Of Date 09/10/2017 Noted Resolved PROSTATITIS NOS [N41.9] INVALID FOR*09/20/2006 BPH w urinary obs/LUTS [N40.1, N13.8] INVALID FOR* Malignant neoplasm of bladder (HCC) [C67.9] INVALID FOR* More... Cervicalgia [M54.2] INVALID FOR* More... ALLERGIC RHINITIS NOS [J30.9] INVALID FOR* More... More... Lumbago [M54.5] INVALID FOR* Sprain and Strain of Unspecified Site of Should*INVALID FOR* Abdominal Pain, Left Lower Quadrant [R10.32] INVALID FOR* Constipation, Chronic [K59.09] INVALID FOR* Suprapubic Pain [R10.2] INVALID FOR* Unspecified orchitis and epididymitis [N45.3] INVALID FOR* Inguinal hernia, right [K40.90] INVALID FOR* Unilat ing hernia [K40.90] INVALID FOR* Osteoarthritis of knee [M17.10] INVALID FOR* Bilateral knee pain [M25.561, M25.562] INVALID FOR* Inguinal pain, lower right quadrant [R10.31] INVALID FOR* Mitral valve prolapse [I34.1] INVALID FOR* Mitral regurgitation due to cusp prolapse [I34.*INVALID FOR*11/02/2016 Anxiety [F41.9] INVALID FOR* Low back pain [M54.5] INVALID FOR* Non-rheumatic mitral regurgitation [I34.0] INVALID FOR* Mantle cell lymphoma of lymph nodes of multiple*INVALID FOR* Diverticulosis of colon (without mention of hem*INVALID FOR* Lymphoma, mantle cell, multiple sites (HCC) [C8*INVALID FOR* More... Atrial fibrillation, chronic (HCC) [I48.2] INVALID FOR* S/P coronary artery stent placement [Z95.5] INVALID FOR* Encounter Status:Closed by TIARA GORDILLO on 09/10/17 CR - HISTORY AND Observed: 09/08/2017 Status: F Source: OLIVIA PHYSICAL 11:34 AM [facility] REPOSITORY [facility] [address] [place] [address] CR - History AND Physical MR#: [id number] Acct: [id number] Name: BANDAR LOVE Rep #: [id number] : 1950 67 From: Salvador Steiner BS, RVT PCP: Imani Lutz MD DOS: 08/29/17 CR - History AND Physical - General Arrival date:: 08/29/17 Arrival time:: 13:22 Date of Referral:: 08/16/17 Date of CR Evaluation:: 08/29/17 Referring Physician: Dr. Rodriguez Primary Diagnosis: Z95.5, I 25.1 08/16/2017 - History of Present Cardiac Event Onset Date: Enter Onset Date of cardiac illnesses in Comment field below Acute Myocardial Infarction within 12 months:: Yes PTCA or coronary stenting:: Yes - Medications Home Medications: Ambulatory Orders Medication Instructions Recorded Gabapentin [Neurontin] 100 mg PO QHS 12/12/16 Pantoprazole Sodium [Protonix] 40 mg PO DAILY 12/12/16 Warfarin Sodium [Coumadin] 5 mg PO DAILY #30 tablet 12/20/16 - Allergies Allergies/Adverse Reactions: Allergies ampicillin Allergy (Verified 12/12/16 11:37) Rash phenazopyridine [Phenazopyridine] Allergy (Verified 12/12/16 11:37) Rash cephalexin [Cephalexin] Adverse Reaction (Verified 12/12/16 11:37) Upset Stomach trazodone Adverse Reaction (Verified 12/12/16 11:37) Nausea - Sleep Disorder Evaluation Hx of Sleep Apnea: No Do you snore loudly (louder than talking or can be heard through closed doors)?: No Do you often feel tired/ fatigued/ sleepy during daytime?: No Has anyone observed you stop breathing during sleep?: No History of Hypertension (for STOP score): No STOP Results: Negative Advanced Directives - Advanced 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 Living Will: Yes Advance Directives Information Provided: Yes Advance Directives on File: Yes DNR Order?:: No Past Medical History - Past Medical Illness Medical History: Past Medical History (Last Updated 08/22/17 @ 15:14 by Keara Peres) H/O endoscopy (Resolved) Z98.890 with bx gastric body 11/24/16 port placement (Resolved) 06/13/16 bone marrow (Resolved) 05/22/16 - Past Surgical History Surgical History: Past Surgical History (Last Updated 08/22/17 @ 15:14 by Keara Peres) 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 - Family History Summary Family History: Family History (Last Updated 08/22/17 @ 15:15 by Keara Peres) Mother Breast cancer Lung disease Father CVA (cerebral vascular accident) Heart disease Afib CHF (congestive heart failure) Myocardial infarction Hx of CABG Social History - Smoking History Smoking Status: Never smoker Hx Tobacco Use: No Hx Smoking Exposure: No - Alcohol Use Alcohol Usage: No - Substance Abuse Hx Substance Use: No - Occupation Occupation (List type of work in comments):: Retired - Hobbies, Recreation, Social Activities Hobbies: Woodworking Recreational Activities: I am able to engage in all my recreational activities Social Environment - Status Marital Status: - Current Living Arrangements Living Environment:: Spouse - Children How many children do you have?: 2 Do any of your children live nearby?: Yes - Safety Do you feel safe in your surroundings?: Yes - Assistance Do you need any assistance at home?: none Review of Systems - Review of Systems Hints: Right click = Denies (Slash). Left click = Reports ([place]) Review of Present Symptoms: Reports: Angina, Fatigue, Heart Arrhythmia/Irregularities - A-fib, Appetite - Normal, Sleep - Normal. Denies: Shortness of Breath at Rest, Shortness of Breath with Exertion, PVD, Operative Discomfort, Wound Healing, Dizziness/Lightheadedness, Appetite - Special Diet, Sexual Changes - Pain Is Patient Pain Free?: Yes Risk Factor Assessment - Chief Complaint Chief Complaint: CP - Vital Signs Pulse Ox: 97 - Pulse Pulse Rate: 74 Pulse Rhythm: Regular - Hypertension Blood Pressure Sitting - Left Arm: 100/62 - Stress Stress: Recent - Diabetes Nutrition Referral for Diabetes: No - Obesity Height: 1.73 m Weight:: 60.781 kg Weight in Pounds: 134.0 lbs Body Mass Index (BMI): 20.3 Nutritional Referral for Obesity: No - Physical Inactivity Physical Inactivity: None - Risk Stratification Risk Guidelines: Lowest Risk: Risk Factor for Obesity, Moderate Risk: Risk Factor for Smoking, Risk Factor for Dyslipidemia, Risk Factor for Diabetes, Risk Factor for Hypertension, Risk Factor for Sedentary Lifestyle, Risk Factor for Depression - For Smoking Smoking Risk Guidelines: Smoking Low Risk: None or quit greater than 6 months ago. Smoking Moderate Risk: Smoker or quit 6 months or less ago. Smoking High Risk: Smoker - For Dyslipidemia Dyslipidemia Risk Guidelines: Low Risk: Moderate Risk: High Risk: 15-25% fat 25.1-29% fat >/= 30% fat. <7% sat fat 7-9% sat fat >9% sat fat. <150 mg chol 150-299 mg chol >/= 300 mg chol. LDL <100 LDL 100-129 LDL >/= 130. Chol/HDL ratio <5.0 Chol/HDL ratio 5.0-6.0 Chol/HDL ratio >6.0. Triglycerides <100 Triglycerides 100-149 Triglycerides >/= 150 - For Diabetes Mellitus Diabetes Risk Guidelines: Diabetes Low Risk: HgA1c <6.5% and/or FBG <120. Diabetes Moderate Risk: HgA1c 6.6-7.9% and/or FBG 120- 180. Diabetes High Risk: HgA1c >/= 8% and/or FBG >180 - For Obesity/Overweight Obesity/Overweight Risk Guidelines: Obesity Low Risk: BMI <25.0. Obesity Moderate Risk: BMI 25-29.9. Obesity High Risk: BMI >/= 30.0 - For Hypertension Hypertension Risk Guidelines: Hypertension Low Risk: Systolic <120 and Diastolic <80. Hypertension Moderate Risk: Systolic 120-139 and Diastolic 80-89. Hypertension High Risk: Systolic >/= 140 and Diastolic >/= 90 - For Sedentary Lifestyle Sedentary Lifestyle Risk Guidelines: Sedentary Lifestyle Low Risk: >/= 1,500 kcal/week. Sedentary Lifestyle Moderate Risk: 700-1,499 kcal/week. Sedentary Lifestyle High Risk: < 700 kcal/week - For Depression Depression Risk Guidelines: Depression Low Risk: Not clinically depressed. Depression Moderate Risk: Mildly depressed. Depression High Risk: Clinically depressed - Family History Family History: Family History (Last Updated 08/22/17 @ 15:15 by Keara Peres) Mother Breast cancer Lung disease Father CVA (cerebral vascular accident) Heart disease Afib CHF (congestive heart failure) Myocardial infarction Hx of CABG Motivation - Motivation to Participate On a scale of 1 to 10, how prepared are you to commit to attending program?: 5 What do you see as barriers to successfully being able to complete the program?: lymphoma and chemo What do you see as the benefits of succesfully completing the program? In other words, what do you hope to get out of participating in the program?: improved health Are there issues you are dealing with that will interfere with completing the program?: chemo, lymphoma Do you have a spouse or signficant other, family or friends who will help support you to complete the program?: yes 08/29/17 1419 <Electronically signed by Salvador HARRIS, RVT> Date Salvador HARRIS, RVT Outcome assessment reviewed. Exercise plan approved as documented. Treatment plan and goals support patient needs/abilities. Continue with current plan. I certify the patient demonstrates improvement and remains willing and capable of participation. the patient continues to benefit from cardiac rehab services/training. The patient may continue at current intensity, endurance and modality and progress per protocol. 09/08/17 1134 <Electronically signed by Isacc Rodriguez MD> Cosigner Signature: Date Isacc Rodriguez MD CC: Signed CARDIOLOGY VISIT Observed: 09/08/2017 Status: F Source: OLIVIA REPORT 11:34 AM [facility] REPOSITORY [facility] [address] [place], [place] [address]miguel. [address] [place] [address] OFFICE VISIT Date of Service: 08/31/17 MR#: [id number] Acct: [id number] Name: RUTHYBANDAR Crowell Rep #: [id number] : 1950 Provider: OMAR Hurst Age/Sex: 67/M Location: [facility] Status: Signed HPI HPI Details: BANDAR LOVE, is a 67 M who presents to the office today for a cardiovascular outpatient follow-up. He has a history of atrial fibrillation, mitral valve insufficiency, tricuspid valve insufficiency, hypertension, and hyperlipidemia, and acute lymphoma with chemotherapy. He presented to [facility] emergency department in July 2017 after developing midsternal chest pain. His EKG showed ST elevation in lead II, III, and aVF. He was transferred to cardiac cath. He underwent bare metal stenting to proximal RCA. The plan was to undergo elective PCI to LAD and diagonal in 3 weeks. He later underwent successful PTCA/ROMULO to proximal diagonal 1 and mid LAD. Pt denies chest, arm, jaw, or neck discomfort. His exercise tolerance is stable. Pt denies symptoms of CHF, palpitations, lightheadedness, dizziness, near syncopal or syncopal episodes. Pt denies edema or claudication issues. Pt. denies orthopnea, PND, fever, chills, blood in urine, blood in stool, or myalgia. Pt. states numbness in his feet that is understands is from chemotherpay. Pt. will begin cardiac rehab. 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) H/O endoscopy (Resolved) port placement (Resolved) bone marrow (Resolved) Atrial fibrillation (Chronic) Surgical History H/O splenectomy (Resolved) Hx of tonsillectomy (Resolved) H/O hernia repair (Resolved) History of prostate surgery (Resolved) History of bladder surgery (Resolved) Hx of colonoscopy (Resolved) Family History Mother Breast cancer Lung disease Father CVA (cerebral vascular accident) Heart disease Afib CHF (congestive heart failure) Myocardial infarction Hx of CABG Social History Smoking Status: Never smoker alcohol intake: never substance use type: does not use caffeine: No what type of physical activity do you participate in: other details: therapy seatbelt use: always do you feel safe at home: Yes ROS Const Const: Positive for fatigue; negative for weakness, body ache, fever(s) or chills ENT ENT: Negative for dizziness Cardio Chest Pain: No Palpitations: No Edema: None Muscle aches with walking: None Resp Respiratory: Negative for SOB with activity, SOB at rest, SOB orthopnea\SOB lying down or paroxysmal nocturnal dyspnea GI GI: Negative nausea, black,tarry stools, bright, red blood in stools or vomiting blood/hematemesis : Negative for hematuria or frequent nighttime urination/ nocturia Musc Musc: Negative for muscle aches/ myalgia Neuro Neuro: Positive for other (numbness); negative for lightheadedness, near syncope, syncope, orthostatic symptoms, weakness or dizziness Endo Endo: Positive for fatigue Cardiology Exam Const Appearance: cooperative, healthy appearing, comfortable and no acute distress Orientation: alert, awake and oriented x3 Head Head: normal to inspection Mouth: oral mucosae normal Neck Neck: no JVD and normal visual inspection Carotids: normal carotid upstroke Chest Chest inspection: normal inspection of the chest and normal respiratory effort Auscultation: Bilateral: Clear to Auscultation Cardio Rate: regular rate Rhythm: irregular rhythm Heart sounds: S2 normal and murmur; negative rub or gallop Murmur: Grade 2/6 and LLSB GI GI: normal to inspection Neuro General: alert, awake, oriented x3 and CN's II-XI intact bilaterally Skin Skin: no rashes or lesions noted Extremities Pulses: Normal: Right Posterior Tibial Pulse, Left Posterior Tibial Pulse, Right Radial Pulse, Left Radial Pulse Lower Extremity Edema: None: Bilateral Psych Psychological: normal affect Supplemental Info Echocardiogram from July 2017 showed estimated ejection fraction of 45-50%, moderate enlarged left atrium, moderate mitral valve insufficiency, mild tricuspid valve insufficiency, RVSP of 33 mmHg, and when compared to previous echocardiogram in December 2016 there is new inferior/posterior wall motion hypokinesis and ejection fraction has decreased from 65% to 50% and RVSP estimated the same. Patient appears to be in atrial fibrillation. Echocardiogram May 2017 at [facility] showed mild concentric LVH, estimated ejection fraction of 54 5%, severely dilated left atrium, mildly dilated right atrium, moderately severe holosystolic mitral valve regurgitation due to prolapse, regurgitation orifice area of 0.32 cm , bileaflet prolapse with posterior greater than anterior, and patient in atrial fibrillation. Assessment AND Plan 1. Atherosclerosis of coronary artery bypass graft of [place] heart without angina pectoris I25.810 TNK-MKE-Gdio RCA 4.0 x 26 mm Integrity Stent 07/27/17; ROMULO to prox Diag and Mid LAD 08/15/2017 Plan - CRISS Wang He will begin cardiac rehab. We will reassess his overall progress towards the end of cardiac rehab in office. Patient denies any chest pain, arm pain, jaw pain, neck pain, shortness of breath, or fatigue suggestive of angina at this time. We will continue to monitor this. We will not make any medication regimen changes and will continue risk factor modification. 2. History of coronary artery stent placement Z95.5 NCP-TID-Prbn RCA 4.0 x 26 mm Integrity Stent 07/27/17; ROMULO to proximal diagonal and mid LAD 08/15/17; CRISS El We will continue current plan as outlined above. Orders Orders: 3. Chronic atrial fibrillation I48.2 CRISS El Echocardiogram from July 2017 showed estimated ejection fraction 45-50% and moderately enlarged left atrium. Patient's EKG in office showed atrial fibrillation at controlled rate of 51 bpm. Patient is on amiodarone therapy, low-dose beta-cristhian, and Coumadin therapy. He denies any secondary symptoms with this. The plan posthospitalization was to undergo a cardioversion once INR is therapeutic for 4 weeks. He will have his INR drawn today and medications adjusted accordingly. We will reevaluate cardioversion at next office visit if not sooner. 4. retirement current use of anticoagulant Z79.01 CRISS El Patient will continue with Coumadin therapy with an INR goal of 2 3. Dose Management Start Date: 08/31/17 16:06 Duration: Reason: retirement current use of anticoagulant Lab Test Data Target INR range is: 2.0 - 3.0 INR Recheck 1.50 08/31/17 09/07/17 Daily Dosing Information Daily Dosing for Warfarin entered on: 08/31/17Sunday 2 mg 2 mg 2 mg 2 mg 2 mg 4 mg 4 mg Daily Dosing Instructions Starting on Sunday, August 31, 2017, take your medications as shown in the table below: Medication Sunday warfarin 4 mg tablet 0 0 0 0 0 1 Tablet 1 Tablet 5. Nonrheumatic mitral valve insufficiency I34.0 CRISS El Echocardiogram from July 2017 showed moderate mitral valve insufficiency. Echocardiogram from May 2017 at [facility] stated moderately severe mitral valve regurgitation. Patient denies any shortness of breath or activity intolerance. We will continue to monitor this through history, exam, and repeat echocardiogram as needed. We will continue current medications. 6. Non-rheumatic tricuspid valve insufficiency I36.1 CRISS El Echocardiogram from July 2017 showed mild tricuspid valve insufficiency with an RVSP of 33 mmHg. Patient denies any shortness of breath or lower extremity pedal edema. We will continue to monitor this through history, exam, and repeat echocardiogram as needed. 7. Pure hypercholesterolemia E78.00; E78.0 Plan - CRISS Wang Patient's lipid panel from August 2017 show cholesterol: 97, LDL: 42, HDL: 37, and triglycerides: 90. Patient will continue current cholesterol- lowering medication. He will repeat both liver and lipid panel in approximately 6 months. We will wait for results of these tests for further recommendation. Plan Detail Other Orders Orders: Other Medications Discontinued: Additional Comments - CRISS Wang Discussed the above patient with Dr. Rodriguez, he agrees with the plan of care. Thank you for allowing us to participate in the patients plan of care, if you have any questions please do not hesitate to call. This note was generated using a voice recognition system and there may be incorrect words, spelling or punctuation that were not noted when reviewing the office note prior to saving. 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 transplanted heart: [place] heart History of coronary artery stent placement Z95.5 Chronic atrial fibrillation I48.2 Atrial fibrillation type: chronic retirement current use of anticoagulant Z79.01 Nonrheumatic mitral valve insufficiency I34.0 Non-rheumatic tricuspid valve insufficiency I36.1 Pure hypercholesterolemia E78.00; E78.0 Hyperlipidemia type: pure hypercholesterolemia Coding Level of Care Code Off vis,est,level 3 Diagnoses Atherosclerosis of coronary artery bypass graft of [place] heart without angina pectoris I25.810 [place] vs. transplanted heart: [place] heart History of coronary artery stent placement Z95.5 Chronic atrial fibrillation I48.2 Atrial fibrillation type: chronic retirement current use of anticoagulant Z79.01 Nonrheumatic mitral valve insufficiency I34.0 Non-rheumatic tricuspid valve insufficiency I36.1 Pure hypercholesterolemia E78.00; E78.0 Hyperlipidemia type: pure hypercholesterolemia 08/31/17 1618 <Electronically signed by Rayo KAHN> Date Rayo KAHN 09/08/17 1134<Electronically signed by Isacc Rodriguez MD> Cosigner Signature: Date (if applicable) Isacc Rodriguez MD CC: Imani Lutz MD PROTIME W/INR Collected: 09/07/2017 Status: F Source: OLIVIA FINGERSTICK 2:44 PM [facility] REPOSITORY TYPE CODE TESTS RESULT OUT OF REFERENCE UNITS RANGE LAB L9200.1001 11.9-14.4 SEC High PROTIME ISTAT 22.0 Result Comment: Reference Range 11.9 - 14.4 LAB L9200.2000 Normal INR ISTAT 1.90 Result Comment: Critical Value > 3.5 Performed By: #### [id number] #### [facility] Point of Care [address] [place] [address] OLIVIA ABS GR + CBC Collected: 09/03/2017 Status: F Source: [place] 3:12 PM [facility] REPOSITORY TYPE CODE TESTS RESULT OUT OF REFERENCE UNITS RANGE LAB WWBC 3.70-11.00 k/uL [facility] WBC 4.43 LAB WRBC 4.20-6.00 m/uL Low Olivia RBC 3.62 LAB WHGB 13.0-17.0 g/dL Low Olivia Hemoglobin 12.8 LAB WHCT 39.0-51.0 % Low Olivia Hematocrit 37.5 LAB WMCV 80.0-100.0 fL [facility] High MCV 103.6 LAB WMCH 26.0-34.0 pg [facility] High MCH 35.4 LAB WMCHC 30.5-36.0 g/dL [facility] MCHC 34.1 LAB WRDW 11.5-15.0 % Olivia RDW 14.3 LAB WPLT 150-400 k/uL [facility] Platelet Cnt 180 LAB WMPV 9.0-12.7 fL [facility] MPV 12.5 Result Comment: Test performed at: [facility], [address] [place] [address]. LAB ABGRAN 1.45-7.50 k/uL Absol Gran 2.67 Count PROTIME W/INR Collected: 08/31/2017 Status: F Source: OLIVIA FINGER[place]ICK 2:15 PM [facility] REPOSITORY TYPE CODE TESTS RESULT OUT OF REFERENCE UNITS RANGE LAB L9200.1001 11.9-14.4 SEC High PROTIME ISTAT 17.6 Result Comment: Reference Range 11.9 - 14.4 LAB L9200.2000 Normal INR ISTAT 1.50 Result Comment: Critical Value > 3.5 Performed By: #### [id number] #### [facility] Point of Care [address] [place] [address] 12 LEAD EKG PERFORMED Observed: 08/31/2017 Status: F Source: OLIVIA BY [facility] 1:05 PM [facility] REPOSITORY [facility] [address] [place] [address] 12 Lead EKG performed by [facility] 08/31/17 1305 MR#: [id number] Acct: [id number] Name: BANADR LOVE Rep #: [id number] : 1950 67 From: Rayo Hurst PLASTICS SEASONER OPERATOR-C Attending Dr: Rayo Hurst NP Status: DEP AMB Ordering Dr: Rayo HurstC Date: 08/31/17 Location: [facility] Sex: M C Admitted: BMS/12 Lead EKG performed by [facility] ECG Report Interpretation Atrial flutter-fibrillation Low voltage in limb leads. -Old anteroseptal infarct. - Nonspecific T-abnormality. ABNORMAL Electronically signed on 09/24/2017 at 09:34 by Isacc Rodriguez 09/24/17 0936 Date Rayo Hurst PLASTICS SEASONER OPERATOR-C CC: Imani Lutz MD Date Dictated: 08/31/17 1305 Date Transcribed: 08/31/171304 E Commerce Architect: SALLY Signed OLIVIA ABS GR + CBC Collected: 08/27/2017 Status: F Source: [place] 3:10 PM [facility] REPOSITORY TYPE CODE TESTS RESULT OUT OF REFERENCE UNITS RANGE LAB WWBC 3.70-11.00 k/uL [facility] WBC 4.95 LAB WRBC 4.20-6.00 m/uL Low [facility] RBC 4.02 LAB WHGB 13.0-17.0 g/dL [facility] Hemoglobin 14.3 LAB WHCT 39.0-51.0 % [facility] Hematocrit 41.7 LAB WMCV 80.0-100.0 fL Olivia High MCV 103.7 LAB WMCH 26.0-34.0 pg [facility] High MCH 35.6 LAB WMCHC 30.5-36.0 g/dL [facility] MCHC 34.3 LAB WRDW 11.5-15.0 % [facility] RDW 14.3 LAB WPLT 150-400 k/uL Olivia Platelet Cnt 215 LAB WMPV 9.0-12.7 fL Olivia MPV 11.7 Result Comment: Test performed at: [facility], [address] [place] [address]. LAB ABGRAN 1.45-7.50 k/uL Absol Gran 3.27 Count OFFICE VISIT REPORT Observed: 08/22/2017 Status: F Source: OLIVIA 3:[address] [address] OFFICE VISIT Date of Service: 08/08/17 MR#: [id number] Acct: [id number] Patient: BANDAR LOVE Rep #: [id number] : 1950 Provider: Isacc Rodriguez MD Age/Sex: 67/M Location: [facility] Status: Signed Intake Intake Visit Reasons: PCI Instructions Chief Complaint: Chest pain Allergies ampicillin Allergy (Verified 12/12/16 11:37) Rash phenazopyridine [Phenazopyridine] Allergy (Verified 12/12/16 11:37) Rash cephalexin [Cephalexin] Adverse Reaction (Verified 12/12/16 11:37) Upset Stomach trazodone Adverse Reaction (Verified 12/12/16 11:37) Nausea Medications Gabapentin [Neurontin] 100 mg PO QHS 12/12/16 [History Confirmed 08/14/17] Pantoprazole Sodium [Protonix] 40 mg PO DAILY 12/12/16 [History Confirmed 08/14/17] Warfarin Sodium [Coumadin] 5 mg PO DAILY #30 tab 12/20/16 [Rx Confirmed 08/14/17] Amiodarone HCl [Cordarone] 200 mg PO DAILY #30 tab 07/30/17 [Rx Confirmed 08/14/17] Aspirin E.C. [Ecotrin] 81 mg PO DAILY@0800 #30 tab 07/30/17 [Rx Confirmed 08/14/17] Atorvastatin Calcium [Lipitor] 80 mg PO QHS #30 tab 07/30/17 [Rx Confirmed 08/14/17] Metoprolol Tartrate [Lopressor (beta cristhian)] 12.5 mg PO BID #60 tab 07/30/17 [Rx Confirmed 08/14/17] Ticagrelor [Brilinta] 90 mg PO BID #60 tab 07/30/17 [Rx Confirmed 08/14/17] Ticagrelor [Brilinta] 90 mg PO BID #60 tab 08/17/17 [Rx] Nursing Note Patient and here for instructions for PCI. Med instructions reviewed, pt to stop Coumadin on 08/11/17. He is going downstairs for labs and preregister. 08/22/17 1537 <Electronically signed by Isacc Rodriguez MD> Date Isacc Rodriguez MD Cosigner Signature: Date (if applicable) CC: Shanna Garcia 12 LEAD ELECTROCARDIOGRAM Observed: 08/21/2017 Status: F Source: OLIVIA 9:44 AM [facility] REPOSITORY [facility] Cardiovascular Services [address] [place] [address] 12 Lead EKG 08/16/17 1140 MR#: [id number] Acct: [id number] Name: BANDAR LOVE Rep #: [id number] : 1950 67 From: Anatoliy Pereira MD Attending Dr: Isacc Rodriguez MD Status: [facility] Ordering Dr: Isacc Rodriguez MD Date: 08/16/17 Location: [facility] Sex: M C Admitted: Test Reason : POST PCI Blood Pressure : / mmHG Vent. Rate : 071 BPM Atrial Rate : 105 BPM P-R Int : 000 ms QRS Dur : 080 ms QT Int : 420 ms P-R-T Axes : 000 018 -56 degrees QTc Int : 456 ms Atrial fibrillation Septal infarct (cited on or before 30-JUL-2017) T wave abnormality, consider inferior ischemia Abnormal ECG When compared with ECG of 30-JUL-2017 05:00, Nonspecific T wave abnormality now evident in Lateral leads Confirmed by ANATOLIY PEREIRA MD ([id number]), supervising editor news reel KATHY DURAN ([id number]) on 08/21/2017 9:44:22 AM Referred By: Isacc Rodriguez Confirmed By:ANATOLIY PEREIRA MD 08/21/17 0944 Date Anatoliy Pereira MD CC: Isacc Rodriguez MD; Imani Lutz MD Signed 12 LEAD ELECTROCARDIOGRAM Observed: 08/21/2017 Status: F Source: [place] 9:20 AM [facility] REPOSITORY [facility] Cardiovascular Services [address] [place] [id number] 12 Lead EKG 08/17/17 0549 MR#: [id number] Acct: [id number] Name: BANDAR LOVE Rep #: [id number] : 1950 67 From: Anatoliy Pereira MD Attending Dr: Isacc Rodriguez MD Status: [facility] Ordering Dr: Isacc Rodriguez MD Date: 08/17/17 Location: [facility] Sex: M C Admitted: Test Reason : AM EKG Blood Pressure : / mmHG Vent. Rate : 077 BPM Atrial Rate : 340 BPM P-R Int : 000 ms QRS Dur : 080 ms QT Int : 406 ms P-R-T Axes : 000 051 -64 degrees QTc Int : 459 ms Atrial fibrillation Septal infarct , age undetermined T wave abnormality, consider inferior ischemia Abnormal ECG When compared with ECG of 16-AUG-2017 11:40, MANUAL COMPARISON REQUIRED, DATA IS UNCONFIRMED Confirmed by ANATOLIY PEREIRA MD ([id number]), supervising editor news reel KATHY DURAN (56) on 08/21/2017 9:20:18 AM Referred By: Isacc Rodriguez Confirmed By:ANATOLIY PEREIRA MD 08/21/17 0920 Date Anatoliy Pereira MD CC: Isacc Rodriguez MD; Imani Lutz MD Signed CNOVSP Observed: 08/20/2017 Status: COMPLETED Source: [place] 1:30 PM [facility] REPOSITORY Visit (SP) Office (HEMAWS) BANDAR LOVE ([id number]) 1950 M Date Time Provider Department 08/20/17 1:30 PM FAUSTINO GEORGE During your visit today, we recorded the following information about you: Temperature Pulse Blood pressure Weight 98.8 degrees 66/minute 101/66 59.2 kg Faustino George DO 08/20/2017 1:52 PM Signed Diagnosis: 1) Mantle cell lymphoma. HPI: The patient is a 66-year-old male was a past medical history significant for superficial bladder cancer (TURBT in 2006) and MVP/regurgitation who about a month ago noticed enlarging lymphadenopathy of the neck. More recently he noticed worsening swelling of the left sided lymph node and sought medical attention. CT Neck 04/10/2016: Diffuse cervical lymphadenopathy/conglomerate soft tissue masses throughout the neck with right axillary and upper mediastinal lymphadenopathy is suspicious for lymphoproliferative disorder, not excluding metastatic involvement. He has not been having night sweats or fevers. He says his appetite is unchanged and his weight typically tends to fluctuate. He is not having any trouble swallowing. He's had no episodes of choking or aspiration. He denies dysphasia and odynophagia. He has not had any abdominal distention, bloating or swelling. He denies neurologic symptoms including peripheral symptoms of neuropathy, motor weakness and tremors. No trouble with headache, vision, hearing, phonation or concentration. He underwent echocardiogram in January of this year. He was noted to have a normal ejection fraction but he had severe (3+ - 4+) mitral valve regurgitation due to prolapse and flail. 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 Underwent an FNA of the left neck mass on 05/02/2016. Fine needle aspiration, left neck mass (smears and cell block): Consistent with involvement by Noh-Hodgkin B-cell lymphoma, mantle cell lymphoma. Flow cytometry studies from [facility] are consistent with involvement by a CD5-positive B-cell lymphoproliferative disoreder. See comment. RESULTS: ANTIBODY / CLONE RESULT AE1-3 (AE1/AE3/PCK26) negative CD3 (PS1) negative CD5 (SP10) positive CD20 (L26) positive CD43 (L60) positive CD45 (RP2/18) positive CD79a (11E3) positive CD138 (B-A38) negative CD10 (56C6) negative CD23 (1B12) negative CD30 (Kamar-H2) negative BCL-2 (bcl-2/100/D5) positive BCL-6 (RU136R/A8) negative Cyclin D1/BCL-1 (SP4) positive Ki-67 (30-9) positive (36%) Previous therapy: 1) R-CHOP. [facility]--Mild residual right hilar adenopathy. PET demonstrated hypermetabolic nodes in right hilum and subcarinal area. He underwent bronchoscopy with endoscopic bronchoscopic ultrasound with transbronchial biopsies of several lymph node stations including the subcarinal stations. He developed atrial fibrillation following it. His rhythm was normalized on amiodarone. Pathology demonstrated mantle cell lymphoma in the biopsied lymph nodes. Current therapy: 1) Velcade. Presents for ongoing hematologic management. Interim history: Resume treatment on 07/23/2017. On 07/27/2017, he had the sudden onset of substernal chest pain which crescendoed over several hours. Patient presented to emergency room [facility] and was found to have a STEMI. Inferior wall pattern. He was taken to [facility] and underwent successful thrombectomy and angioplasty with bare metal stenting to the proximal RCA. Catheterization identified significant mid LAD and proximal diagonal disease. He underwent catheterization on 08/17/2017 with placement of 2 stents in these lesions. There were no complications. He feels well now. His had no further chest pain since his initial hospitalization. He is not short of breath at rest or with walking. No exertional chest pain/pressure or tightness. No unusual bleeding or unexplained bruising. He is on Brilinta and aspirin and will be resuming Coumadin as of tonight. PMH, medications and allergies as below personally reviewed by me today. Any changes documented in appropriate section. ROS: Constitutional: Denies episodes of fever and night sweats. Not significantly fatigued Neuro: Denies TAYLOR, vertigo, dizziness and imbalance. HEENT: No recent change in voice, vision or hearing. Resp: No complaints of cough, wheezing. No hemoptysis. CVS: Denies exertional chest pain, PND, orthopnea. GI: Denies dysgeusia. Denies symptoms of stomatitis. Denies dysphagia and odynophagia. Denies reflux, n/v, change in bowel habits and abdominal pain. : Denies dysuria or gross hematuria. No symptoms of bladder outlet obstruction. Endo: Denies hot flashes. Denies polyuria and polydipsia. Denies heat and cold intolerance. Musculoskeletal: See above. Derm: Denies rash. Denies jaundice and diffuse pruritis. Heme: Denies unusual bleeding and unexplained bruising. Psych: Normal mood. PHYSICAL EXAM: Vitals: Blood pressure 101/66, pulse 66, temperature 37.1 ?C (98.8 ?F), temperature source Temporal Artery, weight 59.2 kg (130 lb 8 oz). Then-appearing and in no acute distress. EYES: Sclerae are anicteric bilaterally. NECK: Supple. No enlargement of thyroid. LYMPHATIC: No peripheral adenopathy. RESPIRATORY: Inspiratory breath sounds are of normal intensity in all rodriguez. No rales, wheezes or rhonchi. CARDIOVASCULAR: Rhythm is irregularly irregular. ABDOMEN: The abdomen is nondistended. No organomegaly. No tenderness. No palpable abdominal mass. Extremities: No swelling or edema. SKIN: No jaundice or rash. No petechiae. NEUROLOGIC: gi physician II-XII are grossly intact. DTRs symmetrically diminished. 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 He had extensive bone marrow involvement at the time of presentation. -KPS is 80-90%. -Asymptomatic from the lymphoma at baseline with exception significant adenopathy. Although baseline LDH normal, the Ki67 at 36% suggested more aggressive disease. -Higher risk of infectious complications given underlying MVP/reguritation as well as h/o splenectomy at age 10. -He is now asymptomatic from the coronary artery disease. He's not had significant thrombocytopenia in the past. However we'll continue to monitor on a regular basis since he is now on dual antiplatelet therapy and will be on anticoagulation ongoing. Plan: -Resume Velcade today. -CT after 3 cycles. -Monitor for symptoms of progressive neuropathy. (I34.0) Non-rheumatic mitral regurgitation Assessment: -The symptoms remain minimal from this. Plan: -Will continue monitoring. (I48.2) Atrial fibrillation, chronic (HCC) Assessment: -He is off amiodarone. -He is to resume anticoagulation tonight. Plan: -He will continue care with Dr. Rodriguez. Faustino George DO Referring Provider: FAUSTINO GEORGE [[id number]] Allergies As of Date: 08/20/2017 Noted Allergy Reaction AMPICILLIN 05/01/2005 4 - Hives CEPHALEXIN 05/01/2005 8 - GI Upset PYRIDIUM (PHENAZOPYRIDINE HCL) 04/13/2006 2 - Rash TRAZODONE 04/23/2014 5 - Intolerance Comments: Dizziness; nausea Date Reviewed: 08/20/2017 Reviewed by: Shanna Adam - Fully Assessed Reason for Visit: Established Patient [[id number]] Primary Visit Diagnosis:Mantle cell lymphoma of lymph nodes of multiple regions (HCC) [C83.18] Follow-up and Disposition History Recorded Prescriptions as of 08/20/2017 Sig: PANTOPRAZOLE 40 MG TABLET,DEL* Take 1 tablet by mouth daily * GABAPENTIN 100 MG CAPSULE Take 1 capsule by mouth daily* WARFARIN 1 MG TABLET Taking 1mg with 4 mg pill missy* VENLAFAXINE ER 37.5 MG CAPSUL* Take 1 capsule by mouth once * TICAGRELOR 90 MG TABLET Take 1 tablet by mouth twice * AMIODARONE 200 MG TABLET Take 1 tablet by mouth once d* ASPIRIN 81 MG TABLET,DELAYED * Take 1 tablet by mouth once d* METOPROLOL TARTRATE 25 MG TAB* Take 0.5 tablets by mouth twi* ATORVASTATIN 80 MG TABLET Take 1 tablet by mouth daily * ONDANSETRON HCL 8 MG TABLET Take 1 tablet by mouth every * COMPOUNDED PRESCRIPTION Powerstep orthotic (M72.2) P* WARFARIN 4 MG TABLET Take 1 tablet by mouth once d* LIDOCAINE-PRILOCAINE 2.5 %-2.* Apply to port site 20 min. pr* Medication notes this encounter WARFARIN 1 MG TABLET >> Shanna Adam MA 08/20/2017 1:24 PM >> SHANNA ADAM MA SunAug 20, 2017 1:24 PM On hold, pt to start back tonight on 2mg daily. WARFARIN 4 MG TABLET >> Shanna Adam MA 08/20/2017 1:25 PM >> SHANNA ADAM MA SunAug 20, 2017 1:25 PM On hold, pt to start back tonight on 2mg daily. Problem List As Of Date 08/20/2017 Noted Resolved PROSTATITIS NOS [N41.9] INVALID FOR*09/20/2006 BPH w urinary obs/LUTS [N40.1, N13.8] INVALID FOR* Malignant neoplasm of bladder (HCC) [C67.9] INVALID FOR* More... Cervicalgia [M54.2] INVALID FOR* More... ALLERGIC RHINITIS NOS [J30.9] INVALID FOR* More... More... Lumbago [M54.5] INVALID FOR* Sprain and Strain of Unspecified Site of Should*INVALID FOR* Abdominal Pain, Left Lower Quadrant [R10.32] INVALID FOR* Constipation, Chronic [K59.09] INVALID FOR* Suprapubic Pain [R10.2] INVALID FOR* Unspecified orchitis and epididymitis [N45.3] INVALID FOR* Inguinal hernia, right [K40.90] INVALID FOR* Unilat ing hernia [K40.90] INVALID FOR* Osteoarthritis of knee [M17.10] INVALID FOR* Bilateral knee pain [M25.561, M25.562] INVALID FOR* Inguinal pain, lower right quadrant [R10.31] INVALID FOR* Mitral valve prolapse [I34.1] INVALID FOR* Mitral regurgitation due to cusp prolapse [I34.*INVALID FOR*11/02/2016 Anxiety [F41.9] INVALID FOR* Low back pain [M54.5] INVALID FOR* Non-rheumatic mitral regurgitation [I34.0] INVALID FOR* Mantle cell lymphoma of lymph nodes of multiple*INVALID FOR* Diverticulosis of colon (without mention of hem*INVALID FOR* Lymphoma, mantle cell, multiple sites (HCC) [C8*INVALID FOR* More... Atrial fibrillation, chronic (HCC) [I48.2] INVALID FOR* S/P coronary artery stent placement [Z95.5] INVALID FOR* Encounter Status:Closed by FAUSTINO GEORGE DO on 08/20/17 PROGRESS Observed: 08/20/2017 Status: COMPLETED Source: [place] 12:52 PM [facility] REPOSITORY HNO ID: [id number] Author: Faustino George Service: (none) Author Type: Physician Type: Progress Notes Filed: 08/20/2017 1:52 PM Note Text: Diagnosis: 1) Mantle cell lymphoma. HPI: The patient is a 66-year-old male was a past medical history significant for superficial bladder cancer (TURBT in 2006) and MVP/regurgitation who about a month ago noticed enlarging lymphadenopathy of the neck. More recently he noticed worsening swelling of the left sided lymph node and sought medical attention. CT Neck 04/10/2016: Diffuse cervical lymphadenopathy/conglomerate soft tissue masses throughout the neck with right axillary and upper mediastinal lymphadenopathy is suspicious for lymphoproliferative disorder, not excluding metastatic involvement. He has not been having night sweats or fevers. He says his appetite is unchanged and his weight typically tends to fluctuate. He is not having any trouble swallowing. He's had no episodes of choking or aspiration. He denies dysphasia and odynophagia. He has not had any abdominal distention, bloating or swelling. He denies neurologic symptoms including peripheral symptoms of neuropathy, motor weakness and tremors. No trouble with headache, vision, hearing, phonation or concentration. He underwent echocardiogram in January of this year. He was noted to have a normal ejection fraction but he had severe (3+ - 4+) mitral valve regurgitation due to prolapse and flail. 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 Underwent an FNA of the left neck mass on 05/02/2016. Fine needle aspiration, left neck mass (smears and cell block): Consistent with involvement by Noh-Hodgkin B-cell lymphoma, mantle cell lymphoma. Flow cytometry studies from [facility] are consistent with involvement by a CD5-positive B-cell lymphoproliferative disoreder. See comment. RESULTS: ANTIBODY / CLONE RESULT AE1-3 (AE1/AE3/PCK26) negative CD3 (PS1) negative CD5 (SP10) positive CD20 (L26) positive CD43 (L60) positive CD45 (RP2/18) positive CD79a (11E3) positive CD138 (B-A38) negative CD10 (56C6) negative CD23 (1B12) negative CD30 (Kamar-H2) negative BCL-2 (bcl-2/100/D5) positive BCL-6 (DW789L/A8) negative Cyclin D1/BCL-1 (SP4) positive Ki-67 (30-9) positive (36%) Previous therapy: 1) R-CHOP. [facility]--Mild residual right hilar adenopathy. PET demonstrated hypermetabolic nodes in right hilum and subcarinal area. He underwent bronchoscopy with endoscopic bronchoscopic ultrasound with transbronchial biopsies of several lymph node stations including the subcarinal stations. He developed atrial fibrillation following it. His rhythm was normalized on amiodarone. Pathology demonstrated mantle cell lymphoma in the biopsied lymph nodes. Current therapy: 1) Velcade. Presents for ongoing hematologic management. Interim history: Resume treatment on 07/23/2017. On 07/27/2017, he had the sudden onset of substernal chest pain which crescendoed over several hours. Patient presented to emergency room [facility] and was found to have a STEMI. Inferior wall pattern. He was taken to [facility] and underwent successful thrombectomy and angioplasty with bare metal stenting to the proximal RCA. Catheterization identified significant mid LAD and proximal diagonal disease. He underwent catheterization on 08/17/2017 with placement of 2 stents in these lesions. There were no complications. He feels well now. His had no further chest pain since his initial hospitalization. He is not short of breath at rest or with walking. No exertional chest pain/pressure or tightness. No unusual bleeding or unexplained bruising. He is on Brilinta and aspirin and will be resuming Coumadin as of tonight. PMH, medications and allergies as below personally reviewed by me today. Any changes documented in appropriate section. ROS: Constitutional: Denies episodes of fever and night sweats. Not significantly fatigued Neuro: Denies TAYLOR, vertigo, dizziness and imbalance. HEENT: No recent change in voice, vision or hearing. Resp: No complaints of cough, wheezing. No hemoptysis. CVS: Denies exertional chest pain, PND, orthopnea. GI: Denies dysgeusia. Denies symptoms of stomatitis. Denies dysphagia and odynophagia. Denies reflux, n/v, change in bowel habits and abdominal pain. : Denies dysuria or gross hematuria. No symptoms of bladder outlet obstruction. Endo: Denies hot flashes. Denies polyuria and polydipsia. Denies heat and cold intolerance. Musculoskeletal: See above. Derm: Denies rash. Denies jaundice and diffuse pruritis. Heme: Denies unusual bleeding and unexplained bruising. Psych: Normal mood. PHYSICAL EXAM: Vitals: Blood pressure 101/66, pulse 66, temperature 37.1 ?C (98.8 ?F), temperature source Temporal Artery, weight 59.2 kg (130 lb 8 oz). Then-appearing and in no acute distress. EYES: Sclerae are anicteric bilaterally. NECK: Supple. No enlargement of thyroid. LYMPHATIC: No peripheral adenopathy. RESPIRATORY: Inspiratory breath sounds are of normal intensity in all rodriguez. No rales, wheezes or rhonchi. CARDIOVASCULAR: Rhythm is irregularly irregular. ABDOMEN: The abdomen is nondistended. No organomegaly. No tenderness. No palpable abdominal mass. Extremities: No swelling or edema. SKIN: No jaundice or rash. No petechiae. NEUROLOGIC: gi physician II-XII are grossly intact. DTRs symmetrically diminished. 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 He had extensive bone marrow involvement at the time of presentation. -KPS is 80-90%. -Asymptomatic from the lymphoma at baseline with exception significant adenopathy. Although baseline LDH normal, the Ki67 at 36% suggested more aggressive disease. -Higher risk of infectious complications given underlying MVP/reguritation as well as h/o splenectomy at age 10. -He is now asymptomatic from the coronary artery disease. He's not had significant thrombocytopenia in the past. However we'll continue to monitor on a regular basis since he is now on dual antiplatelet therapy and will be on anticoagulation ongoing. Plan: -Resume Velcade today. -CT after 3 cycles. -Monitor for symptoms of progressive neuropathy. (I34.0) Non-rheumatic mitral regurgitation Assessment: -The symptoms remain minimal from this. Plan: -Will continue monitoring. (I48.2) Atrial fibrillation, chronic (HCC) Assessment: -He is off amiodarone. -He is to resume anticoagulation tonight. Plan: -He will continue care with Dr. Rodriguez. Faustino George, DO DISCHARGE INSTRUCTION Observed: 08/17/2017 Status: F Source: [place] 9:01 AM [facility] REPOSITORY [facility] Medical Records Department [address] [place] [address] Instructions for Home/Discharge Instructions 08/17/17 0857 MR#: [id number] Acct: [id number] Name: BANDAR LOVE Rep #: [id number] : [id number] 67 From: Amisha MOTA PCP: Imani Lutz MD Status[place] [facility] Diet: Low fat/ Low Cholesterol Discharge Activity: May Take a Tub Bath - after 5 days, - - Do not lift anything greater than 10 lbs for 3 days May shower in (days): 1 Lifting Restrictions: 10 pounds and also avoid any pushing or pulling for 3 days after your test. Call your doctor if your incision/area has: Continuous Slow Oozing, Sudden Increased Bleeding, Increased Pain/ Swelling, Increased Redness, Foul Smelling Discharge, Swelling at the incision site Call your doctor if you observe: Fever of 101 or Higher, Shortness of breath, Chest pain Remove Dressing in (days):: 1 Cleanse incision/area with: Soap AND Water Additional Dressing/Incision Instructions:: Keep the dressing (bandage) on until the next morning. You may then shower, but do not take a tub bath for 5 days after your test. It is normal to have some tenderness and discomfort at the puncture site. Sometimes bruising also occurs. However, if pain, numbness, or coldness occurs below the puncture site (in your leg, toes, arms or fingers) call your doctor at once. You may have a small, marble sized knot at the puncture site. This is normal. Do not rub it. It will go away in 4-6 weeks. Bleeding can occur from the area where the puncture was done. Blood may spurt or drip from the site. If blood spurts, apply pressure right away to stop bleeding and call 911. Although rare, bleeding into the tissue (hematoma) can also occur. If this happens, a large, firm area goose egg under the skin will appear. If any of these occur, lie down as flat as you can and have someone apply firm pressure to the cath site with a gauze pad or a clean washcloth for 10-15 minutes. Call 911 or go to the Emergency Department. Allergies/Adverse Reactions: Allergies ampicillin Allergy (Verified 12/12/16 11:37) Rash phenazopyridine [Phenazopyridine] Allergy (Verified 12/12/16 11:37) Rash cephalexin [Cephalexin] Adverse Reaction (Verified 12/12/16 11:37) Upset Stomach trazodone Adverse Reaction (Verified 12/12/16 11:37) Nausea Medications to take at Discharge Gabapentin [Neurontin] 100 mg PO QHS 12/12/16 Pantoprazole Sodium [Protonix] 40 mg PO DAILY 12/12/16 Warfarin Sodium [Coumadin] 5 mg PO DAILY #30 tablet 12/20/16 Amiodarone HCl [Cordarone] 200 mg PO DAILY #30 tab 07/30/17 Aspirin E.C. [Ecotrin] 81 mg PO DAILY@0800 #30 tab 07/30/17 Atorvastatin Calcium [Lipitor] 80 mg PO QHS #30 tab 07/30/17 Metoprolol Tartrate [Lopressor (beta cristhian)] 12.5 mg PO BID #60 tab 07/30/17 Ticagrelor [Brilinta] 90 mg PO BID #60 tab 07/30/17 Ticagrelor [Brilinta] 90 mg PO BID #60 tab 08/17/17 The following prescriptions were given: Ticagrelor [Brilinta] 90 mg PO BID #60 tab Primary Care Physician: Imani Lutz MD [Primary Care Provider] - Please follow up with your Primary Care Physician in: 2-4 weeks Please Follow Up With: Isacc Rodriguez MD When: 2-4 weeks, our office will call you with a time Cardiac Rehabilitation Info Cardiac Rehabilitation Program Information: Cardiac Rehabilitation is important for patients like you who are recovering from a heart problem. Cardiac rehabilitation programs are recognized as integral to the continued care of the patient with coronary heart disease. The cardiac rehabilitation program is designed to optimize a patient's physical, psychological, and social functioning. Health childcare aide work in cardiac rehabilitation programs and assist you with getting the treatments you need to get stronger and healthier - like exercise, healthy eating habits, and medications. Cardiac rehabilitation has been show to help people with heart problems live longer and have better life enjoyment than people who do not go to cardiac rehabilitation. Please contact the Cardiac Rehabilitation Program at [facility] at in two weeks if you have not heard from them. 08/17/17 0901 <Electronically signed by Amisha MOTA> Date Amisha MOTA CC: Imani Lutz MD CBC-COMPLETE BLOOD CNT Collected: 08/17/2017 Status: F Source: [place] NO DIFF 5:25 AM [facility] REPOSITORY Order Comment: Comments: 6H post procedure AND Q6H x 4 TYPE CODE TESTS RESULT OUT OF RANGE REFERENCE UNITS LAB L100.1000 4.4-11.0 K/mm3 Normal WBC 7.4 LAB L100.1200 4.6-6.2 M/mm3 Low RBC 3.64 LAB L100.1300 13.0-16.5 g/dl Low HGB 12.6 LAB L100.1400 40-54 % Low HCT 37.4 LAB L100.1500 80-94 fL High MCV 102.7 LAB L100.1600 27.0-32.0 pg High MCH 34.6 LAB L100.1700 32-36 g/gl Normal MCHC 33.7 LAB L100.1810 11.6-14.6 % Normal RDW CV 14.3 LAB L100.1820 35.1-43.9 fl High RDW SD 53.7 LAB L100.1900 150-450 K/mm3 Normal PLT 222 LAB L100.2000 6.2-12.0 fl Normal MPV 10.6 Performed By: #### L100.0500 #### [facility] [address], [place], [address] BASIC METABOLIC Collected: 08/17/2017 Status: F Source: [facility] PROFILE ([facility]) 5:25 AM [facility] REPOSITORY TYPE CODE TESTS RESULT OUT OF RANGE REFERENCE UNITS LAB L501.0100 74-106 mg/dL Normal GLU 76 Result Comment: Please note revised GLUCOSE reference range effective 2017. LAB L501.1000 7-18 mg/dL Normal BUN 16 LAB L501.1100 0.70-1.30 mg/dL Normal CREAT,SERUM 0.97 Result Comment: The validity of the calculated GFR AND GFRAA in patients over 70 years has not been determined. Clinical correlation is essential. LAB L501.1110 >60 mL/min Normal EST GFR 83 Result Comment: Non- GFR Calc LAB L501.1115 >60 mL/min Normal EST GFR - AA 100 Result Comment: GFR Calc LAB L501.1255 ml/min Normal Estimated CRCL 62.29 LAB L501.1300 10-20 RATIO Normal BUN/CRE 16.5 LAB L501.2200 8.5-10 mg/dL Low .1 CA 8.2 LAB L501.5300 136-14 mmol/L Normal 5 NA 141 LAB L501.5600 3.5-5. mmol/L Normal 1 K 3.8 LAB L501.5900 98-107 mmol/L High CL 108 LAB L501.6100 21.0-3 mmol/L Normal 2.0 CO2 24.0 LAB L501.6200 5-15 Normal GAP 9 Performed By: #### L500.2500, L500.4100 #### [facility] [address] [facility], [address] LIPID PROFILE Collected: 08/17/2017 Status: F Source: [place] 5:25 AM [facility] REPOSITORY TYPE CODE TESTS RESULT OUT OF RANGE REFERENCE UNITS LAB L501.4900 200 mg/dL Normal CHOL 97 Result Comment: <200 mg/dL Desirable 200-240 mg/dL Borderline >240 mg/dL High Risk LAB L501.5000 mg/dL Normal TRIG 90 Result Comment: The drugs N-Acetylcysteine and Metamizole may falsely depress this assay. Serum Triglycerides Reference Interval Normal <150 mg/dL Borderline high 150 - 199 mg/dL High 200 - 499 mg/dL Very High > or = 500 mg/dL LAB L501.6400 mg/dL Low HDL 37 Result Comment: The drugs N-Acetylcysteine and Metamizole may falsely depress this assay. Reference Range HDL <40 mg/dL Low HDL Cholesterol HDL >or= 60 mg/dL High HDL Cholesterol LAB L501.6500 0-130 mg/dL Normal LDL 42 LAB L501.6600 5-40 mg/dL Normal VLDL 18 Performed By: #### L500.2500, L500.4100 #### [facility] [address] [facility] [place], [place], [id number] CBC-COMPLETE BLOOD CNT Collected: 08/16/2017 Status: F Source: [place] NO DIFF 10:45 PM [facility] REPOSITORY Order Comment: Comments: 6H post procedure AND Q6H x 4 TYPE CODE TESTS RESULT OUT OF RANGE REFERENCE UNITS LAB L100.1000 4.4-11.0 K/mm3 Normal WBC 8.5 LAB L100.1200 4.6-6.2 M/mm3 Low RBC 3.52 LAB L100.1300 13.0-16.5 g/dl Low HGB 12.7 LAB L100.1400 40-54 % Low HCT 35.9 LAB L100.1500 80-94 fL High MCV 102.0 LAB L100.1600 27.0-32.0 pg High MCH 36.1 LAB L100.1700 32-36 g/gl Normal MCHC 35.4 LAB L100.1810 11.6-14.6 % Normal RDW CV 14.0 LAB L100.1820 35.1-43.9 fl High RDW SD 51.0 LAB L100.1900 150-450 K/mm3 Normal PLT 218 LAB L100.2000 6.2-12.0 fl Normal MPV 10.7 Performed By: #### L100.0500 #### [facility] [address] [facility] [place], [place], [id number] CPK TOTAL, CREATINE Collected: 08/16/2017 Status: F Source: [place] KINASE 10:45 PM [facility] REPOSITORY TYPE CODE TESTS RESULT OUT OF RANGE REFERENCE UNITS LAB L501.3620 39-308 U/L Normal CPK TOTAL 43 Performed By: #### L501.3620 #### [facility] [address] [place], [place], [address] CPK TOTAL, CREATINE Collected: 08/16/2017 Status: F Source: [place] KINASE 5:15 PM [facility] REPOSITORY TYPE CODE TESTS RESULT OUT OF RANGE REFERENCE UNITS LAB L501.3620 39-308 U/L Normal CPK TOTAL 45 Performed By: #### L501.3620 #### [facility] [address] [facility] [place], [address] CBC-COMPLETE BLOOD CNT Collected: 08/16/2017 Status: F Source: [place] NO DIFF 5:15 PM [facility] REPOSITORY Order Comment: Comments: 6H post procedure AND Q6H x 4 TYPE CODE TESTS RESULT OUT OF RANGE REFERENCE UNITS LAB L100.1000 4.4-11.0 K/mm3 Normal WBC 5.2 LAB L100.1200 4.6-6.2 M/mm3 Low RBC 3.63 LAB L100.1300 13.0-16.5 g/dl Normal HGB 13.0 LAB L100.1400 40-54 % Low HCT 37.0 LAB L100.1500 80-94 fL High MCV 101.9 LAB L100.1600 27.0-32.0 pg High MCH 35.8 LAB L100.1700 32-36 g/gl Normal MCHC 35.1 LAB L100.1810 11.6-14.6 % Normal RDW CV 13.8 LAB L100.1820 35.1-43.9 fl High RDW SD 50.3 LAB L100.1900 150-450 K/mm3 Normal PLT 239 LAB L100.2000 6.2-12.0 fl Normal MPV 11.0 Performed By: #### L100.0500 #### [facility] [facility] [address] [facility] [place], [place], [id number] ACT ACTIVATED CLOTTING Collected: 08/16/2017 Status: F Source: OLIVIA TIME 3:26 PM [facility] REPOSITORY TYPE CODE TESTS RESULT OUT OF RANGE REFERENCE UNITS LAB L9100.0100 74-137 sec High ACTk CLOT 164 TIME Performed By: #### L9100.0100 #### [facility] Point of Care [address] [place] [address] ACT ACTIVATED CLOTTING Collected: 08/16/2017 Status: F Source: OLIVIA TIME 2:34 PM [facility] REPOSITORY TYPE CODE TESTS RESULT OUT OF RANGE REFERENCE UNITS LAB L9100.0100 74-137 sec High ACTk CLOT 180 TIME Performed By: #### L9100.0100 #### [facility] Point of Care [address] [place] [address] ACT ACTIVATED CLOTTING Collected: 08/16/2017 Status: F Source: OLIVIA TIME 1:29 PM [facility] REPOSITORY TYPE CODE TESTS RESULT OUT OF RANGE REFERENCE UNITS LAB L9100.0100 74-137 sec High ACTk CLOT 208 TIME Performed By: #### L9100.0100 #### [facility] Point of Care [address] [place] [address] ACT ACTIVATED CLOTTING Collected: 08/16/2017 Status: F Source: OLIVIA TIME 12:36 PM [facility] REPOSITORY TYPE CODE TESTS RESULT OUT OF RANGE REFERENCE UNITS LAB L9100.0100 74-137 sec High ACTk CLOT 224 TIME Performed By: #### L9100.0100 #### [facility] Point of Care [address] [place] [address] CBC-COMPLETE BLOOD CNT Collected: 08/16/2017 Status: F Source: OLIVIA NO DIFF 11:50 AM [facility] REPOSITORY Order Comment: Comments: 6H post procedure AND Q6H x 4 TYPE CODE TESTS RESULT OUT OF RANGE REFERENCE UNITS LAB L100.1000 4.4-11.0 K/mm3 Normal WBC 5.7 LAB L100.1200 4.6-6.2 M/mm3 Low RBC 3.68 LAB L100.1300 13.0-16.5 g/dl Low HGB 12.8 LAB L100.1400 40-54 % Low HCT 37.6 LAB L100.1500 80-94 fL High MCV 102.2 LAB L100.1600 27.0-32.0 pg High MCH 34.8 LAB L100.1700 32-36 g/gl Normal MCHC 34.0 LAB L100.1810 11.6-14.6 % Normal RDW CV 14.2 LAB L100.1820 35.1-43.9 fl High RDW SD 53.0 LAB L100.1900 150-450 K/mm3 Normal PLT 254 LAB L100.2000 6.2-12.0 fl Normal MPV 10.2 Performed By: #### L100.0500 #### [facility] [address] [facility] [place], [address] CPK TOTAL, CREATINE Collected: 08/16/2017 Status: F Source: OLIVIA KINASE 11:50 AM [facility] REPOSITORY TYPE CODE TESTS RESULT OUT OF RANGE REFERENCE UNITS LAB L501.3620 39-308 U/L Normal CPK TOTAL 44 Performed By: #### L501.3620 #### [facility] [address] [place], [address] M R STAPH AUREUS Collected: 08/16/2017 Status: F Source: OLIVIA DNA BY PCR 11:50 AM [facility] REPOSITORY TYPE CODE TESTS RESULT OUT OF RANGE REFERENCE UNITS LAB L8200.1100 Negative Normal MRSA Negative RESULT Performed By: #### L8200.1000 #### [facility] [address] [place], [address] ACT ACTIVATED CLOTTING Collected: 08/16/2017 Status: F Source: OLIVIA TIME 11:17 AM [facility] REPOSITORY TYPE CODE TESTS RESULT OUT OF RANGE REFERENCE UNITS LAB L9100.0100 74-137 sec High ACTk CLOT 318 TIME Performed By: #### L9100.0100 #### [facility] Point of Care [address] [place] [address] PROTIME W/INR Collected: 08/16/2017 Status: F Source: OLIVIA FINGERSTICK 8:08 AM [facility] REPOSITORY TYPE CODE TESTS RESULT OUT OF REFERENCE UNITS RANGE LAB L9200.1001 11.9-14.4 SEC High PROTIME ISTAT 15.9 Result Comment: Reference Range 11.9 - 14.4 LAB L9200.2000 Normal INR ISTAT 1.30 Result Comment: Critical Value > 3.5 Performed By: #### L9200.0000 #### [facility] Point of Care [address] [place] [address] CNPN Observed: 08/16/2017 Status: COMPLETED Source: [facility] 12:00 AM [facility] REPOSITORY Telephone (AGCARDWST) BANDAR LOVE ([id number]) 1950 M Date Time Provider Department 08/16/17 CHRIS HANSEN AGCYAWSTayler During your visit today, we recorded the following information about you: Magdalena Turk LPN 08/16/2017 4:56 PM Signed Received a call from [facility] Amisha SINGH that patient will be discharged tomorrow after second stenting in a month. She wants to make sure you are aware of what is going on and when to follow up with patient.JONNY Mcdowell MD 08/16/2017 5:03 PM Signed Please work him in next week. MD Reva Garcia PSR 08/17/2017 1:39 PM Signed Spoke with patient, tried to set him up on Sunday next week, he said he would call back latter this afternoon because he did not know what other appointments he had. Reva Powell PSR 08/21/2017 2:01 PM Signed Spoke with patient, he said he does not need an appointment with Dr. Hansen at this time. He will call when he wants to schedule. Chris Hansen MD 08/21/2017 4:07 PM Signed He has decided to follow-up with the [facility] Chris Hansen MD Allergies As of Date: 08/16/2017 Noted Allergy Reaction AMPICILLIN 05/01/2005 4 - Hives CEPHALEXIN 05/01/2005 8 - GI Upset PYRIDIUM (PHENAZOPYRIDINE HCL) 04/13/2006 2 - Rash TRAZODONE 04/23/2014 5 - Intolerance Comments: Dizziness; nausea Date Reviewed: 08/03/2017 Reviewed by: Kait Vinson Production [employer]utter - Fully Assessed Reason for Visit: Appointment [[id number]] Prescriptions as of 08/16/2017 Sig: PANTOPRAZOLE 40 MG TABLET,DEL* Take 1 tablet by mouth daily * GABAPENTIN 100 MG CAPSULE Take 1 capsule by mouth daily* WARFARIN 1 MG TABLET Taking 1mg with 4 mg pill imssy* VENLAFAXINE ER 37.5 MG CAPSUL* Take 1 capsule by mouth once * TICAGRELOR 90 MG TABLET Take 1 tablet by mouth twice * AMIODARONE 200 MG TABLET Take 1 tablet by mouth once d* ASPIRIN 81 MG TABLET,DELAYED * Take 1 tablet by mouth once d* METOPROLOL TARTRATE 25 MG TAB* Take 0.5 tablets by mouth twi* ATORVASTATIN 80 MG TABLET Take 1 tablet by mouth daily * ONDANSETRON HCL 8 MG TABLET Take 1 tablet by mouth every * COMPOUNDED PRESCRIPTION Powerstep orthotic (M72.2) P* WARFARIN 4 MG TABLET Take 1 tablet by mouth once d* LIDOCAINE-PRILOCAINE 2.5 %-2.* Apply to port site 20 min. pr* Problem List As Of Date 08/16/2017 Noted Resolved PROSTATITIS NOS [N41.9] INVALID FOR*09/20/2006 BPH w urinary obs/LUTS [N40.1, N13.8] INVALID FOR* Malignant neoplasm of bladder (HCC) [C67.9] INVALID FOR* More... Cervicalgia [M54.2] INVALID FOR* More... ALLERGIC RHINITIS NOS [J30.9] INVALID FOR* More... More... Lumbago [M54.5] INVALID FOR* Sprain and Strain of Unspecified Site of Should*INVALID FOR* Abdominal Pain, Left Lower Quadrant [R10.32] INVALID FOR* Constipation, Chronic [K59.09] INVALID FOR* Suprapubic Pain [R10.2] INVALID FOR* Unspecified orchitis and epididymitis [N45.3] INVALID FOR* Inguinal hernia, right [K40.90] INVALID FOR* Unilat ing hernia [K40.90] INVALID FOR* Osteoarthritis of knee [M17.10] INVALID FOR* Bilateral knee pain [M25.561, M25.562] INVALID FOR* Inguinal pain, lower right quadrant [R10.31] INVALID FOR* Mitral valve prolapse [I34.1] INVALID FOR* Mitral regurgitation due to cusp prolapse [I34.*INVALID FOR*11/02/2016 Anxiety [F41.9] INVALID FOR* Low back pain [M54.5] INVALID FOR* Non-rheumatic mitral regurgitation [I34.0] INVALID FOR* Mantle cell lymphoma of lymph nodes of multiple*INVALID FOR* Diverticulosis of colon (without mention of hem*INVALID FOR* Lymphoma, mantle cell, multiple sites (HCC) [C8*INVALID FOR* More... Atrial fibrillation, chronic (HCC) [I48.2] INVALID FOR* S/P coronary artery stent placement [Z95.5] INVALID FOR* Encounter Status:Closed by NEELAM CHE MA on 08/21/17 PROTIME W/INR Collected: 08/15/2017 Status: F Source: OLIVIA FINGERSTICK 9:18 AM [facility] REPOSITORY TYPE CODE TESTS RESULT OUT OF REFERENCE UNITS RANGE LAB L9200.1001 11.9-14.4 SEC High PROTIME ISTAT 20.0 Result Comment: Reference Range 11.9 - 14.4 LAB L9200.2000 Normal INR ISTAT 1.70 Result Comment: Critical Value > 3.5 Performed By: #### L9200.0000 #### [facility] Point of Care [facility] [address] [place], [place] [address] CBC W/DIFF, AUTOMATED Collected: 08/08/2017 Status: F Source: OLIVIA 1:30 PM [facility] REPOSITORY TYPE CODE TESTS RESULT OUT OF RANGE REFERENCE UNITS LAB L100.1000 4.4-11.0 K/mm3 Normal WBC 6.8 LAB L100.1200 4.6-6.2 M/mm3 Low RBC 4.16 LAB L100.1300 13.0-16.5 g/dl Normal HGB 14.7 LAB L100.1400 40-54 % Normal HCT 43.1 LAB L100.1500 80-94 fL High MCV 103.6 LAB L100.1600 27.0-32.0 pg High MCH 35.3 LAB L100.1700 32-36 g/gl Normal MCHC 34.1 LAB L100.1810 11.6-14.6 % Normal RDW CV 14.3 LAB L100.1820 35.1-43.9 fl High RDW SD 54.3 LAB L100.1900 150-450 K/mm3 Normal PLT 305 LAB L100.2000 6.2-12.0 fl Normal MPV 11.0 LAB L100.2100 47-70 % High NEUT% 73.9 LAB L100.2200 19-41 % Low LY% 15.5 LAB L100.2300 0-10 % Normal MONO% 7.9 LAB L100.2400 0-5 % Normal EO% 2.0 LAB L100.2500 0-1 % Normal BASO% 0.4 LAB L100.2550 0.0-0.9 % Normal IM GRAN % 0.300 Result Comment: IG% - Immature Granulocytes (promyelocytes, myelocytes and metamyelocytes) > 1% indicates that a LEFT SHIFT is Present. LAB L100.2620 2.0-7.7 X10 3/uL Normal Absolute Neut 5.1 LAB L100.2720 0.83-4.51 X10 3/ul Normal Absolute Lymph 1.06 Performed By: #### L100.0100, L500.2500 #### [facility] [address] [place], [address] BASIC METABOLIC Collected: 08/08/2017 Status: F Source: [facility] PROFILE ([facility]) 1:30 PM [facility] REPOSITORY TYPE CODE TESTS RESULT OUT OF RANGE REFERENCE UNITS LAB L501.0100 74-106 mg/dL Normal GLU 81 Result Comment: Please note revised GLUCOSE reference range effective 2017. LAB L501.1000 7-18 mg/dL Normal BUN 13 LAB L501.1100 0.70-1.30 mg/dL Normal CREAT,SERUM 1.11 Result Comment: The validity of the calculated GFR AND GFRAA in patients over 70 years has not been determined. Clinical correlation is essential. LAB L501.1110 >60 mL/min Normal EST GFR 71 Result Comment: Non- GFR Calc LAB L501.1115 >60 mL/min Normal EST GFR - AA 86 Result Comment: GFR Calc LAB L501.1300 10-20 RATIO Normal BUN/CRE 11.7 LAB L501.2200 8.5-10.1 mg/dL CA Normal 9.0 LAB L501.5300 136-145 mmol/L NA Normal 142 LAB L501.5600 3.5-5.1 mmol/L K Normal 3.7 LAB L501.5900 98-107 mmol/L CL Normal 106 LAB L501.6100 21.0-32.0 mmol/L Normal CO2 30.0 LAB L501.6200 5-15 Normal GAP 6 Performed By: #### L100.0100, L500.2500 #### [facility] [address] [facility], [address] PROTHROMBIN TIME W/INR Collected: 08/08/2017 Status: F Source: [place] 1:30 PM [facility] REPOSITORY TYPE CODE TESTS RESULT OUT OF RANGE REFERENCE UNITS LAB L300.4150 11.7-14.9 SECONDS High PROTIME 29.5 LAB L300.4200 Normal INR 2.8 Performed By: #### L300.3900 #### [facility] [address] [facility], [address] PROGRESS Observed: 08/03/2017 Status: COMPLETED Source: TROY 3:28 PM [facility] REPOSITORY HNO ID: [id number] Author: Imani Lutz Service: (none) Author Type: Physician Type: Progress Notes Filed: 08/10/2017 1:23 PM Note Text: Patient presents with: Hospital F/U SUBJECTIVE: Bandar Love is a 67 year old year old gentleman here today for hospital follow up appointment for review of medical conditions. Noted felt much better after had stent placed when was having acute ME. Reviewed history and hospitalization.Reviewed meds--doing fine on meds without adverse effects. Noted plans for another cath with probably more stents. PAST MEDICAL HISTORY Diagnosis Date - Abdominal pain, LLQ (left lower quadrant) - Bladder cancer (HCC) - BPH (benign prostatic hyperplasia) - Congenital anomalies of spleen - DDD (degenerative disc disease), cervical October 2008 cervical spine XRs - Diverticulosis of colon (without mention of hemorrhage) - PMH - PAST MEDICAL HISTORY OF pinched nerve in the neck - Retention of urine, unspecified - Unspecified thrombosed hemorrhoids - Urinary tract infection, site not specified Current Outpatient Prescriptions: gabapentin (NEURONTIN) 100 mg capsule Take 1 capsule by mouth daily at bedtime. warfarin (COUMADIN) 1 mg tablet Taking 1mg with 4 mg pill daily venlafaxine ER (EFFEXOR XR) 37.5 mg 24 hr capsule Take 1 capsule by mouth once daily. ticagrelor (BRILINTA) 90 mg tablet Take 1 tablet by mouth twice daily. (After stent; Dr. Rodriguez) amiodarone (CORDARONE) 200 mg tablet Take 1 tablet by mouth once daily. (Dr. Rodriguez) aspirin, enteric coated (ECOTRIN LOW STRENGTH) 81 mg EC tablet Take 1 tablet by mouth once daily. metoprolol tartrate, short acting, (LOPRESSOR) 25 mg tablet Take 0.5 tablets by mouth twice daily. (Dr. Rodriguez) atorvastatin (LIPITOR) 80 mg tablet Take 1 tablet by mouth daily at bedtime. For cholesterol. (Dr. Rodriguez) ondansetron (ZOFRAN) 8 mg tablet Take 1 tablet by mouth every 8 hours as needed for Nausea/Vomiting. COMPOUNDED PRESCRIPTION Powerstep orthotic(M72.2) Plantar fasciitis of right foot (primary encounter diagnosis)(M79.2) Neuritis warfarin (COUMADIN) 4 mg tablet Take 1 tablet by mouth once daily. pantoprazole DR (PROTONIX) 40 mg tablet Take 1 tablet by mouth daily before breakfast. Take on empty stomach, 1/2 hr before meal. lidocaine-prilocaine (EMLA) cream Apply to port site 20 min. prior to use. No current facility-administered medications for this visit. OBJECTIVE: BP 98/62 Pulse 70 Resp 14 Wt 58.5 kg (129 lb) SpO2 98% BMI 19.61 kg/m2 Patient is alert, oriented times 3, no apparent distress, affect is bright, reactive. Last 5 Encounter BP Readings: Date: BP: 08/03/2017 98/62 07/23/2017 95/61 07/12/2017 118/82 05/22/2017 102/70 05/01/2017 110/68 Last 5 Encounter Wt Readings: Date: Wt: 08/03/2017 58.5 kg (129 lb) 07/12/2017 60.3 kg (133 lb) 05/22/2017 58.7 kg (129 lb 8 oz) 05/01/2017 61.2 kg (135 lb) 04/26/2017 61.7 kg (136 lb) Heart: Irregularly irregular rate, rhythm, no murmurs, gallops, rubs. Lungs: Clear to auscultation, bilaterally, breathing non labored. Ext: No cyanosis, clubbing, or edema. ASSESSMENT AND PLAN: Encounter Diagnosis ICD-10-CM 1. Coronary artery disease involving [place] heart without angina pectoris, unspecified vessel or lesion type I25.10 ticagrelor (BRILINTA) 90 mg tablet aspirin, enteric coated (ECOTRIN LOW STRENGTH) 81 mg EC tablet metoprolol tartrate, short acting, (LOPRESSOR) 25 mg tablet atorvastatin (LIPITOR) 80 mg tablet 2. Persistent atrial fibrillation (HCC) I48.1 warfarin (COUMADIN) 1 mg tablet amiodarone (CORDARONE) 200 mg tablet metoprolol tartrate, short acting, (LOPRESSOR) 25 mg tablet 3. S/P coronary artery stent placement Z95.5 ticagrelor (BRILINTA) 90 mg tablet Above issues addressed with patient. Patient involved in shared decision making for management of her medical issues. History and medications reviewed. Epic updated as needed Refills taken care of and meds adjusted as indicated after reviewed history, exam and labs. Health Maintenance reviewed. Updated record and/or ordered tests as recorded. Encouraged on efforts at healthy diet and regular exercise and adequate sleep. The majority of the visit was spent counseling and/or coordinating care for the patient. Dzgh-oi-wxky time was at least 20 minutes. Imani Lutz MD CNOV Observed: 08/03/2017 Status: COMPLETED Source: [place] 2:20 PM [facility] REPOSITORY Office Visit (INTMWS) BANDAR LOVE ([id number]) 1950 M Date Time Provider Department 08/03/17 2:20 PM IMANI LUTZ INTAbbyWS During your visit today, we recorded the following information about you: Pulse Respiration Blood pressure Weight 70/minute 14/minute 98/62 58.5 kg Imani Lutz MD 08/10/2017 1:23 PM Signed Patient presents with: Hospital F/U SUBJECTIVE: Bandar Love is a 67 year old year old gentleman here today for hospital follow up appointment for review of medical conditions. Noted felt much better after had stent placed when was having acute ME. Reviewed history and hospitalization.Reviewed meds--doing fine on meds without adverse effects. Noted plans for another cath with probably more stents. PAST MEDICAL HISTORY Diagnosis Date - Abdominal pain, LLQ (left lower quadrant) - Bladder cancer (HCC) - BPH (benign prostatic hyperplasia) - Congenital anomalies of spleen - DDD (degenerative disc disease), cervical October 2008 cervical spine XRs - Diverticulosis of colon (without mention of hemorrhage) - PMH - PAST MEDICAL HISTORY OF pinched nerve in the neck - Retention of urine, unspecified - Unspecified thrombosed hemorrhoids - Urinary tract infection, site not specified Current Outpatient Prescriptions: gabapentin (NEURONTIN) 100 mg capsule Take 1 capsule by mouth daily at bedtime. warfarin (COUMADIN) 1 mg tablet Taking 1mg with 4 mg pill daily venlafaxine ER (EFFEXOR XR) 37.5 mg 24 hr capsule Take 1 capsule by mouth once daily. ticagrelor (BRILINTA) 90 mg tablet Take 1 tablet by mouth twice daily. (After stent; Dr. Rodriguez) amiodarone (CORDARONE) 200 mg tablet Take 1 tablet by mouth once daily. (Dr. Rodriguez) aspirin, enteric coated (ECOTRIN LOW STRENGTH) 81 mg EC tablet Take 1 tablet by mouth once daily. metoprolol tartrate, short acting, (LOPRESSOR) 25 mg tablet Take 0.5 tablets by mouth twice daily. (Dr. Rodriguez) atorvastatin (LIPITOR) 80 mg tablet Take 1 tablet by mouth daily at bedtime. For cholesterol. (Dr. Rodriguez) ondansetron (ZOFRAN) 8 mg tablet Take 1 tablet by mouth every 8 hours as needed for Nausea/Vomiting. COMPOUNDED PRESCRIPTION Powerstep orthotic(M72.2) Plantar fasciitis of right foot (primary encounter diagnosis)(M79.2) Neuritis warfarin (COUMADIN) 4 mg tablet Take 1 tablet by mouth once daily. pantoprazole DR (PROTONIX) 40 mg tablet Take 1 tablet by mouth daily before breakfast. Take on empty stomach, 1/2 hr before meal. lidocaine-prilocaine (EMLA) cream Apply to port site 20 min. prior to use. No current facility-administered medications for this visit. OBJECTIVE: BP 98/62 Pulse 70 Resp 14 Wt 58.5 kg (129 lb) SpO2 98% BMI 19.61 kg/m2 Patient is alert, oriented times 3, no apparent distress, affect is bright, reactive. Last 5 Encounter BP Readings: Date: BP: 08/03/2017 98/62 07/23/2017 95/61 07/12/2017 118/82 05/22/2017 102/70 05/01/2017 110/68 Last 5 Encounter Wt Readings: Date: Wt: 08/03/2017 58.5 kg (129 lb) 07/12/2017 60.3 kg (133 lb) 05/22/2017 58.7 kg (129 lb 8 oz) 05/01/2017 61.2 kg (135 lb) 04/26/2017 61.7 kg (136 lb) Heart: Irregularly irregular rate, rhythm, no murmurs, gallops, rubs. Lungs: Clear to auscultation, bilaterally, breathing non labored. Ext: No cyanosis, clubbing, or edema. ASSESSMENT AND PLAN: Encounter Diagnosis ICD-10-CM 1. Coronary artery disease involving [place] heart without angina pectoris, unspecified vessel or lesion type I25.10 ticagrelor (BRILINTA) 90 mg tablet aspirin, enteric coated (ECOTRIN LOW STRENGTH) 81 mg EC tablet metoprolol tartrate, short acting, (LOPRESSOR) 25 mg tablet atorvastatin (LIPITOR) 80 mg tablet 2. Persistent atrial fibrillation (HCC) I48.1 warfarin (COUMADIN) 1 mg tablet amiodarone (CORDARONE) 200 mg tablet metoprolol tartrate, short acting, (LOPRESSOR) 25 mg tablet 3. S/P coronary artery stent placement Z95.5 ticagrelor (BRILINTA) 90 mg tablet Above issues addressed with patient. Patient involved in shared decision making for management of her medical issues. History and medications reviewed. Epic updated as needed Refills taken care of and meds adjusted as indicated after reviewed history, exam and labs. Health Maintenance reviewed. Updated record and/or ordered tests as recorded. Encouraged on efforts at healthy diet and regular exercise and adequate sleep. The majority of the visit was spent counseling and/or coordinating care for the patient. Wnvr-ns-oesm time was at least 20 minutes. Imani Lutz MD Referring Provider: IMANI LUTZ [[id number]] Allergies As of Date: 08/03/2017 Noted Allergy Reaction AMPICILLIN 05/01/2005 4 - Hives CEPHALEXIN 05/01/2005 8 - GI Upset PYRIDIUM (PHENAZOPYRIDINE HCL) 04/13/2006 2 - Rash TRAZODONE 04/23/2014 5 - Intolerance Comments: Dizziness; nausea Date Reviewed: 08/03/2017 Reviewed by: Kait Vinson Production [employer]utter - Fully Assessed Reason for Visit: Hospital F/U [57] Primary Visit Diagnosis:Coronary artery disease involving [place] heart without angina pectoris, unspecified vessel or lesion type [I25.10] Other Visit Diagnoses:Persistent atrial fibrillation (HCC) [I48.1] S/P coronary artery stent placement [Z95.5] Order(s):gabapentin (NEURONTIN) 100 mg capsuleTake 1 capsule by mouth daily at bedtime.Disp: Rfl: warfarin (COUMADIN) 1 mg tabletTaking 1mg with 4 mg pill dailyDisp: Rfl: venlafaxine ER (EFFEXOR XR) 37.5 mg 24 hr capsuleTake 1 capsule by mouth once daily.Disp: 30 capsuleRfl: 11 ticagrelor (BRILINTA) 90 mg tabletTake 1 tablet by mouth twice daily. (After stent; Dr. Rodriguez)Disp: Rfl: amiodarone (CORDARONE) 200 mg tabletTake 1 tablet by mouth once daily. (Dr. Rodriguez)Disp: Rfl: aspirin, enteric coated (ECOTRIN LOW STRENGTH) 81 mg EC tabletTake 1 tablet by mouth once daily.Disp: Rfl: metoprolol tartrate, short acting, (LOPRESSOR) 25 mg tabletTake 0.5 tablets by mouth twice daily. (Dr. Rodriguez)Disp: Rfl: atorvastatin (LIPITOR) 80 mg tabletTake 1 tablet by mouth daily at bedtime. For cholesterol. (Dr. Rodriguez)Disp: Rfl: Prescriptions as of 08/03/2017 Sig: GABAPENTIN 100 MG CAPSULE Take 1 capsule by mouth daily* WARFARIN 1 MG TABLET Taking 1mg with 4 mg pill missy* VENLAFAXINE ER 37.5 MG CAPSUL* Take 1 capsule by mouth once * TICAGRELOR 90 MG TABLET Take 1 tablet by mouth twice * AMIODARONE 200 MG TABLET Take 1 tablet by mouth once d* ASPIRIN 81 MG TABLET,DELAYED * Take 1 tablet by mouth once d* METOPROLOL TARTRATE 25 MG TAB* Take 0.5 tablets by mouth twi* ATORVASTATIN 80 MG TABLET Take 1 tablet by mouth daily * ONDANSETRON HCL 8 MG TABLET Take 1 tablet by mouth every * COMPOUNDED PRESCRIPTION Powerstep orthotic (M72.2) P* WARFARIN 4 MG TABLET Take 1 tablet by mouth once d* PANTOPRAZOLE 40 MG TABLET,DEL* Take 1 tablet by mouth daily * LIDOCAINE-PRILOCAINE 2.5 %-2.* Apply to port site 20 min. pr* Medication notes this encounter WARFARIN 5 MG TABLET >> Imani Lutz MD 08/03/2017 3:31 PM >> IMANI LUTZ MD SunAug 03, 2017 3:31 PM 5 mg daily >> Imani Lutz MD 08/03/2017 3:32 PM erroneous entry--takes 1mg plus 4 mg >> Imani Lutz MD 08/03/2017 3:36 PM >> IMANI LUTZ MD SunAug 03, 2017 3:36 PM Actually got at [facility]; has 4mg and 1 mg at home Problem List As Of Date 08/03/2017 Noted Resolved PROSTATITIS NOS [N41.9] INVALID FOR*09/20/2006 BPH w urinary obs/LUTS [N40.1, N13.8] INVALID FOR* Malignant neoplasm of bladder (HCC) [C67.9] INVALID FOR* More... Cervicalgia [M54.2] INVALID FOR* More... ALLERGIC RHINITIS NOS [J30.9] INVALID FOR* More... More... Lumbago [M54.5] INVALID FOR* Sprain and Strain of Unspecified Site of Should*INVALID FOR* Abdominal Pain, Left Lower Quadrant [R10.32] INVALID FOR* Constipation, Chronic [K59.09] INVALID FOR* Suprapubic Pain [R10.2] INVALID FOR* Unspecified orchitis and epididymitis [N45.3] INVALID FOR* Inguinal hernia, right [K40.90] INVALID FOR* Unilat ing hernia [K40.90] INVALID FOR* Osteoarthritis of knee [M17.10] INVALID FOR* Bilateral knee pain [M25.561, M25.562] INVALID FOR* Inguinal pain, lower right quadrant [R10.31] INVALID FOR* Mitral valve prolapse [I34.1] INVALID FOR* Mitral regurgitation due to cusp prolapse [I34.*INVALID FOR*11/02/2016 Anxiety [F41.9] INVALID FOR* Low back pain [M54.5] INVALID FOR* Non-rheumatic mitral regurgitation [I34.0] INVALID FOR* Mantle cell lymphoma of lymph nodes of multiple*INVALID FOR* Diverticulosis of colon (without mention of hem*INVALID FOR* Lymphoma, mantle cell, multiple sites (HCC) [C8*INVALID FOR* More... Atrial fibrillation, chronic (HCC) [I48.2] INVALID FOR* Prescriptions ordered this encounter Disp Refills Start End GABAPENTIN 100 MG CAPSULE 08/03/2017 08/03/2018 Class: Med Update Route: ORAL Sig: Take 1 capsule by mouth daily at bedtime. WARFARIN 1 MG TABLET 08/03/2017 Class: Med Update Sig: Taking 1mg with 4 mg pill daily VENLAFAXINE ER 37.5 MG CAPSULE,EXTEN* 30 c* 11 08/03/2017 Route: ORAL Sig: Take 1 capsule by mouth once daily. TICAGRELOR 90 MG TABLET 08/03/2017 Class: Med Update Route: ORAL Sig: Take 1 tablet by mouth twice daily. (After stent; Dr. Rodriguez) AMIODARONE 200 MG TABLET 08/03/2017 Class: Med Update Route: ORAL Sig: Take 1 tablet by mouth once daily. (Dr. Rodriguez) ASPIRIN 81 MG TABLET,DELAYED RELEASE 08/03/2017 Class: Med Update Route: ORAL Sig: Take 1 tablet by mouth once daily. METOPROLOL TARTRATE 25 MG TABLET 08/03/2017 Class: Med Update Route: ORAL Sig: Take 0.5 tablets by mouth twice daily. (Dr. Rodriguez) ATORVASTATIN 80 MG TABLET 08/03/2017 Class: Med Update Route: ORAL Sig: Take 1 tablet by mouth daily at bedtime. For cholesterol. (Dr. Rodriguez) Medications Discontinued During This Encounter warfarin (COUMADIN) 5 mg tablet 0 12/27/2016 08/03/2017 Class: Historical Med Route: ORAL Sig: Take 1 tablet by mouth daily as directed. Disc: Reason for discontinue is not on file. warfarin (COUMADIN) 1 mg tablet 60 t* 11 01/10/2017 08/03/2017 Route: ORAL Sig: Take 2 tablets by mouth daily as directed. Or as directed Disc: Reason for discontinue is not on file. venlafaxine ER (EFFEXOR XR) 37.5 mg * 30 c* 1 2017 08/03/2017 Route: ORAL Sig: Take 1 capsule by mouth once daily. Disc: Reason for discontinue is not on file. Disposition: Return for December. Follow-up and Disposition History Recorded Encounter Status:Closed by IMANI LUTZ MD on 08/10/17 12 LEAD ELECTROCARDIOGRAM Observed: 08/02/2017 Status: F Source: [place] 3:07 PM [facility] REPOSITORY [facility] Cardiovascular Services [address] [place] [address] 12 Lead EKG 07/30/17 0500 MR#: [id number] Acct: [id number] Name: BANDAR LOVE Rep #: [id number] : 1950 67 From: Isacc Rodriguez MD Attending Dr: Floridalma Carranza MD Status: DIS IN Ordering Dr: Isacc Rodriguez MD Date: 07/30/17 Location: [facility] Sex: M C Admitted: 07/27/17 Test Reason : AM EKG Blood Pressure : / mmHG Vent. Rate : 073 BPM Atrial Rate : 326 BPM P-R Int : 000 ms QRS Dur : 086 ms QT Int : 412 ms P-R-T Axes : 000 -02 -63 degrees QTc Int : 453 ms Atrial fibrillation Anterior infarct , age undetermined T wave abnormality, consider inferior ischemia Abnormal ECG When compared with ECG of 29-JUL-2017 05:38, MANUAL COMPARISON REQUIRED, DATA IS UNCONFIRMED Confirmed by ISACC RODRIGUEZ ([id number]), supervising editor news reel KATHY DURAN ([id number]) on 08/02/2017 3:07:39 PM Referred By: Isacc Rodriguez Confirmed By:ISACC RODRIGUEZ 08/02/17 1507 Date Isacc Rodriguez MD CC: Isacc Rodriguez MD; Imani Lutz MD Signed 12 LEAD ELECTROCARDIOGRAM Observed: 08/02/2017 Status: F Source: OLIVIA 3:04 PM [facility] REPOSITORY [facility] Cardiovascular Services [address] [place] [address] 12 Lead EKG 07/29/17 0538 MR#: [id number] Acct: [id number] Name: BANDAR LOVE Rep #: [id number] : 1950 67 From: Isacc Rodriguez MD Attending Dr: Floridalma Carranza MD Status: DIS IN Ordering Dr: Isacc Rodriguez MD Date: 07/29/17 Location: U Sex: M C Admitted: 07/27/17 Test Reason : AM EKG Blood Pressure : / mmHG Vent. Rate : 088 BPM Atrial Rate : 214 BPM P-R Int : 000 ms QRS Dur : 082 ms QT Int : 398 ms P-R-T Axes : 000 023 -54 degrees QTc Int : 481 ms Atrial fibrillation Low voltage QRS T wave abnormality, consider inferior ischemia Abnormal ECG When compared with ECG of 28-JUL-2017 05:12, MANUAL COMPARISON REQUIRED, DATA IS UNCONFIRMED Confirmed by ISACC RODRIGUEZ ([id number]), supervising editor news reel KATHY DURAN ([id number]) on 08/02/2017 3:04:08 PM Referred By: Isacc Rodriguez Confirmed By:ISACC RODRIGUEZ 08/02/17 1504 Date Isacc Rodriguez MD CC: Isacc Rodriguez MD; Imani Lutz MD Signed 12 LEAD ELECTROCARDIOGRAM Observed: 08/02/2017 Status: F Source: [place] 2:52 PM [facility] REPOSITORY [facility] Cardiovascular Services [address] [place] [address] 12 Lead EKG 07/28/17 0512 MR#: [id number] Acct: [id number] Name: BANDAR LOVE Rep #: [id number] : 1950 67 From: Isacc Rodriguez MD Attending Dr: Floridalma Carranza MD Status: DIS IN Ordering Dr: Isacc Rodriguez MD Date: 07/28/17 Location: [facility] Sex: M C Admitted: 07/27/17 Test Reason : AM EKG Blood Pressure : / mmHG Vent. Rate : 080 BPM Atrial Rate : 070 BPM P-R Int : 000 ms QRS Dur : 090 ms QT Int : 402 ms P-R-T Axes : 000 031 -42 degrees QTc Int : 463 ms Atrial fibrillation Low voltage QRS T wave abnormality, consider inferior ischemia Abnormal ECG When compared with ECG of 27-JUL-2017 22:53, MANUAL COMPARISON REQUIRED, DATA IS UNCONFIRMED Confirmed by ISACC RODRIGUEZ ([id number]), supervising editor news reel KATHY DURAN (56) on 08/02/2017 2:52:11 PM Referred By: Isacc Rodriguez Confirmed By:ISACC RODRIGUEZ 08/02/17 1452 Date Isacc Rodriguez MD CC: Isacc Rodriguez MD; Imani Lutz MD Signed 12 LEAD ELECTROCARDIOGRAM Observed: 08/02/2017 Status: F Source: [place] 2:51 PM [facility] REPOSITORY [facility] Cardiovascular Services [address] [place] [address] 12 Lead EKG 07/27/17 2253 MR#: [id number] Acct: [id number] Name: BANDAR LOVE Rep #: [id number] : 1950 67 From: Isacc Rodriguez MD Attending Dr: Floridalma Carranza MD Status: DIS IN Ordering Dr: Isacc Rodriguez MD Date: 07/27/17 Location: [facility] Sex: M C Admitted: 07/27/17 Test Reason : POST CATH Blood Pressure : / mmHG Vent. Rate : 089 BPM Atrial Rate : 079 BPM P-R Int : 000 ms QRS Dur : 090 ms QT Int : 392 ms P-R-T Axes : 000 044 -20 degrees QTc Int : 476 ms Atrial fibrillation Low voltage QRS Abnormal ECG When compared with ECG of 20-DEC-2016 15:24, No significant change was found Confirmed by ISACC RODRIGUEZ ([id number]), supervising editor news reel KATHY DURAN (56) on 08/02/2017 2:51:24 PM Referred By: Isacc Rodriguez Confirmed By:ISACC RODRIGUEZ 08/02/17 1451 Date Isacc Rodriguez MD CC: Isacc Rodriguez MD; Imani Lutz MD Signed PROTHROMBIN TIME W/INR Collected: 08/01/2017 Status: F Source: [place] 1:25 PM [facility] REPOSITORY Order Comment: Send Results To: Dr. Rodriguez's office Reason for Laboratory Test follow-up on INR for chronic A. fib TYPE CODE TESTS RESULT OUT OF RANGE REFERENCE UNITS LAB L300.4150 11.7-14.9 SECONDS High PROTIME 15.7 LAB L300.4200 Normal INR 1.3 Performed By: #### L300.3900 #### [facility] [address] [facility], [address] DISCHARGE SUMMARY Observed: 07/31/2017 Status: F Source: [place] 7:40 AM [facility] REPOSITORY [facility] Medical Records Department [address] [place] [address] Discharge Summary 07/30/17 1122 MR#: [id number] Acct: [id number] Name: BANDAR LOVE Rep #: [id number] : 1950 67 From: Floridalma Carranza MD PCP: Imani Lutz MD Status: DIS IN Y Location: [place] [address] Discharge Date and Diagnosis Date of Admission: 07/27/17 Date of Discharge: 07/30/17 - Primary Discharge Diagnosis Active and Suspected Problems Inferior ME (Acute) Cardiogenic shock (Acute) - Secondary Discharge Diagnosis Chronic Problems GERD (gastroesophageal reflux disease) (Chronic) Severe protein-calorie malnutrition (Chronic) Atrial fibrillation (Chronic) Altered vision right eye (Chronic) History of bladder cancer (Chronic) 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) Hospital Course and Treatment Imaging Results: Clinical Impression(s) from Imaging Studies Chest X-Ray 07/27/17 19:10 IMPRESSION: There are no acute findings. Electronically Signed: Torrey Borges MD at 19:37 EDT , Service support , Cardiology Operations: None Procedures: 2-D Echocardiogram, Cardiac catheterization Summary of Care Provided: 67-year-old male with past medical history of GERD, severe protein calorie malnutrition, chronic atrial fibrillation on Coumadin, history of bladder cancer, active mantle cell lymphoma undergoing chemotherapy with Dr. George who comes in with complaints of 10/10 central substernal chest pain without radiation associated with nausea but no emesis. Patient had a delayed presentation of approximately an hour and half with her daughter to balloon time of approximately 60 minutes. Patient had last had his chemotherapy a few days prior. Vitals in the ER showed blood pressure of 79/57, with abnormal EKG consistent with inferior ME. STEMI call was made and patient was given aspirin 324 mg 1 and given heparin and Brilinta and taken to the [facility]. Findings during the cardiac cath showed 75% stenosis of the LAD, 75% stenosis of circumflex, proximal RCA was occluded. Thrombectomy, balloon angioplasty was done with bare-metal stent placed in the proximal RCA. He was continued on aspirin, Brilinta, and his Coumadin was supposed to be resumed on 07/30/17 night. Patient was monitored a couple of days subsequently with no acute events on telemetry and was then discharged. Discharge Diet: Low fat/ Low Cholesterol, 2000 mg Sodium Diet Discharge Activity: Return to Normal Activity Home Medications: Medications to take at Discharge Gabapentin [Neurontin] 100 mg PO QHS 12/12/16 Pantoprazole Sodium [Protonix] 40 mg PO DAILY 12/12/16 Warfarin Sodium [Coumadin] 5 mg PO DAILY #30 tablet 12/20/16 Amiodarone HCl [Cordarone] 200 mg PO DAILY #30 tab 07/30/17 Aspirin E.C. [Ecotrin] 81 mg PO DAILY@0800 #30 tab 07/30/17 Atorvastatin Calcium [Lipitor] 80 mg PO QHS #30 tab 07/30/17 Metoprolol Tartrate [Lopressor (beta cristhian)] 12.5 mg PO BID #60 tab 07/30/17 Ticagrelor [Brilinta] 90 mg PO BID #60 tab 07/30/17 Following Prescrptions Were Given to Patient: Amiodarone HCl [Cordarone] 200 mg PO DAILY #30 tab Aspirin E.C. [Ecotrin] 81 mg PO DAILY@0800 #30 tab Atorvastatin Calcium [Lipitor] 80 mg PO QHS #30 tab Metoprolol Tartrate [Lopressor (beta cristhian)] 12.5 mg PO BID #60 tab Ticagrelor [Brilinta] 90 mg PO BID #60 tab Primary Care Physician: Imani Lutz MD [Primary Care Provider] - Please follow up with your Primary Care Physician in: within 2 weeks Please Follow Up With: Isacc Rodriguez MD When: as scheduled Disposition: Home Minutes spent on discharge:: 25 Patient Condition:: Stable Medical Necessity - Tobacco Use Smoking Status: Never smoker Tobacco Use: Non-smoker Meaningful Use Info Meaningful Use Diagnoses (Choose all that apply): AMI - AMI Aspirin given w/in 24hrs of arrival?: Yes ASA at discharge?: Yes Statins at discharge?: Yes Rayshawn/ARB at discharge?: No Reason Rayshawn/ARB not ordered:: Hypotension Beta Cristhian at discharge?: Yes Done w/ Acute ME measure.: Yes Code Visit Inpatient E AND M: 50282 Disch Hosp 07/31/17 0740 <Electronically signed by Floridalma Carranza MD> Date Floridalma Carranza MD Cosigner Signature (if applicable): Date CC: Floridalma Carranza MD; Imani Lutz MD Signed 12 LEAD ELECTROCARDIOGRAM Observed: 07/30/2017 Status: F Source: [place] 1:29 PM [facility]POS[facility] Cardiovascular Services [address] [place] [address] 12 Lead EKG 07/27/17 1858 MR#: [id number] Acct: [id number] Name: BADNAR LOVE Rep #: [id number] : 1950 67 From: Isacc Rodriguez MD Attending Dr: Floridalma Carranza MD Status: ADM IN Ordering Dr: Kal Keller MD Date: 07/27/17 Location: [facility] Sex: M C Admitted: 07/27/17 Test Reason : CP Blood Pressure : / mmHG Vent. Rate : 080 BPM Atrial Rate : 082 BPM P-R Int : 000 ms QRS Dur : 094 ms QT Int : 402 ms P-R-T Axes : 000 089 101 degrees QTc Int : 463 ms Atrial fibrillation with premature ventricular or aberrantly conducted complexes ST elevation consider inferior injury or acute infarct ACUTE ME / STEMI Consider right ventricular involvement in acute inferior infarct Abnormal ECG Confirmed by ISACC RODRIGUEZ ([id number]), supervising editor news reel KATHY DURAN ([id number]) on 07/30/2017 1:28:50 PM Referred By: Isacc Rodriguez Confirmed By:ISACC RODRIGUEZ 07/30/17 1328 Date Isacc Rodriguez MD CC: Kal Keller MD; Imani Lutz MD Signed DISCHARGE INSTRUCTION Observed: 07/30/2017 Status: F Source: [place] 11:22 [facility] REPOSITORY [facility] Medical Records Department [address] [place] [address] Instructions for Home/Discharge Instructions 07/30/17 1115 MR#: [id number] Acct: [id number] Name: BANDAR LOVE Rep #: [id number] : 1950 67 From: Floridalma Carranza MD PCP: Imani Lutz MD Status: ADM IN - Discharge Diagnoses Current Active Problems: Current Active and Chronic Problems GERD (gastroesophageal reflux disease) (Chronic) Severe protein-calorie malnutrition (Chronic) Inferior ME (Acute) Cardiogenic shock (Acute) Reason(s) for Visit for Discharge Instructions: Chest pain You will use the following diet at home:: Cardiac Your food should be the consistency of: Regular Your liquids should be the consistency of: Regular/Thin Discharge Activity: Return to Normal Activity Additional Instructions: Per Dr. Rodriguez, you can resume your coumadin from tonight. Check your INR within 2 days and follow-up as scheduled with Dr. Rodriguez. Kindly let your doctor know or go to the ED if you develop chest pain or notice blood in your stools or black stools. Allergies/Adverse Reactions: Allergies ampicillin Allergy (Verified 12/12/16 11:37) Rash phenazopyridine [Phenazopyridine] Allergy (Verified 12/12/16 11:37) Rash cephalexin [Cephalexin] Adverse Reaction (Verified 12/12/16 11:37) Upset Stomach trazodone Adverse Reaction (Verified 12/12/16 11:37) Nausea Medications to take at Discharge Gabapentin [Neurontin] 100 mg PO QHS 12/12/16 Pantoprazole Sodium [Protonix] 40 mg PO DAILY 12/12/16 Warfarin Sodium [Coumadin] 5 mg PO DAILY #30 tablet 12/20/16 Amiodarone HCl [Cordarone] 200 mg PO DAILY #30 tablet 07/30/17 Aspirin E.C. [Ecotrin] 81 mg PO DAILY@0800 #30 tablet 07/30/17 Atorvastatin Calcium [Lipitor] 80 mg PO QHS #30 tablet 07/30/17 Metoprolol Tartrate [Lopressor (beta cristhian)] 12.5 mg PO BID #60 tablet 07/30/17 Ticagrelor [Brilinta] 90 mg PO BID #60 tablet 07/30/17 The following prescriptions were given: Amiodarone HCl [Cordarone] 200 mg PO DAILY #30 tablet Aspirin E.C. [Ecotrin] 81 mg PO DAILY@0800 #30 tablet Atorvastatin Calcium [Lipitor] 80 mg PO QHS #30 tablet Metoprolol Tartrate [Lopressor (beta cristhian)] 12.5 mg PO BID #60 tablet Ticagrelor [Brilinta] 90 mg PO BID #60 tablet Orders to be completed after discharge: Prothrombin Time w/INR Time Frame: 2 Days, Location: Laboratory Primary Care Physician: Imani Lutz MD [Primary Care Provider] - Please follow up with your Primary Care Physician in: within 2 weeks Please Follow Up With: Isacc Rodriguez MD When: as scheduled Proposed Discharge Date: 07/30/17 07/30/17 1122 <Electronically signed by Floridalma Carranza MD> Date Floridalma Carranza MD CC: Isacc Rodriguez MD; Imani Lutz MD CBC-COMPLETE BLOOD CNT Collected: 07/28/2017 Status: F Source: OLIVIA NO DIFF 8:00 PM [facility] REPOSITORY Order Comment: Comments: 6H post procedure AND Q6H x 4 TYPE CODE TESTS RESULT OUT OF RANGE REFERENCE UNITS LAB L100.1000 4.4-11.0 K/mm3 Normal WBC 6.7 LAB L100.1200 4.6-6.2 M/mm3 Low RBC 3.50 LAB L100.1300 13.0-16.5 g/dl Low HGB 12.2 LAB L100.1400 40-54 % Low HCT 36.2 LAB L100.1500 80-94 fL High MCV 103.4 LAB L100.1600 27.0-32.0 pg High MCH 34.9 LAB L100.1700 32-36 g/gl Normal MCHC 33.7 LAB L100.1810 11.6-14.6 % Normal RDW CV 14.1 LAB L100.1820 35.1-43.9 fl High RDW SD 53.1 LAB L100.1900 150-450 K/mm3 Normal PLT 158 LAB L100.2000 6.2-12.0 fl Normal MPV 11.2 Performed By: #### L100.0500 #### [facility] [address] [place], [place], [address] CBC-COMPLETE BLOOD CNT Collected: 07/28/2017 Status: F Source: [place] NO DIFF 2:10 PM [facility] REPOSITORY Order Comment: Comments: 6H post procedure AND Q6H x 4 TYPE CODE TESTS RESULT OUT OF RANGE REFERENCE UNITS LAB L100.1000 4.4-11.0 K/mm3 Normal WBC 8.0 LAB L100.1200 4.6-6.2 M/mm3 Low RBC 3.55 LAB L100.1300 13.0-16.5 g/dl Low HGB 12.5 LAB L100.1400 40-54 % Low HCT 36.8 LAB L100.1500 80-94 fL High MCV 103.7 LAB L100.1600 27.0-32.0 pg High MCH 35.2 LAB L100.1700 32-36 g/gl Normal MCHC 34.0 LAB L100.1810 11.6-14.6 % Normal RDW CV 13.9 LAB L100.1820 35.1-43.9 fl High RDW SD 52.9 LAB L100.1900 150-450 K/mm3 Low PLT 147 LAB L100.2000 6.2-12.0 fl Normal MPV 10.9 Performed By: #### L100.0500 #### [facility] [address] [place], [address] TROPONIN-I Collected: 07/28/2017 Status: F Source: [place] 2:10 PM [facility] REPOSITORY Order Comment: 'TROP' Serial specimen #1, #2, #3, or #4: 5 TYPE CODE TESTS RESULT OUT OF RANGE REFERENCE UNITS LAB L501.4010 <0.06 ng/mL High alert 24.30 TROPONIN-I Result Comment: Critical Result(s) Called to DOROTEO Roblero at: 13:41:25 07/28/2017 by: FLOR DELACRUZ TROPONIN-I EXPECTED VALUES <0.05 NEGATIVE 0.06 - 0.59 AT RISK OF ME > OR = 0.60 SUGGEST ME Performed By: #### L501.4010 #### [facility] [address] [place], [address] ECHOCARDIOGRAM COMPLETE Observed: 07/28/2017 Status: F Source: [place] 1:24 PM [facility] REPOSITORY [facility] Cardiovascular Services [address] [place] [address] Echo Complete 07/28/17 1028 MR#: [id number] Acct: [id number] Name: BANDAR LOVE Rep #: [id number] : 1950 67 From: Isacc Rodriguez MD Attending Dr: Trish Islas Status: ADM IN Ordering Dr: Peggy Painter Date: 07/28/17 Location: ICU Sex: M C Admitted: 07/27/17 Reason For Study: CAD/ASHD Procedure This was a 2D Doppler, Color Flow transthoracic echocardiogram. Exam performed portable in ICU/CCU. Patient scanned supine. Left Ventricle Mildly dilated left ventricle. The estimated ejection fraction is 45-50 %. Infero-Basal: Mildly hypokinetic. Mid-Posterior: Mildly hypokinetic. Right Ventricle Mildly dilated right ventricle. Normal systolic function. Atria The left atrium is moderately enlarged. Normal right atrium. Normal atrial septum. Mitral Valve Mild focal mitral valve thickening. Mild mitral annular calcification extending into the posterior leaflet. Moderate (2+) mitral valve insufficiency. Tricuspid Valve Normal tricuspid valve. Mild (1+) tricuspid valve insufficiency. Right ventricular systolic pressure estimated to be 33 mmHg. Aortic Valve Trisinus/trileaflet aortic valve. Normal aortic valve. Pulmonic Valve Normal pulmonic valve. Great Vessels Normal aortic root. Normal arch. Normal inferior vena cava. Inferior vena cava collapse with sniff. Pericardium/Pleural No pericardial effusion. MMode/2D Measurements AND Calculations LVIDd: 5.2 cm IVSd: 1.0 cm Ao root diam: 3.1 cm LVIDs: 4.0 cm LVPWd: 1.0 cm LA dimension: 4.8 cm RVDd: 3.8 cm FS: 22.6 % LAV(MOD-bp): 71.6 ml LA A4 area: 21.2 cm2 RA A4 area: 18.3 cm2 LAV(MOD-bp) Indexed: 41.5 ml/m2 LAV(MOD-sp2): 78.1 ml LAV(MOD-sp4): 60.1 ml Doppler Measurements AND Calculations MV E max charlotte: 107.0 cm/sec Lat Peak E' [place]: 11.6 cm/sec Med Peak E' [place]: 7.1 cm/sec E/E' lat: 9.2 E/E' med: 15.2 Ao V2 max: 91.0 cm/sec LV V1 max: 64.2 cm/sec PA V2 max: 49.9 cm/sec Ao max P.3 mmHg LV V1 max P.7 mmHg Ao V2 mean: 64.8 cm/sec Ao mean P.9 mmHg Ao V2 VTI: 15.4 cm TR max charlotte: 212.5 cm/sec TR max P.1 mmHg Interpretation Summary Mildly dilated left ventricle. The estimated ejection fraction is 45-50 %. Infero-Basal: Mildly hypokinetic Mid-Posterior: Mildly hypokinetic Mildly dilated right ventricle. The left atrium is moderately enlarged. Moderate (2+) mitral valve insufficiency. Mild (1+) tricuspid valve insufficiency. Right ventricular systolic pressure estimated to be 33 mmHg. Compared to echo report dated 12/20/2016, pt has new inferior/posterior wall motion hypokinesis and LVEF has decreased from 65% to 50%. RVSP has remained the same. Pt appears to be in atrial fibrillation. Ordering Physician: Isacc Rodriguez Referring Physician: Imani Lutz Performed By: Jessica Hurst, ALEXANDRA, RVT 07/28/17 1324 Date Isacc Rodriguez MD CC: Peggy Painter; Isacc Rodriguez MD; Imani Lutz MD Date Dictated: 07/28/17 1028 Date Transcribed: 07/28/17 1324 E Commerce Architect: Signed TROPONIN-I Collected: 07/28/2017 Status: F Source: [place] 8:05 AM [facility] REPOSITORY Order Comment: 'TROP' Serial specimen #1, #2, #3, or #4: 4 TYPE CODE TESTS RESULT OUT OF RANGE REFERENCE UNITS LAB L501.4010 <0.06 ng/mL High alert 36.80 TROPONIN-I Result Comment: Critical Result(s) Called at: 07:46:26 07/28/2017 by: Juanito Vázquez RN (ICU) TROPONIN-I EXPECTED VALUES <0.05 NEGATIVE 0.06 - 0.59 AT RISK OF ME > OR = 0.60 SUGGEST ME Performed By: #### L501.4010 #### [facility] [address] [place], [place], [address] CBC-COMPLETE BLOOD CNT Collected: 07/28/2017 Status: F Source: OLIVIA NO DIFF 8:05 AM [facility] REPOSITORY Order Comment: Comments: 6H post procedure AND Q6H x 4 TYPE CODE TESTS RESULT OUT OF RANGE REFERENCE UNITS LAB L100.1000 4.4-11.0 K/mm3 Normal WBC 6.7 LAB L100.1200 4.6-6.2 M/mm3 Low RBC 3.57 LAB L100.1300 13.0-16.5 g/dl Low HGB 12.5 LAB L100.1400 40-54 % Low HCT 36.6 LAB L100.1500 80-94 fL High MCV 102.5 LAB L100.1600 27.0-32.0 pg High MCH 35.0 LAB L100.1700 32-36 g/gl Normal MCHC 34.2 LAB L100.1810 11.6-14.6 % Normal RDW CV 13.9 LAB L100.1820 35.1-43.9 fl High RDW SD 52.5 LAB L100.1900 150-450 K/mm3 Normal PLT 151 LAB L100.2000 6.2-12.0 fl Normal MPV 11.4 Performed By: #### L100.0500 #### [facility] [address] [facility] [place], [place], [address] CPK TOTAL, CREATINE Collected: 07/28/2017 Status: F Source: OL[place]IA KINASE 8:05 AM [facility] REPOS[facility]ORY TYPE CODE TESTS RESULT OUT OF RANGE REFERENCE UNITS LAB L501.3620 39-308 U/L High CPK TOTAL 866 Performed By: #### L501.3620 #### [facility] [address] [place], [address] ACT ACTIVATED CLOTTING Collected: 07/28/2017 Status: F Source: OLIVIA TIME 8:04 AM [facility] REPOS[facility]ORY TYPE CODE TESTS RESULT OUT OF RANGE REFERENCE UNITS LAB L9100.0100 74-137 sec Normal ACTk CLOT 131 TIME Performed By: #### L9100.0100 #### [facility] Point of Care [address] [place] [address] CBC-COMPLETE BLOOD CNT Collected: 07/28/2017 Status: F Source: [place] NO DIFF 3:30 AM [facility] REPOSITORY Order Comment: Comments: 6H post procedure AND Q6H x 4 TYPE CODE TESTS RESULT OUT OF RANGE REFERENCE UNITS LAB L100.1000 4.4-11.0 K/mm3 Normal WBC 6.2 LAB L100.1200 4.6-6.2 M/mm3 Low RBC 3.70 LAB L100.1300 13.0-16.5 g/dl Low HGB 12.9 LAB L100.1400 40-54 % Low HCT 38.5 LAB L100.1500 80-94 fL High MCV 104.1 LAB L100.1600 27.0-32.0 pg High MCH 34.9 LAB L100.1700 32-36 g/gl Normal MCHC 33.5 LAB L100.1810 11.6-14.6 % Normal RDW CV 14.0 LAB L100.1820 35.1-43.9 fl High RDW SD 53.0 LAB L100.1900 150-450 K/mm3 Normal PLT 158 LAB L100.2000 6.2-12.0 fl Normal MPV 11.0 Performed By: #### L100.0500 #### [facility] [address] [place], [address] PROTHROMBIN TIME W/INR Collected: 07/28/2017 Status: F Source: [place] 3:30 AM [facility] REPOS[facility]ORY TYPE CODE TESTS RESULT OUT OF RANGE REFERENCE UNITS LAB L300.4150 11.7-14.9 SECONDS High PROTIME 18.2 LAB L300.4200 Normal INR 1.5 Performed By: #### L300.3900 #### [facility] [address] [place], [address] COMPREHENSIVE METABOLIC Collected: 07/28/2017 Status: F Source: [place] [facility] 3:30 AM [facility] REPOS[facility]ORY TYPE CODE TESTS RESULT OUT OF RANGE REFERENCE UNITS LAB L501.0100 74-106 mg/dL High GLU 109 Result Comment: Fasting Glucose result from 100 to 125 mg/dL suggests IMPAIRED HOMEOSTASIS per A.D.A. criteria. Please note revised GLUCOSE reference range effective 2017. LAB L501.1000 7-18 mg/dL Normal BUN 13 LAB L501.1100 0.70-1.30 mg/dL Normal CREAT,SERUM 0.91 Result Comment: The validity of the calculated GFR AND GFRAA in patients over 70 years has not been determined. Clinical correlation is essential. LAB L501.1110 >60 mL/min Normal EST GFR 89 Result Comment: Non- GFR Calc LAB L501.1115 >60 mL/min Normal EST GFR - AA 107 Result Comment: GFR Calc LAB L501.1255 ml/min Normal Estimated CRCL 71.20 LAB L501.1300 10-20 RATIO Normal BUN/CRE 14.3 LAB L501.1500 6.4-8. g/dL Low 2 T PROT 6.1 LAB L501.1800 3.2-5. g/dL Normal 0 ALB 3.6 LAB L501.1950 2.2-4. g/dL Normal 2 GLOB 2.5 LAB L501.2000 0.9-2. RATIO Normal 4 A/G 1.4 LAB L501.2200 8.5-10 mg/dL Low .1 CA 8.0 LAB L501.4100 15-37 U/L High AST 104 LAB L501.4305 45-117 U/L Normal ALK P 61 LAB L501.4405 16-61 U/L Normal ALT 27 Result Comment: Please note revised ALT reference range effective 2017. LAB L501.4600 0.20-1.00 mg/dL Normal T BILI 0.40 LAB L501.5300 136-145 mmol/L Normal NA 143 LAB L501.5600 3.5-5.1 mmol/L Normal K 4.1 LAB L501.5900 98-107 mmol/L High CL 109 LAB L501.6100 21.0-32.0 mmol/L Normal CO2 28.0 LAB L501.6200 5-15 Normal GAP 6 Performed By: #### L500.4050, L500.4100 #### [facility] [address] [place], [address] LIPID PROFILE Collected: 07/28/2017 Status: F Source: OLIVIA 3:30 AM [facility] REPOSITORY TYPE CODE TESTS RESULT OUT OF RANGE REFERENCE UNITS LAB L501.4900 200 mg/dL Normal CHOL 158 Result Comment: <200 mg/dL Desirable 200-240 mg/dL Borderline >240 mg/dL High Risk LAB L501.5000 mg/dL Normal TRIG 66 Result Comment: The drugs N-Acetylcysteine and Metamizole may falsely depress this assay. Serum Triglycerides Reference Interval Normal <150 mg/dL Borderline high 150 - 199 mg/dL High 200 - 499 mg/dL Very High > or = 500 mg/dL LAB L501.6400 mg/dL Normal HDL 46 Result Comment: The drugs N-Acetylcysteine and Metamizole may falsely depress this assay. Reference Range HDL <40 mg/dL Low HDL Cholesterol HDL >or= 60 mg/dL High HDL Cholesterol LAB L501.6500 0-130 mg/dL Normal LDL 99 LAB L501.6600 5-40 mg/dL Normal VLDL 13 Performed By: #### L500.4050, L500.4100 #### [facility] [address] [facility] [place], [address] CPK TOTAL, CREATINE Collected: 07/28/2017 Status: F Source: OLIVIA KINASE 3:30 AM [facility] REPOSITORY TYPE CODE TESTS RESULT OUT OF RANGE REFERENCE UNITS LAB L501.3620 39-308 U/L High CPK TOTAL 894 Performed By: #### L501.3620 #### [facility] [address] [facility] [place], [address] EMERGENCY DEPARTMENT Observed: 07/28/2017 Status: F Source: OLIVIA SUMMARY 12:30 AM [facility] REPOSITORY [facility] Medical Records Department [address] [place] [address] [place] [address] Emergency Department Summary 07/27/171914 MR#: [id number] Acct: [id number] Name: BANDAR LOVE Rep #: [id number] : 1950 67 From: Kal Keller MD PCP: Imani Lutz MD Status: ADM IN - ER Visit Summary Date of Service: 07/27/17 Chief Complaint: Chest pain History of Present Illness: The patient is a 67 M history of A. fib on Coumadin. He also has a history of acute lymphoma for which he is being treated with chemotherapy. And has a right chest wall port. Patient states 1 hour ago while walking in his house he developed midsternal chest pain. He denies any radiation to his back, neck or jaw. He denies other symptoms. He states he has never had a heart attack. He has no stents nor has he ever had open heart surgery. Physical Examination: Older male vital signs are stable. His blood pressure is 107/77. His pulse ox is 97% on room air no hypoxia. We are placing him on 2 L. HEENT exam unremarkable. Neck nontender no lymphadenopathy. Lungs clear to auscultation bilaterally. Heart irregularly irregular rate in the 70s. Abdomen soft nontender. He is moving all 4 extremities. Calves are nontender without edema. Neurologically he is awake and alert without focal motor deficits. Skin is unremarkable. Test Results: EKG shows acute inferior ME with reciprocal changes in leads V2 V3 and also lead I, II and aVL. His ST elevation in 2 3 and aVF. Labs are pending. As is the chest x-ray. Emergency Department Course and Treatment: Already spoken to Dr. Gerald Rodriguez on-call for interventional cardiology. We are assembling the Tour Driver team. The patient will receive IV heparin bolus, p.o. Brilinta and p.o. aspirin. And is awaiting the Tour Driver. Treatment Plan: [] Disposition: Admit to the ICU after he goes to the cardiac catheterization lab Impression: Acute inferior ME Chronic atrial fibrillation Acute lymphoma being treated with chemotherapy This note was generated with AppInstituteation software. It may contain incorrect words, spelling, and punctuation that were not noted in review of the chart prior to signing ED Disposition - Plan for ED Patient: Chief Complaint: Chest Pain Referrals: Imani Lutz MD [Primary Care Provider] - What to do if you have Problems For any increased pain, shortness of breath, bleeding, nausea or vomiting, chest pain, or any unexpected problems, contact your Primary Care Provider. Call [facility] ([phone]) or report to the closest Emergency Room. Call 911 if necessary. 07/28/17 0030 <Electronically signed by Kal Keller MD> Date Kal Keller MD Cosigner Signature (If Indicated): Date CC: Imani Lutz MD TROPONIN-I Collected: 07/27/2017 Status: F Source: OLIVIA 11:00 PM [facility] REPOSITORY Order Comment: 'TROP' Serial specimen #1, #2, #3, or #4: 2 TYPE CODE TESTS RESULT OUT OF RANGE REFERENCE UNITS LAB L501.4010 <0.06 ng/mL High alert 13.30 TROPONIN-I Result Comment: Critical Result(s) Called at: 23:03:38 07/27/2017 by: TRAVIS Rivera TROPONIN-I EXPECTED VALUES <0.05 NEGATIVE 0.06 - 0.59 AT RISK OF ME > OR = 0.60 SUGGEST ME Performed By: #### L501.4010 #### [facility] [place], [address] CBC-COMPLETE BLOOD CNT Collected: 07/27/2017 Status: F Source: OLIVIA NO DIFF 9:50 PM [facility] REPOSITORY Order Comment: Comments: 6H post procedure AND Q6H x 4 TYPE CODE TESTS RESULT OUT OF RANGE REFERENCE UNITS LAB L100.1000 4.4-11.0 K/mm3 Normal WBC 8.8 LAB L100.1200 4.6-6.2 M/mm3 Low RBC 3.59 LAB L100.1300 13.0-16.5 g/dl Low HGB 12.8 LAB L100.1400 40-54 % Low HCT 36.6 LAB L100.1500 80-94 fL High MCV 101.9 LAB L100.1600 27.0-32.0 pg High MCH 35.7 LAB L100.1700 32-36 g/gl Normal MCHC 35.0 LAB L100.1810 11.6-14.6 % Normal RDW CV 13.5 LAB L100.1820 35.1-43.9 fl High RDW SD 49.0 LAB L100.1900 150-450 K/mm3 Normal PLT 154 LAB L100.2000 6.2-12.0 fl Normal MPV 11.2 Performed By: #### L100.0500 #### [facility] [address] [place], [address] CPK TOTAL, CREATINE Collected: 07/27/2017 Status: F Source: OLIVIA KINASE 9:50 PM [facility] REPOSITORY TYPE CODE TESTS RESULT OUT OF RANGE REFERENCE UNITS LAB L501.3620 39-308 U/L High CPK TOTAL 323 Performed By: #### L501.3620 #### [facility] [address] [place] [address], [address] BNP,B-TYPE NATRIURETIC Collected: 07/27/2017 Status: F Source: OLIVIA PEPTIDE 9:50 PM [facility] REPOSITORY TYPE CODE TESTS RESULT OUT OF RANGE REFERENCE UNITS LAB L503.6620 0-100 pg/mL High B-TYPE 206.4 MELISSA PEP Performed By: #### L503.6620 #### [facility] [place], [address] ACT ACTIVATED CLOTTING Collected: 07/27/2017 Status: F Source: OLIVIA TIME 8:25 PM [facility] REPOSITORY TYPE CODE TESTS RESULT OUT OF RANGE REFERENCE UNITS LAB L9100.0100 74-137 sec High ACTk CLOT 235 TIME Performed By: #### L9100.0100 #### [facility] Point of Care [address] [place] [address] ACT ACTIVATED CLOTTING Collected: 07/27/2017 Status: F Source: OLIVIA TIME 7:55 PM [facility] REPOSITORY TYPE CODE TESTS RESULT OUT OF RANGE REFERENCE UNITS LAB L9100.0100 74-137 sec High ACTk CLOT 202 TIME Performed By: #### L9100.0100 #### [facility] Point of Care [address] [place] [address] HISTORY AND PHYSICAL Observed: 07/27/2017 Status: F Source: CONWAY EXAM 7:34 PM [facility] REPOSITORY [facility] Medical Records Department [address] [place] [address] History and Physical 07/27/17 1914 MR#: [id number] Acct: [id number] Name: BANDAR LOVE Rep #: [id number] : 1950 67 From: Peggy Painter PCP: Imani Lutz MD Status: ADM IN Y Location: ICU [id number] Problem List (1) GERD (gastroesophageal reflux disease) Status: Chronic (2) Severe protein-calorie malnutrition Status: Chronic (3) Inferior ME Status: Acute (4) Cardiogenic shock Status: Acute (5) Atrial fibrillation Status: Chronic Qualifiers: Atrial fibrillation type: chronic Qualified Code(s): I48.2 - Chronic atrial fibrillation (6) Altered vision right eye Status: Chronic (7) History of bladder cancer Status: Chronic (8) Mantle cell lymphoma Status: Chronic Qualifiers: Lymphoma site: unspecified region Qualified Code(s): C83.10 - Mantle cell lymphoma, unspecified site History of Present Illness Date of Admission: 07/27/17 Chief Complaint: Chest pain, STEMI The patient is a 67 y/o M w/ PMHx: GERD, Severe protein-calorie malnutrition, Chronic Atrial fibrillation following w/ Dr. Hansen on chronic coumadin therapy, Chronic Altered vision right eye, History of bladder cancer , Active Mantle cell lymphoma with ongoing chemotherapy following w/ Dr. 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 In the ED work-up included T 96.3, HR 75, BP initially 107/77-->79/57, RR 16, 96% on 2L NC, pending CBC, BMP, trop, mag, phos, coags, CXR. Dr. 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 Past Medical History Past Medical History (Chronic Problems): Chronic Problems GERD (gastroesophageal reflux disease) (Chronic) Severe protein-calorie malnutrition (Chronic) Atrial fibrillation (Chronic) Altered vision right eye (Chronic) History of bladder cancer (Chronic) 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) Allergies ampicillin Allergy (Verified 12/12/16 11:37) Rash phenazopyridine [Phenazopyridine] Allergy (Verified 12/12/16 11:37) Rash cephalexin [Cephalexin] Adverse Reaction (Verified 12/12/16 11:37) Upset Stomach trazodone Adverse Reaction (Verified 12/12/16 11:37) Nausea Home Medications: Ambulatory Orders Medication Instructions Recorded Gabapentin [Neurontin] 100 mg PO QHS 12/12/16 Surgical History: - - Hernia repair, Tendon repair, Port, Splenectomy, Bone marrow bx, EGD, EBUS, T+A. Psychiatric History: No pertinent psych hx Lives: Spouse/ Significant Other Smoking Status: Never smoker Tobacco Use: Non-smoker Alcohol: None Drugs: None - *Family History Paternal History Items: - - Father with heart disease afib, had chf as well. Maternal History Items: Diabetes, Heart Disease Review of Systems Constitutional: Reports: Anorexia, Malaise, Weakness, Fatigue. Denies: Chills, Fever, Weight Change HEENT: Denies: Head Aches, Sinus Congestion, Sinus Drainage Cardiovascular: Reports: Chest Pain, Chest Pressure. Denies: Palpitations Respiratory: Reports: Shortness of Breath, Shortness of breath at rest, Shortness of breath upon exertion. Denies: Cough, Sputum production Gastrointestinal: Reports: Nausea. Denies: Abdominal Pain, Vomiting Genitourinary: Denies: Dysuria Musculoskeletal: Reports: Back Pain. Denies: Joint Pain, Joint Tenderness Skin: Denies: Rash, Wounds Neurological: Denies: Numbness, Tingling, Focal weakness Psychiatric: Denies: Anxiety, Depression, Homicidal Ideations, Suicidal Ideations Hematologic/ Lymphatic: Reports: Anemia, Easy Bruising, Easy Bleeding VTE Information - Inpt Only VTE Present on Admission: No VTE Mechan Device Prophylaxis: SCD's VTE Pharm Prophylaxis ordered?: Yes Patient Problems: Active and Suspected Problems Inferior ME (Acute) Cardiogenic shock (Acute) Subjective: Seated upright in the ED bed, ongoing chest pressure, uncomfortable appearing, very cachetic. Objective: Physical Examination: General: awake, alert, oriented x 3 and cooperative, seated upright in the ED bed, ongoing acute chest pressure, uncomfortable, cachetic appearing. Skin: normal color, turgor, no icterus, cyanosis. HEENT: AT/NC, EOMI, PERRLA, dry MM, no carotid bruits or JVD noted. Lungs: Diminished bases, moderate effort, no rales, ronchi or wheezing. Heart: Irregular; no gallop, rub audible, chest port in place RU chest. Abdomen: soft, thin habitus, cachectic, NTTP, ND, normal BS, s/p splenectomy per report, no HM. Extremities: no cyanosis, clubbing, or edema, muscle and fat loss evident. Neurological: patient awake, alert, oriented x 3; cognitive function intact; pupils equally reactive to light and accomodation; cranial nerves II-XII grossly normal, moving all 4 extremities, no focal deficits, strength severely globally decreased secondary to acute presentation. Psychiatric: affect appears fatigued, strained, no acute evidence of depressive or anxiety feelings. - Physical Exam Vital Signs Temp Pulse Resp BP Pulse Ox 96.3 F L 75 17 107/77 96 07/27/17 18:55 07/27/17 18:55 07/27/17 18:55 07/27/17 18:55 07/27/17 19:13 Oxygen Flow Rate (L/min) 2 Oxygen Delivery Method Nasal Cannula Weight: 134 lb 7.712 oz Body Mass Index (BMI) 20.4 Assessment/Plan Active and Suspected Problems Inferior ME (Acute) Cardiogenic shock (Acute) The patient is a 67 y/o M w/ PMHx: GERD, Severe protein-calorie malnutrition, Chronic Atrial fibrillation following w/ Dr. 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 (1) Chest Pain/Pressure w/ Acute Inferior STEMI w/ ? Cardiogenic Shock: In the ED work-up included T 96.3, HR 75, BP initially 107/77-->79/57, RR 16, 96% on 2L NC, pending CBC, BMP, trop, mag, phos, coags, CXR. Dr. Rodriguez, Cardiology contacted for STEMI call, ordered ASA 324 mg x 1, heparin 4,000 u bolus x 1, Brillinta 180 mg x 1 in addition to 500 cc bolus. Following intervention in the laboratory apparatus glass grinder, will admit to ICU, maintain on a monitored bed, continue serial cardiac enzymes and EKGs, pending admission labs including mag, heparin bolus upon presentation, brillinta load in addition to ASA. Following pending VS, continue management w/ asa, brillinta, high dose statin w/ AM FLP, given low BP defer BB, ACEI addition pending re-assessment. Continue IVFs, pending evaluation EF in cath, may need alternate options for hypotension. Consider ICU consultation if remains concerning. ECHO pending. (2) Chronic Atrial Fibrillation: EKG inferior ME w/ AF, rate controlled, maintain on amiodarone, pending admission INR, on coumadin outpatient, follows w/ Dr. Hansen. ECHO pending. (3) Active Mantle cell lymphoma: Noted ongoing chemotherapy following w/ Dr. George, most recent chemotherapy Sunday, chemotherapy precautions as needed, mag and phos pending upon admission. (4) Severe protein-calorie malnutrition: Evidenced per habitus, muscle and fat loss, nutrition consulted. (5) GERD: PPI. (6) DVT prophylaxis: SCDs, given heparin bolus in ED. Code Visit Inpatient E AND M: 18385 Init Hosp L3 07/27/171933 <Electronically signed by Peggy Painter > Date Peggy Painter Cosigner Signature: Date (if applicable) CC: Peggy Painter; Imani Lutz MD Signed CHEST 1 VIEW Observed: 07/27/2017 Status: F Source: CONWAY (PORTABLE) 7:12 PM [facility] REPOSITORY [facility] Imaging Services [address] [place] [address] Chest 1 View (Portable) MR#: [id number] Acct: [id number] Name: BANDAR LOVE Rep #: [id number] : 1950 M 67 From: Torrey Borges MD PCP: Imani Lutz MD Status: ADM IN Study: Chest 1 View (Portable) Date of Exam: 07/27/17 Exam# [id number] Ordering Dr: Kal Keller MD STUDY: X-RAY CHEST REASON FOR EXAM: Male, 67 years old. STEMI TECHNIQUE: Single frontal view of the chest. COMPARISON: August 11, 2013 FINDINGS: Chronic appearing increased interstitial lung markings. There is a right Port-A-Cath and/or mediport in place. The tip is in the superior vena caval - atrial junction. There are multiple overlying cardiac monitoring leads. There is no demonstrated pleural abnormality. The lung rodriguez are hyperexpanded. Enlarged heart size. Normal mediastinum and jose. Normal visualized pulmonary arteries. There is atherosclerotic calcification of the aortic arch with tortuosity. There are diffuse degenerative changes of the visualized thoracic spine. There is degenerative osteoarthritis of the bilateral shoulders. There is no demonstrated abnormality of the visualized soft tissue structures of the upper abdomen. RAD/Chest 1 View (Portable) IMPRESSION: There are no acute findings. Electronically Signed: Torrey Borges MD at 19:37 EDT , Service support , CC: Kal Keller MD; Imani Lutz MD E Commerce Architect: Signed CBC W/DIFF, AUTOMATED Collected: 07/27/2017 Status: F Source: OLIVIA 7:07 PM [facility] REPOSITORY TYPE CODE TESTS RESULT OUT OF RANGE REFERENCE UNITS LAB L100.1000 4.4-11.0 K/mm3 Normal WBC 5.4 LAB L100.1200 4.6-6.2 M/mm3 Low RBC 4.14 LAB L100.1300 13.0-16.5 g/dl Normal HGB 14.5 LAB L100.1400 40-54 % Normal HCT 42.4 LAB L100.1500 80-94 fL High MCV 102.4 LAB L100.1600 27.0-32.0 pg High MCH 35.0 LAB L100.1700 32-36 g/gl Normal MCHC 34.2 LAB L100.1810 11.6-14.6 % Normal RDW CV 13.7 LAB L100.1820 35.1-43.9 fl High RDW SD 51.8 LAB L100.1900 150-450 K/mm3 Normal PLT 174 LAB L100.2000 6.2-12.0 fl Normal MPV 11.5 LAB L100.2100 47-70 % Normal NEUT% 51.4 LAB L100.2200 19-41 % Normal LY% 34.2 LAB L100.2300 0-10 % High MONO% 11.8 LAB L100.2400 0-5 % Normal EO% 1.8 LAB L100.2500 0-1 % Normal BASO% 0.4 LAB L100.2550 0.0-0.9 % Normal IM GRAN % 0.400 Result Comment: IG% - Immature Granulocytes (promyelocytes, myelocytes and metamyelocytes) > 1% indicates that a LEFT SHIFT is Present. LAB L100.2620 2.0-7.7 X10 3/uL Normal Absolute Neut 2.8 LAB L100.2720 0.83-4.51 X10 3/ul Normal Absolute Lymph 1.86 Performed By: #### L100.0100 #### [facility] [address] [place], [place], [address] PROTHROMBIN TIME W/INR Collected: 07/27/2017 Status: F Source: CONWAY 7:07 PM [facility] REPOSITORY TYPE CODE TESTS RESULT OUT OF RANGE REFERENCE UNITS LAB L300.4150 11.7-14.9 SECONDS High PROTIME 16.0 LAB L300.4200 Normal INR 1.3 Performed By: #### L300.3900 #### [facility] [address] [place], [place], [address] BASIC METABOLIC Collected: 07/27/2017 Status: F Source: OLIVIA PROFILE (BMP) 7:07 PM [facility] REPOSITORY Order Comment: 'TROP' Serial specimen #1, #2, #3, or #4: 1 TYPE CODE TESTS RESULT OUT OF RANGE REFERENCE UNITS LAB L501.0100 74-106 mg/dL High GLU 107 Result Comment: Fasting Glucose result from 100 to 125 mg/dL suggests IMPAIRED HOMEOSTASIS per A.D.A. criteria. Please note revised GLUCOSE reference range effective 2017. LAB L501.1000 7-18 mg/dL Normal BUN 15 LAB L501.1100 0.70-1.30 mg/dL Normal CREAT,SERUM 1.08 Result Comment: The validity of the calculated GFR AND GFRAA in patients over 70 years has not been determined. Clinical correlation is essential. LAB L501.1110 >60 mL/min Normal EST GFR 73 Result Comment: Non- GFR Calc LAB L501.1115 >60 mL/min Normal EST GFR - AA 88 Result Comment: GFR Calc LAB L501.1255 ml/min Normal Estimated CRCL 58.83 LAB L501.1300 10-20 RATIO Normal BUN/CRE 13.9 LAB L501.2200 8.5-10 mg/dL Normal .1 CA 8.8 LAB L501.5300 136-14 mmol/L Normal 5 NA 143 LAB L501.5600 3.5-5. mmol/L Low 1 K 3.2 LAB L501.5900 98-107 mmol/L High CL 108 LAB L501.6100 21.0-3 mmol/L Normal 2.0 CO2 27.0 LAB L501.6200 5-15 Normal GAP 8 Performed By: #### L500.2500, L501.4010, L501.5200 #### [facility] [address] [place], [address] TROPONIN-I Collected: 07/27/2017 Status: F Source: OLIVIA 7:07 PM [facility] REPOSITORY Order Comment: 'TROP' Serial specimen #1, #2, #3, or #4: 1 TYPE CODE TESTS RESULT OUT OF RANGE REFERENCE UNITS LAB L501.4010 <0.06 ng/mL Normal < 0.02 TROPONIN-I Result Comment: TROPONIN-I EXPECTED VALUES <0.05 NEGATIVE 0.06 - 0.59 AT RISK OF ME > OR = 0.60 SUGGEST ME Performed By: #### L500.2500, L501.4010, L501.5200 #### [facility] [address] [place], [address] MAGNESIUM Collected: 07/27/2017 Status: F Source: CONWAY 7:07 PM [facility] REPOSITORY Order Comment: 'TROP' Serial specimen #1, #2, #3, or #4: 1 TYPE CODE TESTS RESULT OUT OF RANGE REFERENCE UNITS LAB L501.5200 1.6-2.6 mg/dL Normal MG 2.2 Result Comment: Please note revised Magnesium reference range effective 2017. Performed By: #### L500.2500, L501.4010, L501.5200 #### [facility] [address] [place], [address] PHOSPHORUS Collected: 07/27/2017 Status: F Source: CONWAY 7:07 PM [facility] REPOSITORY TYPE CODE TESTS RESULT OUT OF RANGE REFERENCE UNITS LAB L501.2300 2.5-4.9 mg/dL Normal PHOS 3.1 Performed By: #### L501.2300 #### [facility] [address] [place], [address] OLIVIA ABS GR + CBC Collected: 07/23/2017 Status: F Source: TROY 2:44 PM [facility] REPOSITORY TYPE CODE TESTS RESULT OUT OF REFERENCE UNITS RANGE LAB WWBC 3.70-11.00 k/uL [place] WBC 4.19 LAB WRBC 4.20-6.00 m/uL [place] RBC 4.21 LAB WHGB 13.0-17.0 g/dL [place] Hemoglobin 15.0 LAB WHCT 39.0-51.0 % [place] Hematocrit 43.2 LAB WMCV 80.0-100.0 fL [place] High MCV 102.6 LAB WMCH 26.0-34.0 pg [place] High MCH 35.6 LAB WMCHC 30.5-36.0 g/dL [place] MCHC 34.7 LAB WRDW 11.5-15.0 % [place] RDW 13.7 LAB WPLT 150-400 k/uL [place] Platelet Cnt 200 LAB WMPV 9.0-12.7 fL [place] MPV 11.0 Result Comment: Test performed at: [facility] [place], [address] [place] [address]. LAB ABGRAN 1.45-7.50 k/uL Absol Gran 2.23 Count CNPN Observed: 07/17/2017 Status: COMPLETED Source: TROY 12:00 AM [facility] REPOSITORY Telephone (INTMWS) BANDAR LOVE ([id number]) 1950 M Date Time Provider Department 07/17/17 JUSTYNA CASTILLO (ERIKA) INTMROSY During your visit today, we recorded the following information about you: Justyna Castillo APRN.ERIKA JAMES 07/17/2017 8:59 AM Signed No show for appt. Has mole that needs to be checked. Will assist today with getting an appt with- general surgery Dr. Brice or Dr. Arceo Brenda Joe [facility] 07/30/2017 1:10 PM Signed LM on home for pt to call and schedule appt in general surgery for a mole. Allergies As of Date: 07/17/2017 Noted Allergy Reaction AMPICILLIN 05/01/2005 4 - Hives CEPHALEXIN 05/01/2005 8 - GI Upset PYRIDIUM (PHENAZOPYRIDINE HCL) 04/13/2006 2 - Rash TRAZODONE 04/23/2014 5 - Intolerance Comments: Dizziness; nausea Date Reviewed: 07/10/2017 Reviewed by: Gabbi Foster Ct - Fully Assessed Reason for Visit: Appointment [[id number]] Prescriptions as of 07/17/2017 Sig: VENLAFAXINE ER 37.5 MG CAPSUL* Take 1 capsule by mouth once * X ZOFRAN ORAL Take 8 mg by mouth as needed. COMPOUNDED PRESCRIPTION Powerstep orthotic (M72.2) P* WARFARIN 4 MG TABLET Take 1 tablet by mouth once d* WARFARIN 1 MG TABLET Take 2 tablets by mouth daily* WARFARIN 5 MG TABLET Take 1 tablet by mouth daily * PANTOPRAZOLE 40 MG TABLET,DEL* Take 1 tablet by mouth daily * LIDOCAINE-PRILOCAINE 2.5 %-2.* Apply to port site 20 min. pr* Problem List As Of Date 07/17/2017 Noted Resolved PROSTATITIS NOS [N41.9] INVALID FOR*09/20/2006 BPH w urinary obs/LUTS [N40.1, N13.8] INVALID FOR* Malignant neoplasm of bladder (HCC) [C67.9] INVALID FOR* More... Cervicalgia [M54.2] INVALID FOR* More... ALLERGIC RHINITIS NOS [J30.9] INVALID FOR* More... More... Lumbago [M54.5] INVALID FOR* Sprain and Strain of Unspecified Site of Should*INVALID FOR* Abdominal Pain, Left Lower Quadrant [R10.32] INVALID FOR* Constipation, Chronic [K59.09] INVALID FOR* Suprapubic Pain [R10.2] INVALID FOR* Unspecified orchitis and epididymitis [N45.3] INVALID FOR* Inguinal hernia, right [K40.90] INVALID FOR* Unilat ing hernia [K40.90] INVALID FOR* Osteoarthritis of knee [M17.10] INVALID FOR* Bilateral knee pain [M25.561, M25.562] INVALID FOR* Inguinal pain, lower right quadrant [R10.31] INVALID FOR* Mitral valve prolapse [I34.1] INVALID FOR* Mitral regurgitation due to cusp prolapse [I34.*INVALID FOR*11/02/2016 Anxiety [F41.9] INVALID FOR* Low back pain [M54.5] INVALID FOR* Non-rheumatic mitral regurgitation [I34.0] INVALID FOR* Mantle cell lymphoma of lymph nodes of multiple*INVALID FOR* Diverticulosis of colon (without mention of hem*INVALID FOR* Lymphoma, mantle cell, multiple sites (HCC) [C8*INVALID FOR* More... Atrial fibrillation, chronic (HCC) [I48.2] INVALID FOR* Encounter Status:Closed by JUSTYNA ALMAZAN on 07/23/17 PROGRESS Observed: 07/12/2017 Status: COMPLETED Source: [place] 9:53 AM [facility] REPOSITORY HNO ID: [id number] Author: Faustino George Service: (none) Author Type: Physician Type: Progress Notes Filed: 07/15/2017 9:23 AM Note Text: Diagnosis: 1) Mantle cell lymphoma. HPI: The patient is a 66-year-old male was a past medical history significant for superficial bladder cancer (TURBT in 2006) and MVP/regurgitation who about a month ago noticed enlarging lymphadenopathy of the neck. More recently he noticed worsening swelling of the left sided lymph node and sought medical attention. CT Neck 04/10/2016: Diffuse cervical lymphadenopathy/conglomerate soft tissue masses throughout the neck with right axillary and upper mediastinal lymphadenopathy is suspicious for lymphoproliferative disorder, not excluding metastatic involvement. He has not been having night sweats or fevers. He says his appetite is unchanged and his weight typically tends to fluctuate. He is not having any trouble swallowing. He's had no episodes of choking or aspiration. He denies dysphasia and odynophagia. He has not had any abdominal distention, bloating or swelling. He denies neurologic symptoms including peripheral symptoms of neuropathy, motor weakness and tremors. No trouble with headache, vision, hearing, phonation or concentration. He underwent echocardiogram in January of this year. He was noted to have a normal ejection fraction but he had severe (3+ - 4+) mitral valve regurgitation due to prolapse and flail. 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 Underwent an FNA of the left neck mass on 05/02/2016. Fine needle aspiration, left neck mass (smears and cell block): Consistent with involvement by Noh-Hodgkin B-cell lymphoma, mantle cell lymphoma. Flow cytometry studies from [facility] are consistent with involvement by a CD5-positive B-cell lymphoproliferative disoreder. See comment. RESULTS: ANTIBODY / CLONE RESULT AE1-3 (AE1/AE3/PCK26) negative CD3 (PS1) negative CD5 (SP10) positive CD20 (L26) positive CD43 (L60) positive CD45 (RP2/18) positive CD79a (11E3) positive CD138 (B-A38) negative CD10 (56C6) negative CD23 (1B12) negative CD30 (Kamar-H2) negative BCL-2 (bcl-2/100/D5) positive BCL-6 (LG704M/A8) negative Cyclin D1/BCL-1 (SP4) positive Ki-67 (30-9) positive (36%) Previous therapy: 1) R-CHOP. [facility]--Mild residual right hilar adenopathy. PET demonstrated hypermetabolic nodes in right hilum and subcarinal area. He underwent bronchoscopy with endoscopic bronchoscopic ultrasound with transbronchial biopsies of several lymph node stations including the subcarinal stations. He developed atrial fibrillation following it. His rhythm was normalized on amiodarone. Pathology demonstrated mantle cell lymphoma in the biopsied lymph nodes. Current therapy: 1) Velcade. Presents for ongoing hematologic management. Interim history: Off treatment since 2016 due to insurance issues. Occasional cough. Not short of breath. Right foot pain, not clearly neuropathy. PMH, medications and allergies as below personally reviewed by me today. Any changes documented in appropriate section. ROS: Constitutional: Denies episodes of fever and night sweats. Not significantly fatigued Neuro: Denies TAYLOR, vertigo, dizziness and imbalance. HEENT: No recent change in voice, vision or hearing. Resp: See above. CVS: Denies exertional chest pain, PND, orthopnea. GI: Denies dysgeusia. Denies symptoms of stomatitis. Denies dysphagia and odynophagia. Denies reflux, n/v, change in bowel habits and abdominal pain. : Denies dysuria or gross hematuria. No symptoms of bladder outlet obstruction. Endo: Denies hot flashes. Denies polyuria and polydipsia. Denies heat and cold intolerance. Musculoskeletal: See above. Derm: Denies rash. Denies jaundice and diffuse pruritis. Heme: Denies unusual bleeding and unexplained bruising. Psych: Normal mood. PHYSICAL EXAM: Vitals: Blood pressure 118/82, pulse 86, temperature 36.4 ?C (97.6 ?F), weight 60.3 kg (133 lb). Then-appearing and in no acute distress. EYES: Sclerae are anicteric bilaterally. NECK: Supple. No enlargement of thyroid. LYMPHATIC: No peripheral adenopathy. RESPIRATORY: Inspiratory breath sounds are of normal intensity in all rodriguez. No rales, wheezes or rhonchi. CARDIOVASCULAR: Rhythm is irregularly irregular. Murmur unchanged. OS appreciated. ABDOMEN: The abdomen is nondistended. No organomegaly. No tenderness. No palpable abdominal mass. Extremities: No swelling or edema. SKIN: No jaundice or rash. No petechiae. NEUROLOGIC: gi physician II-XII are grossly intact. DTRs symmetrically diminished. MS: There is tenderness when pushing in the mid arch region of the right foot. No mass appreciated. 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 He had extensive bone marrow involvement at the time of presentation. -KPS is 80-90%. -Asymptomatic from the lymphoma at baseline with exception significant adenopathy. Although baseline LDH normal, the Ki67 at 36% suggested more aggressive disease. -Higher risk of infectious complications given underlying MVP/reguritation as well as h/o splenectomy at age 10. -Reviewed CT results--very mild prgression. -Discussed options--I think bortezomib best at this point. Can consider ibrutinib or other targeted therapy if PD on bortezomib. Already has a fib. Plan: -Resume Velcade. -CT after 3 cycles. -Watch symptoms of progressive neuropathy. (I34.0) Non-rheumatic mitral regurgitation Assessment: -The symptoms remain minimal from this. His only baseline symptom was decreased exercise capacity. Plan: -Will continue monitoring. (I48.2) Atrial fibrillation, chronic (HCC) Assessment: -He is on amiodarone and anticoagulation. Rate controlled. Plan: -He will continue care with Dr. Hansen. Faustino George DO CNOVSP Observed: 07/12/2017 Status: COMPLETED Source: [place] 9:30 AM [facility] REPOSITORY Visit (SP) Office (JENNY) BANDAR LOVE ([id number]) 1950 M Date Time Provider Department 07/12/17 9:30 AM FAUSTINO GEORGE During your visit today, we recorded the following information about you: Temperature Pulse Blood pressure Weight 97.6 degrees 86/minute 118/82 60.3 kg Marielmarcie King JONNY 07/12/2017 9:58 AM Signed Est patient. Discuss recent labs and CT scan. Mariel George DO 07/15/2017 9:23 AM Signed Diagnosis: 1) Mantle cell lymphoma. HPI: The patient is a 66-year-old male was a past medical history significant for superficial bladder cancer (TURBT in 2006) and MVP/regurgitation who about a month ago noticed enlarging lymphadenopathy of the neck. More recently he noticed worsening swelling of the left sided lymph node and sought medical attention. CT Neck 04/10/2016: Diffuse cervical lymphadenopathy/conglomerate soft tissue masses throughout the neck with right axillary and upper mediastinal lymphadenopathy is suspicious for lymphoproliferative disorder, not excluding metastatic involvement. He has not been having night sweats or fevers. He says his appetite is unchanged and his weight typically tends to fluctuate. He is not having any trouble swallowing. He's had no episodes of choking or aspiration. He denies dysphasia and odynophagia. He has not had any abdominal distention, bloating or swelling. He denies neurologic symptoms including peripheral symptoms of neuropathy, motor weakness and tremors. No trouble with headache, vision, hearing, phonation or concentration. He underwent echocardiogram in January of this year. He was noted to have a normal ejection fraction but he had severe (3+ - 4+) mitral valve regurgitation due to prolapse and flail. 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 Underwent an FNA of the left neck mass on 05/02/2016. Fine needle aspiration, left neck mass (smears and cell block): Consistent with involvement by Noh-Hodgkin B-cell lymphoma, mantle cell lymphoma. Flow cytometry studies from [facility] are consistent with involvement by a CD5-positive B-cell lymphoproliferative disoreder. See comment. RESULTS: ANTIBODY / CLONE RESULT AE1-3 (AE1/AE3/PCK26) negative CD3 (PS1) negative CD5 (SP10) positive CD20 (L26) positive CD43 (L60) positive CD45 (RP2/18) positive CD79a (11E3) positive CD138 (B-A38) negative CD10 (56C6) negative CD23 (1B12) negative CD30 (Kamar-H2) negative BCL-2 (bcl-2/100/D5) positive BCL-6 (EE420X/A8) negative Cyclin D1/BCL-1 (SP4) positive Ki-67 (30-9) positive (36%) Previous therapy: 1) R-[facility]OP. [facility]--Mild residual right hilar adenopathy. PET demonstrated hypermetabolic nodes in right hilum and subcarinal area. He underwent bronchoscopy with endoscopic bronchoscopic ultrasound with transbronchial biopsies of several lymph node stations including the subcarinal stations. He developed atrial fibrillation following it. His rhythm was normalized on amiodarone. Pathology demonstrated mantle cell lymphoma in the biopsied lymph nodes. Current therapy: 1) Velcade. Presents for ongoing hematologic management. Interim history: Off treatment since 2016 due to insurance issues. Occasional cough. Not short of breath. Right foot pain, not clearly neuropathy. PMH, medications and allergies as below personally reviewed by me today. Any changes documented in appropriate section. ROS: Constitutional: Denies episodes of fever and night sweats. Not significantly fatigued Neuro: Denies TAYLOR, vertigo, dizziness and imbalance. HEENT: No recent change in voice, vision or hearing. Resp: See above. CVS: Denies exertional chest pain, PND, orthopnea. GI: Denies dysgeusia. Denies symptoms of stomatitis. Denies dysphagia and odynophagia. Denies reflux, n/v, change in bowel habits and abdominal pain. : Denies dysuria or gross hematuria. No symptoms of bladder outlet obstruction. Endo: Denies hot flashes. Denies polyuria and polydipsia. Denies heat and cold intolerance. Musculoskeletal: See above. Derm: Denies rash. Denies jaundice and diffuse pruritis. Heme: Denies unusual bleeding and unexplained bruising. Psych: Normal mood. PHYSICAL EXAM: Vitals: Blood pressure 118/82, pulse 86, temperature 36.4 ?C (97.6 ?F), weight 60.3 kg (133 lb). Then-appearing and in no acute distress. EYES: Sclerae are anicteric bilaterally. NECK: Supple. No enlargement of thyroid. LYMPHATIC: No peripheral adenopathy. RESPIRATORY: Inspiratory breath sounds are of normal intensity in all rodriguez. No rales, wheezes or rhonchi. CARDIOVASCULAR: Rhythm is irregularly irregular. Murmur unchanged. OS appreciated. ABDOMEN: The abdomen is nondistended. No organomegaly. No tenderness. No palpable abdominal mass. Extremities: No swelling or edema. SKIN: No jaundice or rash. No petechiae. NEUROLOGIC: gi physician II-XII are grossly intact. DTRs symmetrically diminished. MS: There is tenderness when pushing in the mid arch region of the right foot. No mass appreciated. 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 He had extensive bone marrow involvement at the time of presentation. -KPS is 80-90%. -Asymptomatic from the lymphoma at baseline with exception significant adenopathy. Although baseline LDH normal, the Ki67 at 36% suggested more aggressive disease. -Higher risk of infectious complications given underlying MVP/reguritation as well as h/o splenectomy at age 10. -Reviewed CT results--very mild prgression. -Discussed options--I think bortezomib best at this point. Can consider ibrutinib or other targeted therapy if PD on bortezomib. Already has a fib. Plan: -Resume Velcade. -CT after 3 cycles. -Watch symptoms of progressive neuropathy. (I34.0) Non-rheumatic mitral regurgitation Assessment: -The symptoms remain minimal from this. His only baseline symptom was decreased exercise capacity. Plan: -Will continue monitoring. (I48.2) Atrial fibrillation, chronic (HCC) Assessment: -He is on amiodarone and anticoagulation. Rate controlled. Plan: -He will continue care with Dr. Hansne. Faustino George DO Referring Provider: FAUSTINO GEORGE [[id number]] Allergies As of Date: 07/12/2017 Noted Allergy Reaction AMPICILLIN 05/01/2005 4 - Hives CEPHALEXIN 05/01/2005 8 - GI Upset PYRIDIUM (PHENAZOPYRIDINE HCL) 04/13/2006 2 - Rash TRAZODONE 04/23/2014 5 - Intolerance Comments: Dizziness; nausea Date Reviewed: 07/10/2017 Reviewed by: Gabbi Foster Ct - Fully Assessed Reason for Visit: Established Patient [175] Primary Visit Diagnosis:Mantle cell lymphoma of lymph nodes of multiple regions (HCC) [C83.18] Follow-up and Disposition History Recorded Prescriptions as of 07/12/2017 Sig: HYDROCODONE-HOMATROPINE 5 MG-* Take 5 mL by mouth every 6 ho* VENLAFAXINE ER 37.5 MG CAPSUL* Take 1 capsule by mouth once * ZOFRAN ORAL Take 8 mg by mouth as needed. COMPOUNDED PRESCRIPTION Powerstep orthotic (M72.2) P* WARFARIN 4 MG TABLET Take 1 tablet by mouth once d* WARFARIN 1 MG TABLET Take 2 tablets by mouth daily* WARFARIN 5 MG TABLET Take 1 tablet by mouth daily * PANTOPRAZOLE 40 MG TABLET,DEL* Take 1 tablet by mouth daily * LIDOCAINE-PRILOCAINE 2.5 %-2.* Apply to port site 20 min. pr* Problem List As Of Date 07/12/2017 Noted Resolved PROSTATITIS NOS [N41.9] INVALID FOR*09/20/2006 BPH w urinary obs/LUTS [N40.1, N13.8] INVALID FOR* MALIG REY BLADDER NOS [C67.9] INVALID FOR* More... Cervicalgia [M54.2] INVALID FOR* More... ALLERGIC RHINITIS NOS [J30.9] INVALID FOR* More... More... Lumbago [M54.5] INVALID FOR* Sprain and Strain of Unspecified Site of Should*INVALID FOR* Abdominal Pain, Left Lower Quadrant [R10.32] INVALID FOR* Constipation, Chronic [K59.09] INVALID FOR* Suprapubic Pain [R10.2] INVALID FOR* Unspecified orchitis and epididymitis [N45.3] INVALID FOR* Inguinal hernia, right [K40.90] INVALID FOR* Unilat ing hernia [K40.90] INVALID FOR* Osteoarthritis of knee [M17.10] INVALID FOR* Bilateral knee pain [M25.561, M25.562] INVALID FOR* Inguinal pain, lower right quadrant [R10.31] INVALID FOR* Mitral valve prolapse [I34.1] INVALID FOR* Mitral regurgitation due to cusp prolapse [I34.*INVALID FOR*11/02/2016 Anxiety [F41.9] INVALID FOR* Low back pain [M54.5] INVALID FOR* Non-rheumatic mitral regurgitation [I34.0] INVALID FOR* Mantle cell lymphoma of lymph nodes of multiple*INVALID FOR* Diverticulosis of colon (without mention of hem*INVALID FOR* Lymphoma, mantle cell, multiple sites (HCC) [C8*INVALID FOR* More... Atrial fibrillation, chronic (HCC) [I48.2] INVALID FOR* Visit Notes: >> Mariel King JONNY [facility] Jul 12, 2017 9:42 AM Status: Signed Est patient. Discuss recent labs and CT scan. Mariel King JONNY Encounter Status:Closed by FAUSTINO GEORGE DO on 07/15/17 PROGRESS Observed: 07/10/2017 Status: COMPLETED Source: [place] 11:21 AM [facility] REPOSITORY O ID: [id number] Author: Gabbi Foster Ct Service: (none) Author Type: (none) Type: Progress Notes Filed: 07/10/2017 11:21 AM Note Text: Radiology Service Progress Note PATIENT NAME: Bandar Love DATE OF SERVICE: July 10, 2017 TIME: 11:21 AM PATIENT IDENTITY VERIFICATION COMPLETED USING TWO (2) METHODS: Patient confirmed name verbally and Date of . PATIENT GENDER DATA: Male PATIENT RELEVANT IMPLANT DATA REVIEWED: Not Applicable CONTRAST INDUCED NEPHROPATHY RISK FACTORS: Patient age > 60 years CREATININE: Creatinine Date Value Ref Range Status 04/09/2017 1.23 (H) 0.73 - 1.22 mg/dL Final 03/12/2017 1.29 (H) 0.73 - 1.22 mg/dL Final 02/19/2017 1.17 0.73 - 1.22 mg/dL Final Creatinine, Whole Blood (iSTAT) Date Value Ref Range Status 07/10/2017 1.10 0.70 - 1.40 mg/dL Final eGFR-All Other Races Date Value Ref Range Status 07/10/2017 >60 . Final Comment: eGFR (Estimated GFR) Units of measure: mL/min/1.73 meters squared eGFR is derived from the reexpressed MDRD Study equation using the following parameters: serum creatinine, age, gender and race. The creatinine assay has been calibrated to be traceable to IDMS. An eGFR <60 mL/min/1.73m2 for >3 months is consistent with chronic kidney disease. Refer to KDOQI guidelines for clinical interpretation. In patients with unstable renal function, e.g. those with acute kidney injury, the eGFR may not accurately reflect actual GFR. eGFR- Date Value Ref Range Status 07/10/2017 >60 Final P.O.C.T. RESULTS: POC done: Yes, See Lab Tab July 10, 2017 RADIOLOGIST NOTIFIED?: No ALLERGIES: Reviewed and unchanged CONTRAST ALLERGY: NO. PERIPHERAL IV ACCESS: Ambulatory: IV type: A peripheral IV was started in the Left antecubital site with a Angio cath: 20 gauge., Site assessment: Clean,Dry and Intact, Site disposition Discontinued RADIOLOGY DEPARTMENT: CT; Exam(s) Completed: Chest Abdomen Pelvis SIGNED BY: Gabbi Foster Ct July 10, 2017 11:[address] ABD/PEL W IVCON Observed: 07/10/2017 Status: F Source: [place] 10:40 AM [facility] REPOSITORY * * *Final Report* * * DATE OF EXAM: Jul 10 2017 10:40AM [facility] 0530 - CT ABD/PEL W IVCON / PROCEDURE REASON: Mantle cell lymphoma, lymph nodes of multiple sites * * * * Physician Interpretation * * * * EXAMINATION: CT ABDOMEN AND PELVIS WITH IV CONTRAST CLINICAL HISTORY: Mantle cell lymphoma follow-up TECHNIQUE: CT of the abdomen and pelvis was performed using standard technique, scanning from just above the dome of the diaphragm to the symphysis pubis. MQ: CTAP_3 Contrast: IV: 109 ml of Omnipaque 300 Oral: 50 ml of 50ML Omnipaque [address] Radiation dose: Integrated Dose-length product (DLP) for this visit = 375 mGy*cm. CT Dose Reduction Employed: Automated exposure control (AEC) COMPARISON: 01/04/2017 and 10/30/2016 RESULT: Liver: No mass. Biliary: No bile duct dilation. Gallbladder is unremarkable. Spleen: Splenectomy Pancreas: No mass or duct dilation. There is anterior bulging of the pancreatic head (8:45), but this is isodense to the remainder the pancreas, and is not significantly changed from 10/30/2016, and this is not felt to represent a true mass. Adrenals: No mass. Kidneys: No mass, calculus or hydronephrosis. GI tract: Gastric antrum appears less thickened than previously. No dilation or wall thickening elsewhere. Small hiatal hernia. Normal appendix. Lymph nodes: No abdominal or pelvic lymphadenopathy. Upper limits of normal retroperitoneal lymph nodes measuring 0.7-1.0 cm on the prior exam are no larger today. Mesentery/Peritoneum: No ascites or mass. Retroperitoneum: No mass. Vasculature: The celiac axis and SMA are patent. The portal vein and branches, splenic vein, SMV, and hepatic veins are patent. There is calcification of the aorta and iliac arteries, without aneurysm. Pelvis: No mass, ascites or fluid collection. Normal bladder wall thickness. Bones/Soft Tissues: Degenerative changes in the spine, no acute skeletal abnormality. Lower thorax: A chest CT was performed and will be reported separately. IMPRESSION: DECREASED GASTRIC ANTRAL THICKENING COMPARED TO EARLIER EXAM. STABLE NORMAL-SIZED RETROPERITONEAL LYMPH NODES E Commerce Architect: SANJUANA Transcribe Date/Time: Jul 10 2017 1:02P Dictated by : ASTRID MCKEON MD This examination was interpreted and the report reviewed and electronically signed by: ASTRID MCKEON MD on Jul 10 2017 1:13PM EST [id number] CT CHEST W IVCON Observed: 07/10/2017 Status: F Source: [place] 10:40 AM [facility] REPOSITORY * * *Final Report* * * DATE OF EXAM: Jul 10 2017 10:40AM [facility] 0539 - CT CHEST W IVCON / PROCEDURE REASON: Mantle cell lymphoma, lymph nodes of multiple sites * * * * Physician Interpretation * * * * EXAMINATION: CHEST CT WITH CONTRAST Indication: Mantle cell lymphoma, lymph nodes of multiple sites Technique: Spiral CT acquisition of the chest from the thoracic inlet to the upper abdomen following IV contrast. MQ: CTCW_4 Contrast: 109 mL Omnipaque [address] Dose-Length Product: 375 mGy*cm CT Dose Reduction Employed: Automated exposure control (AEC) Comparison: CT chest on 02/15/2017 RESULT: Limitations: None. Lines, tubes, and devices: Stable right chest port catheter. Lung parenchyma and pleura: The central airways are patent. There are stable solid nodules in the bilateral lungs. Again a 7 mm nodule in the left lower lobe, series 5 image 114. A 3 mm nodule along the left major fissure, series 5 image 107. There are less than 8 mm nodules in the right lung, series 5 images 43, 121 and 129. No new nodules appreciated. Basilar atelectasis has improved compared to prior study. Mild biapical scarring and subpleural opacities are stable. No pleural effusions or pneumothorax. Thoracic inlet, heart, and mediastinum: Stable thyroid gland. No supraclavicular or axillary lymphadenopathy. Noted is worsening of mediastinal and right hilar lymphadenopathy. For example, a right hilar lymph node measures 1.7 x 1.5 cm, series 4 image 121. A subcarinal lymph node measures 1.1 x 1.2 cm, series 4 image 118, previously 6 mm. The thoracic aorta and central pulmonary arteries have been stable. There is mild global cardiomegaly, with left atrial enlargement. Atherosclerotic calcifications demonstrated in the coronary circulations. A small hiatal hernia is present. Bones and soft tissues: Chest wall soft tissue is unremarkable. There are degenerative changes in the spine. Upper abdomen: Limited study through the upper abdomen demonstrates no interval changes. IMPRESSION: Stable less than 8 mm pulmonary nodules in the bilateral lungs with no new or enlarging nodules identified. Interval worsening of mediastinal and right hilar lymphadenopathy as described above. Mild cardiomegaly. E Commerce Architect: PSCB Transcribe Date/Time: Jul 10 2017 3:07P Dictated by : JAYDE MODI MD This examination was interpreted and the report reviewed and electronically signed by: JAYDE MODI MD on Jul 10 2017 4:47PM EST [id number] OLIVIA ISTAT BMP Collected: 07/10/2017 Status: F Source: [place] 9:45 AM [facility] TYPE CODE TESTS RESULT OUT OF REFERENCE UNITS RANGE LAB NAWB 135-146 mmol/L Sodium, Whole 144 Bld LAB K1WB 3.5-5.0 mmol/L Potassium,Who 3.7 le Bld LAB CLWB 98-110 mmol/L Chloride, 102 Whole Bld LAB ICAWB 1.08-1.30 mmol/L Ionized 1.16 Calcium, WB Result Comment: Please note: This value represents ionized calcium not total calcium. LAB CO2WB 23-32 mmol/L TCO2, Whole Blood 30 LAB GLUWB 65-100 mg/dL Glucose, Whole Bld 86 LAB BUNWB 10-25 mg/dL BUN, Whole Blood 15 LAB BCRET 0.70-1.40 mg/dL Creatinine,Wh ole Bld 1.10 LAB AGAPWB 0-15 mmol/L Anion Gap, Whole Bld 12 LAB GFRAA eGFR- Amer. >60 LAB GFRNAA . eGFR-All Other Races >60 Result Comment: eGFR (Estimated GFR) Units of measure: mL/min/1.73 meters squared eGFR is derived from the reexpressed MDRD Study equation using the following parameters: serum creatinine, age, gender and race. The creatinine assay has been calibrated to be traceable to IDMS. An eGFR <60 mL/min/1.73m2 for >3 months is consistent with chronic kidney disease. Refer to KDOQI guidelines for clinical interpretation. In patients with unstable renal function, e.g. those with acute kidney injury, the eGFR may not accurately reflect actual GFR. OLIVIA CBC AND DIFF Collected: 07/10/2017 Status: F Source: [place] 9:45 AM [facility] REPOSITORY TYPE CODE TESTS RESULT OUT OF REFERENCE UNITS RANGE LAB WWBC 3.70-11.00 k/uL [place] WBC 4.66 LAB WRBC 4.20-6.00 m/uL [place] RBC 4.42 LAB WHGB 13.0-17.0 g/dL [place] Hemoglobin 15.8 LAB WHCT 39.0-51.0 % [place] Hematocrit 45.1 LAB WMCV 80.0-100.0 fL [place] High MCV 102.0 LAB WMCH 26.0-34.0 pg [place] High MCH 35.7 LAB WMCHC 30.5-36.0 g/dL [place] MCHC 35.0 LAB WRDW 11.5-15.0 % [place] RDW 13.6 LAB WPLT 150-400 k/uL [place] Platelet Cnt 194 LAB WMPV 9.0-12.7 fL [place] MPV 10.9 Result Comment: Test performed at: [facility] Selene Baker [address] [place] [address]. LAB WNEUT % [place] Neut% 54.1 LAB WLYMP % [place] Lymp% 27.7 LAB WMONOC % [place]% 12.0 LAB WEOS % [place] Eos% 4.9 LAB WBASO % [place] Baso% 1.3 LAB WANEUT 1.45-7.50 k/uL [place] Abs Neut 2.52 LAB WALYMP 1.00-4.00 k/uL [place] Abs Lymp 1.29 LAB WAMONO <0.87 k/uL [place] Abs [place] 0.56 LAB WAEOS <0.46 k/uL [place] Abs Eos 0.23 LAB WABASO <0.11 k/uL [place] Abs Baso 0.06 HEPATIC FUNCTN PANEL Collected: 07/10/2017 Status: F Source: [place] 9:45 AM [facility] [place] REPOSITORY TYPE CODE TESTS RESULT OUT OF REFERENCE UNITS RANGE LAB ALB 3.9-4.9 g/dL Albumin 4.7 LAB TBIL 0.2-1.3 mg/dL Bilirubin, Total 0.7 LAB CBIL <0.2 mg/dL Bilirubin,Conjuga <0.2 dejan LAB ALKP 36-108 U/L Alkaline Phosphatase 63 LAB AST 14-40 U/L AST 17 LAB ALT 10-54 U/L Low ALT 9 LAB TP 6.3-8.0 g/dL Protein, Total 7.2 Performed By: #### HFP, LD6 #### [facility] [employer] [address] [address] LD Collected: 07/10/2017 Status: F Source: [facility] 9:45 AM [facility] REPOSITORY TYPE CODE TESTS RESULT OUT OF RANGE REFERENCE UNITS LAB LD 135-225 U/L LD 217 Performed By: #### HFP, LD6 #### [facility] [employer] [address] [address] ALLERGIES ALLERGIES DATE TYPE / NAME / CODE REACTION SEVERITY SOURCE CODE 06/04/2018 Drug ampicillin/[id number] Rash Unknown [place] Allergy/41 (RXNORM) Community 6362830([facility]) Repository 06/04/2018 Drug cephalexin/[id number] Upset Stomach Unknown [place] Allergy/41 (RXNORM) Community 6118394([facility]) Repository 06/04/2018 Drug trazodone/[id number]( Nausea Unknown [place] Allergy/41 RXNORM) Community 7302349([facility]) Repository 06/04/2018 Drug phenazopyridine/F0060 Rash Unknown [place] Allergy/41 40320(RXNORM) [facility] 8136892([facility] OME [facility]) Repository 04/23/2014 DRUG TRAZODONE INTOLERANCE [address] Main 5119537([facility] OME [facility]) Repository 04/13/2006 DRUG PHENAZOPYRIDINE HCL RASH [address] Main 7892026([facility] OMED CT) Repository 05/01/2005 DRUG AMPICILLIN HIVES [address] Main 2486286([facility]MED [facility]) Repository 05/01/2005 DRUG CEPHALEXIN GI UPSET [address] Main 9030501([facility] OME [facility]) Repository NG/4598929 AMPICILLIN [facility] 06([facility]) Repository NG/7130729 CEPHALEXIN [facility] 06([facility]ED [employer] [facility]) Repository NG/2927777 PHENAZOPYRIDINE HCL [facility] 06([facility]OMED [facility]) Repository NG/4889509 TRAZODONE [facility] 06([employer] System CT) Repository ENCOUNTERS ENCOUNTERS ADMIT/DISCHARGE ACCOUNT NUMBER ADMITTING ENCOUNTER LOCATION SOURCE CLASS 06/04/2018 [id number] [facility] ding:LAB Repository 06/04/2018/06/04/19 [id number] Ambulatory BMSBuilding: [place] 19 [facility] Repository 05/14/2018 [id number] [facility] ding:LAB Repository 05/10/2018/05/10/20 [id number] Ambulatory [address] ding:LAB Repository 05/09/2018/05/10/20 [id number] Ambulatory [address] [place] Repository 05/09/2018/05/09/20 [id number] Ambulatory [address] [place] Repository 04/26/2018/04/29/20 [id number] Ambulatory [address] [place] Repository 04/10/2018/04/12/20 [id number] Ambulatory [address] ding:LAB Repository 03/29/2018/03/29/20 [id number] Ambulatory [address] [place] Repository 03/28/2018/03/28/20 [id number] Ambulatory [facility] [address] [place] Repository 03/27/2018/03/27/20 [id number] Ambulatory [facility] [address] [place] Repository 03/26/2018/03/26/20 [id number] Ambulatory [facility] [address] [place] Repository 03/26/2018/03/26/20 [id number] Ambulatory [facility] [address] [place] Repository 03/25/2018/03/25/20 [id number] Ambulatory [facility] [address] [place] Repository 03/22/2018/03/22/20 [id number] Ambulatory [facility] [address] [place] Repository 03/21/2018/03/21/20 [id number] Ambulatory [facility] [address] [place] Repository 03/20/2018 [id number] Ambulatory [facility] [place] Repository 03/20/2018/03/20/20 [id number] Ambulatory [facility] [address] [place] Repository 03/18/2018/03/18/20 [id number] Ambulatory [facility] [facility] [address] [place] Repository 03/15/2018/03/15/20 [id number] Ambulatory [facility] [facility] [address] [place] Repository 03/14/2018/03/14/20 [id number] Ambulatory [facility] [address] [place] Repository 03/13/2018/03/13/20 [id number] Ambulatory [facility] [address] [place] Repository 03/13/2018/03/13/20 [id number] Ambulatory [facility] [address] [place] Repository 03/06/2018/03/06/20 [id number] Ambulatory [facility] [address] [place] Repository 03/01/2018/03/01/20 [id number] Ambulatory [place] 18 [facility] ding:LAB Repository 02/27/2018/03/04/20 [id number] Ambulatory [facility] [address] [place] Repository 02/22/2018/03/01/20 [id number] Ambulatory [facility] [address] [place] Repository 02/22/2018/02/23/20 [id number] Ambulatory [facility] [address] [place] Repository 02/11/2018/02/13/20 [id number] Ambulatory [place] [facility] [address] [place] Repository 02/06/2018/02/07/20 [id number] Ambulatory BMSBuilding: [place] 18 [facility] Repository 01/30/2018/01/31/20 [id number] Ambulatory [place] 18 [facility] ding:CLSP Repository 01/30/2018 [id number] Ambulatory BMSBuilding: [place] BMS.CF.[facility] Repository 01/24/2018/01/25/20 [id number] Ambulatory [place] 18 [facility] ding:LAB Repository 01/22/2018 [id number] Ambulatory [place] Olivia [facility] ding:LAB Repository 01/11/2018/01/12/20 [id number] Ambulatory [place] 18 [facility] ding:LAB Repository 01/09/2018 [id number] Ambulatory [place] [facility] ding:CLSP Repository 01/01/2018/01/03/20 [id number] Ambulatory [address] [place] Repository 12/28/2017/01/01/20 [id number] Ambulatory [address] [place] Repository 12/26/2017/12/28/19 [id number] Ambulatory [address] [place] Repository 12/24/2017/12/26/19 [id number] Ambulatory [address] [place] Repository 12/24/2017/12/26/19 [id number] Ambulatory [address] [place] Repository 12/23/2017/12/24/19 [id number] Emergency [place] [address] [place] [address] ding:ED Repository 12/19/2017/12/20/19 [id number] Ambulatory BMSBuilding: [place] 18 [facility] Repository 12/19/2017/12/20/19 [id number] Ambulatory [place] 18 [facility] ding:LAB Repository 12/18/2017/12/20/19 [id number] Ambulatory [address] [place] Repository 12/17/2017/12/18/19 [id number] Ambulatory [address] [place] Repository 12/17/2017/12/19/19 [id number] Ambulatory [address] [place] Repository 12/14/2017/12/18/19 [id number] Ambulatory [place] 18 [facility] ding:CR Repository 12/12/2017/12/13/19 [id number] Ambulatory BMSBuilding: [place] 18 [facility] Repository 12/10/2017/12/12/19 [id number] Ambulatory [place] 18 [facility] Main [place] Repository 12/10/2017/12/11/19 [id number] Ambulatory [address] [place] Repository 12/10/2017/12/11/19 [id number] Ambulatory [address] [place] Repository 12/10/2017/12/11/19 [id number] Ambulatory [place] 18 [facility] Main [place] Repository 12/10/2017/12/12/19 [id number] Ambulatory [place] 18 [facility] ding:CR Repository 12/07/2017/12/08/19 [id number] Ambulatory [place] 18 [facility] ding:LAB Repository 11/26/2017/11/28/19 [id number] Ambulatory [address] [place] Repository 11/26/2017/11/27/19 [id number] Ambulatory [address] [place] Repository 11/26/2017/11/28/19 [id number] Ambulatory [address] [place] Repository 11/20/[id number] [facility] Repository CENTERBuildi ng:CAGWS 11/19/2017/11/21/19 [id number] Ambulatory [address] [place] Repository 11/19/2017/11/21/19 [id number] Ambulatory [address] [place] Repository 11/19/2017/11/20/19 [id number] Ambulatory [address] [place] Repository 11/12/2017/11/14/19 [id number] Ambulatory [address] [place] Repository 11/12/2017/11/14/19 [id number] Ambulatory [address] [place] Repository 11/09/2017/11/11/19 [id number] Ambulatory [place] 18 [facility] ding:CR Repository 11/02/2017/11/03/19 [id number] Ambulatory [place] 18 [facility] ding:LAB Repository 10/29/2017/10/30/19 [id number] Ambulatory [address] [place] Repository 10/29/2017/10/31/19 [id number] Ambulatory [address] [place] Repository 10/29/2017/06/19 [id number] Ambulatory [address] [place] Repository 10/22/2017/10/27/19 [id number] Ambulatory [address] [place] Repository 10/22/2017/10/24/19 [id number] Ambulatory [address] [place] Repository 10/15/2017/10/16/19 [id number] Ambulatory [address] [place] Repository 10/15/2017/10/17/19 [id number] Ambulatory [address] [place] Repository 10/10/2017/10/12/19 [id number] Ambulatory [place] [address] [place] [address] ding:CR Repository 10/01/2017/10/03/19 [id number] Ambulatory [address] [place] Repository 10/01/2017/10/03/19 [id number] Ambulatory [address] [place] Repository 09/28/2017/09/29/19 [id number] Ambulatory [place] [address] [place] [address] ding:LAB Repository 09/24/2017/09/26/19 [id number] Ambulatory [address] [place] Repository 09/24/2017 [id number] Ambulatory [facility] [place] Repository 09/24/2017/09/26/19 [id number] Ambulatory [address] [place] Repository 09/17/2017/09/18/19 [id number] Ambulatory [address] [place] Repository 09/17/2017/09/19/19 [id number] Ambulatory [address] [place] Repository 09/17/2017/09/18/19 [id number] Ambulatory [address] [place] Repository 09/14/2017 [id number] Ambulatory [place] [facility] ding:LAB Repository 09/10/2017/09/11/19 [id number] Ambulatory [place] [address] [place] [address] ding:CR Repository 09/07/2017/09/08/19 [id number] Ambulatory [place] 18 [facility] ding:LAB Repository 09/03/2017 [id number] Ambulatory [facility] [place] Repository 09/03/2017/09/05/19 [id number] Ambulatory [address] [place] Repository 09/03/2017/09/04/19 [id number] Ambulatory [address] [place] Repository 08/31/2017 [id number] [facility] ding:LAB Repository 08/31/2017/09/01/19 [id number] Ambulatory BMSBuilding: [place] 18 [facility] Repository 08/29/2017 [id number] [facility] ding:CR Repository 08/28/2017 [id number] Ambulatory BMS [facility] Repository 08/27/2017/08/28/19 [id number] Ambulatory [address] Repository 08/27/2017/08/29/19 [id number] Ambulatory [address] Repository 08/22/2017 [id number] Ambulatory BMSBuilding: [place] BMS.[facility] Repository 08/20/2017 [id number] Ambulatory [facility] Repository 08/20/2017 [id number] Ambulatory [facility] Repository 08/20/2017 [id number] Ambulatory [facility] Repository 08/17/2017 [id number] Ambulatory BMSBuilding: [place] BMS.CF.[facility] Repository 08/16/2017/08/18/19 [id number] Ambulatory [address] ding:CLSPRoo Repository m: [id number] 08/16/2017 [id number] Ambulatory BMSBuilding: [facility] Repository 08/16/2017 [id number] Ambulatory BMSBuilding: [facility] Repository 08/08/2017/08/09/19 [id number] Ambulatory BMSBuilding: [place] 18 [facility] Repository 08/03/2017/08/14/19 [id number] Ambulatory [address] Repository 08/01/2017 [id number] [facility] ding:LAB Repository 07/27/2017/07/31/19 [id number] White, Peggy Inpatient [address] ding:PCURoom Repository : YUP049Ugt: 1 07/27/2017 [id number] White, Peggy Ambulatory BMSBuilding: [place] [facility]MS[facility] Repository 07/27/2017 [id number] White, Peggy Ambulatory BMSBuilding: [place] BMS.CF.[facility] Repository 07/27/2017 [id number] White, Peggy Ambulatory BMSBuilding: [place] BMS.CF.[facility] Repository 07/27/2017 [id number] White, Ambulatory BMSBuilding: [place] BMS.[facility] Repository 07/27/2017 [id number] White, Peggy Ambulatory BMSBuilding: [place] [facility] Repository 07/27/2017 [id number] White, Peggy Ambulatory BMSBuilding: [place] BMS.CF.[facility] Repository 07/27/2017 [id number] White, Ambulatory BMSBuilding: [place] [facility]MS.[facility] Repository 07/27/2017/07/31/19 [id number] Ambulatory BMSBuilding: [facility] Repository 07/27/2017/07/31/19 [id number] Ambulatory BMSBuilding: [place] [facility] Repository 07/23/2017/07/25/19 [id number] Ambulatory [address] Repository 07/23/2017 [id number] Ambulatory [facility] Repository 07/23/2017/07/25/19 [id number] Ambulatory [address] Repository 07/12/2017/07/17/19 [id number] Ambulatory [address] Repository 07/10/2017/07/11/19 [id number] Ambulatory [address] Repository 07/10/2017/07/13/19 [id number] Ambulatory [address] Repository 07/10/2017/07/10/19 [id number] Ambulatory [address] Repository PAYERS PAYERS ENCOUNTER GUARANTOR PAYER SUBSCRIBER SOURCE 06/04/2018 BANDAR Crowell Primary BANDAR Baker [id number] Insurance:MEDICARE [place]OB: [place] A [facility] [id number] Hospital [address]Xem: (330) Number: Repository [phone] HP) [id number] Date:2018-06-04 06/04/2018 Secondary BANDAR Baker Insurance:STATE MASTDOB: [facility] Number: [id number] Hospital [id number] Repository Date:1134-91-89[address] [facility] [place] [address]UE: 06/04/2018 Tertiary NOT GIVENUNK [place] Insurance:SELF PAY [facility] Number: Effective Repository Date:2018-06-04 06/04/2018 BANDAR Crowell Primary BANDAR Baker [id number] Insurance:MEDICARE MASTDOB: [place] [facility] [id number] Hospital 27[address]Xvl: (330) Number: Repository [phone] () [id number] Date:2017-08-31 06/04/2018 Secondary BANDAR Crowell [place] Insurance:STATE MASTDOB: [facility] Number: [id number] Hospital [id number] Repository Date:8207-03-15[address] [facility] [address]W[place]: 06/04/2018 Tertiary NOT GIVENUNK [place] Insurance:SELF PAY [facility] Number: Effective Repository Date:2018-05-13 05/14/2018 BANDAR W Primary BANDAR Crowell [place] [id number] Insurance:MEDICARE MASTDOB: [place] [facility] [id number] Hospital [address]Wqu: (330) Number: Repository [phone] () [id number] Date:2017-09-28 05/14/2018 Secondary BANDAR Crowell [place] Insurance:STATE MASTDOB: [facility] Number: [id number] Hospital [id number] Repository Date:2862-11-81[address] [place] [address]MD: 05/14/2018 Tertiary NOT GIVENUNK [place] Insurance:SELF PAY [facility] Number: Effective Repository Date:2018-05-13 05/10/2018 BANDAR W Primary BANDAR Crowell [place] [id number] Insurance:MEDICARE MASTDOB: [place] [facility] [id number] Hospital [address]Kqa: (330) Number: Repository [phone] () [id number] Date:2017-09-28 05/10/2018 Secondary BANDAR Crowell [place] Insurance:STATE MASTDOB: [facility] Number: [id number] Hospital [id number] Repository Date:8248-54-25RV [address] [facility] [address]QU: 05/10/2018 Tertiary NOT GIVENUNK [place] Insurance:SELF PAY [facility] Number: Effective Repository Date:2018-04-15 04/10/2018 BANDAR W Primary BANDAR Baker [id number] Insurance:MEDICARE MASTDOB: [place] [facility] [id number] Hospital 65[address]Uga: (330) Number: Repository [phone] () [id number] Date:2017-09-28 04/10/2018 Secondary BANDAR W [place] Insurance:STATE MASTDOB: [facility] Number: [id number] Hospital [id number] Repository Date:8234-85-17[address] [place] [address]CJ: 04/10/2018 Tertiary NOT GIVENUNK [place] Insurance:SELF PAY [facility] Number: Effective Repository Date:2018-03-14 03/01/2018 BANDAR W Primary BANDAR Baker [id number] Insurance:MEDICARE MASTDOB: [place] [facility] [id number] Hospital [address]Nnj: (330) Number: Repository [phone] () [id number] Date:2017-09-28 03/01/2018 Secondary BANDAR Crowell [place] Insurance:STATE MASTDOB: [facility] Number: [id number] Hospital [id number] Repository Date:1391-00-53[address] [place], [place] [address], [place] [address]CX: 03/01/2018 Tertiary NOT GIVENUNK [place] Insurance:SELF PAY [facility] Number: Effective Repository Date:2018-02-13 02/06/2018 BANDAR W Primary BANDAR Crowell [place] [id number] Insurance:MEDICARE MASTDOB: [place] [facility] [id number] Hospital [address]Zpd: (330) Number: Repository [phone] () [id number] Date:2018-01-30 02/06/2018 Secondary BANDAR W [place] Insurance:STATE MASTDOB: [facility] Number: [id number] Hospital [id number] Repository Date:7374-93-29ZL [address] [facility] [place] [address]SO: 02/06/2018 Tertiary NOT GIVENUNK [place] Insurance:SELF PAY [facility] Number: Effective Repository Date:2018-02-06 01/30/2018 BANDAR W Primary BANDAR Crowell [place] [id number] Insurance:MEDICARE MASTDOB: [place] [facility] [id number] Hospital [address]Xhh: (330) Number: Repository [phone] () [id number] Date:2018-01-24 01/30/2018 Secondary BANDAR W [place] Insurance:STATE MASTDOB: [facility] Number: [id number] Hospital [id number] Repository Date:9727-45-89DH [address] [facility] [place] [address]OE: 01/30/2018 Tertiary NOT GIVENUNK [place] Insurance:SELF PAY [facility] Number: Effective Repository Date:2018-01-24 01/30/2018 BANDAR W Primary BANDAR Crowell Olivai [id number] Insurance:MEDICARE MASTDOB: [place] [facility] [id number] Hospital 738[address]Psq: (330) Number: Repository [phone] () [id number] Date:2018-01-24 01/30/2018 Secondary BANDAR W [place] Insurance:STATE MASTDOB: [facility] Number: [id number] Hospital [id number] Repository Date:0980-87-60[address] [facility] [place] [address]CY: 01/30/2018 Tertiary NOT GIVENUNK [place] Insurance:SELF PAY [facility] Number: Effective Repository Date:2018-01-30 01/24/2018 BANDAR Crowell Primary BANDAR Baker [id number] Insurance:MEDICARE MASTDOB: [place] [facility] [id number] Hospital [address]Hqh: (330) Number: Repository [phone] () [id number] Date:2017-09-28 01/24/2018 Secondary BANDAR Crowell [place] Insurance:STATE MASTDOB: [facility] Number: [id number] Hospital [id number] Repository Date:6087-81-48MR [address] [facility] [place] [address]ZI: 01/24/2018 Tertiary NOT GIVENUNK [place] Insurance:SELF PAY [facility] Number: Effective Repository Date:2018-01-15 01/22/2018 BANDAR Crowell Primary BANDAR Baker [id number] Insurance:MEDICARE MASTDOB: [place] [facility] [id number] Hospital 174[address]Whr: (330) Number: Repository [phone] () [id number] Date:2017-12-26 01/22/2018 Secondary BANDAR Crowell [place] Insurance:STATE MASTDOB: [facility] Number: [id number] Hospital [id number] Repository Date:5464-47-67[address] [place] [address]EI: 01/22/2018 Tertiary NOT GIVENUNK [place] Insurance:SELF PAY [facility] Number: Effective Repository Date:2018-01-15 01/11/2018 BANDAR Crowell Primary BANDAR Baker [id number] Insurance:MEDICARE MASTDOB: [place] [facility] [id number] Hospital 74887Shy: (330) Number: Repository [phone] () [id number] Date:2017-12-26 01/11/2018 Secondary BANDAR Crowell [place] Insurance:STATE MASTDOB: [facility] Number: [id number] Hospital [id number] Repository Date:3032-00-48AM [address] [facility] [address]XB: 01/11/2018 Tertiary NOT GIVENUNK [place] Insurance:SELF PAY [facility] Number: Effective Repository Date:2017-12-26 01/09/2018 BANDAR W Primary BANDAR Baker [id number] Insurance:MEDICARE MASTDOB[place] [facility] [id number] Hospital [address]Wyp: (330) Number: Repository [phone] () [id number] Date:2017-12-17 01/09/2018 Secondary BANDAR W [place] Insurance:STATE MASTDOB: [facility] Number: [id number] Hospital [id number] Repository Date:4724-78-73VR [address] [facility] [address]SG: 01/09/2018 Tertiary NOT GIVENUNK [place] Insurance:SELF PAY [facility] Number: Effective Repository Date:2017-12-17 12/23/2017 BANDAR W Primary BANDAR Crowell [place] [id number] Insurance:MEDICARE MASTDOB: [place] [facility] [id number] Hospital 20[address]Ben: (330) Number: Repository [phone] () [id number] Date:2017-12-23 12/23/2017 Secondary BANDAR W [place] Insurance:STATE MASTDOB: [facility] Number: [id number] Hospital [id number] Repository Date:0304-56-60[address] [place] [address]WK: 12/23/2017 Tertiary NOT GIVENUNK [place] Insurance:SELF PAY [facility] Number: Effective Repository Date:2017-12-23 12/19/2017 BANDAR W Primary BANDAR Crowell [place] [id number] Insurance:MEDICARE MASTDOB: [place] [facility] [id number] Hospital 47[address]Owt: (330) Number: Repository [phone] () [id number] Date:2017-12-17 12/19/2017 Secondary BANDAR Crowell [place] Insurance:STATE MASTDOB: [facility] Number: [id number] [facility] [id number] Repository Date:4735-76-55VL [address] [place] [address]YX: 12/19/2017 Tertiary NOT GIVENUNK [place] Insurance:SELF PAY [facility] Number: Effective Repository Date:2017-12-19 12/19/2017 BANDAR Crowell Primary BANDAR Baker [id number] Insurance:MEDICARE MASTDOB: [facility] [facility] [id number] Hospital [address]Wpp: (330) Number: Repository [phone] () [id number] Date:2017-09-28 12/19/2017 Secondary BANDAR Crowell [place] Insurance:STATE MASTDOB: [facility] Number: [id number] Hospital [id number] Repository Date:1469-00-03XE [address] [facility] [place] [address]DE: 12/19/2017 Tertiary NOT GIVENUNK [place] Insurance:SELF PAY [facility] Number: Effective Repository Date:2017-12-13 12/14/2017 BANDAR Crowell Primary BANDAR Baker [id number] Insurance:MEDICARE MASTDOB: [facility] [facility] [id number] Hospital [address]Qpo: (330) Number: Repository [phone] () [id number] Date:2017-08-29 12/14/2017 Secondary BANDAR Crowell [place] Insurance:STATE MASTDOB: [facility] Number: [id number] Hospital [id number] Repository Date:1732-62-16DG [address] [facility] [place] [address]RK: 12/14/2017 Tertiary NOT GIVENUNK [place] Insurance:SELF PAY [facility] Number: Effective Repository Date:2017-12-12 12/12/2017 BANDAR W Primary BANDAR Baker [id number] Insurance:MEDICARE MASTDOB: [place] [facility]Policy [id number] Hospital 18638Nwi: (330) Number: Repository [phone] () [id number] Date:2017-12-06 12/12/2017 Secondary BANDAR Crowell [place] Insurance:STATE MASTDOB: [facility] Number: [id number] Hospital [id number] Repository Date:0557-03-20AF [address] [facility] [place] [address]RL: 12/12/2017 Tertiary NOT GIVENUNK [place] Insurance:SELF PAY [facility] Number: Effective Repository Date:2017-12-12 12/10/2017 BANDAR W Primary BANDAR Crowell [place] [id number] Insurance:MEDICARE MASTDOB: [place] [facility] [id number] Hospital 46462Tpn: (330) Number: Repository [phone] () [id number] Date:2017-08-29 12/10/2017 Secondary BANDAR W [place] Insurance:STATE MASTDOB: [facility] Number: [id number] Hospital [id number] Repository Date:4202-24-62NE [address] [facility], [place] [address]VL: 12/10/2017 Tertiary NOT GIVENUNK [place] Insurance:SELF PAY [facility] Number: Effective Repository Date:2017-11-11 12/07/2017 BANDAR W Primary BANDAR Crowell Olivia [id number] Insurance:MEDICARE [place]STDOB: [place] [facility] [id number] Hospital 43322Lbc: (330) Number: Repository [phone] () [id number] Date:2017-09-28 12/07/2017 Secondary BANDAR W [place] Insurance:STATE MASTDOB: [facility] Number: [id number] Hospital [id number] Repository Date:1617-54-11RL [address] [facility] [place] [address]NY: 12/07/2017 Tertiary NOT GIVENUNK [place] Insurance:SELF PAY [facility] Number: Effective Repository Date:2017-11-09 11/09/2017 BANDAR Crowell Primary BANDAR Baker [id number] Insurance:MEDICARE [place]STDOB: [place] [facility] [id number] Hospital [address]Out: (330) Number: Repository [phone] () [id number] Date:2017-08-29 11/09/2017 Secondary BANDAR Crowell [place] Insurance:STATE MASTDOB: [facility] Number: [id number] [facility] [id number] Repository Date:0804-61-38OA [address] [place] [address]CU: 11/09/2017 Tertiary NOT GIVENUNK Olivia Insurance:SELF PAY [facility] Number: Effective Repository Date:2017-10-12 11/02/2017 BANDAR W Primary BANDAR Baker [id number] Insurance:MEDICARE [place]STDOB: [place] [facility] [id number] Hospital 64455Bmv: (330) Number: Repository [phone] () [id number] Date:2017-09-28 11/02/2017 Secondary BANDAR Crowell [place] Insurance:STATE MASTDOB: [facility] Number: [id number] Hospital [id number] Repository Date:5318-29-98WP [address] [place] [address]YK: 11/02/2017 Tertiary NOT GIVENUNK [place] Insurance:SELF PAY [facility] Number: Effective Repository Date:2017-10-11 10/10/2017 BANDAR W Primary BANDAR Baker [id number] Insurance:MEDICARE [place]STDOB: [place] [facility] [id number] Hospital 685[address]Cai: (330) Number: Repository [phone] () [id number] Date:2017-08-29 10/10/2017 Secondary BANDAR Crowell [place] Insurance:STATE MASTDOB: [facility] Number: [id number] Hospital [id number] Repository Date:9660-97-68NG [address] [facility] [place] [address]KL: 10/10/2017 Tertiary NOT GIVENUNK [place] Insurance:SELF PAY [facility] Number: Effective Repository Date:2017-09-11 09/28/2017 BANDAR Crowell Primary BANDAR Baker [id number] Insurance:MEDICARE [place]STDOB: [place] [facility] [id number] Hospital 763[address]Nni: (330) Number: Repository [phone] () [id number] Date:2017-09-28 09/28/2017 Secondary BANDAR Crowell [place] Insurance:STATE MASTDOB: [facility] Number: [id number] Hospital [id number] Repository Date:1703-25-11UQ [address] [facility] [address]DE: 09/28/2017 Tertiary NOT GIVENUNK [place] Insurance:SELF PAY [facility] Number: Effective Repository Date:2017-09-28 09/14/2017 BANDAR W Primary BANDAR Crowell [place] [id number] Insurance:MEDICARE [place]STDOB: [place] [facility] [id number] Hospital 12825Qpc: (330) Number: Repository [phone] () [id number] Date:2017-09-14 09/14/2017 Secondary BANDAR Crowell [place] Insurance:STATE MASTDOB: [facility] Number: [id number] Hospital [id number] Repository Date:3461-95-04HF [address] [place], [place] [address], [place] [address]HF: 09/14/2017 Tertiary NOT GIVENUNK [place] Insurance:SELF PAY [facility] Number: Effective Repository Date:2017-09-14 09/10/2017 BANDAR W Primary BANDAR Azuloster [id number] Insurance:MEDICARE [place]STDOB: [place] [facility] [id number] Hospital 13954Wmy: (330) Number: Repository [phone] () [id number] Date:2017-08-29 09/10/2017 Secondary BANDAR Crowell [place] Insurance:STATE MASTDOB: [facility] FARMPolicy Number: [id number] [facility] [id number] Repository Date:2918-68-67AU [address] [place] [address]DG: 09/10/2017 Tertiary NOT GIVENUNK [place] Insurance:SELF PAY [facility] Number: Effective Repository Date:2017-08-29 09/07/2017 BANDAR W Primary BANDAR Baker [id number] Insurance:MEDICARE [place]STDOB: [place] [facility] [id number] Hospital 686[address]Ces: (330) Number: Repository [phone] () [id number] Date:2017-09-07 09/07/2017 Secondary BANDAR W [place] Insurance:STATE MASTDOB: [facility] Number: [id number] Hospital [id number] Repository Date:9858-06-89GO [address] [facility] [place] [address]OC: 09/07/2017 Tertiary NOT GIVENUNK [place] Insurance:SELF PAY [facility] Number: Effective Repository Date:2017-09-07 08/31/2017 BANDAR W Primary BANDAR Baker [id number] Insurance:MEDICARE [place]STDOB: [place] [facility] [id number] Hospital 049[address]Jyl: (330) Number: Repository [phone] () [id number] Date:2017-08-31 08/31/2017 Secondary BANDAR Crowell [place] Insurance:STATE MASTDOB: [facility] Number: [id number] Hospital [id number] Repository Date:3720-33-64EC [address] [facility] [place] [address]CY: 08/31/2017 Tertiary NOT GIVENUNK [place] Insurance:SELF PAY [facility] Number: Effective Repository Date:2017-08-31 08/31/2017 BANDAR W Primary BANDAR Baker [id number] Insurance:MEDICARE [place]STDOB: [place] [facility] [id number] Hospital 49[address]Swz: (330) Number: Repository [phone] () [id number] Date:2017-08-17 08/31/2017 Secondary BANDAR W [place] Insurance:STATE MASTDOB: [facility] FARMPolicy Number: [id number] Hospital [id number] Repository Date:6511-02-27[address] [address]NW: 08/31/2017 Tertiary NOT GIVENUNK [place] Insurance:SELF PAY [facility] Number: Effective Repository Date:2017-08-31 08/29/2017 BANDAR W Primary BANDAR W [place] [id number] Insurance:MEDICARE [place]STDOB: [place] [facility] [id number] Hospital 87108Kta: (330) Number: Repository [phone] () [id number] Date:2017-08-21 08/29/2017 Secondary BANDAR W [place] Insurance:STATE MASTDOB: [facility] Number: [id number] Hospital [id number] Repository Date:5341-30-64MJ [address] [address]BX: 08/29/2017 Tertiary NOT GIVENUNK [place] Insurance:SELF PAY [facility] Number: Effective Repository Date:2017-08-21 08/28/2017 BANDAR W Primary BANDAR W [place] [id number] Insurance:MEDICARE [place]STDOB: [place] [facility] [id number] Hospital 25221Vnu: (330) Number: Repository [phone] () [id number] Date:2017-08-28 08/28/2017 Secondary BANDAR W [place] Insurance:AULTCAREPol MASTDOB: [facility] Number: [id number] Hospital [id number] Repository e Date:8593-02-91HS [address], [place] [address]UU: 08/28/2017 Tertiary NOT GIVENUNK [place] Insurance:SELF PAY [facility] Number: Effective Repository Date:2017-08-28 08/22/2017 BANDAR Crowell Primary BANDAR Crowell [place] [id number] Insurance:MEDICARE [place]STDOB: [place] [facility] [id number] Hospital 61453Qkc: (330) Number: Repository [phone] () [id number] Date:2017-08-22 08/22/2017 Secondary BANDAR W [place] Insurance:AULTCAREPol MASTDOB: [facility] icy Number: [id number] Hospital [id number] Repository e Date:6950-93-52GN [address] [place] [address]XF: 08/22/2017 Tertiary NOT GIVENUNK [place] Insurance:SELF PAY [facility] Number: Effective Repository Date:2017-08-22 08/17/2017 BANDAR Crowell Primary BANDAR Crowell [place] [id number] Insurance:MEDICARE [place]STDOB: [place] [facility] [id number] Hospital 59471Tvl: (330) Number: Repository [phone] () [id number] Date:2017-08-01 08/17/2017 Secondary BANDAR Crowell [place] Insurance:AULTCAREPol MASTDOB: [facility] ic Number: [id number] Hospital [id number] Repository e Date:5242-10-83LH [address] [place] [address]BL: 08/17/2017 Tertiary BANDAR W [place] Insurance:STATE MASTDOB: [facility] Number: [id number] Hospital Effective Repository Date:0098-37-51LU [address] [place] [address]PR: 08/17/2017 Tertiary NOT GIVENUNK [place] Insurance:SELF PAY [facility] Number: Effective Repository Date:2017-08-17 08/16/2017 BANDAR W Primary BANDAR Crowell [place] [id number] Insurance:MEDICARE [place]STDOB: [place] [facility] [id number] Hospital 44756Zna: (330) Number: Repository [phone] () [id number] Date:2017-08-01 08/16/2017 Secondary Nishi A MastDOB: [place] Insurance:AULTCAREPol [id number] [facility] icy Number: Hospital [id number] Repository e Date:0107-30-70IZ [address] [place] [address]DE: 08/16/2017 Tertiary NOT GIVENUNK [place] Insurance:SELF PAY [facility] Number: Effective Repository Date:2017-08-15 08/16/2017 BANDAR W Primary BANDAR W [place] [id number] Insurance:MEDICARE [place]STDOB: [place] [facility] [id number] Hospital 25369Szr: (330) Number: Repository [phone] () [id number] Date:2017-08-01 08/16/2017 Secondary Nishi A MastDOB: [place] Insurance:AULTCAREPol [id number] [facility] icy Number: Hospital [id number] Repository e Date:9585-22-19GW [address], [place] [address]TZ: 08/16/2017 Tertiary BANDAR W [place] Insurance:STATE MASTDOB: [facility] Number: [id number] Hospital Effective Repository Date:9444-59-20DQ [address], [place] [address]TE: 08/16/2017 Tertiary NOT GIVENUNK [place] Insurance:SELF PAY [facility] Number: Effective Repository Date:2017-08-16 08/16/2017 BANDAR W Primary BANDAR W [place] [id number] Insurance:MEDICARE [place]STDOB: [place] [facility] [id number] Hospital 560[address]Uia: (330) Number: Repository [phone] () [id number] Date:2017-08-01 08/16/2017 Secondary Nishi A MastDOB: [place] Insurance:AULTCAREPol [id number] [facility] icy Number: Hospital [id number] Repository e Date:9012-79-87GQ [address] [place] [address]XH: 08/16/2017 Tertiary BANDAR W [place] Insurance:STATE MASTDOB: [facility] Number: [id number] Hospital Effective Repository Date:1837-17-23SY [address] [address]ZS: 08/16/2017 Tertiary NOT GIVENUNK [place] Insurance:SELF PAY [facility] Number: Effective Repository Date:2017-08-16 08/08/2017 BANDAR W Primary BANDAR Crowell [place] [id number] Insurance:MEDICARE [place]STDOB: [place] [facility] [id number] Hospital 450[address]Bck: (330) Number: Repository [phone] () [id number] Date:2017-08-02 08/08/2017 Secondary BANDAR W [place] Insurance:AULTCAREPol MASTDOB: [facility] icy Number: [id number] Ana Health [id number] Repository e Date:1613-93-67JG [facility] [address] [place] [address]UW: 08/08/2017 Tertiary NOT GIVENUNK [place] Insurance:SELF PAY [facility] Number: Effective Repository Date:2017-08-08 08/01/2017 BANDAR W Primary BANDAR Baker [id number] Insurance:MEDICARE [place]STDOB: [place] [facility] [id number] Hospital 248[address]Cvy: (330) Number: Repository [phone] () [id number] Date:2017-08-01 08/01/2017 Secondary BANDAR W [place] Insurance:AULTCAREPol MASTDOB: [facility] icy Number: [id number] Hospital [id number] Repository e Date:7809-38-57SY [address] [place] [address]RU: 08/01/2017 Tertiary NOT GIVENUNK [place] Insurance:SELF PAY [facility] Number: Effective Repository Date:2017-08-01 07/27/2017 BANDAR W Primary BANDAR W [place] [id number] Insurance:MEDICARE [place]STDOB: [place] [facility] [id number] Hospital 07125Qey: (330) Number: Repository [phone] () [id number] Date:2017-07-27 07/27/2017 Secondary NOT GIVENUNK [place] Insurance:SELF PAY [facility] Number: Effective Repository Date:2017-07-27 07/27/2017 BANDAR Crowell Primary BANDAR Baker [id number] Insurance:MEDICARE [place]STDOB: [place] [facility] [id number] Hospital 07198Poa: (330) Number: Repository [phone] () [id number] Date:2017-07-27 07/27/2017 Secondary BANDAR W [place] Insurance:AULTCAREPol MASTDOB: [facility] icy Number: [id number] Ana Health [id number] Repository e Date:5701-78-55TU [address] [address]OB: 07/27/2017 Tertiary NOT GIVENUNK [place] Insurance:SELF PAY [facility] Number: Effective Repository Date:2017-07-27 07/27/2017 BANDAR Crowell Primary BANDAR Baker [id number] Insurance:MEDICARE [place]STDOB: [place] [facility] [id number] Hospital 91662Qlk: (330) Number: Repository [phone] () [id number] Date:2017-07-27 07/27/2017 Secondary BANDAR Crowell [place] Insurance:AULTCAREPol MASTDOB: Community icy Number: [id number] Hospital [id number] Repository e Date:8830-68-17[address] [address]VH: 07/27/2017 Tertiary NOT GIVENUNK [place] Insurance:SELF PAY [facility] Number: Effective Repository Date:2017-07-27 07/27/2017 BANDAR Crowell Primary BANDAR Baker [id number] Insurance:MEDICARE [place]STDOB[place] [facility] [id number] Hospital 804[address]Gvf: (330) Number: Repository [phone] () [id number] Date:2017-07-27 07/27/2017 Secondary BANDAR Baker Insurance:AULTCAREPol MASTDOB: Community icy Number: [id number] Ana Health [id number] Repository e Date:9150-01-61VI [address] [place] [address]HZ: 07/27/2017 Tertiary NOT GIVENUNK [place] Insurance:SELF PAY [facility] Number: Effective Repository Date:2017-07-27 07/27/2017 BANDAR W Primary BANDAR Crowell [place] [id number] Insurance:MEDICARE [place]STDOB: [place] [facility] [id number] Hospital 53586Ncy: (330) Number: Repository [phone] () [id number] Date:2017-07-27 07/27/2017 Secondary BNADAR Crowell [place] Insurance:AULTCAREPol MASTDOB: [facility] icy Number: [id number] Ana Health [id number] Repository e Date:9720-05-65AM [address] [place] [address]QD: 07/27/2017 Tertiary NOT GIVENUNK [place] Insurance:SELF PAY [facility] Number: Effective Repository Date:2017-07-27 07/27/2017 BANDAR W Primary BANDAR Crowell [place] [id number] Insurance:MEDICARE [place]STDOB: [place] [facility] [id number] Hospital 624[address]Epp: (330) Number: Repository [phone] () [id number] Date:2017-07-27 07/27/2017 Secondary BANDAR W [place] Insurance:AULTCAREPol MASTDOB: [facility] icy Number: [id number] Hospital [id number] Repository e Date:3835-61-24MR [address] [place] [address]PY: 07/27/2017 Tertiary NOT GIVENUNK [place] Insurance:SELF PAY [facility] Number: Effective Repository Date:2017-07-27 07/27/2017 BANDAR Crowell Primary BANDAR Crowell [place] [id number] Insurance:MEDICARE [place]STDOB[place] [facility] [id number] Hospital 640[address]Sjw: (330) Number: Repository [phone] () [id number] Date:2017-07-27 07/27/2017 Secondary BANDAR Crowell [place] Insurance:AULTCAREPol MASTDOB: [facility] icy Number: [id number] Hospital [id number] Repository e Date:3715-38-28OH [address] [place] [address]RX: 07/27/2017 Tertiary NOT GIVENUNK [place] Insurance:SELF PAY [facility] Number: Effective Repository Date:2017-07-27 07/27/2017 BANDAR Crowell Primary BANDAR Crowell [place] [id number] Insurance:MEDICARE [place]STDOB: [place] [facility] [id number] Hospital 50890Vnw: (330) Number: Repository [phone] () [id number] Date:2017-07-27 07/27/2017 Secondary BANDAR Crowell [place] Insurance:AULTCAREPol MASTDOB: [facility] ic Number: [id number] Hospital [id number] Repository e Date:3605-31-32GQ [address] [place] [address]SK: 07/27/2017 Tertiary NOT GIVENUNK [place] Insurance:SELF PAY [facility] Number: Effective Repository Date:2017-07-27 07/27/2017 BANDAR Crowell Primary BANDAR Crowell [place] [id number] Insurance:MEDICARE [place]STDOB: [place] [facility] [id number] Hospital 61777Zca: (330) Number: Repository [phone] () [id number] Date:2017-07-27 07/27/2017 Secondary BANDAR Crowell [place] Insurance:AULTCAREPol MASTDOB: [facility] icy Number: [id number] Hospital [id number] Repository e Date:8910-23-77KX [address], [place] [address]RP: 07/27/2017 Tertiary NOT GIVENUNK [place] Insurance:SELF PAY [facility] Number: Effective Repository Date:2017-07-27 07/27/2017 BANDAR W Primary BANDAR W [place] [id number] Insurance:MEDICARE [place]STD[place]: [place] BPolicy [id number] Hospital 07842Cbg: (330) Number: Repository [phone] ) [id number] Date:2017-07-27 07/27/2017 Secondary NOT GIVENUNK [place] Insurance:SELF PAY [facility] Number: Effective Repository Date:2017-07-27
== END ==
PROVIDERS: Family Provider Internal Medicine; PCP Internal Medicine; Referring Provider Internal Medicine Cardiovascular Disease; Visit Provider Internal Medicine Cardiovascular Disease
DX: Z79.899 Other long term (current) drug therapy (principal)
CPT/HCPCS: 36415; 84436; 84443

== ENCOUNTER → 2018-06-13 10:05 | Outpatient (CLI) | payer MEDICARE, OTHER, SELFPAY ==
[2018-06-04 13:19] VITALS: BMI 19.0
--- NOTE | 2018-06-13 13:56 | PFT ---
INTRODUCTION: The patient is a 67-year-old male that presents for pulmonary function testing secondary to a diagnosis of high risk medication use. Respiratory therapy reports that the patient had great difficulty with flow volume loops. Bronchodilators were used during testing. INTERPRETATION: Forced expiration spirometry demonstrates no evidence of a large airways obstructive ventilatory defect. There was no significant response to aerosolized bronchodilators. Spirograms are of suboptimal quality and terminate prior to 6 seconds, likely underestimating FVC. Body plethysmography was performed which revealed lung volumes to be within normal limits. Diffusing capacity by single breath CO is also within normal limits. IMPRESSION: Essentially normal pulmonary function studies. However, results should be reviewed with caution, given the difficulty that the patient had with testing.
--- NOTE | 2018-06-13 13:59 | PFT_ITS ---
INTRODUCTION: The patient is a 67-year-old male that presents for pulmonary function testing secondary to a diagnosis of high risk medication use. Respiratory therapy reports that the patient had great difficulty with flow volume loops. Bronchodilators were used during testing. INTERPRETATION: Forced expiration spirometry demonstrates no evidence of a large airways obst ructive ventilatory defect. There was no significant response to aerosolized bronchodilators. Spirograms are of suboptimal quality and terminate prior to 6 seconds, likely underestimating FVC. Body plethysmography was performed which revealed lung volumes to be within normal limits. Diffusing capacity by single breath CO is also within normal limits. IMPRESSION: Essentially normal pulmonary function studies. However, results should be reviewed with caution, given the difficulty that the patient had with testing.
== END ==
PROVIDERS: Family Provider Internal Medicine; PCP Internal Medicine; Referring Provider Internal Medicine Cardiovascular Disease; Visit Provider Internal Medicine Cardiovascular Disease
DX: Z79.899 Other long term (current) drug therapy (principal); Z79.01 Long term (current) use of anticoagulants; I48.91 Unspecified atrial fibrillation
CPT/HCPCS: 36415; 85610; 94060; 94726; 94729

== ENCOUNTER 2018-06-13 11:10 | Outpatient (RCR) | payer MEDICARE, OTHER, SELFPAY ==
[2018-06-04 13:19] VITALS: BMI 19.0
[2018-06-13 11:39] LABS: International Normalized Ratio 1.4; Prothrombin Time (Protime)PT. 16.9 SECONDS (11.7-14.9)
== END 2018-06-13 12:00 | disposition home or self-care (01) ==
LOC: LAB 11:10
PROVIDERS: Family Provider Internal Medicine; PCP Internal Medicine; Referring Provider Internal Medicine Cardiovascular Disease; Visit Provider Internal Medicine Cardiovascular Disease
DX: I48.91 Unspecified atrial fibrillation (principal); Z79.01 Long term (current) use of anticoagulants
CPT/HCPCS: 36415; 85610

== ENCOUNTER 2018-06-14 17:42 | Emergency (ER) | payer MEDICARE, OTHER, SELFPAY ==
[2018-06-04 13:19] VITALS: BMI 19.0
[2018-06-14 17:43] VITALS: BP 143/77; PULSE 95; RESP 16; TEMP 36.4; O2SAT 98; BMI 19.3
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
--- NOTE | 2018-06-14 17:59 | CT_ITS ---
We are attempting to reach Faustino Pierson MD to discuss findings. An addendum with communication details will be sent when the communication is complete. STUDY: CT BRAIN WITHOUT CONTRAST REASON FOR EXAM: Male, 67 years old. Head trauma and hematoma above right eye RADIATION DOSAGE (If Supplied By Facility): CTDIvol = ( 44.99 ) mGy, DLP = ( 846.73 ) mGycm TECHNIQUE: Transaxial CT imaging of the brain was performed without administration of intravenous contrast material. Individualized dose optimization techniques were used for this CT. COMPARISON: May 15, 2012 MR brain FINDINGS: Subcutaneous hematoma right forehead. Normal calvarium. Normal size ventricles and extra-axial spaces for the patient's age. Normal white matter tracts of the cerebral hemispheres. Normal basal ganglia and thalami. Normal brainstem. Normal cerebellum. There is interhemispheric and left sylvian fissure subarachnoid hemorrhage. There is also extra-axial hemorrhage along the right parietal and temporal convexities measuring up to 6 mm. There is no midline shift or herniation. There is no intraventricular or intraparenchymal hemorrhage noted. There are no findings of an acute ischemic infarction. Normal visualized paranasal sinuses. CT/Brain/Head without Contrast IMPRESSION: Frontal and left temporal subarachnoid hemorrhage. Small extra-axial hemorrhage along the right parietal and temporal convexities. Electronically Signed: Alfredito Vela MD at 19:03 EST , Service support ,
[2018-06-14 19:50] LABS: International Normalized Ratio 1.5; Prothrombin Time (Protime)PT. 18.3 SECONDS (11.7-14.9)
[2018-06-14 20:15] VITALS: BP 134/85; PULSE 92; RESP 19; O2SAT 96
[2018-06-14 20:54] VITALS: BP 142/83; PULSE 94; RESP 14; O2SAT 97
== END 2018-06-14 21:07 | disposition home or self-care (01) ==
LOC: ED 18:18
PROVIDERS: Emergency Provider Emergency Medicine; Family Provider Internal Medicine; PCP Internal Medicine
DX: S06.6X9A Traumatic subarachnoid hemorrhage with loss of consciousness of unspecified duration, initial encounter (principal); W19.XXXA Unspecified fall, initial encounter; Y93.9 Activity, unspecified; Y92.9 Unspecified place or not applicable; I25.10 Atherosclerotic heart disease of native coronary artery without angina pectoris; I10 Essential (primary) hypertension; Z79.01 Long term (current) use of anticoagulants; Z79.82 Long term (current) use of aspirin; Z79.899 Other long term (current) drug therapy
CPT/HCPCS: 70450; 85610; 96365; 99284; A4216; J3490

== ENCOUNTER → 2019-01-15 14:09 | Outpatient (CLI) | payer MEDICARE, OTHER, SELFPAY ==
[2018-12-26 11:31] VITALS: BMI 19.5
--- NOTE | 2019-01-15 14:11 | ECHOD_ITS ---
Reason For Study: Mitral valve regurgitation Procedure This was a 2D Doppler, Color Flow transthoracic echocardiogram. Exam performed in department. Left Ventricle Normal size and thickness. The estimated ejection fraction is 65 %. Stage 1 diastolic dysfunction. No regional wall motion abnormalities noted. Right Ventricle Normal size and thickness. Normal systolic function. Atria The left atrium is severely enlarged. Normal right atrium. Normal atrial septum. Mitral Valve Moderate focal mitral valve thickening. Posterior leaflet mitral valve prolapse. Moderately severe (3+) eccentric mitral valve insufficiency. Tricuspid Valve Normal tricuspid valve. Mild (1+) tricuspid valve insufficiency. Right ventricular systolic pressure estimated to be 20 mmHg. Aortic Valve Normal aortic valve. Trisinus/trileaflet aortic valve. Pulmonic Valve Normal pulmonic valve. Great Vessels Normal aortic root. Normal arch. Normal inferior vena cava. Inferior vena cava collapse with sniff. Pericardium/Pleural No pericardial effusion. MMode/2D Measurements & Calculations LVIDd: 4.2 cm IVSd: 1.2 cm Ao root diam: 3.1 cm LVIDs: 3.1 cm LVPWd: 1.2 cm RVDd: 3.2 cm FS: 25.6 % LAV(MOD-bp): 100.1 ml LA A4 area: 30.8 cm2 LA dimension(2D): 4.5 cm LAV(MOD-bp) Indexed: 58.4 ml/m2 LAV(MOD-sp2): 76.0 ml LAV(MOD-sp4): 113.2 ml RA A4 area: 12.7 cm2 Doppler Measurements & Calculations MV E max gene: 63.7 cm/sec Lat Peak E' Gene: 10.3 cm/sec Med Peak E' Gene: 5.8 cm/sec MV A max gene: 82.6 cm/sec E/E' lat: 6.2 E/E' med: 11.0 MV E/A: 0.77 Ao V2 max: 95.9 cm/sec LV V1 max: 71.6 cm/sec PA V2 max: 93.5 cm/sec Ao max P.7 mmHg LV V1 max P.1 mmHg TR max gene: 203.0 cm/sec TR max P.5 mmHg Interpretation Summary The estimated ejection fraction is 65 %. Stage 1 diastolic dysfunction. The left atrium is severely enlarged. Posterior leaflet mitral valve prolapse. Moderately severe (3+) eccentric mitral valve insufficiency. Mild (1+) tricuspid valve insufficiency. Right ventricular systolic pressure estimated to be 20 mmHg. Compared to echo report dated 07/28/2017, infero-basal hypokinesis has normalized and LVEF has improved from 45% to 65%. Pt now appears in NSR. MR has gone from moderate to moderately-severe. Ordering Physician: Isacc Brito Referring Physician: Winter Lamas M.D. Performed By: Inna Santiago RDCS
== END ==
PROVIDERS: Family Provider Internal Medicine; PCP Internal Medicine; Referring Provider Internal Medicine Cardiovascular Disease; Visit Provider Internal Medicine Cardiovascular Disease
DX: I34.0 Nonrheumatic mitral (valve) insufficiency (principal); I25.810 Atherosclerosis of coronary artery bypass graft(s) without angina pectoris; I21.19 ST elevation (STEMI) myocardial infarction involving other coronary artery of inferior wall
CPT/HCPCS: 93306

== ENCOUNTER 2019-08-17 16:10 | Emergency (ER) | payer MEDICARE, OTHER, SELFPAY ==
[2019-06-26 14:49] VITALS: BMI 19.4
[2019-08-17 16:11] VITALS: BP 144/78; PULSE 96; RESP 16; TEMP 37.6; O2SAT 97; BMI 19.8
--- NOTE | 2019-08-17 16:46 | RAD_ITS ---
STUDY: X-RAY CHEST REASON FOR EXAM: Male, 69 years old. SORE THROAT AND and quot;SLIGHT COUGH and quot;, HX PA 2018, MANTLE CELL LYMPHOMA AND BLADDER CA TECHNIQUE: Single frontal view of the chest. COMPARISON: 07/27/2017 FINDINGS: Right chest wall port. The lungs are clear and expanded. There is no demonstrated pleural abnormality. Normal size heart. Normal mediastinum and jose. Normal visualized pulmonary arteries. Normal visualized aortic arch and descending thoracic aorta. Normal visualized thoracic spine. Normal visualized ribs, clavicles, and shoulders. There is no demonstrated abnormality of the visualized soft tissue structures of the upper abdomen. RAD/Chest 1 View (Portable) IMPRESSION: No acute pulmonary findings. Electronically Signed: Julio Lopez MD at 17:39 EDT Tel , Service support ,
--- NOTE | 2019-08-17 17:47 | ED.DCSUM_ITS ---
- ER Visit Summary Date of Service: 08/17/19 Chief Complaint: Sore throat History of Present Illness: The patient is a 69 M who presents with a sore throat that is been getting worse over the past 4 days. Patient describes his pain is aching. Patient states it is localized to his oropharynx. Patient stat es nothing makes it better. Patient states he is having some difficulty swallowing due to the pain. Patient denies any fevers or chills. Patient denies any cough or shortness of breath. Patient has a history of lymphoma. Physical Examination: Vital signs are stable. Patient is afebrile here. Patient is in no acute distress. Oral mucosa is pink and moist. Oropharynx is mildly erythematous. There is some postnasal drainage. There are no exudates. Neck is supple. Trachea is midline. There is no JVD. There is no lymphadenopathy. Heart was regular rate and rhythm. Lungs are clear and equal bilaterally. Abdomen is soft and nontender. Extremities are intact. There are no focal motor or sensory deficits noted. There is no calf tenderness or edema. Test Results: Portable chest x-ray was obtained. There is no acute cardiopulmonary process. This was interpreted by the radiologist and myself. Flu swab, RSV swab, and rapid strep were obtained and were all negative. Emergency Department Course and Treatment: Patient was advised of his findings. 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 Patient will be given a prescription for Zithromax to cover for possible bacterial infection. Patient was given his first dose here. Patient was instructed to follow-up with his primary care physician in 5 to 7 days. Patient understood and was agreeable with the plan. All questions were answered. Disposition: Discharge home Impression: Pharyngitis This note was generated with [employer] dictation software. It may contain incorrect words, spelling, and punctuation that were not noted in review of the chart prior to signing ED Disposition - Plan for ED Patient: Disposition: Home or Assisted Living Diagnosis: Pharyngitis Instructions: ED Pharyngitis Report Pending Prescriptions: Azithromycin [Zithromax] 500 mg PO DAILY #4 tab Prescription Printed Referrals: Winter Lamas MD [Primary Care Provider] - 5-7 Days Faustino George DO [STAFF PHYSICIAN] - Keep Rina appointment
[2019-08-17] MEDS: Azithromycin 250 MG Tablet 500 MG PO (18:42)
[2019-08-17 18:45] VITALS: PULSE 94; RESP 16; O2SAT 98
== END 2019-08-17 18:46 | disposition home or self-care (01) ==
PROVIDERS: Emergency Provider Emergency Medicine; PCP Internal Medicine
DX: J02.9 Acute pharyngitis, unspecified (principal); C83.10 Mantle cell lymphoma, unspecified site; I25.10 Atherosclerotic heart disease of native coronary artery without angina pectoris; Z95.5 Presence of coronary angioplasty implant and graft
CPT/HCPCS: 71045; 87804; 87807; 87880; 99283

== ENCOUNTER → 2020-01-12 11:03 | Outpatient (CLI) | payer MEDICARE, OTHER, SELFPAY ==
[2020-01-08 12:30] VITALS: BMI 19.5
[2020-01-12 11:54] LABS: AST(SGOT) 11 U/L (15-37); Alanine Aminotransfer ALT/SGPT 19 U/L (16-61); Albumin, Serum 4.2 g/dL (3.2-5.0); Alkaline Phosphatase 102 U/L (45-117); Bilirubin, Direct 0.27 mg/dL (0.00-0.30); Cholesterol 97 mg/dL (200); Globulin 2.7 g/dL (2.2-4.2); High Density Lipoprotein 37 mg/dL; Protein, Total 6.9 g/dL (6.4-8.2); T4 Total, Thyroxin 12.5 ug/dL (4.5-12.1); Thyroid Stim Hormone (TSH) 7.54 uIU/mL (0.358-3.74); Triglycerides 72 mg/dL; Very Low Density Lipoprotein 14 mg/dL (5-40)
== END ==
PROVIDERS: PCP Internal Medicine; Referring Provider Internal Medicine Cardiovascular Disease; Visit Provider Internal Medicine Cardiovascular Disease
DX: E78.5 Hyperlipidemia, unspecified (principal); Z79.899 Other long term (current) drug therapy
CPT/HCPCS: 36415; 80061; 80076; 84436; 84443

== ENCOUNTER → 2020-03-05 14:35 | Outpatient (CLI) | payer MEDICARE, OTHER, SELFPAY ==
[2020-01-08 12:30] VITALS: BMI 19.5
[2020-03-05 15:53] LABS: T4 Total, Thyroxin 11.9 ug/dL (4.5-12.1); Thyroid Stim Hormone (TSH) 5.19 uIU/mL (0.358-3.74)
== END ==
PROVIDERS: PCP Internal Medicine; Referring Provider Internal Medicine Cardiovascular Disease; Visit Provider Internal Medicine Cardiovascular Disease
DX: E03.9 Hypothyroidism, unspecified (principal); Z79.899 Other long term (current) drug therapy
CPT/HCPCS: 36415; 84436; 84443

== ENCOUNTER 2020-03-15 14:22 | Emergency (ER) | payer MEDICARE, OTHER, SELFPAY ==
[2020-01-08 12:30] VITALS: BMI 19.5
[2020-03-15 14:24] VITALS: BP 101/85; PULSE 77; RESP 18; TEMP 37.4; O2SAT 19; BMI 19.6
[2020-03-15 14:30] VITALS: BP 101/85; PULSE 77; RESP 18; TEMP 37.4; O2SAT 98
--- NOTE | 2020-03-15 14:38 | ED.VIS.GEN ---
History of Present Illness Chief Complaint: Complaint Informant: Patient Narrative: Patient is a 69-year-old male who presents to the emergency department for difficulty urinating. The symptoms started today. States he had this problem many years ago but it resolved on its own. He cannot recall prostate issues before in the past. No blood in the urine. He states that he has been straining to go but not getting much out. After straining he developed some suprapubic discomfort. He denies any issues moving his bowels. No burning with urination. He denies any flank pain. No chest pain or shortness of breath. No peripheral edema. Denies any fevers or chills. He does have a history of bladder cancer requiring surgery. Past Medical History - Allergies and Home Meds Allergies/Adverse Reactions: Allergies ampicillin Allergy (Verified 03/15/20 14:23) Rash phenazopyridine [Phenazopyridine] Allergy (Verified 03/15/20 14:23) Rash cephalexin [Cephalexin] Adverse Reaction (Verified 03/15/20 14:23) Upset Stomach trazodone Adverse Reaction (Verified 03/15/20 14:23) Nausea Primary Care Physician: Winter Lamas MD [Primary Care Provider] - Prior records reviewed: Yes Past Medical History: - - Coronary artery disease, A. fib, hyperlipidemia Surgical History: - - Hernia repair, Tendon repair, Port, Splenectomy, Bone marrow bx, EGD, EBUS, T+A. Smoking Status: Never smoker - Family History Paternal Family History: Family History (Last Reviewed 01/08/20 @ 12:30 by Shanna Garcia) Mother Breast cancer Lung disease Father CVA (cerebral vascular accident) Heart disease Afib CHF (congestive heart failure) Myocardial infarction Hx of CABG Family History: Reports: - - Father with heart disease afib, had chf as well. Maternal Family History: Family History (Last Reviewed 01/08/20 @ 12:30 by Shanna Garcia) Mother Breast cancer Lung disease Father CVA (cerebral vascular accident) Heart disease Afib CHF (congestive heart failure) Myocardial infarction Hx of CABG Family History: Reports: Diabetes, Heart Disease Review of Systems All systems negative except as indicated General: Denies: Chills, Fever, Sweats Eyes: Denies: Visual changes - bilaterally, Diplopia ENT: Denies: Rhinorrhea, Sore throat Cardiovascular: Denies: Chest pain, Palpitations Respiratory: Denies: Dyspnea, Cough, Dyspnea on exertion Gastrointestinal: Denies: Abdominal pain, Nausea, Vomiting, Diarrhea Genitourinary: Reports: Dysuria. Denies: Hematuria, Frequency Musculoskeletal: Denies: Back pain, Extremity Pain Skin: Denies: Rash, Wounds Neurological: Denies: Headache, Weakness, Numbness Physical Exam Vital Signs/Narrative: Vital Signs Temp Pulse Resp BP Pulse Ox 03/15/20 14:30 99.3 F H 77 18 101/85 H 98 03/15/20 14:24 99.3 F H 77 18 101/85 H 19 General: Well nourished, Well developed, No Acute Distress Head: Normocephalic, Atraumatic Eyes: Perrl, EOMI ENT: Moist mucous membranes, No rhinorrhea Neck: Supple, Nontender Cardiovascular: Regular rate, Regular rhythm, No murmurs Respiratory: No distress, CTA bilaterally, Chest nontender Abdomen: Soft, Nontender, Nondistended, Normal bowel sounds Back: Nontender, Normal Inspection Extremities: Nontender, No edema Skin: Normal color, No rash Neurological: Alert, Normal Strength, Normal Sensation Psychological: Normal affect, Normal Mood Diagnostic/Tx/Re-eval - Medical Decision Making Patient presents to the emergency department for difficulty with urinating. Upon arrival to the emergency department vital signs within normal limits. He does not appear in any acute distress. No pain with palpation of the abdomen or flank. Will check a urinalysis to evaluate for evidence of infection. Patient was able to urinate and the urinalysis did not show any evidence of infection. Kidney function within normal limits. Since the patient is able to urinate I do not feel a catheter is needed at this time. He does have an appointment with his urologist tomorrow which he is keeping. He does feel comfortable going home at this time. If he develops any acute urinary retention he can return to the emergency department for catheter insertion. He understands and is agreeable this plan. Will discharge home in stable condition. All questions answered. ED Disposition - Plan for ED Patient: Disposition: Home or Assisted Living Diagnosis: Difficulty urinating Instructions: ED Urinary Retention Male Referrals: Winter Lamas MD [Primary Care Provider] - 3-5 Days
[2020-03-15 14:54] LABS: Bacteria 0 SEEN /hpf (None Seen); Mucous, Urine 0 SEEN /hpf (<or=2+); Red Blood Cells-Urine 0 SEEN /hpf (0-5); Squamous Epithelial Cells - UA 0 SEEN /hpf (0-5); White Blood Cells 0 SEEN /hpf (0-5)
[2020-03-15 14:56] LABS: Color, Urine Yellow (Yellow); Glucose, Dipstick Normal (Normal); Ketone-Dipstick Negative (Negative); Leukocyte Esterase-Dipstick Negative /ul (Negative); Nitrite-Dipstick Negative (Negative); Occult Blood-Urine Negative /ul (Negative); Protein-Dipstick 30 mg/dl (Negative); Urine Bilirubin Dipstick Negative (Negative); Urine Clarity Clear (Clear); Urine Urobilinogen 4 mg/dl (Normal)
[2020-03-15 15:52] LABS: Absolute Lymphocyte Count 2.49 X10^3/uL (0.83-4.51); Absolute Neutrophil Count 2.6 X10^3/uL (2.0-7.7); Basophil# 0.05 X10^3/uL; Basophil% 0.8 % (0-1); Eosinophil# 0.03 X10^3/uL; Eosinophils% 0.5 % (0-5); Hematocrit 41.2 % (40-54); Lymphocyte # 2.49 X10^3/ul (4.0); Mean Corpuscular Volume 105.9 fL (80-94); Mean Platelet Vol. 11.7 fl (6.2-12.0); Monocyte# 0.88 X10^3/uL; Monocyte% 14.5 % (0-10); NRBC Flagged by Analyzer 0 % (0-5); Neutrophil # 2.59 X10^3/uL (2.7-7.7); Neutrophil % 42.7 % (47-70); POSITIVE MORPHOLOGY YES; Platelet Count 164 K/mm3 (150-450); RBC Distribution Width CV 19.6 % (11.6-14.6); RBC Distribution Width SD 75.7 fl (35.1-43.9); Red Blood Count 3.89 M/mm3 (4.6-6.2); White Blood Count 6.1 K/mm3 (4.4-11.0)
[2020-03-15 15:54] LABS: Differential Indicated SCAN CRITERIA MET
[2020-03-15 16:05] LABS: Anion Gap 8 (5-15); BUN 13 mg/dL (7-18); BUN/Creat Ratio 11.9 RATIO (10-20); Calcium,Total 8.7 mg/dL (8.5-10.1); Chloride 108 mmol/L (98-107); Creatinine, Serum 1.09 mg/dL (0.70-1.30); EST Glomerular Filtration Rate 72 mL/min (>60); Est Glom Filt Rate - Afr Amer 87 mL/min (>60); Estimated Creatinine Clearance 54.51 ml/min; Glucose 89 mg/dL (74-106); Potassium 3.9 mmol/L (3.5-5.1); Sodium Level 142 mmol/L (136-145)
[2020-03-15 16:23] LABS: Anisocytosis 1+; Differential Comment SCANNED
[2020-03-15 16:24] LABS: Crenated RBC 1+
[2020-03-15 16:31] VITALS: BP 106/80; PULSE 78; RESP 16; O2SAT 98
== END 2020-03-15 16:32 | disposition home or self-care (01) ==
PROVIDERS: Emergency Provider Emergency Medicine; PCP Internal Medicine
DX: R39.198 Other difficulties with micturition (principal); I25.10 Atherosclerotic heart disease of native coronary artery without angina pectoris; I48.91 Unspecified atrial fibrillation; E78.5 Hyperlipidemia, unspecified; Z85.51 Personal history of malignant neoplasm of bladder; Z79.899 Other long term (current) drug therapy
CPT/HCPCS: 36591; 80048; 81001; 85025; 87086; 87088; 99284; A4216

== ENCOUNTER → 2020-05-03 13:48 | Outpatient (CLI) | payer MEDICARE, OTHER, SELFPAY | PROVIDERS: PCP Internal Medicine; Visit Provider Internal Medicine Cardiovascular Disease | DX: R69 Illness, unspecified (principal) ==

== ENCOUNTER → 2020-05-11 14:38 | Outpatient (CLI) | payer MEDICARE, OTHER, SELFPAY ==
[2020-05-11 16:02] LABS: Thyroid Stim Hormone (TSH) 5.59 uIU/mL (0.358-3.74)
== END ==
PROVIDERS: PCP Internal Medicine; Visit Provider Internal Medicine Cardiovascular Disease
DX: E03.9 Hypothyroidism, unspecified (principal); Z79.899 Other long term (current) drug therapy
CPT/HCPCS: 36415; 84443

== ENCOUNTER → 2020-06-30 12:58 | Outpatient (CLI) | payer MEDICARE, OTHER, SELFPAY ==
[2020-06-23 14:41] VITALS: BMI 18.5
--- NOTE | 2020-06-30 13:02 | ECHOD_ITS ---
Reason For Study: High risk meds Procedure This was a 2D Doppler, Color Flow transthoracic echocardiogram. The exam was of adequate technical quality. Exam performed in department. Left Ventricle Normal LV size. Left ventricular systolic function is normal. The estimated ejection fraction is 65 %. Unable to assess diastolic dysfunction. No regional wall motion abnormalities noted. Right Ventricle Normal RV size. Normal systolic function. Atria The left atrium is severely enlarged. The right atrium is mildly enlarged. No doppler evidence for ASD. Mitral Valve There is no mitral annular calcification. Mild diffuse mitral valve thickening. Mild mitral valve prolapse, posterior leaflet. Moderately severe (3+) eccentric mitral valve insufficiency. Tricuspid Valve Normal tricuspid valve. Mild tricuspid valve insufficiency. Right ventricular systolic pressure estimated to be 24 mmHg. Aortic Valve Trisinus/trileaflet aortic valve. Normal aortic valve. Trivial aortic valve insufficiency. Pulmonic Valve The pulmonic valve is not well visualized. Great Vessels Normal sized aortic root. Pericardium/Pleural No pericardial effusion. MMode/2D Measurements & Calculations LVIDd: 4.4 cm IVSd: 1.4 cm Ao root diam: 2.7 cm LVIDs: 2.9 cm LVPWd: 1.0 cm RVDd: 3.3 cm FS: 32.9 % LAV(MOD-bp): 91.8 ml LVAd ap4: 22.7 cm2 SV(MOD-sp4): 38.9 ml LAV(MOD-bp) Indexed: 54.8 ml/m2 EDV(MOD-sp4): 63.8 ml LAV(MOD-sp2): 93.2 ml EDV(sp4-el): 67.6 ml LAV(MOD-sp4): 88.0 ml LVAs ap4: 13.1 cm2 ESV(MOD-sp4): 24.9 ml ESV(sp4-el): 25.2 ml EF(MOD-sp4): 61.0 % EF(sp4-el): 62.7 % SV(sp4-el): 42.4 ml LA A4 area: 25.5 cm2 LA dimension(2D): 4.1 cm RA A4 area: 13.5 cm2 Doppler Measurements & Calculations MV E max [place]: 120.2 cm/sec Ao V2 max: 110.1 cm/sec LV V1 max: 86.1 cm/sec Ao max P.9 mmHg LV V1 max P.0 mmHg Ao V2 mean: 75.1 cm/sec Ao mean P.5 mmHg Ao V2 VTI: 17.1 cm PA V2 max: 87.1 cm/sec TR max [place]: 228.9 cm/sec TR max P.0 mmHg Interpretation Summary Left ventricular systolic function is normal. The estimated ejection fraction is 65 %. The left atrium is severely enlarged. The right atrium is mildly enlarged. Mild diffuse mitral valve thickening. Mild mitral valve prolapse, posterior leaflet Moderately severe (3+) eccentric mitral valve insufficiency. Mild tricuspid valve insufficiency. Trivial aortic valve insufficiency. Right ventricular systolic pressure estimated to be 24 mmHg. Unable to assess diastolic dysfunction. Ordering Physician: Rayo Hurst Referring Physician: Winter Lamas Performed By: Jessica Hurst, ALEXANDRA, RVT
== END ==
PROVIDERS: PCP Internal Medicine; Referring Provider Nurse Practitioner Family; Visit Provider Nurse Practitioner Family
DX: Z79.899 Other long term (current) drug therapy (principal)
CPT/HCPCS: 93306

== ENCOUNTER 2020-07-31 07:52 | Outpatient (CLI) | payer MEDICARE, OTHER, SELFPAY ==
[2020-06-23 14:41] VITALS: BMI 18.5
[2020-07-31] VITALS (12 sets, daily range): BP systolic 89–105; BP diastolic 51–66; PULSE 89–106; RESP 17–18; TEMP 36.4–37; O2SAT 93–99; BMI 18.2
[2020-07-31] MEDS: 0.9 % NaCl (Sterile) Posiflush 10 mL IV ×2 (11:18→13:27)
--- NOTE | 2020-07-31 12:57 | NURSING ---
PRBC done infusing, switched to NS to flush tubing
--- NOTE | 2020-07-31 13:02 | NURSING ---
NS flushing tubing
[2020-07-31] MEDS: Furosemide 20 MG/2 ML VIAL IV (13:27)
--- NOTE | 2020-07-31 17:22 | NURSING ---
NS bag flushing
[2020-07-31] MEDS: 0.9% Saline Lock 10 ML Syringe IV (18:37)
== END 2020-07-31 18:47 | disposition home or self-care (01) ==
LOC: MEDOUTP 07:53 → MS3 07:56
PROVIDERS: PCP Internal Medicine; Referring Provider Internal Medicine Hematology & Oncology; Visit Provider Internal Medicine Hematology & Oncology
DX: Z51.89 Encounter for other specified aftercare (principal); D64.81 Anemia due to antineoplastic chemotherapy
CPT/HCPCS: 36430; 86850; 86900; 86901; 86920; 86922; 86965; J7040; P9035; P9040; A4216; J1940

== ENCOUNTER 2020-08-07 10:00 | Outpatient (CLI) | payer MEDICARE, OTHER, SELFPAY ==
[2020-07-31 08:24] VITALS: BMI 18.2
[2020-08-07 11:10] VITALS: BP 82/60; PULSE 93; RESP 18; TEMP 37.3; O2SAT 97
[2020-08-07 11:25] VITALS: BP 95/64; PULSE 95; RESP 18; TEMP 37.2; O2SAT 96
[2020-08-07 12:25] VITALS: BP 111/79; PULSE 97; RESP 18; O2SAT 97
--- NOTE | 2020-08-07 13:38 | NURSING ---
Addendum entered by Rosalie Cm 08/07/20 13:40: blood still being transfused to pt. just the charting will finish up on paper Original Note: blood transfusion ended in error. charting converted to paper - Infusion (IV) flowsheet/ blood admin flowsheet being used for rest of blood transfusion.
[2020-08-07] MEDS: 0.9% Saline Lock 10 ML Syringe IV (14:58)
== END 2020-08-07 15:10 | disposition home or self-care (01) ==
LOC: MS3 10:38 → MEDOUTP 10:38
PROVIDERS: PCP Internal Medicine; Referring Provider Internal Medicine Hematology & Oncology; Visit Provider Internal Medicine Hematology & Oncology
DX: D50.0 Iron deficiency anemia secondary to blood loss (chronic) (principal)
CPT/HCPCS: 36430; 86850; 86900; 86901; 86920; 86922; J7040; P9016; A4216

== ENCOUNTER 2020-08-18 11:18 | Inpatient (IN) | payer MEDICARE, OTHER, SELFPAY ==
[2020-07-31 08:24] VITALS: BMI 18.2
[2020-08-18] VITALS (16 sets, daily range): BP systolic 85–106; BP diastolic 55–79; PULSE 77–100; RESP 15–18; TEMP 36.3–37.2; O2SAT 95–100; BMI 18.2; BMI 18.1
--- NOTE | 2020-08-18 12:17 | EKG12_ITS ---
Test Reason : WEAKNESS Blood Pressure : / mmHG Vent. Rate : 097 BPM Atrial Rate : 082 BPM P-R Int : 000 ms QRS Dur : 086 ms QT Int : 372 ms P-R-T Axes : 000 035 046 degrees QTc Int : 472 ms Atrial fibrillation Low voltage QRS Septal infarct (cited on or before 30-JUL-2017) Abnormal ECG Confirmed by YAIR TELLEZ, NEIDA ([id number]), subeditor JESSY CALVIN ([id number]) on 08/20/2020 2:36:41 PM Referred By: ARIS Confirmed By:KESHIA MAZARIEGOS MD
[2020-08-18 12:45] LABS: Absolute Lymphocyte Count 0.19 X10^3/uL (0.83-4.51); Absolute Neutrophil Count 0.9 X10^3/uL (2.0-7.7); Hematocrit 22.7 % (40-54); Hemoglobin 7.6 g/dL (13.0-16.5); Lymphocyte # 0.19 X10^3/ul (4.0); Lymphocyte % 16.4 % (19-41); Mean Corp Hgb Conc 33.5 g/dL (32-36); Mean Corpuscular Hgb 35.2 pg (27.0-32.0); Mean Corpuscular Volume 105.1 fL (80-94); Mean Platelet Vol. 12.6 fl (6.2-12.0); Monocyte# 0.08 X10^3/uL; Monocyte% 6.9 % (0-10); NRBC Flagged by Analyzer 0 % (0-5); Neutrophil # 0.89 X10^3/uL (2.7-7.7); Neutrophil % 76.7 % (47-70); POSITIVE COUNT YES; POSITIVE DIFFERENTIAL YES; POSITIVE MORPHOLOGY YES; RBC Distribution Width CV 18.7 % (11.6-14.6); RBC Distribution Width SD 69.9 fl (35.1-43.9); Red Blood Count 2.16 M/mm3 (4.6-6.2)
[2020-08-18 12:49] LABS: Differential Indicated SCAN CRITERIA MET; Platelet Count 16 K/mm3 (150-450); White Blood Count 1.2 K/mm3 (4.4-11.0)
[2020-08-18] MEDS: 0.9% Normal Saline 1,000 ML 1000 ML IV (12:52)
[2020-08-18 12:59] LABS: AST(SGOT) 8 U/L (15-37); Alanine Aminotransfer ALT/SGPT 15 U/L (16-61); Albumin, Serum 3.1 g/dL (3.2-5.0); Alkaline Phosphatase 92 U/L (45-117); Anion Gap 4 (5-15); BUN 16 mg/dL (7-18); BUN/Creat Ratio 20.6 RATIO (10-20); Calcium,Total 8.6 mg/dL (8.5-10.1); Chloride 108 mmol/L (98-107); Creatinine, Serum 0.78 mg/dL (0.70-1.30); EST Glomerular Filtration Rate 106 mL/min (>60); Est Glom Filt Rate - Afr Amer 128 mL/min (>60); Estimated Creatinine Clearance 54.43 ml/min; Globulin 2.2 g/dL (2.2-4.2); Glucose 108 mg/dL (74-106); Potassium 3.5 mmol/L (3.5-5.1); Protein, Total 5.3 g/dL (6.4-8.2); Sodium Level 140 mmol/L (136-145)
[2020-08-18 13:10] LABS: Anisocytosis 1+; Platelet Estimate MKD DEC (ADEQ); Red Cell Morphology N CHROM NORMAL (NORM C&C)
[2020-08-18 13:18] LABS: Bacteria 0 SEEN /hpf (None Seen); Mucous, Urine 0 SEEN /hpf (<or=2+); Red Blood Cells-Urine 0 SEEN /hpf (0-5); Squamous Epithelial Cells - UA 0 SEEN /hpf (0-5)
[2020-08-18 13:20] LABS: Color, Urine Yellow (Yellow); Glucose, Dipstick Normal (Normal); Ketone-Dipstick Negative (Negative); Leukocyte Esterase-Dipstick 25 /ul (Negative); Nitrite-Dipstick Negative (Negative); Occult Blood-Urine Negative /ul (Negative); Protein-Dipstick Negative (Negative); Specific Gravity, Urine 1.015 (1.002-1.030); Urine Bilirubin Dipstick Negative (Negative); Urine Clarity Sl. Cloudy (Clear); Urine Urobilinogen 1 mg/dl (Normal)
[2020-08-18 13:25] LABS: White Blood Cells 0-5 SEEN /hpf (0-5)
--- NOTE | 2020-08-18 14:34 | ED.DCSUM_ITS ---
History of Present Illness Chief Complaint: Weakness Informant: Patient, Family Onset: Today, - - Acute on chronic, worse today Current Severity: Moderate Maximum Severity: Moderate Narrative: She presents secondary to generalized weakness. Patient has a history of lymphoma. Last chemotherapy treatment was August 05. Patient states he has had problems with weakness but today when standing in the bathroom felt extremely weak. He states he lowered himself to the floor. reportedly called the oncologist because she could not get him up and he recommended she call 911 or come into the office for a blood check. Patient has been getting frequent transfusions. Patient states overall he does feels very weak. He had some epigastric abdominal pain earlier today. He denies a hard fall, states he lowered himself to the ground. Blood pressure on arrival is 92/55. - Past Medical History (1) Hypothyroidism (acquired) Status: Chronic (2) Inferior [place] Status: Chronic (3) Atrial fibrillation Status: Chronic Comment: DCCV on 01/20/2018 with amiodarone assistance; (4) GERD (gastroesophageal reflux disease) Status: Chronic (5) Hyperlipidemia Status: Chronic (6) Mantle cell lymphoma Status: Chronic (7) ST elevation (STEMI) myocardial infarction Status: Resolved (8) Subdural hematoma Status: Resolved Past Medical History - Allergies and Home Meds Allergies/Adverse Reactions: Allergies ampicillin Allergy (Verified 08/18/20 11:22) Rash phenazopyridine [Phenazopyridine] Allergy (Verified 08/18/20 11:22) Rash cephalexin [Cephalexin] Adverse Reaction (Verified 08/18/20 11:22) Upset Stomach trazodone Adverse Reaction (Verified 08/18/20 11:22) Nausea Primary Care Physician: Winter Lamas MD [Primary Care Provider] - Surgical History: - - Hernia repair, Tendon repair, Port, Splenectomy, Bone marrow bx, EGD, EBUS, T+A. Lives: Spouse/ Significant Other Smoking Status: Never smoker - Family History Paternal Family History: Family History (Last Reviewed 01/08/20 @ 12:30 by Shanna Garcia) Mother Breast cancer Lung disease Father CVA (cerebral vascular accident) Heart disease Afib CHF (congestive heart failure) Myocardial infarction Hx of CABG Family History: Reports: - - Father with heart disease afib, had chf as well. Maternal Family History: Family History (Last Reviewed 01/08/20 @ 12:30 by Shanna Garcia) Mother Breast cancer Lung disease Father CVA (cerebral vascular accident) Heart disease Afib CHF (congestive heart failure) Myocardial infarction Hx of CABG Family History: Reports: Diabetes, Heart Disease Review of Systems General: Denies: Chills, Fever Eyes: Denies: Visual changes - bilaterally ENT: Denies: Bilateral ear pain Cardiovascular: Denies: Chest pain Respiratory: Denies: Dyspnea, Cough Gastrointestinal: Reports: Abdominal pain. Denies: Nausea, Vomiting, Diarrhea Musculoskeletal: Denies: Extremity Pain Skin: Denies: Rash Neurological: Reports: Weakness - Generalized weakness Hematologic: Denies: Easy bruising, Easy bleeding Allergy: Denies: Uticaria Physical Exam Vital Signs/Narrative: Vital Signs Temp Pulse Resp BP Pulse Ox 08/18/20 14:00 100 18 101/79 98 08/18/20 13:00 89 18 102/64 100 08/18/20 12:18 99 15 97/65 99 08/18/20 11:19 97.4 F L 96 16 92/55 L 96 Inital Vital Signs reviewed: Yes General: Well nourished, Well developed Head: Normocephalic Neck: Supple Cardiovascular: Regular rate, Regular rhythm Respiratory: No distress, CTA bilaterally Abdomen: Soft, Tender - Out epigastric tenderness.. Negative for: Guarding, Rebound tenderness Extremities: Nontender Skin: Normal color Neurological: Alert, Oriented x3, - - No focal neurologic deficits. Psychological: Normal affect Diagnostic/Tx/Re-eval Laboratory Results 08/18/20 08/18/20 08/18/20 12:35 12:35 13:10 WBC 1.2 L* RBC 2.16 L Hgb 7.6 L Hct 22.7 L MCV 105.1 H MCH 35.2 H MCHC 33.5 RDW Std Deviation 69.9 H RDW Coeff of Cassie 18.7 H Plt Count 16 L* MPV 12.6 H Immature Gran % (Auto) 0.000 Neut % (Auto) 76.7 H Lymph % (Auto) 16.4 L [place] % (Auto) 6.9 Eos % (Auto) 0.0 Baso % (Auto) 0.0 Absolute Neuts (auto) 0.9 L Absolute Lymphs (auto) 0.19 L Nucleated RBC % 0 Differential Comment COMMENT Diff Path Review May foll Platelet Estimate MKD DEC RBC Morphology N CHROM Anisocytosis 1+ Sodium 140 Potassium 3.5 Chloride 108 H Carbon Dioxide 28.0 Anion Gap 4 L BUN 16 Creatinine 0.78 Estim Creat Clear Calc 54.43 Est GFR (MDRD) Af Amer 128 Est GFR (MDRD) Non-Af 106 BUN/Creatinine Ratio 20.6 H Glucose 108 H Calcium 8.6 Total Bilirubin 0.60 Direct Bilirubin 0.20 AST 8 L ALT 15 L Alkaline Phosphatase 92 Total Protein 5.3 L Albumin 3.1 L Globulin 2.2 Urine Color Yellow Urine Clarity Sl. Cloudy Urine pH 6.[address] 1.015 Urine Protein Negative Urine Glucose (UA) Normal Urine Ketones Negative Urine Occult Blood Negative Urine Nitrite Negative Urine Bilirubin Negative Urine Urobilinogen 1 H Ur Leukocyte Esterase 25 H Urine RBC 0 SEEN Urine WBC 0-5 SEEN Ur Squamous Epith Cells 0 SEEN Urine Bacteria 0 SEEN Urine Mucus 0 SEEN - Medical Decision Making Patient was given a liter IV fluids. Blood pressure is improved on repeat evaluation. Patient states overall he does feel better. Hemoglobin is down to 7.6. Platelet count is down to 16,000. I spoke with patient's oncologist, Dr. George. He requested the patient get 2 units of RBCs and 1 unit of platelets. As we will need to get platelets from [place] I did recommend observation overnight for transfusion. I also believe patient will need evaluation with physical therapy tomorrow to ensure he is stable on his feet and getting around. I will speak with the hospitalist. ED Disposition - Plan for ED Patient: Disposition: Acute Care Hospital [facility] Diagnosis: Anemia, Thrombocytopenia Referrals: Winter Lamas MD [Primary Care Provider] -
--- NOTE | 2020-08-18 14:56 | PCM.HP.STD ---
Problem List (1) Pancytopenia Status: Acute (2) Subdural hematoma Status: Resolved (3) Hyperlipidemia Status: Chronic Qualifiers: Hyperlipidemia type: pure hypercholesterolemia Qualified Code(s): E78.00 - Pure hypercholesterolemia, unspecified; E78.0 - Pure hypercholesterolemia (4) History of coronary artery stent placement Status: Resolved Comment: [id number]-SEC-Isbe RCA 4.0 x 26 mm Integrity Stent 07/27/17; ROMULO to proximal diagonal and mid LAD 08/15/17; (5) Atherosclerosis of coronary artery bypass graft without angina pectoris Status: Chronic Qualifiers: [place] vs. transplanted heart: marshall heart Qualified Code(s): I25.810 - Atherosclerosis of coronary artery bypass graft(s) without angina pectoris Comment: [id number] RCA 4.0 x 26 mm Integrity Stent 07/27/17; ROMULO to prox Diag and Mid LAD 08/15/2017 (6) GERD (gastroesophageal reflux disease) Status: Chronic Qualifiers: Esophagitis presence: esophagitis presence not specified Qualified Code(s): K21.9 - Gastro-esophageal reflux disease without esophagitis (7) Severe protein-calorie malnutrition Status: Chronic (8) Atrial fibrillation Status: Chronic Qualifiers: Atrial fibrillation type: unspecified Qualified Code(s): I48.91 - Unspecified atrial fibrillation Comment: DCCV on 01/20/2018 with amiodarone assistance; History of Present Illness Date of Admission: 08/18/20 Chief Complaint: Lightheadedness, dizziness, recent chemotherapy. The patient is a 70 y/o M w/ PMHx: Valvular Heart Disease, GERD, Chronic AF s/p cardioversion 01/20/18 off anticoagulation secondary to chemotherapeutics, HTN, HLD, CAD s/p inferior STEMI s/p thrombectomy, balloon angioplasty w/ BMS proximal RCA and PTCA/ROMULO prox diagonal 1 and mid LAD, Hx mechanical fall w/ right parietal subdural hematoma, following w/ Oncology for non-Hodgkin's lymphoma on [place], Chronic neuropathy associated w/ chemotherapy, Severe protein-calorie malnutrition, Hx Bladder CA, Hx Mantle cell lymphoma who presents to the [facility] ED on 08/18/20 with history of near syncopal event prior to admission with ongoing dizziness, nausea without emesis with worsening anemia with last chemotherapy on 08/05/2020, progressively worsening prompting referral to the ED for evaluation. Patient denies any recent fever, chills, cough or dyspnea associated with any of his current symptoms. Work-up in the ED included T 97.4, heart rate 99, BP 92/55, respiratory rate 16, 96% on room air, CBC with WBC 1.2, hemoglobin 7.6, platelet 16 with significant neutropenia and lymphopenia, CMP with chloride 108, BUN/creatinine 16/0.78, glucose 108, not marked perihepatic profile, urinalysis not marked appearing. In the ED patient ministered normal saline. Dr. George discussed case with Dr. Caban and agreed to PRBC administration as well as platelet administration. Past Medical History Past Medical History (Chronic Problems): Chronic Problems (Last Updated 01/16/20 @ 16:33 by Shanna Garcia) Hypothyroidism (acquired) (Chronic) On amiodarone therapy (Chronic) History of cardioversion (Chronic 01/20/18) Hyperlipidemia (Chronic) Non-rheumatic tricuspid valve insufficiency (Chronic) Nonrheumatic mitral valve insufficiency (Chronic) [facility] current use of 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) Atherosclerosis of coronary artery bypass graft without angina pectoris (Chronic) [id number] RCA 4.0 x 26 mm Integrity Stent 07/27/17; ROMULO to prox Diag and Mid LAD 08/15/2017 GERD (gastroesophageal reflux disease) (Chronic) Severe protein-calorie malnutrition (Chronic) Inferior NV (Chronic) Atrial fibrillation (Chronic) DCCV on 01/20/2018 with amiodarone assistance; Altered vision right eye (Chronic) History of bladder cancer (Chronic) 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) Medical History: Medical History (Last Updated 01/16/20 @ 16:33 by Shanna Garcia) Hypothyroidism (acquired) (Chronic) E03.9 On amiodarone therapy (Chronic) Z79.899 Subdural hematoma (Resolved) S06.5X9A Hyperlipidemia (Chronic) E78.5 Non-rheumatic tricuspid valve insufficiency (Chronic) I36.1 Nonrheumatic mitral valve insufficiency (Chronic) 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 of 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) Z79.01 port placement (Resolved) 06/13/16 bone marrow (Resolved) 05/22/16 Atherosclerosis of coronary artery bypass graft without angina pectoris (Chronic) I25.810 QBR-CAG-Vfcr RCA 4.0 x 26 mm Integrity Stent 07/27/17; ROMULO to prox Diag and Mid LAD 08/15/2017 ST elevation (STEMI) myocardial infarction (Resolved) I21.3 GERD (gastroesophageal reflux disease) (Chronic) K21.9 Severe protein-calorie malnutrition (Chronic) E43 Inferior NV (Chronic) I21.19 Cardiogenic shock (Acute) R57.0 Atrial fibrillation (Chronic) I48.91 DCCV on 01/20/2018 with amiodarone assistance; Altered vision right eye (Chronic) History of bladder cancer (Chronic) Z85.51 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) C83.10 h/o bladder cancer (Acute) Allergies ampicillin Allergy (Verified 08/18/20 11:22) Rash phenazopyridine [Phenazopyridine] Allergy (Verified 08/18/20 11:22) Rash cephalexin [Cephalexin] Adverse Reaction (Verified 08/18/20 11:22) Upset Stomach trazodone Adverse Reaction (Verified 08/18/20 11:22) Nausea Home Medications: Ambulatory Orders Medication Instructions Recorded potassium chloride 20 mEq 20 meq PO BID 12/26/18 tablet,extended release atorvastatin 80 mg tablet 80 mg PO QHS #90 tab 01/08/20 gabapentin 300 mg capsule 300 mg PO DAILY 01/08/20 pantoprazole 20 mg tablet,delayed 20 mg PO DAILY 01/08/20 release acalabrutinib 100 mg capsule 100 mg PO Q12H cap 06/23/20 doxazosin 2 mg tablet 1 mg PO DAILY tab 06/23/20 Surgical History: Surgical History (Last Reviewed 01/08/20 @ 12:30 by Shanna Garcia) History of cardioversion (Chronic) Onset Date: 01/20/18 Z98.890 H/O endoscopy (Resolved) Z98.890 with bx gastric body 11/24/16 H/O splenectomy (Resolved) Z90.81 1957 Hx of tonsillectomy (Resolved) Z90.89 1959 H/O hernia repair (Resolved) Z98.890, Z87.19 05/14/1958, right 03/04/10 History of prostate surgery (Resolved) Z98.890 History of bladder surgery (Resolved) Z98.890 bladder cancer 10/2007 Hx of colonoscopy (Resolved) Z98.890 History of coronary artery stent placement (Resolved) Onset Date: 07/27/17 Z95.5 YGL-TCW-Wfix RCA 4.0 x 26 mm Integrity Stent 07/27/17; ROMULO to proximal diagonal and mid LAD 08/15/17; Surgical History: - - Right inguinal hernia repair, Tendon repair, Port placement, Splenectomy, Bone marrow bx, EGD, EBUS, T+A, teeth resection, PCI x3. Psychiatric History: No pertinent psych hx Lives: Spouse/ Significant Other Smoking Status: Never smoker Tobacco Use: Non-smoker Alcohol: None Drugs: None - *Family History Paternal Family History: Family History (Last Reviewed 01/08/20 @ 12:30 by Shanna Garcia) Mother Breast cancer Lung disease Father CVA (cerebral vascular accident) Heart disease Afib CHF (congestive heart failure) Myocardial infarction Hx of CABG History Items: High Cholesterol, Heart Disease, Hypertension, Stroke, - - Father with heart disease, CAD status post CABG, afib, CHF unclear type. Maternal Family History: Family History (Last Reviewed 01/08/20 @ 12:30 by Shanna Garcia) Mother Breast cancer Lung disease Father CVA (cerebral vascular accident) Heart disease Afib CHF (congestive heart failure) Myocardial infarction Hx of CABG History Items: Cancer - Mother with a history of breast cancer., Diabetes, Heart Disease, Pulmonary Disease Review of Systems Constitutional: Reports: Anorexia, Malaise, Weakness, Fatigue. Denies: Chills, Fever, Weight Change HEENT: Denies: Head Aches, Sinus Congestion, Sinus Drainage Cardiovascular: Reports: Light Headedness. Denies: Chest Pain, Chest Pressure, Chest Tightness, Palpitations Respiratory: Denies: Cough, Shortness of Breath, Shortness of breath at rest, Shortness of breath upon exertion, Sputum production Gastrointestinal: Reports: Nausea. Denies: Abdominal Pain, Constipation, Diarrhea, Vomiting Genitourinary: Denies: Dysuria Musculoskeletal: Reports: Back Pain, Joint Pain. Denies: Joint Tenderness Skin: Denies: Rash, Wounds Neurological: Denies: Numbness, Tingling, Focal weakness Psychiatric: Denies: Anxiety, Depression, Homicidal Ideations, Suicidal Ideations Hematologic/ Lymphatic: Reports: Anemia, Easy Bruising, Easy Bleeding VTE Information - Inpt Only VTE Present on Admission: No VTE Mechan Device Prophylaxis: SCD's VTE Pharm Prophylaxis ordered?: No Reason prophylaxis not ordered:: Medical Contraindication - Hold any chemoprophylaxis given acute on chronic pancytopenia as noted. Patient Problems: Active and Suspected Problems (Last Updated 01/16/20 @ 16:33 by Shanna Garcia) Anemia (Acute) Thrombocytopenia (Acute) Subjective: Patient laying in the ED bed, fatigued appearing otherwise no acute distress. Objective: Physical Examination: General: awake, alert, oriented x 3 and cooperative, laying in the ED, no acute distress, fatigued appearance. Skin: Pale color, normal turgor, no icterus, no cyanosis. HEENT: AT/NC, EOMI, PERRLA, mildly dry MM, no carotid bruits or JVD noted. Lungs: Diffusely diminished, greater bases, mild crackles bases, no obvious evidence of any distress, no rales, ronchi or wheezing. Heart: Irregular irregular; no gallop, rub audible,+ SM. Abdomen: soft, NTTP, ND, normal BS, no HSM. Extremities: no cyanosis, clubbing, or edema. Neurological: patient awake, alert, oriented as noted; cognitive function intact; pupils equally reactive to light and accomodation; cranial nerves II-XII grossly normal, moving all 4 extremities, no focal deficits, strength moderately to severely global decrease secondary to acute presentation and underlying comorbidities. Psychiatric: affect appears fatigued, mildly flat, no acute evidence of depressive or anxiety feelings. - Physical Exam Vitals/I&O's: Vital Signs Temp Pulse Resp BP Pulse Ox 97.4 F L 100 18 101/79 98 08/18/20 11:19 08/18/20 14:00 08/18/20 14:00 08/18/20 14:00 08/18/20 14:00 Oxygen Delivery Method Room Air Weight: 120 lb Body Mass Index (BMI) 18.2 Intake and Output for Last 24 Hours 08/16/20 08/17/20 08/18/20 23:59 23:59 23:59 Intake Total 1000 / 1000 Balance 1000 / 1000 Laboratory Results 08/18/20 12:35: WBC 1.2 L*, RBC 2.16 L, Hgb 7.6 L, Hct 22.7 L, MCV 105.1 H, MCH 35.2 H, MCHC 33.5, RDW Std Deviation 69.9 H, RDW Coeff of Cassie 18.7 H, Plt Count 16 L*, MPV 12.6 H, Immature Gran % (Auto) 0.000, Neut % (Auto) 76.7 H, Lymph % (Auto) 16.4 L, [place] % (Auto) 6.9, Eos % (Auto) 0.0, Baso % (Auto) 0.0, Absolute Neuts (auto) 0.9 L, Absolute Lymphs (auto) 0.19 L, Nucleated RBC % 0, Differential Comment COMMENT, Diff Path Review May foll, Platelet Estimate MKD DEC, RBC Morphology N CHROM, Anisocytosis 1+ 08/18/20 12:35: Sodium 140, Potassium 3.5, Chloride 108 H, Carbon Dioxide 28.0, Anion Gap 4 L, BUN 16, Creatinine 0.78, Estim Creat Clear Calc 54.43, Est GFR (MDRD) Af Amer 128, Est GFR (MDRD) Non-Af 106, BUN/Creatinine Ratio 20.6 H, Glucose 108 H, Calcium 8.6, Total Bilirubin 0.60, Direct Bilirubin 0.20, AST 8 L, ALT 15 L, Alkaline Phosphatase 92, Total Protein 5.3 L, Albumin 3.1 L, Globulin 2.2 08/18/20 13:10: Urine Color Yellow, Urine Clarity Sl. Cloudy, Urine pH 6.0, Ur Specific [place] 1.015, Urine Protein Negative, Urine Glucose (UA) Normal, Urine Ketones Negative, Urine Occult Blood Negative, Urine Nitrite Negative, Urine Bilirubin Negative, Urine Urobilinogen 1 H, Ur Leukocyte Esterase 25 H, Urine RBC 0 SEEN, Urine WBC 0-5 SEEN, Ur Squamous Epith Cells 0 SEEN, Urine Bacteria 0 SEEN, Urine Mucus 0 SEEN 08/18/20 14:46: Blood Type Pending, Antibody Screen Pending, Crossmatch See Detail Assessment/Plan All Active Problems (Last Updated 01/16/20 @ 16:33 by Shanna Garcia) Anemia (Acute) Thrombocytopenia (Acute) Pancytopenia (Acute) Subdural hematoma (Resolved) H/O endoscopy (Resolved) port placement (Resolved) bone marrow (Resolved) H/O splenectomy (Resolved) Hx of tonsillectomy (Resolved) H/O hernia repair (Resolved) History of prostate surgery (Resolved) History of bladder surgery (Resolved) Hx of colonoscopy (Resolved) History of coronary artery stent placement (Resolved 07/27/17) ST elevation (STEMI) myocardial infarction (Resolved) Cardiogenic shock (Acute) h/o bladder cancer (Acute) The patient is a 70 y/o M w/ PMHx: Valvular Heart Disease, GERD, Chronic AF s/p cardioversion 01/20/18 off anticoagulation secondary to chemotherapeutics, HTN, HLD, CAD s/p inferior STEMI s/p PCI x 3, following w/ Oncology for non-Hodgkin's lymphoma on [facility], Chronic neuropathy associated w/ chemotherapy, Severe protein-calorie malnutrition who presents to the [facility] ED on 08/18/20 with history of near syncopal event prior to admission with ongoing dizziness, nausea without emesis with worsening anemia with last chemotherapy on 08/05/2020. 1. Acute on Chronic Pancytopenia w/ ANC <1: Admission CBC with WBC 1.2, hemoglobin 7.6, platelet 16 with significant neutropenia and lymphopenia, most recent hemoglobin noted prior 14 on 03/15/20 likely has trended down with labs not currently available from [facility], will admit to medical surgical floor, maintain on neutropenic precautions, will continue with planned transfusion PRBC initiated per ED as well as Plts with repeat CBC following, consult oncology, mag and Phos levels requested with repletion as needed, PT and OT assessment as well as case management for discharge planning given lightheadedness and dizziness. 2. Non-Hodgkin's Lymphoma: Patient following w/ Oncology for non-Hodgkin's lymphoma, [facility] per discussion with oncology, most recent chemotherapy 08/05/20, resulting pancytopenia as noted, obtain mag and phos levels, replete if necessary, given ANC < 1 maintain on neutropenic precautions, continue treatment as noted above. Dr. George following and will be evaluating patient in AM. 3. CAD, Hx Inferior STEMI: s/p thrombectomy, balloon angioplasty w/ BMS proximal RCA and PTCA/ROMULO prox diagonal 1 and mid LAD, not on antiplatelet therapy secondary to ongoing chemotherapy with pancytopenia, continue statin therapy, not on beta-cristhian or TREVOR inhibitor/ARB secondary to low BP. 4. Chronic atrial fibrillation: EKG upon presentation with atrial fibrillation, rate controlled at that time. Patient status post prior cardioversion 01/20/2018, off anticoagulation secondary to chemotherapy, not on rate or rhythm agent, previously on amiodarone however discontinued secondary to thyroid dysfunction associated. 5. Valvular Heart Disease: 06/30/20 ECHO w/ LV systolic function normal, EF 65%, severely enlarged LA, mildly enlarged RA, mild diffuse MV thickening, moderately severe MVI, mild TBI, trivial AI, RVSP 24 mmHg. 6. Hypertension: Patient not on regimen, BP low normal, continue to monitor PRN hydralazine. 7. Hyperlipidemia: Continue home statin regimen. 8. Chronic neuropathy: Associate with prior chemotherapy, will continue patient home gabapentin regimen. 9. BPH: We will continue patient home doxazosin regimen. 10. GERD: We will continue patient home PPI. 11. DVT prophylaxis: SCDs, defer any chemoprophylaxis given acute presentation. 12. CODE status: Patient NIRU is his who is present and living will is currently in place. Discussed CODE status at length including difference between FULL code, DNR-CCA and DNR-CC status. Following discussions about the differences in these status, requested DNR-CCA, no intubation status. Advanced Care Planning Face to Face Time: 16 minutes. Inpatient E&M: 82846 Init Hosp L3 Procedures: 53849 Advncd Care Plan 30 Min
--- NOTE | 2020-08-18 15:09 | NURSING ---
med surg white anemia, thrombocytopenia
[2020-08-18] MEDS: Ondansetron 4 MG/2 ML Vial IV (15:15)
[2020-08-18 16:33] LABS: Phosphorus 2.8 mg/dL (2.5-4.9)
[2020-08-18] MEDS: 0.9% Normal Saline 1,000 ML 100 ML IV (17:02)
[2020-08-18] MEDS: Potassium Chloride Oral Tablet 20 MEQ PO (17:03)
[2020-08-18] MEDS: 0.9% Saline Lock 10 ML Syringe IV (17:04)
[2020-08-18] MEDS: Allopurinol 300 MG Tablet PO (21:11)
[2020-08-18] MEDS: Sucralfate 1 GM Tablet PO (21:12)
[2020-08-18] MEDS: levoFLOXacin 500 MG Tablet PO (21:12)
[2020-08-18] MEDS: Atorvastatin Calcium 80 MG Tablet PO (21:12)
[2020-08-18] MEDS: Amiodarone 200 MG Tablet PO (21:12)
[2020-08-19] VITALS (7 sets, daily range): BP systolic 97–119; BP diastolic 61–78; PULSE 77–91; RESP 16; TEMP 36.5–37.3; O2SAT 95–100; BMI 18.0
[2020-08-19] MEDS: Mag Hydrox/Al Hydrox/Simeth 30 ML UDC PO (01:13)
[2020-08-19 03:05] LABS: Absolute Lymphocyte Count 0.23 X10^3/uL (0.83-4.51); Absolute Neutrophil Count 0.8 X10^3/uL (2.0-7.7); Hematocrit 27.3 % (40-54); Lymphocyte # 0.23 X10^3/ul (4.0); Lymphocyte % 20.9 % (19-41); Mean Corpuscular Hgb 32.5 pg (27.0-32.0); Mean Corpuscular Volume 98.6 fL (80-94); Mean Platelet Vol. 9.8 fl (6.2-12.0); Monocyte# 0.09 X10^3/uL; Monocyte% 8.2 % (0-10); NRBC Flagged by Analyzer 0 % (0-5); Neutrophil # 0.78 X10^3/uL (2.7-7.7); Neutrophil % 70.9 % (47-70); POSITIVE COUNT YES; POSITIVE DIFFERENTIAL YES; POSITIVE MORPHOLOGY YES; RBC Distribution Width CV 18.7 % (11.6-14.6); RBC Distribution Width SD 65.5 fl (35.1-43.9); Red Blood Count 2.77 M/mm3 (4.6-6.2)
[2020-08-19 03:30] LABS: Differential Indicated SCAN CRITERIA MET
[2020-08-19 03:31] LABS: Platelet Count 44 K/mm3 (150-450)
[2020-08-19 03:32] LABS: White Blood Count 1.1 K/mm3 (4.4-11.0)
[2020-08-19 04:20] LABS: ALB/GLOB Ratio 1.4 RATIO (0.9-2.4); AST(SGOT) 11 U/L (15-37); Alanine Aminotransfer ALT/SGPT 13 U/L (16-61); Albumin, Serum 2.9 g/dL (3.2-5.0); Alkaline Phosphatase 90 U/L (45-117); Anion Gap 4 (5-15); BUN 15 mg/dL (7-18); BUN/Creat Ratio 20.4 RATIO (10-20); Calcium,Total 8.3 mg/dL (8.5-10.1); Chloride 110 mmol/L (98-107); Creatinine, Serum 0.74 mg/dL (0.70-1.30); EST Glomerular Filtration Rate 112 mL/min (>60); Est Glom Filt Rate - Afr Amer 136 mL/min (>60); Estimated Creatinine Clearance 53.93 ml/min; Glucose 85 mg/dL (74-106); Potassium 3.8 mmol/L (3.5-5.1); Protein, Total 4.9 g/dL (6.4-8.2); Sodium Level 143 mmol/L (136-145)
[2020-08-19] MEDS: Sucralfate 1 GM Tablet PO ×4 (06:12→21:28)
[2020-08-19] MEDS: Potassium Chloride Oral Tablet 20 MEQ PO ×2 (07:38→17:24)
[2020-08-19] MEDS: Pantoprazole Sodium 40 MG Tablet PO (07:38)
[2020-08-19] MEDS: Ondansetron 4 MG/2 ML Vial IV (07:43)
[2020-08-19] MEDS: 0.9% Normal Saline 1,000 ML 100 ML IV ×2 (09:30→19:31)
[2020-08-19] MEDS: Doxazosin 1 MG Tablet PO (09:31)
[2020-08-19] MEDS: Gabapentin 300 MG Capsule PO (09:31)
--- NOTE | 2020-08-19 10:40 | CASEMGMT ---
Addendum entered by Neha White 08/19/20 13:24: DOROTEO KNUTSON in to pt room. Pt/ has reviewed HHC list and chose [facility] choice and [facility]. TC to [facility] Intake, Bri and left message with referral on . Original Note: DOROTEO KNUTSON Assessment: Face to Face with pt for initial transition planning/care coordination assessment. DOROTEO KNUTSON introduced self and role at [facility], pt voices understanding and consents to assessment. Pt is A/O x4 and answers all questions appropriately at this time. Pt at bedside. Pt sitting up in bed in no distress. Care providers, pharmacy, and demographics verified/updated. Admitting Dx: Anemia, Thrombocytopenia PCP: Cydney Specialists: Doris, onc; Ledy, cardio Preferred Pharmacy: [facility] Insurance: [employer] Prescription Benefit: yes LW/HPOA: Pt has LW and HPOA which is his , Nishi and they are on file at [facility]. LNOK: , Nishi; dtr, Jessica Living Arrangements: Pt lives with and dtr in a 2 story house with 3 steps in front entrance with rail and 4 steps in back entrance with rail. Pt reports being I with ADL's. Denies concerns at home. Transportation: Pt has not driven for 6 weeks. provides transportation. No concerns with transportation. DME/HHC/SNF: Pt has a grab bar and seat in the bathroom. No other DME. Denies need for further DME. Pt denies HH or SNF stays. Pt is open to having HHC for therapy if it is recommended. Patient was provided a list of HHC providers including quality and resource use data and consistent with the patient?s preferred geographic region, medical needs, and insurance network. Pt to review list. Pt states no concerns with going home at time of dc. Pt states no further concerns/needs. CM to follow therapy. Advised pt to ask CM if any further question/concerns/needs arise, voices understanding. Pt Goal: Home with HHC Plan: Home with HHC [facility] Palliative Screening Tool completed. Pt met criteria. denies need for Palliative Care.
--- NOTE | 2020-08-19 11:34 | NT.THERAPY_ITS ---
Nutrition Therapy Report - History Nutrition Services has been consulted to:: Manage nutrient details of diet order Current diet / nutrition support order:: Cardiac diet. 120ml ensure enlive 4 times per day w/ medpass - Anthropometric Measurements Height:: 5 ft 8 in Weight:: 53.9 kg Body Mass Index (BMI):: 18.0 - Relevant Labs Relevant Labs:: WBC 1.1 K/mm3 (4.4-11.0) L* 08/19/20 02:40 RBC 2.77 M/mm3 (4.6-6.2) L 08/19/20 02:40 Hgb 9.0 g/dL (13.0-16.5) L 08/19/20 02:40 Hct 27.3 % (40-54) L 08/19/20 02:40 MCV 98.6 fL (80-94) H D 08/19/20 02:40 MCH 32.5 pg (27.0-32.0) H 08/19/20 02:40 RDW Std Deviation 65.5 fl (35.1-43.9) H 08/19/20 02:40 RDW Coeff of Cassie 18.7 % (11.6-14.6) H 08/19/20 02:40 Plt Count 44 K/mm3 (150-450) L* 08/19/20 02:40 MPV 12.6 fl (6.2-12.0) H 08/18/20 12:35 Neut % (Auto) 70.9 % (47-70) H 08/19/20 02:40 Lymph % (Auto) 16.4 % (19-41) L 08/18/20 12:35 Absolute Neuts (auto) 0.8 X10^3/uL (2.0-7.7) L 08/19/20 02:40 Absolute Lymphs (auto) 0.23 X10^3/uL (0.83-4.51) L 08/19/20 02:40 Chloride 110 mmol/L (98-107) H 08/19/20 02:40 Anion Gap 4 (5-15) L 08/19/20 02:40 BUN/Creatinine Ratio 20.4 RATIO (10-20) H 08/19/20 02:40 Glucose 108 mg/dL (74-106) H 08/18/20 12:35 Calcium 8.3 mg/dL (8.5-10.1) L 08/19/20 02:40 Total Bilirubin 1.20 mg/dL (0.20-1.00) H 08/19/20 02:40 AST 11 U/L (15-37) L 08/19/20 02:40 ALT 13 U/L (16-61) L 08/19/20 02:40 Total Protein 4.9 g/dL (6.4-8.2) L 08/19/20 02:40 Albumin 2.9 g/dL (3.2-5.0) L 08/19/20 02:40 Globulin 2.0 g/dL (2.2-4.2) L 08/19/20 02:40 - Assessment Food / Nutrition-Related History:: Pt reports UBW closer to ~128-130 lbs about 5-6 months ago and admits to approx 10 lb wt loss in that time; calculated~8% d own in addition to 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 +NFPA with obvious signs of muscle/fat wasting in the face clavicle, arms and upper body. Pt takes ensure PO at home and is agreeable to ONS w/ meals and medpass while here in the hospital. Pt reports improved appetite since admit did well with breakfast this morning and took~75% without issue; no trouble chewing/swallowing and agreeable to ensure enlive, magic cup and will try ensure clear as well for tolerance. - Nutrition Diagnosis Problem / Etiology / Signs & Symptoms (PES):: Severe pro/dandy malnutrition in the context of chronic disease related to increased energy expenditure due to cancer/chemo as evidenced by ~8% wt loss x past 5-6 months, meeting less than 50% estimated energy needs x past 2-4 weeks, +NFPA revealing muscle and fat wasting in the face, temporal area, clavicle, arms and upper body. Evidence of Malnutrition Exists:: Yes Severe PCM:: Chronic Illness - Nutrition Intervention Nutrition Prescription:: Estimated nutrition needs~9414-9149 kcal (35 kcal/Kg) and ~80-85 gm pro (1.5 gm pro/Kg) per day. Estimated fluid needs~4329-0237 ml/day (33 ml/Kg). - Food / Nutrient Delivery Interventions Summary of nutrition intervention:: Will liberalize diet to regular/no added salt to optimize intake at meals. Will continue 120 ml ensure enlive 4 times per day w/ medpass to provide additional 700 calories & 40 gm protein. Will add 240 ml ensure clear w/ breakfast to provde additional 240 calories & 8 gm protein . Will add orange magic cup BID w/ lunch and dinner to provide additional 580 calories and 18 gm protein. Nutrition education provided?: Yes - MNT Monitoring Further MNT monitoring and evaluation required?: Yes MNT Follow-up in:: 3-5 days
--- NOTE | 2020-08-19 13:58 | PN_ITS ---
Patient Problems: Active and Suspected Problems (Last Updated 01/16/20 @ 16:33 by Shanna Garcia) Anemia (Acute) Thrombocytopenia (Acute) Pancytopenia (Acute) Subjective: Patient seen and examined. He has no complaints this morning. Review of systems was otherwise negative. He was admitted with a complaint of lightheadedness, dizziness. He has a history of mantle cell lymphoma and recently had chemotherapy. He also had near syncope. His last chemotherapy session was on 08/05/2020. He was found to be anemic with hemoglobin of 7.6 and also had platelets of 16 with assisted neutropenia and lymphopenia with WBC of 1.2. He was transfused with 2 units of packed red blood cells as well as transfused with platelets. He feels much better today and was comfortably eating breakfast. Review of systems otherwise negative. He has remained hemodynamically stable. BBC is 1.1 and hemoglobin is 9. Platelets up to 44. Vitals/I&O's: Vital Signs Temp Pulse Resp BP Pulse Ox 98.4 F 91 16 119/78 98 08/19/20 07:53 08/19/20 07:53 08/19/20 07:53 08/19/20 07:53 08/19/20 07:53 Oxygen Delivery Method Room Air Weight: 118 lb 13.266 oz Body Mass Index (BMI) 18.0 Intake and Output for Last 24 Hours 08/17/20 08/18/20 08/19/20 23:59 23:59 23:59 Intake Total 1800 / 1800 1200 / 1200 Output Total 900 / 900 Balance 1800 / 900 300 / 300 General: Alert, Oriented x3, Cooperative, No apparent distress HEENT: Atraumatic, PERRLA, EOMI, Normocephalic Oral: Moist Mucosa Neck: Supple, No JVD, Negative Carotid Bruits Lungs: Clear to auscultation, Normal air movement, No rhonchi, No wheeze, No rales Cardiovascular: Regular rate, Regular Rhythm, Normal S1, Normal S2, No murmurs Abdomen: Bowel Sounds Present, Soft, Non Tender, Non-Distended, No Hepato- splenomegaly Extremities: No clubbing, No cyanosis, No edema, Capillary Refill Less than 3 Seconds Skin: No rashes, No breakdown Musculoskeletal: No Tenderness to Palpation of Joints or Extremities Lymphatic: No Cervical, Supraclavicular, or Inguinal Adenopathy Neurological: Cranial nerves II-XII grossly intact, Neuro grossly intact, Motor Exam 5/5 strength throughout Psych/Mental Status: Normal Affect, Appropriate, Alert and oriented to time, place, person, mood and affect Laboratory Results 08/18/20 12:35: Phosphorus 2.8, Magnesium 2.0 08/18/20 14:46: Blood Type O NEGATIVE, Antibody Screen NEGATIVE, Crossmatch See Detail 08/19/20 02:40: WBC 1.1 L*, RBC 2.77 L, Hgb 9.0 L, Hct 27.3 L, MCV 98.6 H D, MCH 32.5 H, MCHC 33.0, RDW Std Deviation 65.5 H, RDW Coeff of Cassie 18.7 H, Plt Count 44 L*, MPV 9.8, Immature Gran % (Auto) 0.000, Neut % (Auto) 70.9 H, Lymph % (Auto) 20.9, Hemphill % (Auto) 8.2, Eos % (Auto) 0.0, Baso % (Auto) 0.0, Absolute Neuts (auto) 0.8 L, Absolute Lymphs (auto) 0.23 L, Nucleated RBC % 0, Diff Path Review September08/19/20 02:40: Sodium 143, Potassium 3.8, Chloride 110 H, Carbon Dioxide 29.0, Anion Gap 4 L, BUN 15, Creatinine 0.74, Estim Creat Clear Calc 53.93, Est GFR (MDRD) Af Amer 136, Est GFR (MDRD) Non-Af 112, BUN/Creatinine Ratio 20.4 H, Glucose 85, Calcium 8.3 L, Total Bilirubin 1.20 H, AST 11 L, ALT 13 L, Alkaline Phosphatase 90, Total Protein 4.9 L, Albumin 2.9 L, Globulin 2.0 L, Albumin/Globulin Ratio 1.4 Current Medications Acetaminophen (Acetaminophen 325 Mg Tablet) 650 mg PO Q6H PRN PRN PRN Reason: Pain Score 1-10/Temp > 100.7 F Al Hydroxide/Mg Hydroxide (Mag Hydrox/Al Hydrox/Simeth 30 Ml Udc) 30 ml PO Q6H PRN PRN PRN Reason: Gastric Burning Last Admin: 08/19/20 01:13 Dose: 30 ml Documented by: Albuterol Sulfate (Albuterol 2.5 Mg/3 Ml Vial.Neb.) 2.5 mg INHALATION Q2H PRN PRN PRN Reason: Dyspnea, wheezing Allopurinol (Allopurinol 300 Mg Tablet) 300 mg PO QHS [facility] Last Admin: 08/18/20 21:11 Dose: 300 mg Documented by: Amiodarone HCl (Amiodarone 200 Mg Tablet) 200 mg PO QHS [facility] Last Admin: 08/18/20 21:12 Dose: 200 mg Documented by: Atorvastatin Calcium (Atorvastatin Calcium 80 Mg Tablet) 80 mg PO QHS [facility] Last Admin: 08/18/20 21:12 Dose: 80 mg Documented by: Doxazosin Mesylate (Doxazosin 1 Mg Tablet) 1 mg PO DAILY [facility] Last Admin: 08/19/20 09:31 Dose: 1 mg Documented by: Gabapentin (Gabapentin 300 Mg Capsule) 300 mg PO DAILY [facility] Last Admin: 08/19/20 09:31 Dose: 300 mg Documented by: Guaifenesin (Guaifenesin 10 Ml Udc (200mg/10ml)) 20 ml PO Q4H PRN PRN PRN Reason: COUGH Heparin Sodium (Beef Lung) (Heparin Pf Lock 10 Units/Ml 50 Units/5 Ml Syringe) 50 units IV UD PRN PRN Reason: Port-a-Cath (VAD)Heparin Flush Hydralazine HCl (Hydralazine 20 Mg/Ml Vial) 10 mg IV Q4H PRN PRN PRN Reason: SBP > 160 Sodium Chloride () 1,000 mls @ 100 mls/hr IV .Q10H [facility] Last Admin: 08/19/20 09:30 Dose: 100 mls/hr Documented by: Magnesium Hydroxide (Magnesium Hydroxide 30 Ml Udc) 30 ml PO DAILY PRN PRN PRN Reason: Constipation Melatonin (Melatonin 3 Mg Tablet) 3 mg PO QHS PRN PRN PRN Reason: INSOMNIA Nutritional Formula (Lactose Free) (Ensure Enlive 120 Ml Liquid) 120 ml PO 4X/DAY [facility] Last Admin: 08/19/20 09:33 Dose: 120 ml Documented by: Ondansetron HCl (Ondansetron 4 Mg/2 Ml Vial) 4 mg IV Q8H PRN PRN PRN Reason: NAUSEA/VOMITING Last Admin: 08/19/20 07:43 Dose: 4 mg Documented by: Oxycodone HCl (Oxycodone 5 Mg Tablet) 5 mg PO Q4H PRN PRN PRN Reason: Pain Score 4-10 Pantoprazole Sodium (Pantoprazole Sodium 40 Mg Tablet) 40 mg PO DAILY [facility] Last Admin: 08/19/20 07:38 Dose: 40 mg Documented by: Potassium Chloride (Potassium Chloride Oral Tablet 20 Meq) 20 meq PO BIDCM [facility] Last Admin: 08/19/20 07:38 Dose: 20 meq Documented by: Prochlorperazine Edisylate (Prochlorperazine 10 Mg/2 Ml Vial) 5 mg IV Q4H PRN PRN PRN Reason: Breakthrough nausea/vomiting Psyllium Hydrophilic Mucilloid (Psyllium 1 Packet) 1 packet PO DAILY PRN PRN PRN Reason: Constipation Senna/Docusate Sodium (Senna/Docusate Sodium 1 Tablet) 2 tablet PO BID PRN PRN PRN Reason: Constipation Sodium Chloride (0.9% Saline Lock 10 Ml Syringe) 10 - 40 ml IV UD PRN PRN Reason: Port-a-Cath (VAD) Flush Last Admin: 08/18/20 17:04 Dose: 10 ml Documented by: Sodium Chloride (0.9 % Nacl (Sterile) Posiflush 10 Ml) 10 - 40 ml IV UD PRN PRN Reason: Port access or dressing change Sucralfate (Sucralfate 1 Gm Tablet) 1 gm PO 1HR_ACHS [facility] Last Admin: 08/19/20 11:27 Dose: 1 gm Documented by: Throat Lozenges (Benzocaine/Menthol 1 Lozenge) 1 lozenge MUCOUS MEM Q2H PRN PRN PRN Reason: SORE THROAT Medical Necessity - Tobacco Use Smoking Status: Never smoker Tobacco Use: Non-smoker Assessment/Plan All Active Problems (Last Updated 01/16/20 @ 16:33 by Shanna Garcia) Anemia (Acute) Thrombocytopenia (Acute) Pancytopenia (Acute) Subdural hematoma (Resolved) H/O endoscopy (Resolved) port placement (Resolved) bone marrow (Resolved) H/O splenectomy (Resolved) Hx of tonsillectomy (Resolved) H/O hernia repair (Resolved) History of prostate surgery (Resolved) History of bladder surgery (Resolved) Hx of colonoscopy (Resolved) History of coronary artery stent placement (Resolved 07/27/17) ST elevation (STEMI) myocardial infarction (Resolved) Cardiogenic shock (Acute) h/o bladder cancer (Acute) #Acute on chronic pancytopenia, due to chemotherapy and cancer * s/p transfusion with PRBC and platelets. * platelets now up to 44, and Hb is 9. Wbc still 1.1 * may benefit from granix; will await oncology rec's * oncology on board * neutropenic precautions * #Mantle cell lymphoma * follows with oncology * on Calquence, which was held on admission * neutropenic precautions. * oncology on board; await recommendations * #CAD s/p stents and balloon angioplasty * antiplatelets on hold o/a of pancytopenia * on statin * #Chronic afib: rate controlled. not on anticoagulation due to anemia and chemotherapy. On amiodarone. #Mitral valve insufficiency: * stable. 2D echo from June 2020 showed moderate to severe mitral valve insufficiency. * To follow up with cardiology on outpatient basis. #Hypertension: not on any oral meds. Will monitor #Hyperlipidemia: on statin. #Neuropathy: on gabapentin #BPH: on doxazosin #GERD: on PPI DVT prophylaxis: SCDs Inpatient E&M: 82717 [facility] H[facility] L[facility]
[2020-08-19 14:02] LABS: Pathologist Review Reviewed
[2020-08-19 14:03] LABS: Pathologist Review Reviewed
[2020-08-19] MEDS: Amiodarone 200 MG Tablet PO (21:28)
[2020-08-19] MEDS: Allopurinol 300 MG Tablet PO (21:28)
[2020-08-19] MEDS: Atorvastatin Calcium 80 MG Tablet PO (21:28)
[2020-08-20] VITALS (7 sets, daily range): BP systolic 101–118; BP diastolic 62–76; PULSE 75–87; RESP 16–18; TEMP 36.8–37.2; O2SAT 93–96
[2020-08-20] MEDS: 0.9% Normal Saline 1,000 ML 100 ML IV (05:09)
[2020-08-20] MEDS: Sucralfate 1 GM Tablet PO ×2 (06:00→10:34)
--- NOTE | 2020-08-20 08:39 | CASEMGMT ---
Addendum entered by Angela Tam 08/20/20 13:14: Discharge order is in. Call placed to Bri @ [facility] and she was made aware. Pt has been made aware [facility] able to accept. Original Note: DOROTEO KNUTSON NOTE: Call placed to Bri @ [facility]. They are able to accept pt. SOC will be either Tues or Wed. Elijah WATSON RN, CM
[2020-08-20] MEDS: Pantoprazole Sodium 40 MG Tablet PO (10:31)
[2020-08-20] MEDS: Doxazosin 1 MG Tablet PO (10:31)
[2020-08-20] MEDS: Potassium Chloride Oral Tablet 20 MEQ PO ×2 (10:31→17:07)
[2020-08-20] MEDS: Gabapentin 300 MG Capsule PO (10:31)
[2020-08-20 10:38] LABS: Absolute Lymphocyte Count 0.22 X10^3/uL (0.83-4.51); Absolute Neutrophil Count 0.7 X10^3/uL (2.0-7.7); Eosinophil# 0.01 X10^3/uL; Hemoglobin 9.2 g/dL (13.0-16.5); Lymphocyte # 0.22 X10^3/ul (4.0); Mean Corp Hgb Conc 32.9 g/dL (32-36); Mean Corpuscular Hgb 32.4 pg (27.0-32.0); Mean Corpuscular Volume 98.6 fL (80-94); Mean Platelet Vol. 11.3 fl (6.2-12.0); NRBC Flagged by Analyzer 0 % (0-5); Neutrophil # 0.66 X10^3/uL (2.7-7.7); POSITIVE COUNT YES; POSITIVE DIFFERENTIAL YES; POSITIVE MORPHOLOGY YES; RBC Distribution Width CV 18.5 % (11.6-14.6); RBC Distribution Width SD 64.7 fl (35.1-43.9); Red Blood Count 2.84 M/mm3 (4.6-6.2)
[2020-08-20 10:48] LABS: Differential Indicated SCAN CRITERIA MET; Platelet Count 20 K/mm3 (150-450)
--- NOTE | 2020-08-20 10:57 | NURSING ---
This nurse is aware of WBC of 1.0 and Platelets of 20 today and that Rosalie SADLER informed this nurse that she will cortext Dr. Narvaez of this.
[2020-08-20 11:01] LABS: Anisocytosis RARE; Differential Comment SCANNED; Platelet Estimate MKD DEC (ADEQ)
[2020-08-20 11:02] LABS: Hypochromasia 1+
[2020-08-20 11:27] LABS: Anion Gap 4 (5-15); BUN 16 mg/dL (7-18); BUN/Creat Ratio 23.3 RATIO (10-20); Calcium,Total 8.2 mg/dL (8.5-10.1); Chloride 109 mmol/L (98-107); Creatinine, Serum 0.69 mg/dL (0.70-1.30); EST Glomerular Filtration Rate 122 mL/min (>60); Est Glom Filt Rate - Afr Amer 147 mL/min (>60); Glucose 88 mg/dL (74-106); Potassium 3.3 mmol/L (3.5-5.1); Sodium Level 141 mmol/L (136-145)
--- NOTE | 2020-08-20 11:57 | DCINST_ITS ---
- Discharge Diagnoses Current Active Problems: Current Active and Chronic Problems (Last Updated 01/16/20 @ 16:33 by Shanna Garcia) Anemia (Acute) Thrombocytopenia (Acute) Pancytopenia (Acute) Hypothyroidism (acquired) (Chronic) Hyperlipidemia (Chronic) Atherosclerosis of coronary artery bypass graft without angina pectoris (Chronic) [id number] RCA 4.0 x 26 mm Integrity Stent 07/27/17; ROMULO to prox Diag and Mid LAD 08/15/2017 GERD (gastroesophageal reflux disease) (Chronic) Severe protein-calorie malnutrition (Chronic) Inferior [place] (Chronic) Atrial fibrillation (Chronic) DCCV on 01/20/2018 with amiodarone assistance; Mantle cell lymphoma (Chronic) You will use the following diet at home:: Cardiac Your food should be the consistency of: Regular Your liquids should be the consistency of: Regular/Thin Discharge Activity: Return to Normal Activity Weight Bearing Status: Weight bearing as tolerated Call your doctor if you observe: Fever of 101 or Higher, Shortness of breath, Dizziness, Fainting spells, Swelling in the ankles Instructions: ED Anemia, Type Not Specified (Adult), Thrombocytopenia Allergies/Adverse Reactions: Allergies ampicillin Allergy (Verified 08/18/20 11:22) Rash phenazopyridine [Phenazopyridine] Allergy (Verified 08/18/20 11:22) Rash cephalexin [Cephalexin] Adverse Reaction (Verified 08/18/20 11:22) Upset Stomach trazodone Adverse Reaction (Verified 08/18/20 11:22) Nausea Medications to take at Discharge atorvastatin 80 mg tablet 80 mg PO QHS #90 tab 01/08/20 gabapentin 300 mg capsule 300 mg PO QHS 01/08/20 doxazosin 2 mg tablet 1 mg PO DAILY tab 06/23/20 Allopurinol [Zyloprim] 300 mg PO QHS 08/18/20 Amiodarone HCl [Cordarone] 200 mg PO QHS 08/18/20 Levofloxacin [Levaquin] 500 mg PO QHS 08/18/20 Oxycodone [Oxyir] 5 - 10 mg PO Q6H PRN PRN 08/18/20 Pantoprazole Sodium [Protonix] 40 mg PO DAILY 08/18/20 Potassium Chloride [K-Tab ER] 8 meq PO BID 08/18/20 Promethazine HCl 25 mg PO Q6H PRN 08/18/20 Sucralfate 1 tablet PO ACHS 08/18/20 Primary Care Physician: Winter Lamas MD [Primary Care Provider] - Please follow up with your Primary Care Physician in: 1-2 weeks Test Results: Test results from this visit will be discussed in further detail at your follow- up appointment, if applicable. Please Follow Up With: Faustino George DO When: within one week Proposed Discharge Date: 08/20/20
--- NOTE | 2020-08-20 11:59 | PCM.DC.SUM ---
Discharge Date and Diagnosis - Problem List Patient Problems: Active and Suspected Problems (Last Updated 01/16/20 @ 16:33 by Shanna Garcia) Anemia (Acute) Thrombocytopenia (Acute) Pancytopenia (Acute) Date of Admission: 08/18/20 Date of Discharge: 08/20/20 - Primary Discharge Diagnosis Acute Problems: Active Problems (Last Updated 01/16/20 @ 16:33 by Shanna Garcia) Anemia (Acute) Thrombocytopenia (Acute) Pancytopenia (Acute) - Secondary Discharge Diagnosis Chronic Problems: Chronic Problems (Last Updated 01/16/20 @ 16:33 by Shanna Garcia) Hypothyroidism (acquired) (Chronic) On amiodarone therapy (Chronic) History of cardioversion (Chronic 01/20/18) Hyperlipidemia (Chronic) Non-rheumatic tricuspid valve insufficiency (Chronic) Nonrheumatic mitral valve insufficiency (Chronic) 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) Atherosclerosis of coronary artery bypass graft without angina pectoris (Chronic) [id number] RCA 4.0 x 26 mm Integrity Stent 07/27/17; ROMULO to prox Diag and Mid LAD 08/15/2017 GERD (gastroesophageal reflux disease) (Chronic) Severe protein-calorie malnutrition (Chronic) Inferior [place] (Chronic) Atrial fibrillation (Chronic) DCCV on 01/20/2018 with amiodarone assistance; Altered vision right eye (Chronic) History of bladder cancer (Chronic) 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) Hospital Course and Treatment Operations: None Procedures: None Summary of Care Provided: The patient is a 70 year old M with an extensive past medical history as outlined which includes mantle cell lymphoma undergoing chemotherapy. He was admitted through the ED on 08/18/2020 with a complaint of dizziness and lightheadedness as well as nausea without any vomiting. Patient has had chemotherapy on 08/05/2020. His symptoms occurred after that and had been progressively worsening so he decided to come into the ED. He had no associated fever or chills and denied any cough or shortness of breath. On admission, hemoglobin was 7.6 and platelets were 16 with significant neutropenia with leukopenia as well as lymphopenia. WBC was around 1.2. He was admitted and managed for acute on chronic anemia with thrombocytopenia and neutropenia. Per discussion with his oncologist at time of admission, he was transfused with 2 units of packed red blood cells and also transfused with apheresed leukoreduced platelets. Platelet counts trended upwards to 44. Globin also trended upwards. Patient remained stable. Per discussion with his oncologist, there was no need for Granix to be administered as oncology suspects that his white cell count would recover. On day of discharge, platelets had fallen to 20. Did discuss this with his oncologist Dr. Banegas on phone and recommendation was for patient to get a unit of platelets before discharge. He sees Dr. Mueller 3 times a week in the clinic and so plan is for him to follow-up with Dr. Banegas on Sunday, August 23, 2020. He is also to follow-up with his primary care doctor. Patient seen and examined prior to discharge. He has no complaints. Review of systems otherwise negative. Labs and vitals reviewed. Home medication reviewed and reconciled. O/E: Vital Signs Temp Pulse Resp BP Pulse Ox 99.0 F 80 18 111/76 94 08/20/20 10:29 08/20/20 10:29 08/20/20 10:29 08/20/20 10:08/20/20 10:29 General: Alert, Oriented x3, Cooperative, No apparent distress HEENT: Atraumatic, PERRLA, EOMI, Normocephalic Oral: Moist Mucosa Neck: Supple, No JVD, Negative Carotid Bruits Lungs: Clear to auscultation, Normal air movement, No rhonchi, No wheeze, No rales Cardiovascular: Regular rate, Regular Rhythm, Normal S1, Normal S2, No murmurs Abdomen: Bowel Sounds Present, Soft, Non Tender, Non-Distended, No Hepato-splenomegaly Extremities: No clubbing, No cyanosis, No edema, Capillary Refill Less than 3 Seconds Skin: No rashes, No breakdown Musculoskeletal: No Tenderness to Palpation of Joints or Extremities Lymphatic: No Cervical, Supraclavicular, or Inguinal Adenopathy Neurological: Cranial nerves II-XII grossly intact, Neuro grossly intact, Motor Exam 5/5 strength throughout Psych/Mental Status: Normal Affect, Appropriate, Alert and oriented to time, place, person, mood and affect Plan is for discharge home today. Patient Problems: Active and Suspected Problems (Last Updated 01/16/20 @ 16:33 by Shanna Garcia) Anemia (Acute) Thrombocytopenia (Acute) Pancytopenia (Acute) - Physical Exam Vitals/I&O's: Vital Signs Temp Pulse Resp BP Pulse Ox 99.0 F 80 18 111/76 94 08/20/20 10:29 08/20/20 10:29 08/20/20 10:29 08/20/20 10:29 08/20/20 10:29 Oxygen Delivery Method Room Air Weight: 126 lb 5.198 oz Body Mass Index (BMI) 18.0 Intake and Output for Last 24 Hours 08/18/20 08/19/20 08/20/20 23:59 23:59 23:59 Intake Total 1800 / 1800 2800 / 2800 963.33 / 963.33 Output Total 1200 / 1200 Balance 1800 / 900 1600 / 1600 963.33 / 963.33 Laboratory Results 08/18/20 12:35: Diff Path Review Reviewed 08/19/20 02:40: Diff Path Review Reviewed 08/20/20 10:23: WBC 1.0 L*, RBC 2.84 L, Hgb 9.2 L, Hct 28.0 L, MCV 98.6 H, MCH 32.4 H, MCHC 32.9, RDW Std Deviation 64.7 H, RDW Coeff of Cassie 18.5 H, Plt Count 20 L*, MPV 11.3, Immature Gran % (Auto) 1.000 H, Neut % (Auto) 66.0, Lymph % (Auto) 22.0, Sanders % (Auto) 10.0, Eos % (Auto) 1.0, Baso % (Auto) 0.0, Absolute Neuts (auto) 0.7 L, Absolute Lymphs (auto) 0.22 L, Nucleated RBC % 0, Differential Comment SCANNED, Diff Path Review May foll, Platelet Estimate MKD DEC, Hypochromasia 1+, Anisocytosis RARE 08/20/20 10:23: Sodium 141, Potassium 3.3 L, Chloride 109 H, Carbon Dioxide 28.0, Anion Gap 4 L, BUN 16, Creatinine 0.69 L, Estim Creat Clear Calc 57.30, Est GFR (MDRD) Af Amer 147, Est GFR (MDRD) Non-Af 122, BUN/Creatinine Ratio 23.3 H, Glucose 88, Calcium 8.2 L Current Medications Acetaminophen (Acetaminophen 325 Mg Tablet) 650 mg PO Q6H PRN PRN PRN Reason: Pain Score 1-10/Temp > 100.7 F Al Hydroxide/Mg Hydroxide (Mag Hydrox/Al Hydrox/Simeth 30 Ml Udc) 30 ml PO Q6H PRN PRN PRN Reason: Gastric Burning Last Admin: 08/19/20 01:13 Dose: 30 ml Documented by: Albuterol Sulfate (Albuterol 2.5 Mg/3 Ml Vial.Neb.) 2.5 mg INHALATION Q2H PRN PRN PRN Reason: Dyspnea, wheezing Allopurinol (Allopurinol 300 Mg Tablet) 300 mg PO QHS [facility] Last Admin: 08/19/20 21:28 Dose: 300 mg Documented by: Amiodarone HCl (Amiodarone 200 Mg Tablet) 200 mg PO QHS [facility] Last Admin: 08/19/20 21:28 Dose: 200 mg Documented by: Atorvastatin Calcium (Atorvastatin Calcium 80 Mg Tablet) 80 mg PO QHS [facility] Last Admin: 08/19/20 21:28 Dose: 80 mg Documented by: Doxazosin Mesylate (Doxazosin 1 Mg Tablet) 1 mg PO DAILY [facility] Last Admin: 08/20/20 10:31 Dose: 1 mg Documented by: Gabapentin (Gabapentin 300 Mg Capsule) 300 mg PO DAILY [facility] Last Admin: 08/20/20 10:31 Dose: 300 mg Documented by: Guaifenesin (Guaifenesin 10 Ml Udc (200mg/10ml)) 20 ml PO Q4H PRN PRN PRN Reason: COUGH Heparin Sodium (Beef Lung) (Heparin Pf Lock 10 Units/Ml 50 Units/5 Ml Syringe) 50 units IV UD PRN PRN Reason: Port-a-Cath (VAD)Heparin Flush Hydralazine HCl (Hydralazine 20 Mg/Ml Vial) 10 mg IV Q4H PRN PRN PRN Reason: SBP > 160 Sodium Chloride () 1,000 mls @ 100 mls/hr IV .Q10H [facility] Last Admin: 08/20/20 05:09 Dose: 100 mls/hr Documented by: Magnesium Hydroxide (Magnesium Hydroxide 30 Ml Udc) 30 ml PO DAILY PRN PRN PRN Reason: Constipation Melatonin (Melatonin 3 Mg Tablet) 3 mg PO QHS PRN PRN PRN Reason: INSOMNIA Nutritional Formula (Lactose Free) (Ensure Enlive 120 Ml Liquid) 120 ml PO 4X/DAY [facility] Last Admin: 08/20/20 10:32 Dose: Not Given Documented by: Ondansetron HCl (Ondansetron 4 Mg/2 Ml Vial) 4 mg IV Q8H PRN PRN PRN Reason: NAUSEA/VOMITING Last Admin: 08/19/20 07:43 Dose: 4 mg Documented by: Oxycodone HCl (Oxycodone 5 Mg Tablet) 5 mg PO Q4H PRN PRN PRN Reason: Pain Score 4-10 Pantoprazole Sodium (Pantoprazole Sodium 40 Mg Tablet) 40 mg PO DAILY [facility] Last Admin: 08/20/20 10:31 Dose: 40 mg Documented by: Potassium Chloride (Potassium Chloride Oral Tablet 20 Meq) 20 meq PO BIDCM [facility] Last Admin: 08/20/20 10:31 Dose: 20 meq Documented by: Prochlorperazine Edisylate (Prochlorperazine 10 Mg/2 Ml Vial) 5 mg IV Q4H PRN PRN PRN Reason: Breakthrough nausea/vomiting Psyllium Hydrophilic Mucilloid (Psyllium 1 Packet) 1 packet PO DAILY PRN PRN PRN Reason: Constipation Senna/Docusate Sodium (Senna/Docusate Sodium 1 Tablet) 2 tablet PO BID PRN PRN PRN Reason: Constipation Sodium Chloride (0.9% Saline Lock 10 Ml Syringe) 10 - 40 ml IV UD PRN PRN Reason: Port-a-Cath (VAD) Flush Last Admin: 08/18/20 17:04 Dose: 10 ml Documented by: Sodium Chloride (0.9 % Nacl (Sterile) Posiflush 10 Ml) 10 - 40 ml IV UD PRN PRN Reason: Port access or dressing change Sucralfate (Sucralfate 1 Gm Tablet) 1 gm PO 1HR_ACHS [facility] Last Admin: 08/20/20 10:34 Dose: 1 gm Documented by: Throat Lozenges (Benzocaine/Menthol 1 Lozenge) 1 lozenge MUCOUS MEM Q2H PRN PRN PRN Reason: SORE THROAT Discharge Diet: Low fat/ Low Cholesterol Discharge Activity: Return to Normal Activity Weight Bearing Status: Weight bearing as tolerated Call your doctor if you observe: Fever of 101 or Higher, Shortness of breath, Dizziness, Fainting spells, Swelling in the ankles Home Medications: Medications to take at Discharge atorvastatin 80 mg tablet 80 mg PO QHS #90 tab 08/27/20 gabapentin 300 mg capsule 300 mg PO QHS 01/08/20 doxazosin 2 mg tablet 1 mg PO DAILY tab 06/23/20 Allopurinol [Zyloprim] 300 mg PO QHS 08/18/20 Amiodarone HCl [Cordarone] 200 mg PO QHS 08/18/20 Levofloxacin [Levaquin] 500 mg PO QHS 08/18/20 Oxycodone [Oxyir] 5 - 10 mg PO Q6H PRN PRN 08/18/20 Pantoprazole Sodium [Protonix] 40 mg PO DAILY 08/18/20 Potassium Chloride [K-Tab ER] 8 meq PO BID 08/18/20 Promethazine HCl 25 mg PO Q6H PRN 08/18/20 Sucralfate 1 tablet PO ACHS 08/18/20 Primary Care Physician: Winter Lamas MD [Primary Care Provider] - Please follow up with your Primary Care Physician in: 1-2 weeks Please Follow Up With: Faustino George DO When: within one week Patient Instructions: Thrombocytopenia, ED Anemia, Type Not Specified (Adult) Disposition: Home Minutes spent on discharge:: 40 Patient Condition:: Stable Medical Necessity - Tobacco Use Smoking Status: Never smoker Tobacco Use: Non-smoker Meaningful Use Info Meaningful Use Diagnoses (Choose all that apply): None applicable Inpatient E&M: 92165 [facility] Hosp
[2020-08-20 14:16] LABS: Pathologist Review Reviewed
[2020-08-20] MEDS: 0.9% Saline Lock 10 ML Syringe IV (18:30)
--- NOTE | 2020-08-23 15:01 | CASEMGMT ---
RN ZENIA Discharge Follow Up Phone Call: AVERY: Ary Strata: 3 Call Date: 08.23.20 Discharge Date: 08.20.20 Time of Call:[id number] Duration: 2 min Admitting Dx: Anemia Thrombocytopenia Pancytopenia DOROTEO KNUTSON completed follow up phone call after recent hospitalization. Pt states he is not too bad since dc'ing from the hospital. Pt states he has not heard from yet. He is aware that they are set up and it may not be until tomorrow or Sunday before they come out. Pt has an appt with tomorrow and PCP appt not yet set up. Pt denies questions or concerns regarding medications or dc instructions.
== END 2020-08-20 18:40 | disposition home or self-care (01) | DRG 808 ==
LOC: ED 15:15 → MS3 15:22
PROVIDERS: Admitting Provider Family Medicine; Emergency Provider Emergency Medicine; PCP Internal Medicine; Visit Provider Student in an Organized Health Care Education/Training Program
DX: D61.810 Antineoplastic chemotherapy induced pancytopenia (principal); E43 Unspecified severe protein-calorie malnutrition; I48.20 Chronic atrial fibrillation, unspecified; C83.10 Mantle cell lymphoma, unspecified site; T45.1X5A Adverse effect of antineoplastic and immunosuppressive drugs, initial encounter; E03.9 Hypothyroidism, unspecified; G62.0 Drug-induced polyneuropathy; I08.1 Rheumatic disorders of both mitral and tricuspid valves; I25.10 Atherosclerotic heart disease of native coronary artery without angina pectoris; K21.9 Gastro-esophageal reflux disease without esophagitis; I25.2 Old myocardial infarction; E78.00 Pure hypercholesterolemia, unspecified; I10 Essential (primary) hypertension; N40.0 Benign prostatic hyperplasia without lower urinary tract symptoms; Z90.81 Acquired absence of spleen; Z95.5 Presence of coronary angioplasty implant and graft; Z79.01 Long term (current) use of anticoagulants; Z79.899 Other long term (current) drug therapy; Z85.51 Personal history of malignant neoplasm of bladder
CPT/HCPCS: 36591; 80048; 80053; 80076; 81001; 83735; 84100; 85025; 86644; 86850; 86900; 86901; 86920; 86922; 86965; 93005; 97110; 97116; 97162; 97166; 97530; 97802; 99251; 99283; J7030; J7040; P9016; P9035; A4216; G0463; J2405

== ENCOUNTER → 2020-08-24 10:33 | Outpatient (CLI) | payer MEDICARE, OTHER, SELFPAY ==
[2020-08-19 11:35] VITALS: BMI 18.0
[2020-08-24 10:50] VITALS: BP 92/54; PULSE 84; RESP 16; TEMP 36.9; O2SAT 97; BMI 19.2
[2020-08-24] MEDS: 0.9% NaCl Peripheral Flush Adult/Peds IV ×4 (10:54→12:16)
[2020-08-24 11:28] VITALS: BP 88/49; PULSE 86; RESP 16; TEMP 37.1; O2SAT 97
[2020-08-24 12:06] VITALS: BP 81/55; PULSE 81; TEMP 37.1
== END ==
PROVIDERS: PCP Internal Medicine; Referring Provider Internal Medicine Hematology & Oncology; Visit Provider Internal Medicine Hematology & Oncology
DX: D50.0 Iron deficiency anemia secondary to blood loss (chronic) (principal)
CPT/HCPCS: 36430; 86900; 86901; 86965; J7040; P9035; A4216